=== PATIENT | female | born 1935 | race African-American/Black ===

== ENCOUNTER → 2016-09-02 | Outpatient (CLI) | payer OTHER ==
[2015-05-30 12:08] VITALS: BP 139/62
--- NOTE | 2016-09-03 09:40 | MG ---
HISTORY: SCREENING Comparison: July 27, 2013 and February 12, 2015 FINDINGS: Bilateral CC and MLO projections of the right and left breast were obtained. Scattered fibroglandul ar tissue is seen to be present without significant interval change. No suspicious architectural di stortion, mass or clustered microcalcifications can be observed to suggest malignancy. No skin thic kening or nipple retraction is appreciated. No pathological lymphadenopathy can be identified. Sergey ign-appearing calcifications are noted within the right and left breast. IMPRESSION: NO RADIOGRAPHIC EVIDENCE OF MALIGNANCY. ACR CATEGORY 2 - benign findings. FOLLOW-UP EXAM 1 YEAR. Diagnostic CAD was utilized and reviewed. * 0 (ZERO) - ASSESSMENT INCOMPLETE; ADDITIONAL IMAGING IS NEEDED. * 1/1 (ONE) - NEGATIVE. * 2/II (TWO) - BENIGN FINDINGS. * 3/III (THREE) - PROBABLY BENIGN FINDING; SHORT INTERVAL FOLLOW-UP SUGGESTED. * 4/IV (FOUR) - SUSPICIOUS ABNORMALITY; BIOPSY SHOULD BE CONSIDERED. * 5/V (FIVE) - HIGHLY SUSPICIOUS OF MALIGNANCY; BIOPSY SHOULD BE PERFORMED. A NEGATIVE X-RAY REPORT SHOULD NOT DELAY BIOPSY IF A DOMINANT OR CLINICALLY SUSPICIOUS MASS IS PRESENT; 4 TO 8 PERCENT OF CANCERS ARE NOT IDENTIFIED BY X-RAY. A NEG ATIVE REPORT MAY REINFORCE THE CLINICAL IMPRESSION. ADENOSIS AND DENSE BREASTS MAY OBSCURE AN UNDER LYING NEOPLASM. Reported By:
== END ==
LOC: RAD 09:21
PROVIDERS: ATTEND Internal Medicine
DX: Z12.31 Encounter for screening mammogram for malignant neoplasm of breast (principal)
CPT/HCPCS: 77067

== ENCOUNTER 2017-04-16 08:57 | Day surgery (SDC) | payer OTHER ==
[2017-04-16] MEDS ORDERED: D5 LR 1000 ML 1,000 ML IV ONE (09:08)
[2017-04-16] MEDS ORDERED: DIPRIVAN VIAL 20 ML ONE (10:53)
[2017-04-16 11:18] VITALS: BP 149/67
== END 2017-04-16 11:15 | disposition home or self-care (01) ==
LOC: SURG1 08:57
PROVIDERS: ATTEND Internal Medicine Gastroenterology
PROC: 0DJ08ZZ Inspection of Upper Intestinal Tract, Via Natural or Artificial Opening Endoscopic (ICD-10-PCS; principal; 2017-04-16 12:00)
PROC: 0D757ZZ Dilation of Esophagus, Via Natural or Artificial Opening (ICD-10-PCS; principal; 2017-04-16 12:00)
PROC: 0DB68ZX Excision of Stomach, Via Natural or Artificial Opening Endoscopic, Diagnostic (ICD-10-PCS; principal; 2017-04-16 12:00)
DX: R13.19 Other dysphagia (principal); R10.13 Epigastric pain; K21.9 Gastro-esophageal reflux disease without esophagitis; B37.81 Candidal esophagitis; K22.2 Esophageal obstruction; K44.9 Diaphragmatic hernia without obstruction or gangrene; K29.60 Other gastritis without bleeding
CPT/HCPCS: 99100; A4217; J3490; J7120

== ENCOUNTER → 2017-06-30 | Outpatient (CLI) | payer OTHER ==
--- NOTE | 2017-06-30 13:21 | RAD ---
Examination: Right shoulder, three views History: Pain Comparison reference July 20, 2014 Findings: No definite fracture or dislocation. Marked degenerative narrowing of acromioclavicular and glenohumeral joints with subchondral cystic degeneration in the humeral head. There is a 2 mm calcif ication adjacent to the greater tuberosity. Elevation of the humeral head is noted with narrowing of the subacromial space. 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 Narrowed subacromial spa ce may reflect associated rotator cuff disease. Small periarticular calcification is suggestive of ca lcific peritendinitis. Reported By:
--- NOTE | 2017-06-30 14:32 | RAD ---
Examination: Cervical spine, three views History: Neck pain Findings: Degenerative disc narrowing is present at C4-5 and C6-7. Malalignment is present at these l evels. No fracture or bone destruction or prevertebral soft tissue abnormality is noted. The atlantoa xial complex is intact. There is extensive vascular calcification in the left neck at the level of C4 . Impression: 1. Advanced degenerative disc disease at levels described. Associated malalignment is of degenerative origin and consistent with associated facet arthrosis. 2. 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 Evaluation with ultrasound may be helpful if stenosis is suspected. Reported By:
== END ==
LOC: RAD 11:46
PROVIDERS: ATTEND Internal Medicine
DX: M25.511 Pain in right shoulder (principal); M54.2 Cervicalgia; M50.321 Other cervical disc degeneration at C4-C5 level; M19.011 Primary osteoarthritis, right shoulder
CPT/HCPCS: 72040; 73030

== ENCOUNTER → 2017-10-15 | Outpatient (CLI) | payer OTHER ==
--- NOTE | 2017-10-16 09:23 | MG ---
HISTORY: SCREENING Comparison: February 12, 2015 and September 02, 2016 FINDINGS: Bilateral CC and MLO projections of the right and left breast were obtained. Scattered fibroglandula r tissue is seen to be present without significant interval change. No suspicious architectural dist ortion, mass or clustered microcalcifications can be observed to suggest malignancy. No skin thicken ing or nipple retraction is appreciated. No pathological lymphadenopathy can be identified. Benign- appearing calcifications are noted within the right and left breast. A left-sided cardiac pacing natalee ce is noted. IMPRESSION: NO RADIOGRAPHIC EVIDENCE OF MALIGNANCY. ACR CATEGORY 2 - benign findings. FOLLOW-UP EXAM 1 YEAR. Diagnostic CAD was utilized and reviewed. * 0 (ZERO) - ASSESSMENT INCOMPLETE; ADDITIONAL IMAGING IS NEEDED. * 1/ (ONE) - NEGATIVE. * 2/II (TWO) - BENIGN FINDINGS. * 3/III (THREE) - PROBABLY BENIGN FINDING; SHORT INTERVAL FOLLOW-UP SUGGESTED. * 4/IV (FOUR) - SUSPICIOUS ABNORMALITY; BIOPSY SHOULD BE CONSIDERED. * 5/V - HIGHLY SUSPICIOUS OF MALIGNANCY; BIOPSY SHOULD BE PERFORMED. A NEGATIVE X-RAY REPORT SHOULD NOT DELAY BIOPSY IF A [place] OR CLINICALLY SUSPICIOUS MASS IS PRESENT; 4 TO 8 PERCENT OF CANCERS ARE NOT IDENTIFIED BY X-RAY. A NEGA TIVE REPORT MAY REINFORCE THE CLINICAL IMPRESSION. ADENOSIS AND DENSE BREASTS MAY OBSCURE AN UNDERLY ING NEOPLASM. Reported By:
== END ==
LOC: RAD 09:59
PROVIDERS: ATTEND Internal Medicine
DX: Z12.31 Encounter for screening mammogram for malignant neoplasm of breast (principal)
CPT/HCPCS: 77067

== ENCOUNTER 2022-06-25 12:25 | Inpatient (IN) ==
--- NOTE | 2022-06-25 13:10 | EKG ---
Test Reason : Pre Op Blood Pressure : */* mmHG Vent. Rate : 76 BPM Atrial Rate : 76 BPM P-R Int : 216 ms QRS Dur : 150 ms QT Int : 450 ms P-R-T Axes : * -54 108 degrees QTc Int : 506 ms AV dual-paced rhythm with prolonged AV conduction Abnormal ECG No previous ECGs available Confirmed by Russ Sharma ([id number]) on 06/26/2022 8:36:43 AM Referred By: Confirmed By: Russ Sharma
[2022-06-25 13:20] LABS: BASOPHILS # (AUTO) 0.1 X10^3/uL (0.0-0.1); BASOPHILS % (AUTO) 0.6 % (0.2-1.0); EOSINOPHILS % (AUTO) 0.1 % (0.9-2.9); HEMATOCRIT 33.8 % (36.0-47.0); HEMOGLOBIN 11.2 g/dL (12.0-16.0); LYMPHOCYTES % (AUTO) 4.2 % (21.0-51.0); MEAN CORPUSCULAR HEMOGLOBIN 27.2 pg (27.0-34.0); MEAN CORPUSCULAR HGB CONC 33.2 g/dL (33.0-35.0); MEAN CORPUSCULAR VOLUME 81.9 fL (80.0-100.0); MEAN PLATELET VOLUME 8.8 fL (7.4-11.0); MONOCYTES # (AUTO) 1.9 x10^3/uL (0.3-0.8); MONOCYTES % (AUTO) 8.2 % (0.0-13.0); NEUTROPHILS # (AUTO) 19.8 x10^3/uL (2.2-4.8); NEUTROPHILS % (AUTO) 86.9 % (42.0-75.0); RED BLOOD COUNT 4.12 X10^6/uL (3.5-5.4); WHITE BLOOD COUNT 22.7 X10^3/uL (3.6-10.0)
[2022-06-25] MEDS ORDERED: ZOSYN VIAL 3.375 GRAMS 3.375 G in NS 100 ML IV 100 ML IV ONE (13:22)
--- NOTE | 2022-06-25 13:25 | ED.ABDFE ---
HPI Time Seen Time Seen by Provider: 06/25/22 13:24 PCP Primary Care Physician: jessi HPI Comment HPI Comment: A 86 y/o female presents with c/o that the knot on my belly busted this morning and it is draining. SHe has no fever, nausea or vomiting. Records show that she was here on 06/20/22 with c/o abd. pain. She had a CT Scan done then that was read as showing a sinus tract with surrounding subcutaneous edema. Complaint Chief Complaint:: pt c/o of a knot busting on her abd. pt has a spot on her belly that has discharge coming out of it. pt denies any pain at this time. Self Treatment fo Chief Complaint: brown discharge noted COVID-19 Coronavirus risk:travel/contact w/high risk person: No Has patient experienced Coronavirus symptoms: No Reviewed Nurses Notes Review: Yes Source History Provided: Patient Mode of arrival Mode of Arrival: Wheelchair Timing Onset of Chief Complaint: 06/25/22 Came on: Suddenly Duration Duration: Hours Context History of: Abdominal surgery Modifying factors Worsening Factors: Nothing Improving Factors: Nothing Associated signs and symptoms Associated Signs and Symptoms: None PMH PMH Past Medical History: Yes Past Medical History: Arthritis, Diabetes and Hypertension Past Surgical History: Yes Surgical History: Angioplasty/Stents and Other Family History History of Family Medical Conditions: No Family Medical History: denies Diabetes Mellitus, Cancer, [place], Coronary Artery Disease, Heart Failure, Sudden Cardiac or Hypertension Social History Does patient currently use any type of tobacco product: No Have you used tobacco products in the last 12 months: No Type of Tobacco Use: None Does any household member use tobacco: No Alcohol Use: None Do you use any recreational Drugs:: No Lives With: Family Lives Where: Home Travel Risk Coronavirus risk:travel/contact w/high risk person: No Has patient experienced Coronavirus symptoms: No Infectious screening In the last 2 months have you had wt loss of >10#?: NO Have you had fever, night sweats or hemotysis?: No Have you traveled outside the country in the last 6 months?: No Isolation: Standard ROS Review of Systems Constitutional: No Symptoms Reported Eyes: No Symptoms Reported ENTM: No Symptoms Reported Respiratoy: No Symptoms Reported Cardiovascular: No Symptoms Reported Gastrointestinal/Abdominal: Other (leakage frm abdomen. ) Genitourinary: No Symptoms Reported Neurological: No Symptoms Reported Musculoskeletal: No Symptoms Reported Integumentary: No Symptoms Reported Hematologic/Lymphatic: No Symptoms Reported Endocrine: No Symptoms Reported Psychiatric: No Symptoms Reported All Other Systems: Reviewed and Negative PE Vital Signs Vitals: Temperature 98 F Pulse Rate 69 Respiratory Rate 20 Blood Pressure [Right Arm] 185/80 Blood Pressure [Left Arm] 139/62 Blood Pressure 121/55 O2 Sat by Pulse Oximetry 98 General Limitations: No Limitations and Language Barrier General Appearance: Alert and In No Apparent Distress Head Head Exam: Normal Inspection, Atraumatic and Normocephalic Eyes Eye exam: Normal Appearance and EOMI ENT ENT Exam: Normal Exam, Normal Oropharynx, Normal External Ear Exam and Mucous Membranes Moist Neck Neck Exam: Normal Inspection, Full ROM and Trachea Midline Chest Chest Inspection: Normal Inspection and Symmetric Chest Wall Rise Respiratory Respiratory Exam: Normal Lung Sounds Bilat Cardiovascular Cardiovascular Exam: Regular Rate, Normal Rhythm, Normal Heart Sounds, +S1 and +S2 Abdominal Exam Abdominal Exam: Normal Inspection, Normal Bowel Sounds, Soft and Other (Leaking foul smelling bilious material from abdominal wall just above umbilicus. ) Rectal Rectal Exam: Deferred Back Back Exam: Normal Inspection and Full ROM Extremeties Extremities Exam: Normal Inspection and Full ROM External Exam: Female: Deferred Neurologic Neurological Exam: Alert and Oriented X3 Psychiatric Psychiatric Exam: Normal Affect and Normal Mood Skin Skin Exam: Dry, Intact and Normal Color COURSE Treatment Treatment: She was noted with degree of Leukocytosis. I had requested a surgical evaluation while awaiting the CT Scan report. She was given a dose of IV Zosyn ( Blood c/s obtained). Dr. Berrios recommendsadmission. I informed the pt. and her PCP (Dr. Harrison) of admission. Reevaluation 1st: Unchanged Education/Counseling Education/Counseling: Patient, Education and Counseling Educated On: Treatment, Diagnosis, Prognosis and Needs for Follow Up ROR Labs Reviewed Laboratory Results Reviewed?: Yes Result Diagrams: 06/25/22 13:06 06/25/22 13:45 Laboratory: 06/25/22 13:00 Abdomen Wound Gram Stain - Final WBC 22.7 X10^3/uL (3.6-10.0) H 06/25/22 13:06 RBC 4.12 X10^6/uL (3.5-5.4) 06/25/22 13:06 Hgb 11.2 g/dL (12.0-16.0) L 06/25/22 13:06 Hct 33.8 % (36.0-47.0) L 06/25/22 13:06 MCV 81.9 fL (80.0-100.0) 06/25/22 13:06 MCH 27.2 pg (27.0-34.0) 06/25/22 13:06 MCHC 33.2 g/dL (33.0-35.0) 06/25/22 13:06 RDW 14.0 % (11.6-16.5) 06/25/22 13:06 Plt Count 412 X10^3/uL (150.0-450.0) 06/25/22 13:06 Plt Count Comment Adequate (ADEQUATE) 06/25/22 13:06 MPV 8.8 fL (7.4-11.0) 06/25/22 13:06 Neut % (Auto) 86.9 % (42.0-75.0) H 06/25/22 13:06 Lymph % (Auto) 4.2 % (21.0-51.0) L 06/25/22 13:06 [place] % (Auto) 8.2 % (0.0-13.0) 06/25/22 13:06 Eos % (Auto) 0.1 % (0.9-2.9) L 06/25/22 13:06 Baso % (Auto) 0.6 % (0.2-1.0) 06/25/22 13:06 Neut # (Auto) 19.8 x10^3/uL (2.2-4.8) H 06/25/22 13:06 Lymph # (Auto) 1.0 X10^3/uL (1.3-2.9) L 06/25/22 13:06 [place] # (Auto) 1.9 x10^3/uL (0.3-0.8) H 06/25/22 13:06 Eos # (Auto) 0.0 x10^3/uL (0.0-0.2) 06/25/22 13:06 Baso # (Auto) 0.1 X10^3/uL (0.0-0.1) 06/25/22 13:06 Absolute Nucleated RBC 0.1 /100WBC 06/25/22 13:06 Total Counted 100 06/25/22 13:06 Neutrophils % (Manual) 85 % (39-76) H 06/25/22 13:06 Band Neutrophils % 2 % (0-10) 06/25/22 13:06 Lymphocytes % (Manual) 4 % (13-43) L 06/25/22 13:06 Monocytes % (Manual) 7 % (4-9) 06/25/22 13:06 Metamyelocytes % 2 06/25/22 13:06 Plt Morphology Comment Normal (NORMAL) 06/25/22 13:06 RBC Morphology Normal (NORMAL) 06/25/22 13:06 Sodium 135 mmol/L (136-145) L 06/25/22 13:45 Corrected Sodium 135 mmol/L (136-145) L 06/25/22 13:45 Potassium 2.8 mmol/L (3.5-5.1) L* 06/25/22 13:45 Chloride 97 mmol/L (98-107) L 06/25/22 13:45 Carbon Dioxide 25.4 mmol/L (21-32) 06/25/22 13:45 BUN 40 mg/dL (7-18) H 06/25/22 13:45 Creatinine 2.51 mg/dL (0.55-1.02) H 06/25/22 13:45 Est GFR (MDRD) Af Amer 23 (>60) L 06/25/22 13:45 Est GFR (MDRD) Non-Af 19 (>60) L 06/25/22 13:45 Glucose 120 mg/dL (65-99) H 06/25/22 13:45 Calcium 8.3 mg/dL (8.5-10.1) L 06/25/22 13:45 Corrected Calcium 9.8 mg/dL (8.5-10.1) 06/25/22 13:45 Total Bilirubin 0.30 mg/dL (0.2-1.0) 06/25/22 13:45 AST 18 Units/L (15-37) 06/25/22 13:45 ALT 10 Units/L (12-78) L 06/25/22 13:45 Alkaline Phosphatase 94 Units/L (46-116) 06/25/22 13:45 Total Protein 5.9 g/dL (6.4-8.2) L 06/25/22 13:45 Albumin 2.1 g/dL (3.4-5.0) L 06/25/22 13:45 Globulin 3.8 g/dL (2.5-4.5) 06/25/22 13:45 Albumin/Globulin Ratio 0.6 Ratio (1.1-2.1) L 06/25/22 13:45 EKG Rate: 76 [place]: Normal Rhythm: Paced Opioid Opioid Risk Tool Age ([place] box if 16-45): No History of Preadolescent Sexual Abuse: No Total: 0 Total Score Risk Category: Low Risk Copyright: [facility] predicting aberrant behaviors Discharge Plan Diagnosis Discharge Problem: [place]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, Hypokalemia, CKD (chronic kidney disease), stage IV Diabetes mellitus Qualifiers: Diabetes mellitus type: type 2 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 Diabetes mellitus complication status: with kidney complications Diabetes mellitus complication detail: with chronic kidney disease Chronic kidney disease stage: stage 4 (severe) Qualified Code(s): E11.22 - Type 2 diabetes mellitus with diabetic chronic kidney disease Discharge Plan Patient Disposition: 09 ADMITTED INPATIENT Condition: Stable Orders to Discharge Patient Discharge Orders: Transfer (Routine); Ordered 06/25/22 Ordered By: LESA SANDERS ADDITIONAL NOTES Additional Notes Additional Notes: Name: J CARLOS MARTINS PAcct#: [id number]: [id number]: [id number]: FLocation: EROrder Number(s): [id number](s):ABDOMEN/PELVIS WITH CON Ordering Physician: LESA SANDERS Primary Care: Nate Harrison Service Date: 06/25/22 Service Time: 1259 HISTORY ABDOMINAL ABCESS STUDY ABDOMEN/PELVIS WITH CON COMPARISON 06/20/2022. TECHNIQUE Multipl e axial images of the abdomen and pelvis were obtained from the lung bases to the pubic symphysis after the administration of IV contrast. Dose reduction techniques including Automated Exposure Control (AEC) and adjustment of mA and kV were utilized. FINDINGS There is dependent basilar opacity suggestive of atelectasis. There is no pleural effusion. There is a small hiatal hernia. The liver is normal. There are multiple stones in the gallbladder but no cholecystitis. The pancreas is somewhat atrophic but otherwise unremarkable. The spleen and adrenal glands are normal. Both kidneys are normal in size and enhancement. There are simple cysts in the right kidney. There is no stone or hydronephrosis on either side. The stomach is normal. There is no abnormal dilation of the small bowel loops. There is diverticulosis in the distal colon but no diverticulitis. The cecum is the segment of the colon involved with the anterior abdominal wall abscess. There appears to be adhesion of the cecum to the anterior abdominal wall and then a fistula extending from the cecum up to the subcutaneous layer. It is uncertain whether this fistula is still open or whether it is closed. There continues to be a small amount of fluid in the tract and this does extend slightly caudally approximately 1.5 cm. At its largest point the fluid collection measures roughly 0.7 x 1.0 x 2.2 cm. There is considerable induration in the surrounding subcutaneous fat. IMPRESSION 1. Adhesions of the cecum to the anterior abdominal wall with fistulous tract extending from the cecum up toward the skin surface with a small fluid tract and gas in the soft tissues. 2. It is uncertain whether there is a connection between the cecum and the fistulous tract. Electronically signed by: Raji Bess (Jun 25, 2022 14:16:22) Report Electronically signed: 06/25/22 1417 CC: Lesa Sanders
[2022-06-25] MEDS ORDERED: ZOSYN VIAL 3.375 GRAMS IV ONE (13:36)
[2022-06-25 13:54] LABS: BAND NEUTROPHILS % 2 % (0-10); METAMYELOCYTES % 2; PLATELET MORPHOLOGY COMMENT NORMAL (NORMAL)
[2022-06-25 14:05] LABS: ALBUMIN 2.1 g/dL (3.4-5.0); CALCIUM 8.3 mg/dL (8.5-10.1); CARBON DIOXIDE 25.4 mmol/L (21-32); COR CA(FOR HYPOALB) 9.8 mg/dL (8.5-10.1); CREATININE 2.51 mg/dL (0.55-1.02); TOTAL PROTEIN 5.9 g/dL (6.4-8.2)
--- NOTE | 2022-06-25 14:17 | CT ---
HISTORYABDOMINAL ABCESSSTUDYABDOMEN/PELVIS WITH [id number]/06/2023.TECHNIQUEMultipl e axial images of the abdomen and pelvis were obtained from the lung bases to the pubic symphysis after the administration of IV contrast. Dose reduction techniques including Automated Exposure Control (AEC) and adjustment of mA and kV were utilized.FINDINGSThere is dependent basilar opacity suggestive of atelectasis. There is no pleural effusion. There is a small hiatal hernia. The liver is normal. There are multiple stones in the gallbladder but no cholecystitis. The pancreas is somewhat atrophic but otherwise unremarkable. The spleen and adrenal glands are normal. Both kidneys are normal in size and enhancement. There are simple cysts in the right kidney. There is no stone or hydronephrosis on either side. The stomach is normal. There is no abnormal dilation of the small bowel loops. There is diverticulosis in the distal colon but no diverticulitis. The cecum is the segment of the colon involved with the anterior abdominal wall abscess. There appears to be adhesion of the cecum to the anterior abdominal wall and then a fistula extending from the cecum up to the subcutaneous layer. It is uncertain whether this fistula is still open or whether it is closed. There continues to be a small amount of fluid in the tract and this does extend slightly caudally approximately 1.5 cm. At its largest point the fluid collection measures roughly 0.7 x 1.0 x 2.2 cm. There is considerable induration in the surrounding subcutaneous fat.IMPRESSION1. Adhesions of the cecum to the anterior abdominal wall with fistulous tract extending from the cecum up toward the skin surface with a small fluid tract and gas in the soft tissues. 2. It is uncertain whether there is a connection between the cecum and the fistulous tract.Electronically signed by: Raji Bess (Jun 25, 2022 14:16:22)
[2022-06-25] MEDS: ZOSYN VIAL 3.375 GRAMS 3.375 G in NS 100 ML IV 100 ML IV SCH ×2 (15:31→21:08)
[2022-06-25] MEDS ORDERED: POTASSIUM CHLORIDE INJ 40 MEQ VIAL 40 MEQ in NS 1/2 500 ML IV 500 ML IV ONE (16:00)
[2022-06-25 16:20] VITALS: BMI 31.9
[2022-06-25] MEDS ORDERED: PROVENTIL NEB TX 0.083% 2.5MG/ 3ML ONE (19:59)
[2022-06-25] MEDS: LOVENOX INJ 30 MG SYR SC SCH (21:09)
[2022-06-25] MEDS: PROVENTIL NEB TX 0.083% 2.5MG/ 3ML NEB SCH (21:31)
[2022-06-26 05:29] LABS: BASOPHILS # (AUTO) 0.1 X10^3/uL (0.0-0.1); BASOPHILS % (AUTO) 0.5 % (0.2-1.0); EOSINOPHILS % (AUTO) 0.2 % (0.9-2.9); HEMATOCRIT 30.7 % (36.0-47.0); HEMOGLOBIN 10.3 g/dL (12.0-16.0); LYMPHOCYTES # (AUTO) 1.6 X10^3/uL (1.3-2.9); LYMPHOCYTES % (AUTO) 8.3 % (21.0-51.0); MEAN CORPUSCULAR HEMOGLOBIN 27.4 pg (27.0-34.0); MEAN CORPUSCULAR HGB CONC 33.7 g/dL (33.0-35.0); MEAN CORPUSCULAR VOLUME 81.4 fL (80.0-100.0); MEAN PLATELET VOLUME 9.2 fL (7.4-11.0); MONOCYTES % (AUTO) 10.3 % (0.0-13.0); NEUTROPHILS # (AUTO) 15.4 x10^3/uL (2.2-4.8); NEUTROPHILS % (AUTO) 80.7 % (42.0-75.0); RED BLOOD COUNT 3.78 X10^6/uL (3.5-5.4); RED CELL DISTRIBUTION WIDTH 13.8 % (11.6-16.5); WHITE BLOOD COUNT 19.1 X10^3/uL (3.6-10.0)
[2022-06-26 05:34] LABS: ALANINE AMINOTRANSFERASE 10 Units/L (12-78); ALBUMIN 2.2 g/dL (3.4-5.0); ALKALINE PHOSPHATASE 94 Units/L (46-116); ASPARTATE AMINO TRANSFERASE 17 Units/L (15-37); BLOOD UREA NITROGEN 36 mg/dL (7-18); CALCIUM 8.3 mg/dL (8.5-10.1); CARBON DIOXIDE 25.7 mmol/L (21-32); CHLORIDE 100 mmol/L (98-107); COR CA(FOR HYPOALB) 9.7 mg/dL (8.5-10.1); CREATININE 1.89 mg/dL (0.55-1.02); MAGNESIUM 1.9 mg/dL (2.0-2.9); SODIUM 139 mmol/L (136-145); TOTAL PROTEIN 6.2 g/dL (6.4-8.2); eGFR NON BLACK RACES 27 (>60)
[2022-06-26] MEDS: ZOSYN VIAL 3.375 GRAMS 3.375 G in NS 100 ML IV 100 ML IV SCH ×3 (05:48→21:35)
[2022-06-26] MEDS ORDERED: POTASSIUM CHLORIDE LIQ 20 MEQ UDC PO PRN (06:12)
[2022-06-26] MEDS ORDERED: KLOR-CON PO PRN (06:12)
[2022-06-26] MEDS ORDERED: K-RIDER 10 MEQ/NS 100 ML 10 MEQ/100 ML BAG IV PRN (06:12)
[2022-06-26] MEDS ORDERED: MAGNESIUM SULFATE 1 GRAM/100 mL PREMIX 1 G/100 ML BAG IV PRN (06:12)
[2022-06-26] MEDS ORDERED: POTASSIUM CHL 40 MEQ/NS 0.45% 500 ML IV PRN (06:12)
[2022-06-26] MEDS ORDERED: MICRO K EXTEN CAP 10 MEQ PO PRN (06:12)
[2022-06-26] MEDS ORDERED: POTASSIUM CHL 60 MEQ/NS 0.45% 500 ML IV PRN (06:12)
--- NOTE | 2022-06-26 08:16 | DR.PROGNOT ---
Hospital Progress Notes - Progress Note for Day of: Progress Note Date: 06/26/22 - Chief Complaint Chief Complaint: less abdominal pain . stool in costomy bag . BS is fairly controlled and Pt is afebrile . - Past Medical Family Social History Past Med/Fam/Surg Hx: No changes since H&P Allergies: Allergies tramadol Allergy (Verified 06/25/22 12:48) prochlorperazine [From Compazine] Adverse Reaction (Verified 06/20/22 17:55) - Review Of Systems ROS: No change since H&P - Vital Signs Vital Signs: Temperature 97.5 F Pulse Rate [Left Radial] 70 Pulse Rate 68 Respiratory Rate 20 Blood Pressure [Right Arm] 130/61 Blood Pressure [Left Arm] 139/62 Blood Pressure 123/74 O2 Sat by Pulse Oximetry 98 - Physical Exam Oriented: Normal Eyes: Normal Ear: Normal Nose: Normal Respiratory: Normal Cardiovascular: Normal GI:Auscultation: Normal GI: Tenderness: Other (soft abdomen with induration around umbilicus and fistula site and erythema ( confined infection )) Speech Pattern: Clear, Appropriate - Laboratory and Diagnostics Result Diagrams: 06/26/22 04:35 06/26/22 04:35 Labs: 06/25/22 13:00 Abdomen Wound Gram Stain - Final Laboratory WBC 19.1 X10^3/uL (3.6-10.0) H 06/26/22 04:35 RBC 3.78 X10^6/uL (3.5-5.4) 06/26/22 04:35 Hgb 10.3 g/dL (12.0-16.0) L 06/26/22 04:35 Hct 30.7 % (36.0-47.0) L 06/26/22 04:35 MCV 81.4 fL (80.0-100.0) 06/26/22 04:35 MCH 27.4 pg (27.0-34.0) 06/26/22 04:35 MCHC 33.7 g/dL (33.0-35.0) 06/26/22 04:35 RDW 13.8 % (11.6-16.5) 06/26/22 04:35 Plt Count 371 X10^3/uL (150.0-450.0) 06/26/22 04:35 Plt Count Comment Adequate (ADEQUATE) 06/25/22 13:06 MPV 9.2 fL (7.4-11.0) 06/26/22 04:35 Neut % (Auto) 80.7 % (42.0-75.0) H 06/26/22 04:35 Lymph % (Auto) 8.3 % (21.0-51.0) L 06/26/22 04:35 [place] % (Auto) 10.3 % (0.0-13.0) 06/26/22 04:35 Eos % (Auto) 0.2 % (0.9-2.9) L 06/26/22 04:35 Baso % (Auto) 0.5 % (0.2-1.0) 06/26/22 04:35 Neut # (Auto) 15.4 x10^3/uL (2.2-4.8) H 06/26/22 04:35 Lymph # (Auto) 1.6 X10^3/uL (1.3-2.9) 06/26/22 04:35 [place] # (Auto) 2.0 x10^3/uL (0.3-0.8) H 06/26/22 04:35 Eos # (Auto) 0.0 x10^3/uL (0.0-0.2) 06/26/22 04:35 Baso # (Auto) 0.1 X10^3/uL (0.0-0.1) 06/26/22 04:35 Absolute Nucleated RBC 0.1 /100WBC 06/26/22 04:35 Total Counted 100 06/25/22 13:06 Neutrophils % (Manual) 85 % (39-76) H 06/25/22 13:06 Band Neutrophils % 2 % (0-10) 06/25/22 13:06 Lymphocytes % (Manual) 4 % (13-43) L 06/25/22 13:06 Monocytes % (Manual) 7 % (4-9) 06/25/22 13:06 Metamyelocytes % 2 06/25/22 13:06 Plt Morphology Comment Normal (NORMAL) 06/25/22 13:06 RBC Morphology Normal (NORMAL) 06/25/22 13:06 Sodium 139 mmol/L (136-145) 06/26/22 04:35 Corrected Sodium TNP 06/26/22 04:35 Potassium 3.4 mmol/L (3.5-5.1) L 06/26/22 04:35 Chloride 100 mmol/L (98-107) 06/26/22 04:35 Carbon Dioxide 25.7 mmol/L (21-32) 06/26/22 04:35 BUN 36 mg/dL (7-18) H 06/26/22 04:35 Creatinine 1.89 mg/dL (0.55-1.02) H 06/26/22 04:35 Est GFR (MDRD) Af Amer 32 (>60) L 06/26/22 04:35 Est GFR (MDRD) Non-Af 27 (>60) L 06/26/22 04:35 Glucose 85 mg/dL (65-99) 06/26/22 04:35 POC Glucose (mg/dL) 87 mg/dL (65-99) 06/26/22 05:43 Calcium 8.3 mg/dL (8.5-10.1) L 06/26/22 04:35 Corrected Calcium 9.7 mg/dL (8.5-10.1) 06/26/22 04:35 Magnesium 1.9 mg/dL (2.0-2.9) L 06/26/22 04:35 Total Bilirubin 0.40 mg/dL (0.2-1.0) 06/26/22 04:35 AST 17 Units/L (15-37) 06/26/22 04:35 ALT 10 Units/L (12-78) L 06/26/22 04:35 Alkaline Phosphatase 94 Units/L (46-116) 06/26/22 04:35 Total Protein 6.2 g/dL (6.4-8.2) L 06/26/22 04:35 Albumin 2.2 g/dL (3.4-5.0) L 06/26/22 04:35 Globulin 4.0 g/dL (2.5-4.5) 06/26/22 04:35 Albumin/Globulin Ratio 0.6 Ratio (1.1-2.1) L 06/26/22 04:35 - Assessment and Plan 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 confined cellulitis of abdominal wall around the umbilicus . DM type 2 . NPO , INF and ABT . observe closely ,might need ileostomy . 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
[2022-06-26] MEDS: K-DUR TAB 20 MEQ PO PRN (08:34)
[2022-06-26] MEDS: PROVENTIL NEB TX 0.083% 2.5MG/ 3ML NEB SCH ×2 (09:00→21:00)
[2022-06-26] MEDS: PEPCID 20 MG VIAL 20 MG in NS 50 ML IV 50 ML IV SCH ×2 (09:30→21:25)
--- NOTE | 2022-06-26 12:13 | DR.UPDATE ---
H&P Update Prescription drug monitoring program results: PDMP reviewed and no concerns identified H&P Reviewed: Yes Any changes to H&P?: No Patient was examined?: Yes Procedures (ALL) - Central Line Placement PCM.CLCO: written consent Time out performed: Yes Patient placed pm monitor/pulse ox: Yes prep: mask, gown, gloves, other Centrial line prep: chlorhexidine scrub, sterile drapes applied Local anesthsia used: lidocane 1% Ultrasound used for placement: Yes (good US visualization.) Central line lumen ininserted: double (PICC line to right arm; catheter at 40cm at skin, boi-patch. MSBT. Arm circumference at 11.5".) Post procedure: good blood return, all ports aspirated, flushed,capped, sterile dressing applied Post procedure xray: tip oc catheter in good position, no pneumothorax seen Patient tolerated procedure: Yes Complications: none
--- NOTE | 2022-06-26 12:13 | DR.H&P ---
H&P - History & Physical for Day of: H&P Date: 06/25/22 - Chief Complaint Chief Complaint: ABDOMINAL WOUND WITH DRAINAGE - History of Present Illness History of Present Illness: IS A 86 YEAR OLD PATIENT OF OURS. SHE HAS A PMH OF HTN, DM II, HYPERLIPDEMIA, ARTHRITIS, HERNIA REPAIR X 2, ANGIOPLASTY/STENTS, APPENDECTOMY, AND TUBAL. SHE PRESENTED TO THE ER WITH COMPLAINTS OF A DRAINING WOUND AROUND THE UMBILICUS. SHE ADMITS TO HAVING PAIN AND INDURATION OF THE SKIN AROUND THE UMBILICUS FOR THE PAST FEW WEEKS. SHE IS KNOWN TO HAVE A RECURRENT UMBILICAL HERNIA, BUT REPORTS THAT THE AREA HAS BEEN MORE RED AND TENDER LATELY. SHE REPORTS THAT ACTIVE DRAINAGE FROM THE AREA STARTED A FEW HOURS PRIOR TO ARRIVAL. SHE DENIES FEVER, NAUSEA, OR VOMITING. DRAINAGE FROM WOUND IS BROWN AND APPEARS TO BE STOOL. SHE HAD AN ABDOMEN/PELVIS CT WITHOUT CONTRAST ON 06/20/22. AT THAT TIME, IT REVEALED: 1. Sinus track, with surrounding subcutaneous edema, in the central anterior abdominal wall which appears to extend from the adjacent cecum. No evidence of abscess formation or perforation.2. Colonic diverticulosis without diverticulitis.3. Tiny sliding type hiatal hernia.4. Cholelithiasis with no imaging findings of acute cholecystitis. UPON PRESENTATION TO THE ER TODAY, HER VITALS WERE: 98.0-73-20-100%-134/63. LABS WERE OBTAINED. WBC 22.7, RBC 4.12, HGB 11.2, HCT 33.8, PLT COUNT 412, SODIUM 135, POTASSIUM 2.8, CHLORIDE 97, BUN 40, CREATININE 2.51, GLUCOSE 120, CALCIUM 8.3, TOTAL BILI 0.30, AST 18, ALT 10, ALK PHOS 94, TOTAL PROTEIN 5.9, ALBUMIN 2.1. BLOOD AND ABDOMEN WOUND CULTURES WERE SET UP. AN ABDOMEN/PELVIS CT WITH CONTRAST WAS OBTAINED AND REVEALED: 1. Adhesions of the cecum to the anterior abdominal wall with fistulous tract extending from the cecum up toward the skin surface with a small fluid tract and gas in the soft ti ssues. 2. It is uncertain whether there is a connection between the cecum and the fistulous tract. 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 HE RECOMMENDED IV ANTIBIOTICS AND POSSIBLE DEBRIDEMENT OF ABDOMINAL WOUND, BUT NO OTHER SURGICAL INTERVENTION AT THE TIME. HE WILL CONTINUE TO MONITOR. PATIENT WAS ADMITTED TO THE HOSPITAL INPATIENT STATUS FOR FURTHER EVALUATION AND TREATMENT OF ENTEROCUTANEOUS FISTULA, CHRONIC KIDNEY DISEASE WITH DEHYDRATION, AND HYPOKALEMIA. WE WILL HAVE ANETHESIA INSERT A PICC LINE. WE WILL START TPN, PEPCID 20MG IV Q12H, ZOSYN 3.375G IV TID, LOVENOX 30MG SC HS, PROVENTIL NEBS BID, ZOCOR 20MG PO HS, AND THE POTASSIUM AND MAGNESIUM PROTOCOLS. SHE WILL BE NPO OTHER THAN MEDICATIONS. OTHERWISE, WE WILL FOLLOW-UP WITH AM LABS AND CONTINUE TO MONITOR. TIME SPENT ON CLINICAL ASSESSMENT, REVIWING LABS AND IMAGING, DECISION MAKING, AND DOCUMENTATION GREATER THAN 75 MINUTES. - Past Medical History Past Medical History: Arthritis, Diabetes, Dyslipidemia, Hypertension - Past Surgical History Surgical History: Angioplasty/Stents, Appendectomy, Other Additional Surgical History: Pacemaker, Hernia Repair, Tubal - Family History Family Medical History: Hypertension - Social History Does patient currently use any type of tobacco product: No Have you used tobacco products in the last 12 months: No Type of Tobacco Use: None Does any household member use tobacco: No Alcohol Use: None Drug Use: None - Medications Home Medications: tramadol Allergy (Verified 06/25/22 12:48) prochlorperazine [From Compazine] Adverse Reaction (Verified 06/20/22 17:55) CONTINUE taking the following medications acetaminophen 300 mg-codeine 60 mg tablet 1 tab PO QID 06/25/22 [History] clopidogrel 75 mg tablet 1 tab PO QDAY 06/25/22 [History] famotidine 20 mg tablet 1 tab PO BID 06/25/22 [History] lisinopril 20 mg-hydrochlorothiazide 25 mg tablet 1 tab PO QDAY 06/25/22 [History] metoprolol tartrate 100 mg tablet 1 tab PO BID 06/25/22 [History] sulfamethoxazole 800 mg-trimethoprim 160 mg tablet 1 tab PO BID 06/25/22 [History] - Review of Systems Constitutional: Weakness Eyes: No Symptoms Reported ENT: No Symptoms Reported Respiratory: No Symptoms Reported Cardiovascular: No Symptoms Reported Gastrointestinal: Abdominal Pain Genitourinary: No Symptoms Reported Musculoskeletal: No Symptoms Reported Skin: Wound (abdominal wound with drainage) Neurological: Weakness - Physical Exam Vital Signs: Temperature 97.8 F Pulse Rate [Left Radial] 77 Pulse Rate 70 Respiratory Rate 18 Blood Pressure [Right Arm] 122/58 Blood Pressure [Left Arm] 139/62 Blood Pressure 123/74 O2 Sat by Pulse Oximetry 97 Oriented: Normal Eyes: Normal Ear: Normal Nose: Normal Throat: Normal Respiratory: Clear Throughout Cardiovascular: Normal : Normal Auscultation: Bowel Sounds: Normal Palpation: Normal Tenderness: Periumbilical, Mild Skin: Tender, Wound (abdomen ) Musculoskeletal: Normal Psychiatric: Normal Mood Description: Calm Affect: Normal Speech Pattern: Clear - Assessment/Plan (1) Enterocutaneous fistula Status: Acute Plan: ADMIT, NPO, TPN, PEPCID 20MG IV Q12H, ZOSYN 3.375G IV TID, LOVENOX 30MG SC HS, OTBS ACHS, PROVENTIL NEBS BID, ZOCOR 20MG PO HS, AND THE POTASSIUM AND MAGNESIUM PROTOCOLS. 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 insulin use: without fdc use Diabetes mellitus complication status: with kidney complications Diabetes mellitus complication detail: with chronic kidney disease Chronic kidney disease stage: stage 4 (severe) Qualified Code(s): E11.22 - Type 2 diabetes mellitus with diabetic chronic kidney disease; N18.4 - Chronic kidney disease, stage 4 (severe) Status: Chronic (6) Hyperlipidemia Qualifiers: Hyperlipidemia type: mixed hyperlipidemia Qualified Code(s): E78.2 - Mixed hyperlipidemia Status: Chronic - Allergies Allergies/Adverse Reactions: Allergies Allergy/AdvReac Type Severity Reaction Status Date / Time tramadol Allergy Verified 06/25/22 12:48 prochlorperazine AdvReac Verified 06/20/22 17:55 [From Compazine]
--- NOTE | 2022-06-26 12:50 | RAD ---
HISTORYPICC LINE PLACEMENTSTUDYCHEST, 1 VIEWCOMPARISONNoneFINDINGSA right peripherally inserted central catheter is present with the tip in the expected location of the superior vena cava.The lungs are clear. No pneumothorax or significant effusion.Cardiomegaly is present.There are degenerative changes in both shoulders.Left subclavian ICD is present with leads in expected location. Median sternotomy wires are present.IMPRESSION1. Uncomplicated PICC insertionElectronically signed by: Vince Fisher (Jun 26, 2022 12:47:57)
[2022-06-26] MEDS ORDERED: FLUZONE II4 or AFLURIA II4 IM ONE (18:00)
[2022-06-26] MEDS: MORPHINE SULFATE INJ 2 MG INJ IVP PRN ×2 (18:09→21:49)
[2022-06-26] MEDS: LOVENOX INJ 30 MG SYR SC SCH (21:23)
[2022-06-26] MEDS: ZOCOR TAB 20 MG PO SCH (21:24)
[2022-06-27] MEDS: MORPHINE SULFATE INJ 2 MG INJ IVP PRN ×3 (02:46→20:40)
[2022-06-27 05:09] LABS: BASOPHILS % (AUTO) 0.2 % (0.2-1.0); EOSINOPHILS # (AUTO) 0.1 x10^3/uL (0.0-0.2); EOSINOPHILS % (AUTO) 0.6 % (0.9-2.9); HEMOGLOBIN 9.4 g/dL (12.0-16.0); LYMPHOCYTES # (AUTO) 1.6 X10^3/uL (1.3-2.9); LYMPHOCYTES % (AUTO) 14.7 % (21.0-51.0); MEAN CORPUSCULAR HEMOGLOBIN 27.5 pg (27.0-34.0); MEAN CORPUSCULAR HGB CONC 33.7 g/dL (33.0-35.0); MEAN CORPUSCULAR VOLUME 81.7 fL (80.0-100.0); MEAN PLATELET VOLUME 8.1 fL (7.4-11.0); MONOCYTES # (AUTO) 1.2 x10^3/uL (0.3-0.8); MONOCYTES % (AUTO) 11.2 % (0.0-13.0); NEUTROPHILS # (AUTO) 7.9 x10^3/uL (2.2-4.8); NEUTROPHILS % (AUTO) 73.3 % (42.0-75.0); RED BLOOD COUNT 3.42 X10^6/uL (3.5-5.4); WHITE BLOOD COUNT 10.8 X10^3/uL (3.6-10.0)
[2022-06-27 05:17] LABS: ALANINE AMINOTRANSFERASE 9 Units/L (12-78); ALKALINE PHOSPHATASE 84 Units/L (46-116); ASPARTATE AMINO TRANSFERASE 13 Units/L (15-37); BLOOD UREA NITROGEN 26 mg/dL (7-18); CALCIUM 8.4 mg/dL (8.5-10.1); CARBON DIOXIDE 27.5 mmol/L (21-32); CHLORIDE 103 mmol/L (98-107); CREATININE 1.31 mg/dL (0.55-1.02); MAGNESIUM 2.6 mg/dL (2.0-2.9); SODIUM 139 mmol/L (136-145); TOTAL PROTEIN 5.7 g/dL (6.4-8.2); eGFR NON BLACK RACES 41 (>60)
[2022-06-27] MEDS: ZOSYN VIAL 3.375 GRAMS 3.375 G in NS 100 ML IV 100 ML IV SCH ×3 (06:04→21:13)
[2022-06-27] MEDS: K-DUR TAB 20 MEQ PO PRN (06:05)
[2022-06-27] MEDS: PEPCID 20 MG VIAL 20 MG in NS 50 ML IV 50 ML IV SCH ×2 (08:11→20:33)
[2022-06-27] MEDS: PROVENTIL NEB TX 0.083% 2.5MG/ 3ML NEB SCH ×2 (09:10→21:30)
[2022-06-27] MEDS ORDERED: FORTAZ or TAZICEF VIAL INJ 1 G in NS 100 ML IV + SPIKE MINIBAG* 100 ML IV SCH (10:00)
[2022-06-27] MEDS: TORADOL 15 MG VIAL IVP SCH ×3 (10:31→22:48)
[2022-06-27] MEDS: FORTAZ or TAZICEF VIAL INJ 1 G in NS 100 ML IV 100 ML IV SCH ×2 (10:31→21:13)
--- NOTE | 2022-06-27 14:36 | RAD ---
HISTORYAbdominal painSTUDYKUBCOMPARISONCT abdomen pelvis 06/25/2022FINDINGSAbdominal gas pattern is nonspecific and nonobstructive. No abnormal masses or significant abnormal calcifications are identified. Regional skeleton is intact. Calcifications in both flanks likely represent old injection granulomas.IMPRESSIONUnremarkable KUBElectronically signed by: CARL VALENZUELA (Jun 27, 2022 14:34:49)
--- NOTE | 2022-06-27 16:01 | DR.PROGNOT ---
HOSPITAL PROGRESS NOTE Progress Note for Day of: Progress Note Date: 06/27/22 Chief Complaint Chief Complaint: stool in colostomy bag . having more abdominal pain today , crampy . no nausea , no vomiting WBS came down to normal .. BS is fairly controlled and Pt is afebrile . Past Medical Family Social History Allergies: Allergies tramadol Allergy (Verified 06/25/22 12:48) prochlorperazine [From Compazine] Adverse Reaction (Verified 06/20/22 17:55) Vital Signs Vital Signs: Temperature 98.0 F Pulse Rate [Left Radial] 72 Pulse Rate 70 Respiratory Rate 18 Blood Pressure [Right Arm] 125/60 Blood Pressure [Left Arm] 139/62 Blood Pressure 123/74 O2 Sat by Pulse Oximetry 98 Physical Exam Oriented: Normal Eyes: Normal Ear: Normal Nose: Normal Throat: Normal Respiratory: Normal Cardiovascular: Normal : Normal GI:Auscultation: Normal GI:Palpation: Normal GI: Tenderness: Periumbilical (mild distention , diffuse tenderness .. BS+) and Mild Skin: Tender and Wound (abdomen ) Musculoskeletal: Normal Psychiatric: Normal Mood Description: Calm Affect: Normal Speech Pattern: Clear and Appropriate Laboratory and Diagnostics Result Diagrams: 06/27/22 04:35 06/27/22 04:35 Labs: 06/25/22 14:18 Blood Blood Culture - Preliminary 06/25/22 14:03 Blood Blood Culture - Preliminary 06/25/22 13:00 Abdomen Wound Culture - Preliminary Escherichia Coli 06/25/22 13:00 Abdomen Wound Gram Stain - Final Laboratory WBC 10.8 X10^3/uL (3.6-10.0) H D 06/27/22 04:35 RBC 3.42 X10^6/uL (3.5-5.4) L 06/27/22 04:35 Hgb 9.4 g/dL (12.0-16.0) L 06/27/22 04:35 Hct 28.0 % (36.0-47.0) L 06/27/22 04:35 MCV 81.7 fL (80.0-100.0) 06/27/22 04:35 MCH 27.5 pg (27.0-34.0) 06/27/22 04:35 MCHC 33.7 g/dL (33.0-35.0) 06/27/22 04:35 RDW 14.0 % (11.6-16.5) 06/27/22 04:35 Plt Count 402 X10^3/uL (150.0-450.0) 06/27/22 04:35 Plt Count Comment Adequate (ADEQUATE) 06/25/22 13:06 MPV 8.1 fL (7.4-11.0) 06/27/22 04:35 Neut % (Auto) 73.3 % (42.0-75.0) 06/27/22 04:35 Lymph % (Auto) 14.7 % (21.0-51.0) L 06/27/22 04:35 [place] % (Auto) 11.2 % (0.0-13.0) 06/27/22 04:35 Eos % (Auto) 0.6 % (0.9-2.9) L 06/27/22 04:35 Baso % (Auto) 0.2 % (0.2-1.0) 06/27/22 04:35 Neut # (Auto) 7.9 x10^3/uL (2.2-4.8) H 06/27/22 04:35 Lymph # (Auto) 1.6 X10^3/uL (1.3-2.9) 06/27/22 04:35 [place] # (Auto) 1.2 x10^3/uL (0.3-0.8) H 06/27/22 04:35 Eos # (Auto) 0.1 x10^3/uL (0.0-0.2) 06/27/22 04:35 Baso # (Auto) 0.0 X10^3/uL (0.0-0.1) 06/27/22 04:35 Absolute Nucleated RBC 0.0 /100WBC 06/27/22 04:35 Total Counted 100 06/25/22 13:06 Neutrophils % (Manual) 85 % (39-76) H 06/25/22 13:06 Band Neutrophils % 2 % (0-10) 06/25/22 13:06 Lymphocytes % (Manual) 4 % (13-43) L 06/25/22 13:06 Monocytes % (Manual) 7 % (4-9) 06/25/22 13:06 Metamyelocytes % 2 06/25/22 13:06 Plt Morphology Comment Normal (NORMAL) 06/25/22 13:06 RBC Morphology Normal (NORMAL) 06/25/22 13:06 Sodium 139 mmol/L (136-145) 06/27/22 04:35 Corrected Sodium TNP 06/27/22 04:35 Potassium 3.4 mmol/L (3.5-5.1) L 06/27/22 04:35 Chloride 103 mmol/L (98-107) 06/27/22 04:35 Carbon Dioxide 27.5 mmol/L (21-32) 06/27/22 04:35 BUN 26 mg/dL (7-18) H 06/27/22 04:35 Creatinine 1.31 mg/dL (0.55-1.02) H 06/27/22 04:35 Est GFR (MDRD) Af Amer 49 (>60) L 06/27/22 04:35 Est GFR (MDRD) Non-Af 41 (>60) L 06/27/22 04:35 Glucose 110 mg/dL (65-99) H 06/27/22 04:35 POC Glucose (mg/dL) 142 mg/dL (65-99) H 06/27/22 11:33 Calcium 8.4 mg/dL (8.5-10.1) L 06/27/22 04:35 Corrected Calcium 10.0 mg/dL (8.5-10.1) 06/27/22 04:35 Magnesium 2.6 mg/dL (2.0-2.9) 06/27/22 04:35 Total Bilirubin 0.40 mg/dL (0.2-1.0) 06/27/22 04:35 AST 13 Units/L (15-37) L 06/27/22 04:35 ALT 9 Units/L (12-78) L 06/27/22 04:35 Alkaline Phosphatase 84 Units/L (46-116) 06/27/22 04:35 Total Protein 5.7 g/dL (6.4-8.2) L 06/27/22 04:35 Albumin 2.0 g/dL (3.4-5.0) L 06/27/22 04:35 Globulin 3.7 g/dL (2.5-4.5) 06/27/22 04:35 Albumin/Globulin Ratio 0.5 Ratio (1.1-2.1) L 06/27/22 04:35 Assessment and Plan 1: enterocutaneous fistula .( cecum ) 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 confined cellulitis of abdominal wall around the umbilicus . DM type 2 . NPO , INF and ABT . observe closely ,might need ileostomy . colonoscopy next week . Problem Patient Problems: Patient Problems (Updated 06/26/22 @ 12:37 by Nate Harrison) Hypertension (Chronic) I10 Hyperlipidemia (Chronic) E78.5 [place]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 (Acute) K63.2 Hypokalemia (Acute) E87.6 Diabetes mellitus (Chronic) E11.9 CKD (chronic kidney disease), stage IV (Acute) N18.4 Enterocutaneous fistula (Acute) K63.2 Chronic kidney disease (Acute) N18.9 Dehydration (Acute) E86.0
[2022-06-27] MEDS: ZOCOR TAB 20 MG PO SCH (20:33)
[2022-06-27] MEDS: LOVENOX INJ 30 MG SYR SC SCH (20:42)
[2022-06-28] MEDS: MORPHINE SULFATE INJ 2 MG INJ IVP PRN (04:44)
[2022-06-28] MEDS: FORTAZ or TAZICEF VIAL INJ 1 G in NS 100 ML IV 100 ML IV SCH ×3 (05:15→21:25)
[2022-06-28 05:52] LABS: BASOPHILS % (AUTO) 0.5 % (0.2-1.0); EOSINOPHILS # (AUTO) 0.1 x10^3/uL (0.0-0.2); HEMATOCRIT 28.5 % (36.0-47.0); HEMOGLOBIN 9.6 g/dL (12.0-16.0); LYMPHOCYTES # (AUTO) 1.6 X10^3/uL (1.3-2.9); LYMPHOCYTES % (AUTO) 18.4 % (21.0-51.0); MEAN CORPUSCULAR HEMOGLOBIN 27.7 pg (27.0-34.0); MEAN CORPUSCULAR HGB CONC 33.7 g/dL (33.0-35.0); MEAN CORPUSCULAR VOLUME 82.4 fL (80.0-100.0); MEAN PLATELET VOLUME 8.3 fL (7.4-11.0); MONOCYTES % (AUTO) 11.1 % (0.0-13.0); RED BLOOD COUNT 3.46 X10^6/uL (3.5-5.4); RED CELL DISTRIBUTION WIDTH 14.1 % (11.6-16.5); WHITE BLOOD COUNT 8.7 X10^3/uL (3.6-10.0)
[2022-06-28] MEDS: TORADOL 15 MG VIAL IVP SCH ×4 (05:59→21:25)
[2022-06-28] MEDS: ZOSYN VIAL 3.375 GRAMS 3.375 G in NS 100 ML IV 100 ML IV SCH ×3 (06:00→21:27)
[2022-06-28 06:08] LABS: ALANINE AMINOTRANSFERASE < 6 Units/L (12-78); ALBUMIN 1.9 g/dL (3.4-5.0); ALKALINE PHOSPHATASE 80 Units/L (46-116); ASPARTATE AMINO TRANSFERASE 14 Units/L (15-37); BLOOD UREA NITROGEN 18 mg/dL (7-18); CALCIUM 8.6 mg/dL (8.5-10.1); CARBON DIOXIDE 27.6 mmol/L (21-32); CHLORIDE 106 mmol/L (98-107); COR CA(FOR HYPOALB) 10.3 mg/dL (8.5-10.1); CREATININE 1.19 mg/dL (0.55-1.02); SODIUM 140 mmol/L (136-145); TOTAL PROTEIN 5.7 g/dL (6.4-8.2); eGFR NON BLACK RACES 45 (>60)
[2022-06-28] MEDS: PEPCID 20 MG VIAL 20 MG in NS 50 ML IV 50 ML IV SCH ×2 (08:48→20:42)
[2022-06-28] MEDS: PROVENTIL NEB TX 0.083% 2.5MG/ 3ML NEB SCH (09:18)
--- NOTE | 2022-06-28 10:35 | DR.PROGNOT ---
HOSPITAL PROGRESS NOTE Progress Note for Day of: Progress Note Date: 06/28/22 Chief Complaint Chief Complaint: stool in colostomy bag . less abdominal pain today . no nausea , no vomiting WBS came down to normal .. BS is fairly controlled 107 .. slight elevated Creat 1.19 Albumin 1.9 ..and Pt is afebrile . Past Medical Family Social History Allergies: Allergies tramadol Allergy (Verified 06/25/22 12:48) prochlorperazine [From Compazine] Adverse Reaction (Verified 06/20/22 17:55) Review Of Systems ROS: No change since H&P Vital Signs Vital Signs: Temperature 97.6 F Pulse Rate [Left Radial] 71 Pulse Rate 71 Respiratory Rate 18 Blood Pressure [Right Arm] 170/74 Blood Pressure [Left Arm] 139/62 Blood Pressure 123/74 O2 Sat by Pulse Oximetry 100 Physical Exam Oriented: Normal Eyes: Normal Ear: Normal Nose: Normal Throat: Normal Respiratory: Normal Cardiovascular: Normal : Normal GI:Auscultation: Normal GI:Palpation: Normal GI: Tenderness: Diffuse, Periumbilical (mild distention , diffuse tenderness .. BS+), Mild and Other (fistula is draining stool ,moderate induration around the fistula . no necrosis or significant cellulitis .. BS+) Skin: Tender and Wound (abdomen ) Musculoskeletal: Normal Psychiatric: Normal Mood Description: Calm Affect: Normal Speech Pattern: Clear and Appropriate Laboratory and Diagnostics Result Diagrams: 06/28/22 05:00 06/28/22 05:00 Labs: 06/25/22 13:00 Abdomen Wound Culture - Final Escherichia Coli Proteus Mirabilis Klebsiella Pneumoniae 06/25/22 14:18 Blood Blood Culture - Preliminary 06/25/22 14:03 Blood Blood Culture - Preliminary 06/25/22 13:00 Abdomen Wound Gram Stain - Final Laboratory WBC 8.7 X10^3/uL (3.6-10.0) 06/28/22 05:00 RBC 3.46 X10^6/uL (3.5-5.4) L 06/28/22 05:00 Hgb 9.6 g/dL (12.0-16.0) L 06/28/22 05:00 Hct 28.5 % (36.0-47.0) L 06/28/22 05:00 MCV 82.4 fL (80.0-100.0) 06/28/22 05:00 MCH 27.7 pg (27.0-34.0) 06/28/22 05:00 MCHC 33.7 g/dL (33.0-35.0) 06/28/22 05:00 RDW 14.1 % (11.6-16.5) 06/28/22 05:00 Plt Count 384 X10^3/uL (150.0-450.0) 06/28/22 05:00 Plt Count Comment Adequate (ADEQUATE) 06/25/22 13:06 MPV 8.3 fL (7.4-11.0) 06/28/22 05:00 Neut % (Auto) 69.0 % (42.0-75.0) 06/28/22 05:00 Lymph % (Auto) 18.4 % (21.0-51.0) L 06/28/22 05:00 [place] % (Auto) 11.1 % (0.0-13.0) 06/28/22 05:00 Eos % (Auto) 1.0 % (0.9-2.9) 06/28/22 05:00 Baso % (Auto) 0.5 % (0.2-1.0) 06/28/22 05:00 Neut # (Auto) 6.0 x10^3/uL (2.2-4.8) H 06/28/22 05:00 Lymph # (Auto) 1.6 X10^3/uL (1.3-2.9) 06/28/22 05:00 [place] # (Auto) 1.0 x10^3/uL (0.3-0.8) H 06/28/22 05:00 Eos # (Auto) 0.1 x10^3/uL (0.0-0.2) 06/28/22 05:00 Baso # (Auto) 0.0 X10^3/uL (0.0-0.1) 06/28/22 05:00 Absolute Nucleated RBC 0.1 /100WBC 06/28/22 05:00 Total Counted 100 06/25/22 13:06 Neutrophils % (Manual) 85 % (39-76) H 06/25/22 13:06 Band Neutrophils % 2 % (0-10) 06/25/22 13:06 Lymphocytes % (Manual) 4 % (13-43) L 06/25/22 13:06 Monocytes % (Manual) 7 % (4-9) 06/25/22 13:06 Metamyelocytes % 2 06/25/22 13:06 Plt Morphology Comment Normal (NORMAL) 06/25/22 13:06 RBC Morphology Normal (NORMAL) 06/25/22 13:06 Sodium 140 mmol/L (136-145) 06/28/22 05:00 Corrected Sodium TNP 06/28/22 05:00 Potassium 4.1 mmol/L (3.5-5.1) 06/28/22 05:00 Chloride 106 mmol/L (98-107) 06/28/22 05:00 Carbon Dioxide 27.6 mmol/L (21-32) 06/28/22 05:00 BUN 18 mg/dL (7-18) 06/28/22 05:00 Creatinine 1.19 mg/dL (0.55-1.02) H 06/28/22 05:00 Est GFR (MDRD) Af Amer 55 (>60) L 06/28/22 05:00 Est GFR (MDRD) Non-Af 45 (>60) L 06/28/22 05:00 Glucose 100 mg/dL (65-99) H 06/28/22 05:00 POC Glucose (mg/dL) 99 mg/dL (65-99) 06/28/22 05:17 Calcium 8.6 mg/dL (8.5-10.1) 06/28/22 05:00 Corrected Calcium 10.3 mg/dL (8.5-10.1) H 06/28/22 05:00 Magnesium 2.6 mg/dL (2.0-2.9) 06/27/22 04:35 Total Bilirubin 0.30 mg/dL (0.2-1.0) 06/28/22 05:00 AST 14 Units/L (15-37) L 06/28/22 05:00 ALT < 6 Units/L (12-78) L 06/28/22 05:00 Alkaline Phosphatase 80 Units/L (46-116) 06/28/22 05:00 Total Protein 5.7 g/dL (6.4-8.2) L 06/28/22 05:00 Albumin 1.9 g/dL (3.4-5.0) L 06/28/22 05:00 Globulin 3.8 g/dL (2.5-4.5) 06/28/22 05:00 Albumin/Globulin Ratio 0.5 Ratio (1.1-2.1) L 06/28/22 05:00 Assessment and Plan 1: enterocutaneous fistula .( cecum ) 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 confined cellulitis of abdominal wall around the umbilicus . DM type 2 . NPO , INF and ABT . observe closely ,might need ileostomy . colonoscopy next week . Problem Patient Problems: Patient Problems (Updated 06/26/22 @ 12:37 by Nate Harrison) Hypertension (Chronic) I10 Hyperlipidemia (Chronic) E78.5 [place]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 (Acute) K63.2 Hypokalemia (Acute) E87.6 Diabetes mellitus (Chronic) E11.9 CKD (chronic kidney disease), stage IV (Acute) N18.4 Enterocutaneous fistula (Acute) K63.2 Chronic kidney disease (Acute) N18.9 Dehydration (Acute) E86.0
[2022-06-28] MEDS: LOPRESSOR TAB 50 MG PO SCH ×2 (13:59→20:29)
[2022-06-28] MEDS: ZESTRIL TAB 10 MG PO SCH (13:59)
[2022-06-28] MEDS: ZOCOR TAB 20 MG PO SCH (20:30)
[2022-06-28] MEDS: LOVENOX INJ 30 MG SYR SC SCH (20:31)
[2022-06-28] MEDS ORDERED: NS 100 ML IV 100 ML ONE (20:57)
[2022-06-29] MEDS: TORADOL 15 MG VIAL IVP SCH ×4 (03:08→21:06)
[2022-06-29] MEDS: ZOSYN VIAL 3.375 GRAMS 3.375 G in NS 100 ML IV 100 ML IV SCH ×3 (05:34→21:05)
[2022-06-29] MEDS: FORTAZ or TAZICEF VIAL INJ 1 G in NS 100 ML IV 100 ML IV SCH ×3 (05:34→21:04)
[2022-06-29] MEDS: GOLYTELY or GAVILYTE or Equivalent PO SCH (06:09)
[2022-06-29 06:11] LABS: BASOPHILS # (AUTO) 0.1 X10^3/uL (0.0-0.1); BASOPHILS % (AUTO) 0.6 % (0.2-1.0); EOSINOPHILS # (AUTO) 0.2 x10^3/uL (0.0-0.2); HEMOGLOBIN 11.1 g/dL (12.0-16.0); LYMPHOCYTES # (AUTO) 1.6 X10^3/uL (1.3-2.9); LYMPHOCYTES % (AUTO) 18.7 % (21.0-51.0); MEAN CORPUSCULAR HEMOGLOBIN 27.2 pg (27.0-34.0); MEAN CORPUSCULAR HGB CONC 32.6 g/dL (33.0-35.0); MEAN CORPUSCULAR VOLUME 83.2 fL (80.0-100.0); MEAN PLATELET VOLUME 7.9 fL (7.4-11.0); MONOCYTES % (AUTO) 11.7 % (0.0-13.0); NEUTROPHILS # (AUTO) 5.8 x10^3/uL (2.2-4.8); RED BLOOD COUNT 4.08 X10^6/uL (3.5-5.4); RED CELL DISTRIBUTION WIDTH 14.1 % (11.6-16.5); WHITE BLOOD COUNT 8.7 X10^3/uL (3.6-10.0)
[2022-06-29 06:31] LABS: ALANINE AMINOTRANSFERASE 9 Units/L (12-78); ALKALINE PHOSPHATASE 85 Units/L (46-116); ASPARTATE AMINO TRANSFERASE 17 Units/L (15-37); BLOOD UREA NITROGEN 13 mg/dL (7-18); CALCIUM 8.6 mg/dL (8.5-10.1); CARBON DIOXIDE 27.1 mmol/L (21-32); CHLORIDE 106 mmol/L (98-107); COR CA(FOR HYPOALB) 10.2 mg/dL (8.5-10.1); CREATININE 1.11 mg/dL (0.55-1.02); SODIUM 140 mmol/L (136-145); eGFR NON BLACK RACES 49 (>60)
[2022-06-29] MEDS: LOPRESSOR TAB 50 MG PO SCH ×2 (09:07→21:04)
[2022-06-29] MEDS: PEPCID 20 MG VIAL 20 MG in NS 50 ML IV 50 ML IV SCH ×2 (09:07→20:50)
[2022-06-29] MEDS: ZESTRIL TAB 10 MG PO SCH (09:07)
[2022-06-29] MEDS: PROVENTIL NEB TX 0.083% 2.5MG/ 3ML NEB SCH ×2 (09:19→20:50)
--- NOTE | 2022-06-29 19:13 | DR.PROGNOT ---
HOSPITAL PROGRESS NOTE Chief Complaint Chief Complaint: stool in colostomy bag . less abdominal pain today . no nausea , no vomiting WBS came down to normal .. BS is fairly controlled 107 .. slight elevated Creat 1.19 Albumin 1.9 ..and Pt is afebrile . History of Present Illness History of Present Illness: only mild abdominal pain . no nausea ,no vomiting .. fistula is draining stool and having liquid stool via rectum . Past Medical Family Social History Past Med/Fam/Surg Hx: No changes since H&P Allergies: Allergies tramadol Allergy (Verified 06/25/22 12:48) prochlorperazine [From Compazine] Adverse Reaction (Verified 06/20/22 17:55) Review Of Systems ROS: No change since H&P Vital Signs Vital Signs: Temperature 98.6 F Pulse Rate [Left Radial] 70 Pulse Rate 71 Respiratory Rate 20 Blood Pressure [Right Arm] 180/75 Blood Pressure [Left Arm] 187/74 Blood Pressure 123/74 O2 Sat by Pulse Oximetry 96 Physical Exam Oriented: Normal Eyes: Normal Ear: Normal Nose: Normal Throat: Normal Respiratory: Normal Cardiovascular: Normal : Normal GI:Auscultation: Normal GI:Palpation: Normal GI: Tenderness: Diffuse, Periumbilical (mild distention , diffuse tenderness .. BS+), Mild and Other (fistula is draining stool ,moderate induration around the fistula . no necrosis or significant cellulitis .. BS+) Skin: Tender and Wound (abdomen ) Musculoskeletal: Normal Psychiatric: Normal Mood Description: Calm Affect: Normal Speech Pattern: Clear and Appropriate Laboratory and Diagnostics Result Diagrams: 06/29/22 05:30 06/29/22 05:30 Labs: 06/25/22 13:00 Abdomen Wound Culture - Final Escherichia Coli Proteus Mirabilis Klebsiella Pneumoniae 06/25/22 14:18 Blood Blood Culture - Preliminary 06/25/22 14:03 Blood Blood Culture - Preliminary 06/25/22 13:00 Abdomen Wound Gram Stain - Final Laboratory WBC 8.7 X10^3/uL (3.6-10.0) 06/29/22 05:30 RBC 4.08 X10^6/uL (3.5-5.4) 06/29/22 05:30 Hgb 11.1 g/dL (12.0-16.0) L 06/29/22 05:30 Hct 34.0 % (36.0-47.0) L 06/29/22 05:30 MCV 83.2 fL (80.0-100.0) 06/29/22 05:30 MCH 27.2 pg (27.0-34.0) 06/29/22 05:30 MCHC 32.6 g/dL (33.0-35.0) L 06/29/22 05:30 RDW 14.1 % (11.6-16.5) 06/29/22 05:30 Plt Count 388 X10^3/uL (150.0-450.0) 06/29/22 05:30 Plt Count Comment Adequate (ADEQUATE) 06/25/22 13:06 MPV 7.9 fL (7.4-11.0) 06/29/22 05:30 Neut % (Auto) 67.0 % (42.0-75.0) 06/29/22 05:30 Lymph % (Auto) 18.7 % (21.0-51.0) L 06/29/22 05:30 [place] % (Auto) 11.7 % (0.0-13.0) 06/29/22 05:30 Eos % (Auto) 2.0 % (0.9-2.9) 06/29/22 05:30 Baso % (Auto) 0.6 % (0.2-1.0) 06/29/22 05:30 Neut # (Auto) 5.8 x10^3/uL (2.2-4.8) H 06/29/22 05:30 Lymph # (Auto) 1.6 X10^3/uL (1.3-2.9) 06/29/22 05:30 [place] # (Auto) 1.0 x10^3/uL (0.3-0.8) H 06/29/22 05:30 Eos # (Auto) 0.2 x10^3/uL (0.0-0.2) 06/29/22 05:30 Baso # (Auto) 0.1 X10^3/uL (0.0-0.1) 06/29/22 05:30 Absolute Nucleated RBC 0.1 /100WBC 06/29/22 05:30 Total Counted 100 06/25/22 13:06 Neutrophils % (Manual) 85 % (39-76) H 06/25/22 13:06 Band Neutrophils % 2 % (0-10) 06/25/22 13:06 Lymphocytes % (Manual) 4 % (13-43) L 06/25/22 13:06 Monocytes % (Manual) 7 % (4-9) 06/25/22 13:06 Metamyelocytes % 2 06/25/22 13:06 Plt Morphology Comment Normal (NORMAL) 06/25/22 13:06 RBC Morphology Normal (NORMAL) 06/25/22 13:06 Sodium 140 mmol/L (136-145) 06/29/22 05:30 Corrected Sodium TNP 06/29/22 05:30 Potassium 4.6 mmol/L (3.5-5.1) 06/29/22 05:30 Chloride 106 mmol/L (98-107) 06/29/22 05:30 Carbon Dioxide 27.1 mmol/L (21-32) 06/29/22 05:30 BUN 13 mg/dL (7-18) 06/29/22 05:30 Creatinine 1.11 mg/dL (0.55-1.02) H 06/29/22 05:30 Est GFR (MDRD) Af Amer 60 (>60) 06/29/22 05:30 Est GFR (MDRD) Non-Af 49 (>60) L 06/29/22 05:30 Glucose 82 mg/dL (65-99) 06/29/22 05:30 POC Glucose (mg/dL) 75 mg/dL (65-99) 06/29/22 16:48 Calcium 8.6 mg/dL (8.5-10.1) 06/29/22 05:30 Corrected Calcium 10.2 mg/dL (8.5-10.1) H 06/29/22 05:30 Magnesium 2.6 mg/dL (2.0-2.9) 06/27/22 04:35 Total Bilirubin 0.40 mg/dL (0.2-1.0) 06/29/22 05:30 AST 17 Units/L (15-37) 06/29/22 05:30 ALT 9 Units/L (12-78) L 06/29/22 05:30 Alkaline Phosphatase 85 Units/L (46-116) 06/29/22 05:30 Total Protein 6.0 g/dL (6.4-8.2) L 06/29/22 05:30 Albumin 2.0 g/dL (3.4-5.0) L 06/29/22 05:30 Globulin 4.0 g/dL (2.5-4.5) 06/29/22 05:30 Albumin/Globulin Ratio 0.5 Ratio (1.1-2.1) L 06/29/22 05:30 Assessment and Plan 1: enterocutaneous fistula .( cecum ) 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 confined cellulitis of abdominal wall around the umbilicus . DM type 2 . NPO , INF and ABT . observe closely ,might need ileostomy . colonoscopy next week . Problem Patient Problems: Patient Problems (Updated 06/26/22 @ 12:37 by Nate Harrison) Hypertension (Chronic) I10 Hyperlipidemia (Chronic) E78.5 [place]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 (Acute) K63.2 Hypokalemia (Acute) E87.6 Diabetes mellitus (Chronic) E11.9 CKD (chronic kidney disease), stage IV (Acute) N18.4 Enterocutaneous fistula (Acute) K63.2 Chronic kidney disease (Acute) N18.9 Dehydration (Acute) E86.0 for colonoscopy in am
[2022-06-29] MEDS ORDERED: NS 250 ML IV 250 ML IV ONE (20:53)
[2022-06-29] MEDS: ZOCOR TAB 20 MG PO SCH (21:04)
[2022-06-29] MEDS: LOVENOX INJ 30 MG SYR SC SCH (21:05)
[2022-06-30] MEDS: TORADOL 15 MG VIAL IVP SCH ×4 (05:00→22:01)
[2022-06-30] MEDS: FORTAZ or TAZICEF VIAL INJ 1 G in NS 100 ML IV 100 ML IV SCH ×3 (05:00→22:34)
[2022-06-30] MEDS: ZOSYN VIAL 3.375 GRAMS 3.375 G in NS 100 ML IV 100 ML IV SCH ×3 (05:00→22:33)
[2022-06-30] MEDS: NS 250 ML IV 250 ML IV PRN (05:06)
[2022-06-30 06:30] LABS: BASOPHILS % (AUTO) 0.4 % (0.2-1.0); EOSINOPHILS # (AUTO) 0.2 x10^3/uL (0.0-0.2); EOSINOPHILS % (AUTO) 1.7 % (0.9-2.9); HEMATOCRIT 33.8 % (36.0-47.0); HEMOGLOBIN 11.1 g/dL (12.0-16.0); LYMPHOCYTES # (AUTO) 1.5 X10^3/uL (1.3-2.9); LYMPHOCYTES % (AUTO) 15.9 % (21.0-51.0); MEAN CORPUSCULAR HEMOGLOBIN 27.4 pg (27.0-34.0); MEAN CORPUSCULAR HGB CONC 32.9 g/dL (33.0-35.0); MEAN CORPUSCULAR VOLUME 83.3 fL (80.0-100.0); MEAN PLATELET VOLUME 7.5 fL (7.4-11.0); MONOCYTES # (AUTO) 1.1 x10^3/uL (0.3-0.8); MONOCYTES % (AUTO) 11.2 % (0.0-13.0); NEUTROPHILS # (AUTO) 6.8 x10^3/uL (2.2-4.8); NEUTROPHILS % (AUTO) 70.8 % (42.0-75.0); RED BLOOD COUNT 4.06 X10^6/uL (3.5-5.4); WHITE BLOOD COUNT 9.6 X10^3/uL (3.6-10.0)
[2022-06-30 06:38] LABS: ALANINE AMINOTRANSFERASE 10 Units/L (12-78); ALBUMIN 2.1 g/dL (3.4-5.0); ALKALINE PHOSPHATASE 90 Units/L (46-116); ASPARTATE AMINO TRANSFERASE 21 Units/L (15-37); BLOOD UREA NITROGEN 11 mg/dL (7-18); CALCIUM 8.9 mg/dL (8.5-10.1); CARBON DIOXIDE 25.7 mmol/L (21-32); CHLORIDE 106 mmol/L (98-107); COR CA(FOR HYPOALB) 10.4 mg/dL (8.5-10.1); CREATININE 0.94 mg/dL (0.55-1.02); SODIUM 139 mmol/L (136-145); TOTAL PROTEIN 6.2 g/dL (6.4-8.2); eGFR NON BLACK RACES 60 (>60)
[2022-06-30] MEDS: GOLYTELY or GAVILYTE or Equivalent PO SCH (07:00)
[2022-06-30] MEDS: PEPCID 20 MG VIAL 20 MG in NS 50 ML IV 50 ML IV SCH ×2 (08:15→21:50)
[2022-06-30] MEDS: ZESTRIL TAB 10 MG PO SCH (08:15)
[2022-06-30] MEDS: LOPRESSOR TAB 50 MG PO SCH ×2 (08:15→21:59)
[2022-06-30] MEDS: PROVENTIL NEB TX 0.083% 2.5MG/ 3ML NEB SCH ×2 (08:29→20:05)
[2022-06-30] MEDS ORDERED: NS 1,000 ML IV 1,000 ML ONE (10:02)
[2022-06-30] MEDS ORDERED: DIPRIVAN VIAL 20 ML ONE (10:07)
--- NOTE | 2022-06-30 10:50 | DR.OPNOTE ---
OP NOTE Pre-Op Diagnosis: enterocutaneous fistula .( cecum ) Procedure Date Date Of Procedure: 06/30/22 Procedure: limited colonoscopy to sigmoid colon . Findings: diverticulosis and divericulitis . EBL: none . Complications:: none Disposition/Condition: Pt. tolerated procedure without difficulty. on IV ABT .. full liquid diet
[2022-06-30] MEDS: MORPHINE SULFATE INJ 2 MG INJ IVP PRN (11:38)
--- NOTE | 2022-06-30 16:35 | PCM.PROG ---
Progress Note - Progress Note for Day of Date of Exam: 06/27/22 - Subjective Subjective: IS CURRENTLY INPATIENT STATUS FOR TREATMENT OF ENTEROCUTANEOUS FISTULA, ABDOMINAL WALL CELLULITIS, CHRONIC KIDNEY DISEASE WITH DEHYDRATION, AND HYPOKALEMIA. SHE IS BEING FOLLOWED BY , GENERAL SURGEON. TODAY, SHE IS ALERT AND ORIENTED, LYING IN BED ON MORNING ROUNDS. SHE C OMPLAINS OF WORSENING ABDOMINAL PAIN TODAY. SHE CONTINUES TO HAVE A MODERATE AMOUNT OF STOOL DRAINING FROM ABDOMINAL WOUND. THERE IS A COLOSTOMY BAG IN PLACE THAT IS COLLECTING THE DRAINAGE. ON EXAMINTION TODAY, HEART IS REGULAR IN RATE AND RHYTHM. BILATERAL LUNGS ARE CLEAR TO AUSCULTATION. ABDOMEN IS ROUND, SOFT, AND NOTED WITH DIFFUSE TENDERNESS. NORMAL BOWEL SOUNDS NOTED IN ALL QUADRANTS. DRAINAGE NOTED IN COLOSTOMY BAG. NO UPPER OR LOWER EXTREMITY EDEMA NOTED. HER VITALS THIS MORNING ARE: 98.9-70-18-98%-128/62. LABS WERE OBTAINED. WBC 10.8, RBC 3.42, HGB 9.4, HCT 28.0, PLT COUNT 402, SODIUM 139, POTASSIUM 3.4, CHLORIDE 103, CARBON DIOXIDE 27.5, BUN 26, CREATININE 1.31, GLUCOSE 110, CALCIUM 8.4, MAGNESIUM 2.6, AST 13, ALT 9, ALK PHOS 84, TOTAL PROTEIN 5.7, ALBUMIN 2.0. BLOOD AND WOUND CULTURES ARE PENDING. A KUB WAS OBTAINED TODAY AND REVEALED: Abdominal gas pattern is nonspecific and nonobstructive. No abnormal masses or significant abnormal calcifications are identified. Regional skeleton is intact. Calcifications in both flanks likely represent old injection granulomas. SHE IS CURRENTLY RECEIVING TPN, PEPCID 20MG IV Q12H, ZOSYN 3.375G IV TID, LOVENOX 30MG SC HS, PROVENTIL NEBS BID, ZOCOR 20MG PO HS, AND THE POTASSIUM AND MAGNESIUM PROTOCOLS. SHE WILL BE NPO OTHER THAN MEDICATIONS. TODAY, WE WILL ADD FORTAZ 1G IV Q 8H. WE WILL INCREASE THE MORPHINE TO 2-4MG IV Q4H PRN. WE WILL ALSO ADD TORADOL 15MG IV Q6H. WILL CONTINUE TO MONITOR PATIENT. HE REPORTS THAT PATIENT MAY EVENTUALLY NEED AN ILEOSTOMY, BUT PLANS TO DO A COLONOSCOPY NEXT WEEK. OTHERWISE, WE WILL FOLLOW-UP WITH AM LABS AND CONTINUE TO MONITOR. TIME SPENT ON CLINICAL ASSESSMENT, REVIEWING LABS AND IMAGING, DECISION MAKING, AND DOCUMENTATION GREATER THAN 45 MINUTES. - Past Medical Family Social History Past Med/Fam/Surg Hx: No changes since H&P Allergies: Allergies tramadol Allergy (Verified 06/25/22 12:48) prochlorperazine [From Compazine] Adverse Reaction (Verified 06/20/22 17:55) - Review of Systems ROS: No change since H&P - Vital Signs and I&O's Vital Signs: Temperature 98.4 F Pulse Rate [Left Radial] 70 Pulse Rate 78 Respiratory Rate 20 Blood Pressure [Right Arm] 140/65 Blood Pressure [Left Arm] 178/79 Blood Pressure 123/74 O2 Sat by Pulse Oximetry 100 Intake and Output: Intake & Output 06/28/22 06/29/22 06/30/22 07/01/22 11:59 11:59 11:59 11:59 Intake Total 1735 / 1735 2008 2420 / 2420 989 / 989 Output Total 200 / 200 Balance 1535 / 1535 2008 2420 / 2420 989 / 989 - Physical Exam Oriented: Normal Eyes: Normal Ear: Normal Nose: Normal Throat: Normal Respiratory: Normal Cardiovascular: Normal : Normal Auscultation: Bowel Sounds: Normal Palpation: Normal Tenderness: Diffuse, Mild, Periumbilical (mild distention , diffuse tenderness .. BS+), Other (fistula is draining stool ,moderate induration around the fistula . no necrosis or significant cellulitis .. BS+) Skin: Tender, Wound (abdomen) Musculoskeletal: Normal Psychiatric: Normal Mood Description: Calm Affect: Normal Speech Pattern: Clear, Appropriate - Laboratory and Diagnostics Result Diagrams: 06/30/22 06:11 06/30/22 11:11 Labs: 06/25/22 13:00 Abdomen Wound Culture - Final Escherichia Coli Proteus Mirabilis Klebsiella Pneumoniae 06/25/22 14:18 Blood Blood Culture - Preliminary 06/25/22 14:03 Blood Blood Culture - Preliminary 06/25/22 13:00 Abdomen Wound Gram Stain - Final Laboratory WBC 9.6 X10^3/uL (3.6-10.0) 06/30/22 06:11 RBC 4.06 X10^6/uL (3.5-5.4) 06/30/22 06:11 Hgb 11.1 g/dL (12.0-16.0) L 06/30/22 06:11 Hct 33.8 % (36.0-47.0) L 06/30/22 06:11 MCV 83.3 fL (80.0-100.0) 06/30/22 06:11 MCH 27.4 pg (27.0-34.0) 06/30/22 06:11 MCHC 32.9 g/dL (33.0-35.0) L 06/30/22 06:11 RDW 14.0 % (11.6-16.5) 06/30/22 06:11 Plt Count 441 X10^3/uL (150.0-450.0) 06/30/22 06:11 Plt Count Comment Adequate (ADEQUATE) 06/25/22 13:06 MPV 7.5 fL (7.4-11.0) 06/30/22 06:11 Neut % (Auto) 70.8 % (42.0-75.0) 06/30/22 06:11 Lymph % (Auto) 15.9 % (21.0-51.0) L 06/30/22 06:11 [place] % (Auto) 11.2 % (0.0-13.0) 06/30/22 06:11 Eos % (Auto) 1.7 % (0.9-2.9) 06/30/22 06:11 Baso % (Auto) 0.4 % (0.2-1.0) 06/30/22 06:11 Neut # (Auto) 6.8 x10^3/uL (2.2-4.8) H 06/30/22 06:11 Lymph # (Auto) 1.5 X10^3/uL (1.3-2.9) 06/30/22 06:11 [place] # (Auto) 1.1 x10^3/uL (0.3-0.8) H 06/30/22 06:11 Eos # (Auto) 0.2 x10^3/uL (0.0-0.2) 06/30/22 06:11 Baso # (Auto) 0.0 X10^3/uL (0.0-0.1) 06/30/22 06:11 Absolute Nucleated RBC 0.0 /100WBC 06/30/22 06:11 Total Counted 100 06/25/22 13:06 Neutrophils % (Manual) 85 % (39-76) H 06/25/22 13:06 Band Neutrophils % 2 % (0-10) 06/25/22 13:06 Lymphocytes % (Manual) 4 % (13-43) L 06/25/22 13:06 Monocytes % (Manual) 7 % (4-9) 06/25/22 13:06 Metamyelocytes % 2 06/25/22 13:06 Plt Morphology Comment Normal (NORMAL) 06/25/22 13:06 RBC Morphology Normal (NORMAL) 06/25/22 13:06 Sodium 139 mmol/L (136-145) 06/30/22 06:11 Corrected Sodium TNP 06/30/22 06:11 Potassium 4.4 mmol/L (3.5-5.1) 06/30/22 06:11 Chloride 106 mmol/L (98-107) 06/30/22 06:11 Carbon Dioxide 25.7 mmol/L (21-32) 06/30/22 06:11 BUN 11 mg/dL (7-18) 06/30/22 06:11 Creatinine 0.94 mg/dL (0.55-1.02) 06/30/22 06:11 Est GFR (MDRD) Af Amer > 60 (>60) 06/30/22 06:11 Est GFR (MDRD) Non-Af 60 (>60) 06/30/22 06:11 Glucose 70 mg/dL (65-99) 06/30/22 11:11 POC Glucose (mg/dL) 108 mg/dL (65-99) H 06/30/22 16:19 Calcium 8.9 mg/dL (8.5-10.1) 06/30/22 06:11 Corrected Calcium 10.4 mg/dL (8.5-10.1) H 06/30/22 06:11 Magnesium 2.6 mg/dL (2.0-2.9) 06/27/22 04:35 Total Bilirubin 0.40 mg/dL (0.2-1.0) 06/30/22 06:11 AST 21 Units/L (15-37) 06/30/22 06:11 ALT 10 Units/L (12-78) L 06/30/22 06:11 Alkaline Phosphatase 90 Units/L (46-116) 06/30/22 06:11 Total Protein 6.2 g/dL (6.4-8.2) L 06/30/22 06:11 Albumin 2.1 g/dL (3.4-5.0) L 06/30/22 06:11 Globulin 4.1 g/dL (2.5-4.5) 06/30/22 06:11 Albumin/Globulin Ratio 0.5 Ratio (1.1-2.1) L 06/30/22 06:11 - Plan (1) Enterocutaneous fistula Status: Acute Plan: NPO, TPN, PEPCID 20MG IV Q12H, ZOSYN 3.375G IV Q8H, FORTAZ 1G IV Q8H, TORADOL 15MG IV Q6H, MORPHINE 2-4MG IV Q4H PRN, LOVENOX 30MG SC HS, OTBS ACHS, PROVENTIL NEBS BID, ZOCOR 20MG PO HS, AND THE POTASSIUM AND MAGNESIUM PROTOCOLS (2) Chronic kidney disease Status: Acute Qualifiers: Chronic kidney disease stage: unspecified stage Qualified Code(s): N18.9 - Chronic kidney disease, unspecified (3) Dehydration Status: Acute (4) Hypertension Status: Chronic Qualifiers: Hypertension type: primary hypertension Qualified Code(s): I10 - Essential (primary) hypertension (5) Diabetes mellitus Status: Chronic Qualifiers: Diabetes mellitus type: type 2 Diabetes mellitus watermaster insulin use: without senior living use Diabetes mellitus complication status: with kidney complications Diabetes mellitus complication detail: with chronic kidney disease Chronic kidney disease stage: stage 4 (severe) Qualified Code(s): E11.22 - Type 2 diabetes mellitus with diabetic chronic kidney disease; N18.4 - Chronic kidney disease, stage 4 (severe) (6) Hyperlipidemia Status: Chronic Qualifiers: Hyperlipidemia type: mixed hyperlipidemia Qualified Code(s): E78.2 - Mixed hyperlipidemia
--- NOTE | 2022-06-30 17:31 | PCM.PROG ---
Progress Note - Progress Note for Day of Date of Exam: 06/30/22 - Subjective Subjective: IS CURRENTLY INPATIENT STATUS FOR TREATMENT OF ENTEROCUTANEOUS FISTULA, ABDOMINAL WALL CELLULITIS, CHRONIC KIDNEY DISEASE WITH DEHYDRATION, AND HYPOKALEMIA. SHE IS BEING FOLLOWED BY , GENERAL SURGEON. TODAY, SHE IS ALERT AND ORIENTED, LYING IN BED ON MORNING ROUNDS. SHE C OMPLAINS OF MILD ABDOMINAL PAIN TODAY. SHE CONTINUES TO HAVE STOOL DRAINING FROM FISTULA WELL THE RECTUM. THERE IS A COLOSTOMY BAG IN PLACE THAT IS COLLECTING THE DRAINAGE. ON EXAMINTION TODAY, HEART IS REGULAR IN RATE AND RHYTHM. BILATERAL LUNGS ARE CLEAR TO AUSCULTATION. ABDOMEN IS ROUND, SOFT, AND NOTED WITH DIFFUSE TENDERNESS. NORMAL BOWEL SOUNDS NOTED IN ALL QUADRANTS. DRAINAGE NOTED IN COLOSTOMY BAG. NO UPPER OR LOWER EXTREMITY EDEMA NOTED. HER VITALS THIS MORNING ARE: 98.3-76-20-99%-184/75. LABS WERE OBTAINED. WBC 9.6, RBC 4.06, HGB 11.1, HCT 33.8, PLT COUNT 441, SODIUM 139, POTASSIUM 4.4, CHLORIDE 106, BUN 11, CREATININE 0.94, GLUCOSE 77, AST 21, ALT 10, ALK PHOS 90, TOTAL PROTEIN 6.2, ALBUMIN 2.1. BLOOD AND WOUND CULTURES ARE PENDING. SHE IS CURRENTLY RECEIVING TPN, PEPCID 20MG IV Q12H, ZOSYN 3.375G IV TID, FORTAZ 1G IV Q8, TORADOL 15MG IV Q6H, MORPHINE 2-4MG IV Q4H PRN, LOVENOX 30MG SC HS, PROVENTIL NEBS BID, ZOCOR 20MG PO HS, LISINOPRIL 10MG DAILY, METOPROLOL 100MG BID, AND THE POTASSIUM AND MAGNESIUM PROTOCOLS. SHE WILL BE NPO OTHER THAN MEDICATIONS. SHE RECEIVED A BOWEL PREP LAST NIGHT. SHE IS SCHEDULED FOR A COLONOSCOPY THIS MORNING. SUGGEST THAT SHE MAY EVENTUALLY NEED AN ILEOSTOMY. OTHERWISE, WE WILL FOLLOW-UP WITH AM LABS AND CONTINUE TO MONITOR. TIME SPENT ON CLINICAL ASSESSMENT, REVIEWING LABS AND IMAGING, DECISION MAKING, AND DOCUMENTATION GREATER THAN 45 MINUTES. - Past Medical Family Social History Past Med/Fam/Surg Hx: No changes since H&P Allergies: Allergies tramadol Allergy (Verified 06/25/22 12:48) prochlorperazine [From Compazine] Adverse Reaction (Verified 06/20/22 17:55) - Review of Systems ROS: No change since H&P - Vital Signs and I&O's Vital Signs: Temperature 98.4 F Pulse Rate [Left Radial] 70 Pulse Rate 78 Respiratory Rate 20 Blood Pressure [Right Arm] 140/65 Blood Pressure [Left Arm] 178/79 Blood Pressure 123/74 O2 Sat by Pulse Oximetry 100 Intake and Output: Intake & Output 06/28/22 06/29/22 06/30/22 07/01/22 11:59 11:59 11:59 11:59 Intake Total 1735 / 1735 2008 2420 / 2420 989 / 989 Output Total 200 / 200 Balance 1535 / 1535 2008 2420 / 2420 989 / 989 - Physical Exam Oriented: Normal Eyes: Normal Ear: Normal Nose: Normal Throat: Normal Respiratory: Normal Cardiovascular: Normal : Normal Auscultation: Bowel Sounds: Normal Palpation: Normal Tenderness: Diffuse, Mild, Periumbilical (mild distention , diffuse tenderness .. BS+), Other (fistula is draining stool ,moderate induration around the fistula . no necrosis or significant cellulitis .. BS+) Skin: Tender, Wound (abdomen) Musculoskeletal: Normal Psychiatric: Normal Mood Description: Calm Affect: Normal Speech Pattern: Clear, Appropriate - Laboratory and Diagnostics Result Diagrams: 06/30/22 06:11 06/30/22 11:11 Labs: 06/25/22 13:00 Abdomen Wound Culture - Final Escherichia Coli Proteus Mirabilis Klebsiella Pneumoniae 06/25/22 14:18 Blood Blood Culture - Preliminary 06/25/22 14:03 Blood Blood Culture - Preliminary 06/25/22 13:00 Abdomen Wound Gram Stain - Final Laboratory WBC 9.6 X10^3/uL (3.6-10.0) 06/30/22 06:11 RBC 4.06 X10^6/uL (3.5-5.4) 06/30/22 06:11 Hgb 11.1 g/dL (12.0-16.0) L 06/30/22 06:11 Hct 33.8 % (36.0-47.0) L 06/30/22 06:11 MCV 83.3 fL (80.0-100.0) 06/30/22 06:11 MCH 27.4 pg (27.0-34.0) 06/30/22 06:11 MCHC 32.9 g/dL (33.0-35.0) L 06/30/22 06:11 RDW 14.0 % (11.6-16.5) 06/30/22 06:11 Plt Count 441 X10^3/uL (150.0-450.0) 06/30/22 06:11 Plt Count Comment Adequate (ADEQUATE) 06/25/22 13:06 MPV 7.5 fL (7.4-11.0) 06/30/22 06:11 Neut % (Auto) 70.8 % (42.0-75.0) 06/30/22 06:11 Lymph % (Auto) 15.9 % (21.0-51.0) L 06/30/22 06:11 [place] % (Auto) 11.2 % (0.0-13.0) 06/30/22 06:11 Eos % (Auto) 1.7 % (0.9-2.9) 06/30/22 06:11 Baso % (Auto) 0.4 % (0.2-1.0) 06/30/22 06:11 Neut # (Auto) 6.8 x10^3/uL (2.2-4.8) H 06/30/22 06:11 Lymph # (Auto) 1.5 X10^3/uL (1.3-2.9) 06/30/22 06:11 [place] # (Auto) 1.1 x10^3/uL (0.3-0.8) H 06/30/22 06:11 Eos # (Auto) 0.2 x10^3/uL (0.0-0.2) 06/30/22 06:11 Baso # (Auto) 0.0 X10^3/uL (0.0-0.1) 06/30/22 06:11 Absolute Nucleated RBC 0.0 /100WBC 06/30/22 06:11 Total Counted 100 06/25/22 13:06 Neutrophils % (Manual) 85 % (39-76) H 06/25/22 13:06 Band Neutrophils % 2 % (0-10) 06/25/22 13:06 Lymphocytes % (Manual) 4 % (13-43) L 06/25/22 13:06 Monocytes % (Manual) 7 % (4-9) 06/25/22 13:06 Metamyelocytes % 2 06/25/22 13:06 Plt Morphology Comment Normal (NORMAL) 06/25/22 13:06 RBC Morphology Normal (NORMAL) 06/25/22 13:06 Sodium 139 mmol/L (136-145) 06/30/22 06:11 Corrected Sodium TNP 06/30/22 06:11 Potassium 4.4 mmol/L (3.5-5.1) 06/30/22 06:11 Chloride 106 mmol/L (98-107) 06/30/22 06:11 Carbon Dioxide 25.7 mmol/L (21-32) 06/30/22 06:11 BUN 11 mg/dL (7-18) 06/30/22 06:11 Creatinine 0.94 mg/dL (0.55-1.02) 06/30/22 06:11 Est GFR (MDRD) Af Amer > 60 (>60) 06/30/22 06:11 Est GFR (MDRD) Non-Af 60 (>60) 06/30/22 06:11 Glucose 70 mg/dL (65-99) 06/30/22 11:11 POC Glucose (mg/dL) 108 mg/dL (65-99) H 06/30/22 16:19 Calcium 8.9 mg/dL (8.5-10.1) 06/30/22 06:11 Corrected Calcium 10.4 mg/dL (8.5-10.1) H 06/30/22 06:11 Magnesium 2.6 mg/dL (2.0-2.9) 06/27/22 04:35 Total Bilirubin 0.40 mg/dL (0.2-1.0) 06/30/22 06:11 AST 21 Units/L (15-37) 06/30/22 06:11 ALT 10 Units/L (12-78) L 06/30/22 06:11 Alkaline Phosphatase 90 Units/L (46-116) 06/30/22 06:11 Total Protein 6.2 g/dL (6.4-8.2) L 06/30/22 06:11 Albumin 2.1 g/dL (3.4-5.0) L 06/30/22 06:11 Globulin 4.1 g/dL (2.5-4.5) 06/30/22 06:11 Albumin/Globulin Ratio 0.5 Ratio (1.1-2.1) L 06/30/22 06:11 - Plan (1) Enterocutaneous fistula Status: Acute Plan: NPO, TPN, PEPCID 20MG IV Q12H, ZOSYN 3.375G IV Q8H, FORTAZ 1G IV Q8H, TORADOL 15MG IV Q6H, MORPHINE 2-4MG IV Q4H PRN, LOVENOX 30MG SC HS, OTBS ACHS, PROVENTIL NEBS BID, ZOCOR 20MG PO HS, AND THE POTASSIUM AND MAGNESIUM PROTOCOLS (2) Cellulitis of abdominal wall Status: Acute (3) Chronic kidney disease Status: Acute Qualifiers: Chronic kidney disease stage: unspecified stage Qualified Code(s): N18.9 - Chronic kidney disease, unspecified (4) Dehydration Status: Acute (5) Hypertension Status: Chronic Qualifiers: Hypertension type: primary hypertension Qualified Code(s): I10 - Essential (primary) hypertension (6) Diabetes mellitus Status: Chronic Qualifiers: Diabetes mellitus type: type 2 Diabetes mellitus roasterman insulin use: without shelter use Diabetes mellitus complication status: with kidney complications Diabetes mellitus complication detail: with chronic kidney disease Chronic kidney disease stage: stage 4 (severe) Qualified Code(s): E11.22 - Type 2 diabetes mellitus with diabetic chronic kidney disease; N18.4 - Chronic kidney disease, stage 4 (severe) (7) Hyperlipidemia Status: Chronic Qualifiers: Hyperlipidemia type: mixed hyperlipidemia Qualified Code(s): E78.2 - Mixed hyperlipidemia
[2022-06-30] MEDS: LOVENOX INJ 30 MG SYR SC SCH (21:50)
[2022-06-30] MEDS: ZOCOR TAB 20 MG PO SCH (21:59)
[2022-07-01] MEDS: TORADOL 15 MG VIAL IVP SCH ×2 (04:15→10:26)
[2022-07-01] MEDS: ZOSYN VIAL 3.375 GRAMS 3.375 G in NS 100 ML IV 100 ML IV SCH ×2 (05:20→13:21)
[2022-07-01] MEDS: FORTAZ or TAZICEF VIAL INJ 1 G in NS 100 ML IV 100 ML IV SCH ×2 (05:20→13:21)
[2022-07-01] MEDS: NS 250 ML IV 250 ML IV PRN (05:35)
[2022-07-01 05:37] LABS: BASOPHILS # (AUTO) 0.1 X10^3/uL (0.0-0.1); BASOPHILS % (AUTO) 0.5 % (0.2-1.0); EOSINOPHILS # (AUTO) 0.2 x10^3/uL (0.0-0.2); EOSINOPHILS % (AUTO) 2.2 % (0.9-2.9); HEMATOCRIT 33.7 % (36.0-47.0); HEMOGLOBIN 11.2 g/dL (12.0-16.0); LYMPHOCYTES # (AUTO) 1.8 X10^3/uL (1.3-2.9); LYMPHOCYTES % (AUTO) 17.4 % (21.0-51.0); MEAN CORPUSCULAR HEMOGLOBIN 27.3 pg (27.0-34.0); MEAN CORPUSCULAR HGB CONC 33.1 g/dL (33.0-35.0); MEAN CORPUSCULAR VOLUME 82.2 fL (80.0-100.0); MEAN PLATELET VOLUME 7.7 fL (7.4-11.0); MONOCYTES # (AUTO) 0.9 x10^3/uL (0.3-0.8); MONOCYTES % (AUTO) 9.1 % (0.0-13.0); NEUTROPHILS # (AUTO) 7.3 x10^3/uL (2.2-4.8); NEUTROPHILS % (AUTO) 70.8 % (42.0-75.0); RED BLOOD COUNT 4.09 X10^6/uL (3.5-5.4); RED CELL DISTRIBUTION WIDTH 14.1 % (11.6-16.5); WHITE BLOOD COUNT 10.4 X10^3/uL (3.6-10.0)
[2022-07-01 05:54] LABS: ALANINE AMINOTRANSFERASE 10 Units/L (12-78); ALBUMIN 2.1 g/dL (3.4-5.0); ALKALINE PHOSPHATASE 88 Units/L (46-116); ASPARTATE AMINO TRANSFERASE 20 Units/L (15-37); BLOOD UREA NITROGEN 9 mg/dL (7-18); CALCIUM 8.7 mg/dL (8.5-10.1); CARBON DIOXIDE 25.8 mmol/L (21-32); CHLORIDE 107 mmol/L (98-107); COR CA(FOR HYPOALB) 10.2 mg/dL (8.5-10.1); CREATININE 0.95 mg/dL (0.55-1.02); SODIUM 139 mmol/L (136-145); TOTAL PROTEIN 6.2 g/dL (6.4-8.2); eGFR NON BLACK RACES 59 (>60)
[2022-07-01] MEDS: PROVENTIL NEB TX 0.083% 2.5MG/ 3ML NEB SCH (08:42)
[2022-07-01] MEDS: LOPRESSOR TAB 50 MG PO SCH (08:49)
[2022-07-01] MEDS: ZESTRIL TAB 10 MG PO SCH (08:49)
[2022-07-01] MEDS: PEPCID 20 MG VIAL 20 MG in NS 50 ML IV 50 ML IV SCH (08:49)
[2022-07-01] MEDS: GOLYTELY or GAVILYTE or Equivalent PO SCH (09:30)
[2022-07-01 13:02] VITALS: BP 154/70
== END 2022-07-01 13:29 | disposition swing bed (61) | DRG 603 ==
LOC: ER 12:25 → MED/SURG 15:17
PROVIDERS: ADMIT Internal Medicine; ATTEND Internal Medicine
DX: I12.9 Hypertensive chronic kidney disease with stage 1 through stage 4 chronic kidney disease, or unspecified chronic kidney disease; B96.29 Other Escherichia coli [E. coli] as the cause of diseases classified elsewhere; E11.65 Type 2 diabetes mellitus with hyperglycemia; B96.1 Klebsiella pneumoniae [K. pneumoniae] as the cause of diseases classified elsewhere; K43.9 Ventral hernia without obstruction or gangrene; L03.311 Cellulitis of abdominal wall; K64.0 First degree hemorrhoids; N18.4 Chronic kidney disease, stage 4 (severe); K63.2 Fistula of intestine; I25.10 Atherosclerotic heart disease of native coronary artery without angina pectoris; B96.4 Proteus (mirabilis) (morganii) as the cause of diseases classified elsewhere; R10.84 Generalized abdominal pain; R26.89 Other abnormalities of gait and mobility; E87.6 Hypokalemia; K66.0 Peritoneal adhesions (postprocedural) (postinfection); E78.2 Mixed hyperlipidemia; E86.0 Dehydration; R94.31 Abnormal electrocardiogram [ECG] [EKG]; E11.22 Type 2 diabetes mellitus with diabetic chronic kidney disease

== ENCOUNTER 2022-07-01 13:30 | Inpatient (IN) ==
[2022-07-01] MEDS: FORTAZ or TAZICEF VIAL INJ 1 G in NS 100 ML IV 100 ML IV SCH ×2 (13:30→21:08)
[2022-07-01] MEDS: ZOSYN VIAL 3.375 GRAMS 3.375 G in NS 100 ML IV 100 ML IV SCH ×2 (13:30→21:08)
[2022-07-01] MEDS ORDERED: K-RIDER 10 MEQ/NS 100 ML 10 MEQ/100 ML BAG IV PRN (14:00)
[2022-07-01] MEDS ORDERED: POTASSIUM CHLORIDE LIQ 20 MEQ UDC PO PRN (14:00)
[2022-07-01] MEDS ORDERED: POTASSIUM CHL 40 MEQ/NS 0.45% 500 ML IV PRN (14:00)
[2022-07-01] MEDS ORDERED: POTASSIUM CHL 60 MEQ/NS 0.45% 500 ML IV PRN (14:00)
[2022-07-01] MEDS ORDERED: GOLYTELY or GAVILYTE or Equivalent PO SCH (14:00)
[2022-07-01] MEDS ORDERED: MICRO K EXTEN CAP 10 MEQ PO PRN (14:00)
[2022-07-01] MEDS ORDERED: KLOR-CON PO PRN (14:00)
--- NOTE | 2022-07-01 15:01 | PT/OTEVAL ---
PT/OT OBJECTIVES - HISTORY Prescription: PT Consult Diagnosis: Colonic Fistula Precautions: Fall Risk, Abominal Wound PMH: Diverticulosis, HTN, NV, DM2, HLD, Arthritis, Hernia Repair x 2, Angio/Stents, Appendectomy, Tubal Complexities/Comorbities: Complicated medical history Prior Level of Function: Independent Other: Prior to hospitalization, pt resided in single story home with ramp to enter alone. Pt reports to PT that she would use a SPC within the home as needed and always in the community. Pt was performing all mobility tasks independently and was driving short distances within the community. Pt has family locally who can stop in and assist some if needed. History of Present Illness: Pt is an 86 year old female who presented to ER on 06/25/2022 and was diagnosed with colonic fistula & hypokalema. Pt was admitted to hospital for further treatment and was stabilized medically was unable to safely discharge home due to weakness and requiring assistance with mobility tasks and on 07/01/2022 transitioned to swing bed program for rehab. - COGNITION Mental Status: Alert, Oriented, Name, Date, Place, Purpose Communication Status: Verbal Ability to Follow Directions: 3 Step Memory Loss: None Affect: Calm - PAIN Abdomen Pain Scale: Moderate (5-6) Comments: At fistula site - BED MOBILITY Rolling: Supervision - TRANSFERS Supine to Sit: Supervision Sit to Stand: Minimal Sit or Stand Pivot: Minimal Safety (requires cues for:): Hand Placement Precaution - BALANCE Dynamic Sitting: Good Standing: Poor Balance Comment: Dynamic Standing Balance: Poor+ Static Sitting: Good Standing: Fair Balance Comment: Static Standing: Fair-/Fair - NEUROMOTOR/SENSATION [place]baldo. Lower Ext Sensation: WFL Coordination: WFL Proprioception: WFL - HAND DOMINANCE Extremity Function: Hand Dominance: Right - ROM Bilateral LE ROM: WFL Muscle Tone: WFL - STRENGTH Bilateral LE Strength Number: 4 Other comment: 4-/5 - GAIT Pt. ambulates how many feet?: 60 Amount of Assistance Required: Minimal Type of Assistive Device: Rolling Walker Comments: Focus on posture, walker approximation and step length/foot clearance - OBJECTIVE MEASURES & STANDARDS Objective Measures & Standards: Elderly Mobility Scale: 03/04 - TREATMENT Date: 07/01/22 Time: 13:30 Treatment Type: Evaluation Treatment Provided: Gait, Therapeutic Activities - TOTAL TREATMENT TIME Total Time: 90 - POST ASSESSMENT Post Assessment Comment: Pt was found seated in chair in room & agreeable to participation on PT services. Granddaughter present and verified all information provided in history & PLOF. Pt required min assist to complete functional transfers with focus on proper hand placement and facilitation of COM over TAISHA. Pt performed gait tasks indoors on even surfaces with FWW with focus on maintaining close walker approximation, upright posture and increasing step length/step height. Pt able to tolerate 60ft before fatigue with CGA/min assist for balance and safety. Following seated therapeutic rest break, pt agreeable to complete standing exercises- upon reaching standing, pt had an accident and assisted to bathroom to be cleaned up. Pt required mod/max assist for bathing/hygiene tasks. Pt then reported extreme fatigue & requesting to return to bed. Pt was left seated at EOB with nurse present in room & all needs met. Pt would benefit from continued PT services to address deficits to facilitate highest level of function & safe discharge planning. - EXIT DISPOSITION Exit Position: BED Call light in reach: Yes Bed Alarm On: NO Comments: Nurse present in room. PT/OT ASSESSMENT - PT Problem List: Decreased Bed Mobility, Decreased Transfers, Decreased Gait, Decreased Balance, Decreased LE Strength - PT GOALS Short Term Goals Days: 10 Mobility: Pt will perform bed mobility tasks with mod I Transfers: Pt will perform functional transfers with supervision Gait: Pt will ambulate 150ft with FWW with supervision Balance: Pt will increase static standing balance to good Career Technical Supervisor Goals Days: 20 Transfers: Pt will perform functional transfers with mod I Gait: Pt will ambulate 300ft with SPC with mod I Balance: Pt will increase dynamic standing balance to fair+/good- ROM/Strength: Pt will increase BLE strength to 5/5 - PATIENT GOALS Patient/Family Goals: "Just do my best to get stronger and go home" Goals Discussed with Patient/Family: Yes Rehabilitation Potential: Good to meet stated goals Justification for Potential: Facilitate highest level of function & safe discharge planning Weakness and Barriers: None - PLAN Suggested Treatment Plan: Bed Mobility Training, Therapeutic Activity, Gait Training, Neuro Re-education, Therapeutic Ex with HEP, Patient Education, Family Education - FREQUENCY AND DURATION PT: 5x per week x 20 days Expected Continuation of Care at Discharge: Home Health Anticipated Equipment Needs: Shower chair
[2022-07-01] MEDS: TORADOL 15 MG VIAL IVP SCH ×2 (16:01→21:02)
[2022-07-01] MEDS: MORPHINE SULFATE INJ 2 MG INJ IVP PRN ×2 (16:02→19:43)
[2022-07-01] MEDS: LOPRESSOR TAB 50 MG PO SCH (20:50)
[2022-07-01] MEDS: ZOCOR TAB 20 MG PO SCH (20:51)
[2022-07-01] MEDS: PEPCID 20 MG VIAL 20 MG in NS 50 ML IV 50 ML IV SCH (20:53)
[2022-07-01] MEDS: PROVENTIL NEB TX 0.083% 2.5MG/ 3ML NEB SCH (21:00)
[2022-07-01] MEDS: LOVENOX INJ 30 MG SYR SC SCH (21:10)
[2022-07-01] MEDS: NS 250 ML IV 250 ML IV PRN (21:21)
[2022-07-02] MEDS: TORADOL 15 MG VIAL IVP SCH (04:05)
[2022-07-02] MEDS: ZOSYN VIAL 3.375 GRAMS 3.375 G in NS 100 ML IV 100 ML IV SCH ×3 (05:17→21:03)
[2022-07-02] MEDS: FORTAZ or TAZICEF VIAL INJ 1 G in NS 100 ML IV 100 ML IV SCH (05:17)
[2022-07-02] MEDS: MORPHINE SULFATE INJ 2 MG INJ IVP PRN ×4 (05:37→21:12)
[2022-07-02] MEDS: PROVENTIL NEB TX 0.083% 2.5MG/ 3ML NEB SCH ×2 (09:00→21:30)
[2022-07-02] MEDS: ZESTRIL TAB 10 MG PO SCH (09:47)
[2022-07-02] MEDS: LOPRESSOR TAB 50 MG PO SCH ×2 (09:47→20:20)
[2022-07-02] MEDS: PEPCID 20 MG VIAL 20 MG in NS 50 ML IV 50 ML IV SCH ×2 (09:47→20:19)
--- NOTE | 2022-07-02 12:19 | DR.UPDATE ---
H&P Update Prescription drug monitoring program results: PDMP was not reviewed H&P Reviewed: Yes Any changes to H&P?: Yes Changes noted:: WAS ADMITTED INPATIENT SWINGBED STATUS TODAY FOR TREATMENT OF COLONIC FISTULA, ABDOMINAL WALL CELLULITIS, GENERALIZED WEAKNESS. PATIENT UNDERWENT A COLONOSCOPY WHICH REVEALED SMALL HEMORRHOIDS AND DIVERTICULITIS. WAS UNABLE TO SCOPE PAST THE RECTO-SIGMOID BECAUSE THE SCOPE WOULD NOT ADVANCE DUE TO INFLAMMATION. DURING HER SWINGBED STAY, WE WILL CONTINUE WITH IV ANTIBIOTICS. HOPEFULLY, WHEN INFLAMMATION SUBSIDES, WILL RESCOPE. HE REPORTED THAT AN ILEOSTOMY WAS ALSO A POSSIBILITY. WE WILL HAVE PHYSICAL THERAPY AND OCCUPATIONAL THERAPY WORK WITH PATIENT DURING HER STAY. WE WILL CONTINUE HER CURRENT MEDICATION TREATMENT. THIS INCLUDES: PEPCID 20MG IV Q12H, ZOSYN 3.375G IV TID, MORPHINE 2-4MG IV Q4H PRN, LOVENOX 30MG SC HS, PROVENTIL NEBS BID, ZOCOR 20MG PO HS, LISINOPRIL 10MG DAILY, METOPROLOL 100MG BID, AND THE POTASSIUM AND MAGNESIUM PROTOCOLS. WE WILL ORDER A FULL LIQUID DIET. , GENERAL SURGEON, WILL CONTINUE TO MONITOR PATIENT. WE WILL MONITOR LABS AND MAKE CHANGES ACCORDINGLY. TIME SPENT ON CLINICAL ASSESSMENT, REVIWING LABS AND IMAGING, DECISION MAKING, AND DOCUMENTATION GREATER THAN 75 MINUTES. Patient was examined?: Yes
[2022-07-02 12:39] VITALS: BMI 33.7
--- NOTE | 2022-07-02 13:22 | PT/OTEVAL ---
PT/OT OBJECTIVES - HISTORY Prescription: OT consult Diagnosis: Colonic Fistula Precautions: Fall risk, abdominal wound w/ bag PMH: Arthritis,Diabetes,Dyslipidemia,HTN, Angioplasty, Pacemaker, Hernia repair, Appendectomy Complexities/Comorbities: Complicated medical history Prior Level of Function: Independent Other: Prior to hospitalization, patient lives with grand daughter in a single level home with 5 steps and ramp with handrails.Pt reported being independent with ADLs, IADLs and functional mobility using single tip cane and reported of having no falls over the past 6 months. History of Present Illness: Pt is an 86 year old female who presented to ER on 06/25/2022 and was diagnosed with colonic fistula & hypokalema. Pt was admitted to hospital for further treatment and was stabilized medically was unable to safely discharge home due to weakness and requiring assistance with mobility tasks and on 07/01/2022 transitioned to swing bed program for rehab. - COGNITION Mental Status: Alert, Oriented, Name, Date, Place, Purpose Communication Status: Verbal Ability to Follow Directions: 3 Step Affect: Calm - PAIN Abdomen Pain Scale: No Pain Comments: pt reported of having pain meds few mins before OT eval. - TRANSFERS Supine to Sit: Minimal Sit to Stand: Minimal Sit or Stand Pivot: Minimal Toileting: Moderate Safety (requires cues for:): Hand Placement Precaution - ADL'S Feeding: Independent Grooming: Independent Upper Body ADL: Setup Lower Body ADL: Moderate Toileting: Moderate Bathing: Moderate Hygeine: Setup - BALANCE Dynamic Sitting: Good Standing: Fair Static Sitting: Good Standing: Fair - NEUROMOTOR/SENSATION Osbaldo. Lower Ext Sensation: WFL Coordination: WFL Proprioception: WFL [place]do. Upper Ext Sensation: WFL Coordination: WFL Proprioception: WFL - HAND DOMINANCE Extremity Function: Hand Dominance: Right - ROM Bilateral UE ROM: WFL Muscle Tone: WFL Comment: except for LOM of B Shoulders d/t past surgery on R SH and injury on L SH - STRENGTH Bilateral UE Strength Number: 3 Bilateral LE Strength Number: 4 Other comment: 4-/5 - TREATMENT Date: 07/02/22 Time: 11:45 Treatment Type: Evaluation Treatment Provided: Therapeutic Excersises, Other - TOTAL TREATMENT TIME Total Time: 65 - POST ASSESSMENT Post Assessment Comment: Patient was educated on importance of skilled OT services to work on deficits and improve safety and independence to facilitate return to PLOF. Pt agreeable to participate with OT intervention and voiced understanding on the goals. Pt required min verbal cues for prope placement of hands and feet for safety during transitioning during functional task. - EXIT DISPOSITION Exit Position: BED Call light in reach: Yes Bed Alarm On: NO PT/OT ASSESSMENT - OT Problem List: Decreased Mobility ADL's, Decreased Dressing, Decreased Bathing, Decreased Grooming, Decreased UE Strength Other, comment: decreased functional activity tolerance - PT GOALS Short Term Goals Days: 10 Mobility: Pt will perform bed mobility tasks with mod I Transfers: Pt will perform functional transfers with supervision Gait: Pt will ambulate 150ft with FWW with supervision Balance: Pt will increase static standing balance to good Fiberglass Boat Finisher Goals Days: 20 Transfers: Pt will perform functional transfers with mod I Gait: Pt will ambulate 300ft with SPC with mod I Balance: Pt will increase dynamic standing balance to fair+/good- ROM/Strength: Pt will increase BLE strength to 5/5 - OT GOALS Fdc Goals Days: 20 Mobility for ADL's: Pt will improve toilet t/f independently with AE as needed Dressing: Pt will perform UB/LB dressing independently with AE as needed. Bathing: Pt will improve bathing skills to independent level Upper Ext. Strength/Use: Pt will increase BUE strength to 5/5 to increase ADL,t/f and mobility Other: Pt will imporve F.A.T. to G to increase efficiency with ADL Short Term Goals Days: 10 Mobility for ADL's: Pt will improve toilet t/f with setup A with AE as needed Dressing: Pt will perform UB/LB dressing w/setup A with AE as needed. Bathing: Pt will improve bathing skills to setup A Upper Ext. Strength/Use: Pt will increase BUE strength to 4/5 to increase ADL,t/f and mobility Other: Pt will imporve F.A.T. to F+ to increase efficiency with ADL - PATIENT GOALS Patient/Family Goals: return to PLOF Goals Discussed with Patient/Family: Yes Rehabilitation Potential: good for stated goals Justification for Potential: high level of PLOF, G motivation ,G family support - PLAN Suggested Treatment Plan: Therapeutic Activity, Self Care Training, Neuro Re- education, Therapeutic Ex with HEP, Family Education - FREQUENCY AND DURATION OT: 5x a week x hospital stay Expected Continuation of Care at Discharge: Determined on Progress Anticipated Equipment Needs: shower chair
[2022-07-02] MEDS: ZOCOR TAB 20 MG PO SCH (20:21)
[2022-07-02] MEDS: LOVENOX INJ 30 MG SYR SC SCH (20:39)
[2022-07-03] MEDS: ZOSYN VIAL 3.375 GRAMS 3.375 G in NS 100 ML IV 100 ML IV SCH ×3 (05:33→22:00)
[2022-07-03] MEDS: LOPRESSOR TAB 50 MG PO SCH ×2 (08:35→20:54)
[2022-07-03] MEDS: ZESTRIL TAB 10 MG PO SCH (08:35)
[2022-07-03] MEDS: PEPCID 20 MG VIAL 20 MG in NS 50 ML IV 50 ML IV SCH ×2 (08:35→20:50)
[2022-07-03] MEDS ORDERED: NS 50 ML IV 50 ML IV ONE (08:41)
[2022-07-03] MEDS: MORPHINE SULFATE INJ 2 MG INJ IVP PRN ×3 (08:47→19:42)
[2022-07-03] MEDS: PROVENTIL NEB TX 0.083% 2.5MG/ 3ML NEB SCH ×2 (08:48→21:00)
[2022-07-03] MEDS: ZOCOR TAB 20 MG PO SCH (20:53)
[2022-07-03] MEDS: LOVENOX INJ 30 MG SYR SC SCH (21:04)
[2022-07-04 05:05] LABS: BASOPHILS # (AUTO) 0.1 X10^3/uL (0.0-0.1); BASOPHILS % (AUTO) 0.8 % (0.2-1.0); EOSINOPHILS # (AUTO) 0.1 x10^3/uL (0.0-0.2); EOSINOPHILS % (AUTO) 1.9 % (0.9-2.9); HEMATOCRIT 30.4 % (36.0-47.0); HEMOGLOBIN 10.2 g/dL (12.0-16.0); LYMPHOCYTES # (AUTO) 1.9 X10^3/uL (1.3-2.9); LYMPHOCYTES % (AUTO) 24.1 % (21.0-51.0); MEAN CORPUSCULAR HEMOGLOBIN 27.7 pg (27.0-34.0); MEAN CORPUSCULAR HGB CONC 33.6 g/dL (33.0-35.0); MEAN CORPUSCULAR VOLUME 82.6 fL (80.0-100.0); MEAN PLATELET VOLUME 7.6 fL (7.4-11.0); MONOCYTES # (AUTO) 0.9 x10^3/uL (0.3-0.8); MONOCYTES % (AUTO) 11.4 % (0.0-13.0); NEUTROPHILS # (AUTO) 4.7 x10^3/uL (2.2-4.8); NEUTROPHILS % (AUTO) 61.8 % (42.0-75.0); RED BLOOD COUNT 3.68 X10^6/uL (3.5-5.4); RED CELL DISTRIBUTION WIDTH 14.5 % (11.6-16.5); WHITE BLOOD COUNT 7.7 X10^3/uL (3.6-10.0)
[2022-07-04 05:11] LABS: ALANINE AMINOTRANSFERASE 7 Units/L (12-78); ALKALINE PHOSPHATASE 76 Units/L (46-116); ASPARTATE AMINO TRANSFERASE 13 Units/L (15-37); BLOOD UREA NITROGEN 5 mg/dL (7-18); CALCIUM 8.7 mg/dL (8.5-10.1); CARBON DIOXIDE 28.6 mmol/L (21-32); CHLORIDE 106 mmol/L (98-107); COR CA(FOR HYPOALB) 10.3 mg/dL (8.5-10.1); SODIUM 140 mmol/L (136-145); TOTAL PROTEIN 5.8 g/dL (6.4-8.2); eGFR NON BLACK RACES > 60 (>60)
[2022-07-04] MEDS: ZOSYN VIAL 3.375 GRAMS 3.375 G in NS 100 ML IV 100 ML IV SCH ×3 (05:33→21:22)
[2022-07-04] MEDS: PROVENTIL NEB TX 0.083% 2.5MG/ 3ML NEB SCH ×2 (08:23→20:25)
[2022-07-04] MEDS: PEPCID 20 MG VIAL 20 MG in NS 50 ML IV 50 ML IV SCH ×2 (10:05→20:46)
[2022-07-04] MEDS: ZESTRIL TAB 10 MG PO SCH (10:05)
[2022-07-04] MEDS: LOPRESSOR TAB 50 MG PO SCH ×2 (10:07→20:52)
[2022-07-04] MEDS: PERCOCET TAB 5/325 MG PO PRN ×3 (10:46→23:01)
[2022-07-04] MEDS: LOVENOX INJ 30 MG SYR SC SCH (20:49)
[2022-07-04] MEDS: ZOCOR TAB 20 MG PO SCH (20:52)
[2022-07-05] MEDS: ZOSYN VIAL 3.375 GRAMS 3.375 G in NS 100 ML IV 100 ML IV SCH ×2 (05:21→14:33)
[2022-07-05] MEDS: PERCOCET TAB 5/325 MG PO PRN ×3 (06:02→18:03)
[2022-07-05] MEDS: MORPHINE SULFATE INJ 2 MG INJ IVP PRN ×3 (08:58→20:40)
[2022-07-05] MEDS: ZESTRIL TAB 10 MG PO SCH (08:59)
[2022-07-05] MEDS: LOPRESSOR TAB 50 MG PO SCH ×2 (08:59→20:20)
[2022-07-05] MEDS: NS 250 ML IV 250 ML IV PRN (09:01)
[2022-07-05] MEDS: PROVENTIL NEB TX 0.083% 2.5MG/ 3ML NEB SCH ×2 (09:10→20:10)
[2022-07-05] MEDS: PEPCID 20 MG VIAL 20 MG in NS 50 ML IV 50 ML IV SCH ×2 (09:11→20:19)
[2022-07-05] MEDS: ZOCOR TAB 20 MG PO SCH (20:20)
[2022-07-05] MEDS: LOVENOX INJ 30 MG SYR SC SCH (20:21)
[2022-07-06 08:02] LABS: BASOPHILS # (AUTO) 0.1 X10^3/uL (0.0-0.1); BASOPHILS % (AUTO) 1.4 % (0.2-1.0); EOSINOPHILS # (AUTO) 0.1 x10^3/uL (0.0-0.2); EOSINOPHILS % (AUTO) 1.4 % (0.9-2.9); HEMATOCRIT 29.2 % (36.0-47.0); HEMOGLOBIN 9.8 g/dL (12.0-16.0); LYMPHOCYTES # (AUTO) 1.1 X10^3/uL (1.3-2.9); LYMPHOCYTES % (AUTO) 12.6 % (21.0-51.0); MEAN CORPUSCULAR HEMOGLOBIN 27.9 pg (27.0-34.0); MEAN CORPUSCULAR HGB CONC 33.5 g/dL (33.0-35.0); MEAN CORPUSCULAR VOLUME 83.2 fL (80.0-100.0); MEAN PLATELET VOLUME 7.7 fL (7.4-11.0); MONOCYTES # (AUTO) 0.8 x10^3/uL (0.3-0.8); MONOCYTES % (AUTO) 9.3 % (0.0-13.0); NEUTROPHILS # (AUTO) 6.5 x10^3/uL (2.2-4.8); NEUTROPHILS % (AUTO) 75.3 % (42.0-75.0); RED CELL DISTRIBUTION WIDTH 14.5 % (11.6-16.5); WHITE BLOOD COUNT 8.7 X10^3/uL (3.6-10.0)
[2022-07-06 08:10] LABS: ALANINE AMINOTRANSFERASE 7 Units/L (12-78); ALBUMIN 1.9 g/dL (3.4-5.0); ALKALINE PHOSPHATASE 75 Units/L (46-116); ASPARTATE AMINO TRANSFERASE 14 Units/L (15-37); BLOOD UREA NITROGEN 5 mg/dL (7-18); CALCIUM 8.7 mg/dL (8.5-10.1); CARBON DIOXIDE 29.2 mmol/L (21-32); CHLORIDE 106 mmol/L (98-107); COR CA(FOR HYPOALB) 10.4 mg/dL (8.5-10.1); CREATININE 0.71 mg/dL (0.55-1.02); SODIUM 138 mmol/L (136-145); TOTAL PROTEIN 5.4 g/dL (6.4-8.2); eGFR NON BLACK RACES > 60 (>60)
[2022-07-06] MEDS: PROVENTIL NEB TX 0.083% 2.5MG/ 3ML NEB SCH ×2 (08:30→21:05)
[2022-07-06] MEDS: ZESTRIL TAB 10 MG PO SCH (08:44)
[2022-07-06] MEDS: LOPRESSOR TAB 50 MG PO SCH ×2 (08:44→21:12)
[2022-07-06] MEDS: PEPCID 20 MG VIAL 20 MG in NS 50 ML IV 50 ML IV SCH ×2 (08:44→21:12)
[2022-07-06] MEDS: PERCOCET TAB 5/325 MG PO PRN (08:45)
[2022-07-06] MEDS: MORPHINE SULFATE INJ 2 MG INJ IVP PRN ×3 (08:46→23:21)
[2022-07-06] MEDS: ZOCOR TAB 20 MG PO SCH (21:12)
[2022-07-06] MEDS: LOVENOX INJ 30 MG SYR SC SCH (21:13)
[2022-07-07 05:41] LABS: BASOPHILS % (AUTO) 0.7 % (0.2-1.0); EOSINOPHILS # (AUTO) 0.1 x10^3/uL (0.0-0.2); HEMOGLOBIN 9.4 g/dL (12.0-16.0); LYMPHOCYTES # (AUTO) 1.7 X10^3/uL (1.3-2.9); LYMPHOCYTES % (AUTO) 23.2 % (21.0-51.0); MEAN CORPUSCULAR HEMOGLOBIN 27.6 pg (27.0-34.0); MEAN CORPUSCULAR HGB CONC 33.5 g/dL (33.0-35.0); MEAN CORPUSCULAR VOLUME 82.3 fL (80.0-100.0); MEAN PLATELET VOLUME 7.8 fL (7.4-11.0); MONOCYTES # (AUTO) 0.9 x10^3/uL (0.3-0.8); MONOCYTES % (AUTO) 11.8 % (0.0-13.0); NEUTROPHILS # (AUTO) 4.5 x10^3/uL (2.2-4.8); NEUTROPHILS % (AUTO) 63.3 % (42.0-75.0); RED BLOOD COUNT 3.41 X10^6/uL (3.5-5.4); RED CELL DISTRIBUTION WIDTH 14.7 % (11.6-16.5); WHITE BLOOD COUNT 7.2 X10^3/uL (3.6-10.0)
[2022-07-07 05:58] LABS: ALANINE AMINOTRANSFERASE < 6 Units/L (12-78); ALBUMIN 1.9 g/dL (3.4-5.0); ALKALINE PHOSPHATASE 72 Units/L (46-116); ASPARTATE AMINO TRANSFERASE 12 Units/L (15-37); BLOOD UREA NITROGEN 4 mg/dL (7-18); CALCIUM 8.6 mg/dL (8.5-10.1); CARBON DIOXIDE 29.1 mmol/L (21-32); CHLORIDE 106 mmol/L (98-107); COR CA(FOR HYPOALB) 10.3 mg/dL (8.5-10.1); CREATININE 0.65 mg/dL (0.55-1.02); SODIUM 140 mmol/L (136-145); TOTAL PROTEIN 5.3 g/dL (6.4-8.2); eGFR NON BLACK RACES > 60 (>60)
[2022-07-07] MEDS: K-DUR TAB 20 MEQ PO PRN (06:14)
[2022-07-07] MEDS: MAGNESIUM SULFATE 1 GRAM/100 mL PREMIX 1 G/100 ML BAG IV PRN ×2 (08:54→10:57)
[2022-07-07] MEDS: PEPCID 20 MG VIAL 20 MG in NS 50 ML IV 50 ML IV SCH ×2 (08:54→20:46)
[2022-07-07] MEDS: ZESTRIL TAB 10 MG PO SCH (08:55)
[2022-07-07] MEDS: LOPRESSOR TAB 50 MG PO SCH ×2 (08:55→20:46)
[2022-07-07] MEDS: PROVENTIL NEB TX 0.083% 2.5MG/ 3ML NEB SCH ×2 (09:50→21:00)
--- NOTE | 2022-07-07 09:55 | PCM.PROG ---
Progress Note - Progress Note for Day of Date of Exam: 07/04/22 - Subjective Subjective: IS CURRENTLY INPATIENT SWINGBED STATUS FOR TREATMENT OF COLONIC FISTULA, ABDOMINAL WALL CELLULITIS, GENERALIZED WEAKNESS. PATIENT UNDERWENT A COLONOSCOPY ON 06/30/21 WHICH REVEALED SMALL HEMORRHOIDS AND DIVERTICULITIS. WAS UNABLE TO SCOPE PAST THE RECTO-SIGMOID BECAUSE TH E SCOPE WOULD NOT ADVANCE DUE TO INFLAMMATION. HOPEFULLY, WHEN INFLAMMATION SUBSIDES AND PATIENT IS STRONGER, WILL RESCOPE. TODAY, SHE IS ALERT AND ORIENTED, LYING IN BED ON MORNING ROUNDS. SHE CONTINUES TO COMPLAIN OF GENERALIZED WEAKNESS. SHE ALSO CONTINUES TO HAVE INTERMITTENT ABDOMINAL PAIN. PAIN IS DIFFUSE. COLOSTOMY BAG REMAINS IN PLACE TO COLLECT STOOL FROM FISTULA. ON EXAMINATION THIS MORNING, HEART IS REGULAR IN RATE AND RHYTHM. BILATERAL LUNGS ARE CLEAR TO AUSCULTATION. ABDOMEN IS ROUND, SOFT, AND NOTED WITH DIFFUSE TENDERNESS. NORMAL BOWEL SOUNDS NOTED IN ALL QUADRANTS. NO UPPER OR LOWER EXTREMITY EDEMA NOTED. HER VITALS THIS MORNING ARE: 97.5-70-18-99%-151/67. LABS WERE OBTAINED. WBC 7.7, RBC 3.68, HGB 10.2, HCT 30.4, PLT COUNT 304, SODIUM 140, POTASSIUM 3.9, CHLORIDE 106, CARBON DIOXIDE 28.6, BUN 5, CREATININE 0.80, GLUCOSE 85, CALCIUM 8.7, AST 13, ALT 7, ALK PHOS 76, TOTAL PROTEIN 5.8, ALBUMIN 2.0. PHYSICAL AND OCCUPATIONAL THERAPIES ARE WORKING WITH PATIENT DAILY. SHE CONTINUES TO RECEIVE: PEPCID 20MG IV Q12H, ZOSYN 3.375G IV TID, MORPHINE 2-4MG IV Q4H PRN, LOVENOX 30MG SC HS, PROVENTIL NEBS BID, ZOCOR 20MG PO HS, LISINOPRIL 10MG DAILY, METOPROLOL 100MG BID, AND THE POTASSIUM AND MAGNESIUM PROTOCOLS. WE WILL START PERCOCET 5/325MG PO Q6H PRN PAIN. , GENERAL SURGEON, WILL CONTINUE TO MONITOR PATIENT. OTHERWISE, WE WILL FOLLOW-UP WITH AM LABS AND CONTINUE TO MONITOR. TIME SPENT ON CLINICAL ASSESSMENT, REVIWING LABS AND IMAGING, DECISION MAKING, AND DOCUMENTATION GREATER THAN 45 MINUTES. - Past Medical Family Social History Past Med/Fam/Surg Hx: No changes since H&P Allergies: Allergies tramadol Allergy (Verified 06/25/22 12:48) prochlorperazine [From Compazine] Adverse Reaction (Verified 06/20/22 17:55) - Review of Systems ROS: No change since H&P - Vital Signs and I&O's Vital Signs: Temperature 97.8 F Pulse Rate [Brachial] 72 Pulse Rate 70 Respiratory Rate 18 Blood Pressure [Left Arm] 177/73 Blood Pressure [Right Arm] 154/70 O2 Sat by Pulse Oximetry 98 Intake and Output: Intake & Output 07/04/22 07/05/22 07/06/22 07/07/22 11:59 11:59 11:59 11:59 Intake Total 780 / 780 832 / 832 1696 / 1696 887 / 887 Balance 780 / 780 832 / 832 1696 / 1696 887 / 887 - Physical Exam Oriented: Normal Eyes: Normal Ear: Normal Nose: Normal Throat: Normal Respiratory: Normal Cardiovascular: Normal : Normal Auscultation: Bowel Sounds: Normal Palpation: Normal Tenderness: Diffuse, Periumbilical (Diffuse, Mild, Periumbilical (mild dist ention , diffuse tenderness .. BS+), Other (fistula is draining stool ,moderate induration around the fistula . no necrosis or significant cellulitis.), Mild Skin: Tender, Wound (ABDOMEN) Musculoskeletal: Normal Psychiatric: Normal Mood Description: Calm Affect: Normal Speech Pattern: Clear, Appropriate - Laboratory and Diagnostics Result Diagrams: 07/07/22 05:23 07/07/22 05:23 Labs: Laboratory WBC 7.2 X10^3/uL (3.6-10.0) 07/07/22 05:23 RBC 3.41 X10^6/uL (3.5-5.4) L 07/07/22 05:23 Hgb 9.4 g/dL (12.0-16.0) L 07/07/22 05:23 Hct 28.0 % (36.0-47.0) L 07/07/22 05:23 MCV 82.3 fL (80.0-100.0) 07/07/22 05:23 MCH 27.6 pg (27.0-34.0) 07/07/22 05: MCHC 33.5 g/dL (33.0-35.0) 07/07/22 05:23 RDW 14.7 % (11.6-16.5) 07/07/22 05:23 Plt Count 240 X10^3/uL (150.0-450.0) 07/07/22 05:23 MPV 7.8 fL (7.4-11.0) 07/07/22 05:23 Neut % (Auto) 63.3 % (42.0-75.0) 07/07/22 05:23 Lymph % (Auto) 23.2 % (21.0-51.0) 07/07/22 05:23 [place] % (Auto) 11.8 % (0.0-13.0) 07/07/22 05:23 Eos % (Auto) 1.0 % (0.9-2.9) 07/07/22 05:23 Baso % (Auto) 0.7 % (0.2-1.0) 07/07/22 05:23 Neut # (Auto) 4.5 x10^3/uL (2.2-4.8) 07/07/22 05:23 Lymph # (Auto) 1.7 X10^3/uL (1.3-2.9) 07/07/22 05:23 [place] # (Auto) 0.9 x10^3/uL (0.3-0.8) H 07/07/22 05:23 Eos # (Auto) 0.1 x10^3/uL (0.0-0.2) 07/07/22 05:23 Baso # (Auto) 0.0 X10^3/uL (0.0-0.1) 07/07/22 05:23 Absolute Nucleated RBC 0.0 /100WBC 07/07/22 05:23 Sodium 140 mmol/L (136-145) 07/07/22 05:23 Corrected Sodium TNP 07/07/22 05:23 Potassium 3.6 mmol/L (3.5-5.1) 07/07/22 05:23 Chloride 106 mmol/L (98-107) 07/07/22 05:23 Carbon Dioxide 29.1 mmol/L (21-32) 07/07/22 05:23 BUN 4 mg/dL (7-18) L 07/07/22 05:23 Creatinine 0.65 mg/dL (0.55-1.02) 07/07/22 05:23 Est GFR (MDRD) Af Amer > 60 (>60) 07/07/22 05:23 Est GFR (MDRD) Non-Af > 60 (>60) 07/07/22 05:23 Glucose 87 mg/dL (65-99) 07/07/22 05:23 POC Glucose (mg/dL) 79 mg/dL (65-99) 07/05/22 05:37 Calcium 8.6 mg/dL (8.5-10.1) 07/07/22 05:23 Corrected Calcium 10.3 mg/dL (8.5-10.1) H 07/07/22 05:23 Magnesium 1.7 mg/dL (2.0-2.9) L 07/07/22 05:23 Total Bilirubin 0.40 mg/dL (0.2-1.0) 07/07/22 05:23 AST 12 Units/L (15-37) L 07/07/22 05:23 ALT < 6 Units/L (12-78) L 07/07/22 05:23 Alkaline Phosphatase 72 Units/L (46-116) 07/07/22 05:23 Total Protein 5.3 g/dL (6.4-8.2) L 07/07/22 05:23 Albumin 1.9 g/dL (3.4-5.0) L 07/07/22 05:23 Globulin 3.4 g/dL (2.5-4.5) 07/07/22 05:23 Albumin/Globulin Ratio 0.6 Ratio (1.1-2.1) L 07/07/22 05:23 - Plan (1) Enterocutaneous fistula Status: Acute Plan: FULL LIQUID DIET, PT/OT, PEPCID 20MG IV Q12H, MORPHINE 2-4MG IV Q4H PRN, LOVENOX 30MG SC HS, PROVENTIL NEBS BID, ZOCOR 20MG PO HS, LISINOPRIL 10MG DAILY, METOPROLOL 100MG BID, AND THE POTASSIUM AND MAGNESIUM PROTOCOLS. WE WILL START PERCOCET 5/325MG PO Q6H PRN PAIN. , GENERAL SURGEON, WILL CONTINUE TO MONITOR PATIENT. 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
--- NOTE | 2022-07-07 15:51 | RAD ---
HISTORYINCREASED ABD PAIN. ABD WALL CELLULITIS. COLONIC FISTULASTUDYKUB x-ray one viewCOMPARISONX-ray 06/27/[address] 06/25/2022FINDINGSInjection granuloma are seen projected overlying lower abdomen and pelvis. Mild small and large bowel air is seen without bowel dilation. No constipation is seen.IMPRESSIONNonspecific mild increased small and large bowel air without dilation.Electronically signed by: Jacob Dee (Jul 07, 2022 15:50:02)
[2022-07-07] MEDS: PERCOCET TAB 5/325 MG PO PRN (20:46)
[2022-07-07] MEDS: LOVENOX INJ 30 MG SYR SC SCH (20:47)
[2022-07-07] MEDS: ZOCOR TAB 20 MG PO SCH (20:54)
[2022-07-08] MEDS: PERCOCET TAB 5/325 MG PO PRN ×3 (04:53→20:37)
[2022-07-08 06:37] LABS: BASOPHILS % (AUTO) 0.6 % (0.2-1.0); EOSINOPHILS # (AUTO) 0.1 x10^3/uL (0.0-0.2); EOSINOPHILS % (AUTO) 0.9 % (0.9-2.9); HEMATOCRIT 28.5 % (36.0-47.0); HEMOGLOBIN 9.4 g/dL (12.0-16.0); LYMPHOCYTES # (AUTO) 1.3 X10^3/uL (1.3-2.9); LYMPHOCYTES % (AUTO) 22.2 % (21.0-51.0); MEAN CORPUSCULAR HEMOGLOBIN 27.4 pg (27.0-34.0); MEAN CORPUSCULAR HGB CONC 33.1 g/dL (33.0-35.0); MEAN PLATELET VOLUME 8.6 fL (7.4-11.0); MONOCYTES # (AUTO) 0.7 x10^3/uL (0.3-0.8); MONOCYTES % (AUTO) 11.9 % (0.0-13.0); NEUTROPHILS # (AUTO) 3.9 x10^3/uL (2.2-4.8); NEUTROPHILS % (AUTO) 64.4 % (42.0-75.0); RED BLOOD COUNT 3.43 X10^6/uL (3.5-5.4); RED CELL DISTRIBUTION WIDTH 14.5 % (11.6-16.5)
[2022-07-08 06:54] LABS: ALANINE AMINOTRANSFERASE 6 Units/L (12-78); ALBUMIN 1.9 g/dL (3.4-5.0); ALKALINE PHOSPHATASE 74 Units/L (46-116); ASPARTATE AMINO TRANSFERASE 14 Units/L (15-37); BLOOD UREA NITROGEN 4 mg/dL (7-18); CARBON DIOXIDE 29.4 mmol/L (21-32); CHLORIDE 108 mmol/L (98-107); COR CA(FOR HYPOALB) 10.7 mg/dL (8.5-10.1); CREATININE 0.64 mg/dL (0.55-1.02); SODIUM 142 mmol/L (136-145); TOTAL PROTEIN 5.3 g/dL (6.4-8.2); eGFR NON BLACK RACES > 60 (>60)
--- NOTE | 2022-07-08 08:27 | DR.PROGNOT ---
HOSPITAL PROGRESS NOTE Progress Note for Day of: Progress Note Date: 07/08/22 History of Present Illness History of Present Illness: moderate abdominal pain . no nausea nor vomiting .. moderate amount of fistula drainage and having normal BM . KUB did not show bowel obstruction .. afebrile . Past Medical Family Social History Past Med/Fam/Surg Hx: No changes since H&P Allergies: Allergies tramadol Allergy (Verified 06/25/22 12:48) prochlorperazine [From Compazine] Adverse Reaction (Verified 06/20/22 17:55) Review Of Systems ROS: No change since H&P Vital Signs Vital Signs: Temperature 98.2 F Pulse Rate [Brachial] 70 Pulse Rate 74 Respiratory Rate 18 Blood Pressure [Left Arm] 127/56 Blood Pressure [Right Arm] 154/70 O2 Sat by Pulse Oximetry 99 Physical Exam Oriented: Normal Eyes: Normal Ear: Normal Nose: Normal Throat: Normal Respiratory: Normal Cardiovascular: Normal : Normal GI:Auscultation: Normal GI:Palpation: Normal GI: Tenderness: Diffuse, Periumbilical (Diffuse, Mild, Periumbilical (mild distention , diffuse tenderness .. BS+), Other (fistula is draining stool ,moderate induration around the fistula . no necrosis or significant cellulitis.) and Mild Skin: Tender and Wound (ABDOMEN) Musculoskeletal: Normal Psychiatric: Normal Mood Description: Calm Affect: Normal Speech Pattern: Clear and Appropriate Laboratory and Diagnostics Result Diagrams: 07/08/22 05:58 07/08/22 05:58 Labs: Laboratory WBC 6.0 X10^3/uL (3.6-10.0) 07/08/22 05:58 RBC 3.43 X10^6/uL (3.5-5.4) L 07/08/22 05:58 Hgb 9.4 g/dL (12.0-16.0) L 07/08/22 05:58 Hct 28.5 % (36.0-47.0) L 07/08/22 05:58 MCV 83.0 fL (80.0-100.0) 07/08/22 05:58 MCH 27.4 pg (27.0-34.0) 07/08/22 05:58 MCHC 33.1 g/dL (33.0-35.0) 07/08/22 05:58 RDW 14.5 % (11.6-16.5) 07/08/22 05:58 Plt Count 238 X10^3/uL (150.0-450.0) 07/08/22 05:58 MPV 8.6 fL (7.4-11.0) 07/08/22 05:58 Neut % (Auto) 64.4 % (42.0-75.0) 07/08/22 05:58 Lymph % (Auto) 22.2 % (21.0-51.0) 07/08/22 05:58 [place] % (Auto) 11.9 % (0.0-13.0) 07/08/22 05:58 Eos % (Auto) 0.9 % (0.9-2.9) 07/08/22 05:58 Baso % (Auto) 0.6 % (0.2-1.0) 07/08/22 05:58 Neut # (Auto) 3.9 x10^3/uL (2.2-4.8) 07/08/22 05:58 Lymph # (Auto) 1.3 X10^3/uL (1.3-2.9) 07/08/22 05:58 [place] # (Auto) 0.7 x10^3/uL (0.3-0.8) 07/08/22 05:58 Eos # (Auto) 0.1 x10^3/uL (0.0-0.2) 07/08/22 05:58 Baso # (Auto) 0.0 X10^3/uL (0.0-0.1) 07/08/22 05:58 Absolute Nucleated RBC 0.0 /100WBC 07/08/22 05:58 Sodium 142 mmol/L (136-145) 07/08/22 05:58 Corrected Sodium TNP 07/08/22 05:58 Potassium 3.7 mmol/L (3.5-5.1) 07/08/22 05:58 Chloride 108 mmol/L (98-107) H 07/08/22 05:58 Carbon Dioxide 29.4 mmol/L (21-32) 07/08/22 05:58 BUN 4 mg/dL (7-18) L 07/08/22 05:58 Creatinine 0.64 mg/dL (0.55-1.02) 07/08/22 05:58 Est GFR (MDRD) Af Amer > 60 (>60) 07/08/22 05:58 Est GFR (MDRD) Non-Af > 60 (>60) 07/08/22 05:58 Glucose 80 mg/dL (65-99) 07/08/22 05:58 POC Glucose (mg/dL) 79 mg/dL (65-99) 07/05/22 05:37 Calcium 9.0 mg/dL (8.5-10.1) 07/08/22 05:58 Corrected Calcium 10.7 mg/dL (8.5-10.1) H 07/08/22 05:58 Magnesium 2.0 mg/dL (2.0-2.9) 07/08/22 05:58 Total Bilirubin 0.50 mg/dL (0.2-1.0) 07/08/22 05:58 AST 14 Units/L (15-37) L 07/08/22 05:58 ALT 6 Units/L (12-78) L 07/08/22 05:58 Alkaline Phosphatase 74 Units/L (46-116) 07/08/22 05:58 Total Protein 5.3 g/dL (6.4-8.2) L 07/08/22 05:58 Albumin 1.9 g/dL (3.4-5.0) L 07/08/22 05:58 Globulin 3.4 g/dL (2.5-4.5) 07/08/22 05:58 Albumin/Globulin Ratio 0.6 Ratio (1.1-2.1) L 07/08/22 05:58 Assessment and Plan 1: enterocutaneous fistula .( cecum ) . incisional hernia . diverticulitis . on IV Antibiotics . will need ileostomy next week . Problem Patient Problems: Patient Problems (Updated 07/07/22 @ 09:55 by Nate Harrison) Hypertension (Chronic) I10 Hyperlipidemia (Chronic) E78.5 Hypokalemia (Acute) E87.6 Diabetes mellitus (Chronic) E11.9 Enterocutaneous fistula (Acute) K63.2 Chronic kidney disease (Acute) N18.9
[2022-07-08] MEDS: LOPRESSOR TAB 50 MG PO SCH ×2 (08:47→20:36)
[2022-07-08] MEDS: ZESTRIL TAB 10 MG PO SCH (08:47)
[2022-07-08] MEDS: PEPCID 20 MG VIAL 20 MG in NS 50 ML IV 50 ML IV SCH ×2 (08:48→20:36)
[2022-07-08] MEDS: K-DUR TAB 20 MEQ PO PRN (08:48)
[2022-07-08] MEDS: PROVENTIL NEB TX 0.083% 2.5MG/ 3ML NEB SCH ×2 (09:01→20:25)
[2022-07-08] MEDS ORDERED: BUTT CREAM (COMPOUND) TOP PRN (11:23)
[2022-07-08] MEDS: LOVENOX INJ 30 MG SYR SC SCH (20:36)
[2022-07-08] MEDS: ZOCOR TAB 20 MG PO SCH (20:36)
[2022-07-09 06:39] LABS: BASOPHILS % (AUTO) 0.8 % (0.2-1.0); EOSINOPHILS % (AUTO) 0.8 % (0.9-2.9); HEMATOCRIT 28.1 % (36.0-47.0); HEMOGLOBIN 9.3 g/dL (12.0-16.0); LYMPHOCYTES # (AUTO) 1.6 X10^3/uL (1.3-2.9); LYMPHOCYTES % (AUTO) 24.5 % (21.0-51.0); MEAN CORPUSCULAR HEMOGLOBIN 27.7 pg (27.0-34.0); MEAN CORPUSCULAR HGB CONC 33.2 g/dL (33.0-35.0); MEAN CORPUSCULAR VOLUME 83.5 fL (80.0-100.0); MEAN PLATELET VOLUME 8.6 fL (7.4-11.0); MONOCYTES # (AUTO) 0.7 x10^3/uL (0.3-0.8); MONOCYTES % (AUTO) 11.4 % (0.0-13.0); NEUTROPHILS % (AUTO) 62.5 % (42.0-75.0); RED BLOOD COUNT 3.36 X10^6/uL (3.5-5.4); WHITE BLOOD COUNT 6.4 X10^3/uL (3.6-10.0)
[2022-07-09 06:59] LABS: ALANINE AMINOTRANSFERASE 6 Units/L (12-78); ALKALINE PHOSPHATASE 72 Units/L (46-116); ASPARTATE AMINO TRANSFERASE 12 Units/L (15-37); BLOOD UREA NITROGEN 5 mg/dL (7-18); CALCIUM 8.7 mg/dL (8.5-10.1); CARBON DIOXIDE 29.9 mmol/L (21-32); CHLORIDE 107 mmol/L (98-107); COR CA(FOR HYPOALB) 10.3 mg/dL (8.5-10.1); CREATININE 0.63 mg/dL (0.55-1.02); SODIUM 141 mmol/L (136-145); TOTAL PROTEIN 5.4 g/dL (6.4-8.2); eGFR NON BLACK RACES > 60 (>60)
[2022-07-09] MEDS: PROVENTIL NEB TX 0.083% 2.5MG/ 3ML NEB SCH ×2 (08:15→21:43)
[2022-07-09] MEDS: PEPCID 20 MG VIAL 20 MG in NS 50 ML IV 50 ML IV SCH ×2 (09:53→20:40)
[2022-07-09] MEDS: LOPRESSOR TAB 50 MG PO SCH ×2 (09:53→20:41)
[2022-07-09] MEDS: ZESTRIL TAB 10 MG PO SCH (09:53)
[2022-07-09] MEDS: PERCOCET TAB 5/325 MG PO PRN (12:00)
[2022-07-09] MEDS: LOVENOX INJ 30 MG SYR SC SCH (20:41)
[2022-07-09] MEDS: ZOCOR TAB 20 MG PO SCH (20:41)
[2022-07-10 05:19] LABS: BASOPHILS # (AUTO) 0.1 X10^3/uL (0.0-0.1); BASOPHILS % (AUTO) 1.1 % (0.2-1.0); EOSINOPHILS % (AUTO) 0.7 % (0.9-2.9); HEMATOCRIT 27.8 % (36.0-47.0); HEMOGLOBIN 9.2 g/dL (12.0-16.0); LYMPHOCYTES # (AUTO) 1.5 X10^3/uL (1.3-2.9); LYMPHOCYTES % (AUTO) 24.3 % (21.0-51.0); MEAN CORPUSCULAR HEMOGLOBIN 27.6 pg (27.0-34.0); MEAN CORPUSCULAR HGB CONC 33.2 g/dL (33.0-35.0); MEAN CORPUSCULAR VOLUME 83.2 fL (80.0-100.0); MONOCYTES # (AUTO) 0.7 x10^3/uL (0.3-0.8); MONOCYTES % (AUTO) 11.6 % (0.0-13.0); NEUTROPHILS # (AUTO) 3.9 x10^3/uL (2.2-4.8); NEUTROPHILS % (AUTO) 62.3 % (42.0-75.0); RED BLOOD COUNT 3.34 X10^6/uL (3.5-5.4); WHITE BLOOD COUNT 6.3 X10^3/uL (3.6-10.0)
[2022-07-10 05:30] LABS: ALANINE AMINOTRANSFERASE < 6 Units/L (12-78); ALKALINE PHOSPHATASE 70 Units/L (46-116); ASPARTATE AMINO TRANSFERASE 10 Units/L (15-37); BLOOD UREA NITROGEN 4 mg/dL (7-18); CALCIUM 8.7 mg/dL (8.5-10.1); CARBON DIOXIDE 29.3 mmol/L (21-32); CHLORIDE 107 mmol/L (98-107); COR CA(FOR HYPOALB) 10.3 mg/dL (8.5-10.1); CREATININE 0.67 mg/dL (0.55-1.02); SODIUM 141 mmol/L (136-145); TOTAL PROTEIN 5.3 g/dL (6.4-8.2); eGFR NON BLACK RACES > 60 (>60)
[2022-07-10] MEDS: PEPCID 20 MG VIAL 20 MG in NS 50 ML IV 50 ML IV SCH ×2 (08:27→21:44)
[2022-07-10] MEDS: LOPRESSOR TAB 50 MG PO SCH ×2 (08:28→21:45)
[2022-07-10] MEDS: ZESTRIL TAB 10 MG PO SCH (08:28)
[2022-07-10] MEDS: NS 250 ML IV 250 ML IV PRN (08:29)
[2022-07-10] MEDS: PROVENTIL NEB TX 0.083% 2.5MG/ 3ML NEB SCH ×2 (09:00→21:25)
[2022-07-10] MEDS: PERCOCET TAB 5/325 MG PO PRN ×2 (11:49→18:46)
--- NOTE | 2022-07-10 14:34 | DR.PROGNOT ---
HOSPITAL PROGRESS NOTE Progress Note for Day of: Progress Note Date: 07/10/22 History of Present Illness History of Present Illness: moderate abdominal pain . no nausea nor vomiting .. moderate amount of fistula drainage and having normal BM . WBC normal .. KUB did not show bowel obstruction .. afebrile . Past Medical Family Social History Past Med/Fam/Surg Hx: No changes since H&P Allergies: Allergies tramadol Allergy (Verified 06/25/22 12:48) prochlorperazine [From Compazine] Adverse Reaction (Verified 06/20/22 17:55) Review Of Systems ROS: No change since H&P Vital Signs Vital Signs: Temperature 98.3 F Pulse Rate [Brachial] 68 Pulse Rate 72 Respiratory Rate 20 Blood Pressure [Left Arm] 179/77 Blood Pressure [Right Arm] 169/74 O2 Sat by Pulse Oximetry 97 Physical Exam Oriented: Normal Eyes: Normal Ear: Normal Nose: Normal Throat: Normal Respiratory: Normal Cardiovascular: Normal : Normal GI:Auscultation: Normal GI:Palpation: Normal GI: Tenderness: Diffuse, Periumbilical (Diffuse, Mild, Periumbilical (mild distention , diffuse tenderness .. BS+), Other (fistula is draining stool ,mod erate induration around the fistula . no necrosis or significant cellulitis.) and Mild Skin: Tender and Wound (ABDOMEN) Musculoskeletal: Normal Psychiatric: Normal Mood Description: Calm Affect: Normal Speech Pattern: Clear and Appropriate Laboratory and Diagnostics Result Diagrams: 07/10/22 04:50 07/10/22 04:50 Labs: Laboratory WBC 6.3 X10^3/uL (3.6-10.0) 07/10/22 04:50 RBC 3.34 X10^6/uL (3.5-5.4) L 07/10/22 04:50 Hgb 9.2 g/dL (12.0-16.0) L 07/10/22 04:50 Hct 27.8 % (36.0-47.0) L 07/10/22 04:50 MCV 83.2 fL (80.0-100.0) 07/10/22 04:50 MCH 27.6 pg (27.0-34.0) 07/10/22 04:50 MCHC 33.2 g/dL (33.0-35.0) 07/10/22 04:50 RDW 15.0 % (11.6-16.5) 07/10/22 04:50 Plt Count 188 X10^3/uL (150.0-450.0) 07/10/22 04:50 MPV 9.0 fL (7.4-11.0) 07/10/22 04:50 Neut % (Auto) 62.3 % (42.0-75.0) 07/10/22 04:50 Lymph % (Auto) 24.3 % (21.0-51.0) 07/10/22 04:50 [place] % (Auto) 11.6 % (0.0-13.0) 07/10/22 04:50 Eos % (Auto) 0.7 % (0.9-2.9) L 07/10/22 04:50 Baso % (Auto) 1.1 % (0.2-1.0) H 07/10/22 04:50 Neut # (Auto) 3.9 x10^3/uL (2.2-4.8) 07/10/22 04:50 Lymph # (Auto) 1.5 X10^3/uL (1.3-2.9) 07/10/22 04:50 [place] # (Auto) 0.7 x10^3/uL (0.3-0.8) 07/10/22 04:50 Eos # (Auto) 0.0 x10^3/uL (0.0-0.2) 07/10/22 04:50 Baso # (Auto) 0.1 X10^3/uL (0.0-0.1) 07/10/22 04:50 Absolute Nucleated RBC 0.0 /100WBC 07/10/22 04:50 Sodium 141 mmol/L (136-145) 07/10/22 04:50 Corrected Sodium TNP 07/10/22 04:50 Potassium 3.6 mmol/L (3.5-5.1) 07/10/22 04:50 Chloride 107 mmol/L (98-107) 07/10/22 04:50 Carbon Dioxide 29.3 mmol/L (21-32) 07/10/22 04:50 BUN 4 mg/dL (7-18) L 07/10/22 04:50 Creatinine 0.67 mg/dL (0.55-1.02) 07/10/22 04:50 Est GFR (MDRD) Af Amer > 60 (>60) 07/10/22 04:50 Est GFR (MDRD) Non-Af > 60 (>60) 07/10/22 04:50 Glucose 81 mg/dL (65-99) 07/10/22 04:50 POC Glucose (mg/dL) 79 mg/dL (65-99) 07/05/22 05:37 Calcium 8.7 mg/dL (8.5-10.1) 07/10/22 04:50 Corrected Calcium 10.3 mg/dL (8.5-10.1) H 07/10/22 04:50 Magnesium 2.0 mg/dL (2.0-2.9) 07/08/22 05:58 Total Bilirubin 0.60 mg/dL (0.2-1.0) 07/10/22 04:50 AST 10 Units/L (15-37) L 07/10/22 04:50 ALT < 6 Units/L (12-78) L 07/10/22 04:50 Alkaline Phosphatase 70 Units/L (46-116) 07/10/22 04:50 Total Protein 5.3 g/dL (6.4-8.2) L 07/10/22 04:50 Albumin 2.0 g/dL (3.4-5.0) L 07/10/22 04:50 Globulin 3.3 g/dL (2.5-4.5) 07/10/22 04:50 Albumin/Globulin Ratio 0.6 Ratio (1.1-2.1) L 07/10/22 04:50 Assessment and Plan 1: enterocutaneous fistula .( cecum ) . incisional hernia . diverticulitis . on IV Antibiotics . will need ileostomy next week . Problem Patient Problems: Patient Problems (Updated 07/07/22 @ 09:55 by Nate Harrison) Hypertension (Chronic) I10 Hyperlipidemia (Chronic) E78.5 Hypokalemia (Acute) E87.6 Diabetes mellitus (Chronic) E11.9 Enterocutaneous fistula (Acute) K63.2 Chronic kidney disease (Acute) N18.9
[2022-07-10] MEDS: LOVENOX INJ 30 MG SYR SC SCH (21:44)
[2022-07-10] MEDS: K-DUR TAB 20 MEQ PO PRN (21:45)
[2022-07-10] MEDS: ZOCOR TAB 20 MG PO SCH (21:45)
[2022-07-11] MEDS: PROVENTIL NEB TX 0.083% 2.5MG/ 3ML NEB SCH ×2 (09:00→21:00)
[2022-07-11] MEDS: LOPRESSOR TAB 50 MG PO SCH ×2 (09:29→20:36)
[2022-07-11] MEDS: ZESTRIL TAB 10 MG PO SCH (09:29)
[2022-07-11] MEDS: PEPCID 20 MG VIAL 20 MG in NS 50 ML IV 50 ML IV SCH ×2 (09:30→20:35)
[2022-07-11] MEDS: PERCOCET TAB 5/325 MG PO PRN ×2 (09:48→20:37)
--- NOTE | 2022-07-11 12:31 | PCM.PROG ---
Progress Note - Progress Note for Day of Date of Exam: 07/10/22 - Subjective Subjective: IS CURRENTLY INPATIENT SWINGBED STATUS FOR TREATMENT OF COLONIC FISTULA, ABDOMINAL WALL CELLULITIS, GENERALIZED WEAKNESS. PATIENT UNDERWENT A COLONOSCOPY ON 06/30/21 WHICH REVEALED SMALL HEMORRHOIDS AND DIVERTICULITIS. WAS UNABLE TO SCOPE PAST THE RECTO-SIGMOID BECAUSE TH E SCOPE WOULD NOT ADVANCE DUE TO INFLAMMATION. HOPEFULLY, WHEN INFLAMMATION SUBSIDES AND PATIENT IS STRONGER, WILL RESCOPE. TODAY, SHE IS ALERT AND ORIENTED, LYING IN BED ON MORNING ROUNDS. SHE CONTINUES TO COMPLAIN OF GENERALIZED WEAKNESS. SHE ALSO CONTINUES TO HAVE INTERMITTENT ABDOMINAL PAIN. PAIN IS DIFFUSE. COLOSTOMY BAG REMAINS IN PLACE TO COLLECT STOOL FROM FISTULA. THERE IS MODERATE DRAINAGE FROM FISTULA. NO NECROSIS OR SIGNIFICANT CELLULITIS AROUND THE SITE IS NOTED. ON EXAMINATION THIS MORNING, HEART IS REGULAR IN RATE AND RHYTHM. BILATERAL LUNGS ARE CLEAR TO AUSCULTATION. ABDOMEN IS ROUND, SOFT, AND NOTED WITH DIFFUSE TENDERNESS. NORMAL BOWEL SOUNDS NOTED IN ALL QUADRANTS. NO UPPER OR LOWER EXTREMITY EDEMA NOTED. HER VITALS THIS MORNING ARE: 98.3-68-18-99%-169/74. LABS WERE OBTAINED. WBC 6.3, RBC 3.34, HGB 9.2, HCT 27.8, PLT COUNT 188, SODIUM 141, POTASSIUM 3.6, CHLORIDE 107, CARBON DIOXIDE 29.3, BUN 4, CREATININE 0.67, GLUCOSE 81, CALCIUM 8.7, TOTAL BILI 0.60, AST 10, ALT <6, ALK PHOS 70, TOTAL PROTEIN 5.3, ALBUMIN 2.0. PHYSICAL AND OCCUPATIONAL THERAPIES ARE WORKING WITH PATIENT DAILY. SHE CONTINUES TO RECEIVE: PEPCID 20MG IV Q12H, ZOSYN 3.375G IV TID, MORPHINE 2-4MG IV Q4H PRN, LOVENOX 30MG SC HS, PROVENTIL NEBS BID, ZOCOR 20MG PO HS, LISINOPRIL 10MG DAILY, METOPROLOL 100MG BID, AND THE POTASSIUM AND MAGNESIUM PROTOCOLS. WE WILL START PERCOCET 5/325MG PO Q6H PRN PAIN. 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 WE ARE IN AGREEMENT WITH PLANS. OTHERWISE, WE WILL FOLLOW- UP WITH AM LABS AND CONTINUE TO MONITOR. TIME SPENT ON CLINICAL ASSESSMENT, REVIWING LABS AND IMAGING, DECISION MAKING, AND DOCUMENTATION GREATER THAN 45 MINUTES. - Past Medical Family Social History Past Med/Fam/Surg Hx: No changes since H&P Allergies: Allergies tramadol Allergy (Verified 06/25/22 12:48) prochlorperazine [From Compazine] Adverse Reaction (Verified 06/20/22 17:55) - Review of Systems ROS: No change since H&P - Vital Signs and I&O's Vital Signs: Temperature 98.8 F Pulse Rate [Brachial] 70 Pulse Rate 70 Respiratory Rate 18 Blood Pressure [Left Arm] 147/66 Blood Pressure [Right Arm] 169/74 O2 Sat by Pulse Oximetry 100 Intake and Output: Intake & Output 07/09/22 07/10/22 07/11/22 07/12/22 11:59 11:59 11:59 11:59 Intake Total 900 / 900 931 / 931 1952 Output Total 100 / 100 Balance 900 / 900 931 / 931 1852 / 1852 - Physical Exam Oriented: Normal Eyes: Normal Ear: Normal Nose: Normal Throat: Normal Respiratory: Normal Cardiovascular: Normal : Normal Auscultation: Bowel Sounds: Normal Tenderness: Diffuse, Mild, Periumbilical (Diffuse, Mild, Periumbilical (mild distention , diffuse tenderness .. BS+), Other (fistula is draining stool ,moderate induration around the fistula . no necrosis or significant cellul itis.) Skin: Tender, Wound (ABDOMEN) Musculoskeletal: Normal Psychiatric: Normal Mood Description: Calm Affect: Normal Speech Pattern: Clear, Appropriate - Laboratory and Diagnostics Result Diagrams: 07/10/22 04:50 07/10/22 18:45 Labs: Laboratory WBC 6.3 X10^3/uL (3.6-10.0) 07/10/22 04:50 RBC 3.34 X10^6/uL (3.5-5.4) L 07/10/22 04:50 Hgb 9.2 g/dL (12.0-16.0) L 07/10/22 04:50 Hct 27.8 % (36.0-47.0) L 07/10/22 04:50 MCV 83.2 fL (80.0-100.0) 07/10/22 04:50 MCH 27.6 pg (27.0-34.0) 07/10/22 04:50 MCHC 33.2 g/dL (33.0-35.0) 07/10/22 04:50 RDW 15.0 % (11.6-16.5) 07/10/22 04:50 Plt Count 188 X10^3/uL (150.0-450.0) 07/10/22 04:50 MPV 9.0 fL (7.4-11.0) 07/10/22 04:50 Neut % (Auto) 62.3 % (42.0-75.0) 07/10/22 04:50 Lymph % (Auto) 24.3 % (21.0-51.0) 07/10/22 04:50 [place] % (Auto) 11.6 % (0.0-13.0) 07/10/22 04:50 Eos % (Auto) 0.7 % (0.9-2.9) L 07/10/22 04:50 Baso % (Auto) 1.1 % (0.2-1.0) H 07/10/22 04:50 Neut # (Auto) 3.9 x10^3/uL (2.2-4.8) 07/10/22 04:50 Lymph # (Auto) 1.5 X10^3/uL (1.3-2.9) 07/10/22 04:50 [place] # (Auto) 0.7 x10^3/uL (0.3-0.8) 07/10/22 04:50 Eos # (Auto) 0.0 x10^3/uL (0.0-0.2) 07/10/22 04:50 Baso # (Auto) 0.1 X10^3/uL (0.0-0.1) 07/10/22 04:50 Absolute Nucleated RBC 0.0 /100WBC 07/10/22 04:50 Sodium 141 mmol/L (136-145) 07/10/22 04:50 Corrected Sodium TNP 07/10/22 04:50 Potassium 3.7 mmol/L (3.5-5.1) 07/10/22 18:45 Chloride 107 mmol/L (98-107) 07/10/22 04:50 Carbon Dioxide 29.3 mmol/L (21-32) 07/10/22 04:50 BUN 4 mg/dL (7-18) L 07/10/22 04:50 Creatinine 0.67 mg/dL (0.55-1.02) 07/10/22 04:50 Est GFR (MDRD) Af Amer > 60 (>60) 07/10/22 04:50 Est GFR (MDRD) Non-Af > 60 (>60) 07/10/22 04:50 Glucose 81 mg/dL (65-99) 07/10/22 04:50 POC Glucose (mg/dL) 79 mg/dL (65-99) 07/05/22 05:37 Calcium 8.7 mg/dL (8.5-10.1) 07/10/22 04:50 Corrected Calcium 10.3 mg/dL (8.5-10.1) H 07/10/22 04:50 Magnesium 2.0 mg/dL (2.0-2.9) 07/08/22 05:58 Total Bilirubin 0.60 mg/dL (0.2-1.0) 07/10/22 04:50 AST 10 Units/L (15-37) L 07/10/22 04:50 ALT < 6 Units/L (12-78) L 07/10/22 04:50 Alkaline Phosphatase 70 Units/L (46-116) 07/10/22 04:50 Total Protein 5.3 g/dL (6.4-8.2) L 07/10/22 04:50 Albumin 2.0 g/dL (3.4-5.0) L 07/10/22 04:50 Globulin 3.3 g/dL (2.5-4.5) 07/10/22 04:50 Albumin/Globulin Ratio 0.6 Ratio (1.1-2.1) L 07/10/22 04:50 - Plan (1) Enterocutaneous fistula Status: Acute Plan: FULL LIQUID DIET, PT/OT, PEPCID 20MG IV Q12H, MORPHINE 2-4MG IV Q4H PRN, LOVENOX 30MG SC HS, PROVENTIL NEBS BID, ZOCOR 20MG PO HS, LISINOPRIL 10MG DAILY, METOPROLOL 100MG BID, AND THE POTASSIUM AND MAGNESIUM PROTOCOLS. WE WILL START PERCOCET 5/325MG PO Q6H PRN PAIN. , GENERAL SURGEON, WILL CONTINUE TO MONITOR PATIENT. (2) Chronic kidney disease Status: Acute Qualifiers: Chronic kidney disease stage: unspecified stage (3) Hypokalemia Status: Acute (4) Hypertension Status: Chronic Qualifiers: Hypertension type: primary hypertension (5) Hyperlipidemia Status: Chronic Qualifiers: Hyperlipidemia type: mixed hyperlipidemia (6) Diabetes mellitus Status: Chronic Qualifiers: Diabetes mellitus type: type 2 Diabetes mellitus ferry terminal agent insulin use: without ferry terminal agent use Diabetes mellitus complication status: without complication Qualified Code(s): E11.9 - Type 2 diabetes mellitus without complications
[2022-07-11] MEDS: ZOCOR TAB 20 MG PO SCH (20:36)
[2022-07-11] MEDS: LOVENOX INJ 30 MG SYR SC SCH (20:37)
[2022-07-12] MEDS: LOPRESSOR TAB 50 MG PO SCH ×2 (08:47→20:56)
[2022-07-12] MEDS: ZESTRIL TAB 10 MG PO SCH (08:48)
[2022-07-12] MEDS: PEPCID 20 MG VIAL 20 MG in NS 50 ML IV 50 ML IV SCH ×2 (08:49→20:56)
[2022-07-12] MEDS: PROVENTIL NEB TX 0.083% 2.5MG/ 3ML NEB SCH ×2 (09:14→21:05)
[2022-07-12] MEDS: PERCOCET TAB 5/325 MG PO PRN ×2 (12:21→20:54)
[2022-07-12] MEDS: K-DUR TAB 20 MEQ PO PRN (20:53)
[2022-07-12] MEDS: ZOCOR TAB 20 MG PO SCH (20:54)
[2022-07-12] MEDS: LOVENOX INJ 30 MG SYR SC SCH (20:56)
[2022-07-13] MEDS: PERCOCET TAB 5/325 MG PO PRN ×2 (05:48→19:25)
[2022-07-13 06:32] LABS: ALANINE AMINOTRANSFERASE 6 Units/L (12-78); ALBUMIN 2.3 g/dL (3.4-5.0); ALKALINE PHOSPHATASE 78 Units/L (46-116); ASPARTATE AMINO TRANSFERASE 14 Units/L (15-37); BASOPHILS # (AUTO) 0.1 X10^3/uL (0.0-0.1); BASOPHILS % (AUTO) 1.5 % (0.2-1.0); BLOOD UREA NITROGEN 6 mg/dL (7-18); CALCIUM 8.9 mg/dL (8.5-10.1); CARBON DIOXIDE 29.9 mmol/L (21-32); CHLORIDE 105 mmol/L (98-107); COR CA(FOR HYPOALB) 10.3 mg/dL (8.5-10.1); EOSINOPHILS # (AUTO) 0.1 x10^3/uL (0.0-0.2); EOSINOPHILS % (AUTO) 1.2 % (0.9-2.9); HEMATOCRIT 32.5 % (36.0-47.0); HEMOGLOBIN 10.5 g/dL (12.0-16.0); LYMPHOCYTES # (AUTO) 1.6 X10^3/uL (1.3-2.9); MEAN CORPUSCULAR HEMOGLOBIN 27.4 pg (27.0-34.0); MEAN CORPUSCULAR HGB CONC 32.2 g/dL (33.0-35.0); MEAN CORPUSCULAR VOLUME 84.9 fL (80.0-100.0); MEAN PLATELET VOLUME 9.2 fL (7.4-11.0); MONOCYTES # (AUTO) 0.5 x10^3/uL (0.3-0.8); MONOCYTES % (AUTO) 10.8 % (0.0-13.0); NEUTROPHILS # (AUTO) 2.8 x10^3/uL (2.2-4.8); NEUTROPHILS % (AUTO) 55.5 % (42.0-75.0); RED BLOOD COUNT 3.82 X10^6/uL (3.5-5.4); RED CELL DISTRIBUTION WIDTH 15.9 % (11.6-16.5); SODIUM 142 mmol/L (136-145); WHITE BLOOD COUNT 5.1 X10^3/uL (3.6-10.0); eGFR NON BLACK RACES > 60 (>60)
[2022-07-13] MEDS: LOPRESSOR TAB 50 MG PO SCH ×2 (08:11→20:45)
[2022-07-13] MEDS: PEPCID 20 MG VIAL 20 MG in NS 50 ML IV 50 ML IV SCH ×2 (08:11→20:46)
[2022-07-13] MEDS: ZESTRIL TAB 10 MG PO SCH (08:11)
[2022-07-13] MEDS: PROVENTIL NEB TX 0.083% 2.5MG/ 3ML NEB SCH ×2 (08:28→20:15)
[2022-07-13] MEDS: ZOCOR TAB 20 MG PO SCH (20:45)
[2022-07-13] MEDS: LOVENOX INJ 30 MG SYR SC SCH (20:46)
[2022-07-14] MEDS: MORPHINE SULFATE INJ 2 MG INJ IVP PRN (05:13)
[2022-07-14 08:19] VITALS: BP 170/72
--- NOTE | 2022-07-14 09:06 | EKG ---
Test Reason : PRE OP Blood Pressure : */* mmHG Vent. Rate : 70 BPM Atrial Rate : 70 BPM P-R Int : 214 ms QRS Dur : 144 ms QT Int : 450 ms P-R-T Axes : * -56 136 degrees QTc Int : 486 ms AV dual-paced rhythm with prolonged AV conduction Abnormal ECG When compared with ECG of 25-JUN-2022 13:09, Vent. rate has decreased BY 6 BPM Confirmed by Russ Sharma ([id number]) on 07/16/2022 10:57:25 AM Referred By: Confirmed By: Russ Sharma
[2022-07-14] MEDS ORDERED: PROVENTIL NEB TX 0.083% 2.5MG/ 3ML NEB ONE (09:11)
== END 2022-07-14 06:59 | disposition critical access hospital (66) | DRG 603 ==
LOC: MED/SURG 13:38
PROVIDERS: ADMIT Internal Medicine; ATTEND Internal Medicine

== ENCOUNTER 2022-07-14 07:00 | Inpatient (IN) ==
[2022-07-14] MEDS ORDERED: POLYMYXIN B SULFATE ONE (09:32)
[2022-07-14] MEDS ORDERED: POTASSIUM CHL 60 MEQ/NS 0.45% 500 ML IV PRN (09:43)
[2022-07-14] MEDS ORDERED: MICRO K EXTEN CAP 10 MEQ PO PRN (09:43)
[2022-07-14] MEDS ORDERED: KLOR-CON PO PRN (09:44)
[2022-07-14] MEDS ORDERED: POTASSIUM CHLORIDE LIQ 20 MEQ UDC PO PRN (09:45)
[2022-07-14] MEDS ORDERED: POTASSIUM CHL 40 MEQ/NS 0.45% 500 ML IV PRN (09:45)
[2022-07-14] MEDS ORDERED: MORPHINE SULFATE INJ 2 MG INJ IVP PRN (09:46)
[2022-07-14] MEDS ORDERED: BUTT CREAM (COMPOUND) TOP PRN (09:46)
[2022-07-14] MEDS ORDERED: KETAMINE 50 MG/5 ML-NACL SYRNG ONE (10:25)
[2022-07-14] MEDS ORDERED: FENTANYL VIAL INJ 100 mcg ONE (10:25)
[2022-07-14] MEDS ORDERED: VERSED ONE (10:25)
[2022-07-14] MEDS ORDERED: NS 100 ML IV 100 ML ONE (10:27)
[2022-07-14] MEDS ORDERED: ANCEF VIAL 1 GRAM ONE (10:27)
[2022-07-14] MEDS ORDERED: NS 1,000 ML IV 1,000 ML ONE (10:27)
[2022-07-14] MEDS ORDERED: ZEMURON 100 MG VIAL ONE (10:50)
[2022-07-14] MEDS ORDERED: AMIDATE INJ 40 MG VIAL ONE (10:50)
[2022-07-14] MEDS ORDERED: BRIDION ONE (10:50)
[2022-07-14] MEDS ORDERED: PRECEDEX INJ VIAL IVP ONE (10:50)
[2022-07-14] MEDS ORDERED: ZOFRAN INJ 4 MG VIAL ONE (10:50)
[2022-07-14] MEDS ORDERED: ROBINUL ONE (10:50)
[2022-07-14] MEDS ORDERED: PEPCID 20 MG VIAL ONE (10:50)
[2022-07-14] MEDS ORDERED: XYLOCAINE 2 % (PLAIN) ONE (10:50)
[2022-07-14] MEDS ORDERED: EPHEDRINE SULFATE INJ ONE (10:59)
[2022-07-14] MEDS ORDERED: BETADINE SOLN ONE (11:08)
[2022-07-14] MEDS ORDERED: ULTANE GAS IN ONE (11:08)
[2022-07-14] MEDS ORDERED: LEVAQUIN PREMIX IV 500 MG 500 MG/100 ML BAG IV ONE (11:29)
[2022-07-14] MEDS ORDERED: NORMODYNE INJ 20 MG VIAL ONE (11:54)
[2022-07-14] MEDS: DILAUDID INJ IVP PRN ×4 (13:40→14:23)
[2022-07-14] MEDS ORDERED: DILAUDID INJ ONE (13:48)
[2022-07-14] MEDS ORDERED: REGLAN INJ 10 MG VIAL IVP PRN (13:58)
[2022-07-14] MEDS ORDERED: ZOFRAN INJ 4 MG VIAL IVP PRN (13:58)
[2022-07-14] MEDS ORDERED: BARHEMSYS INJ IVP PRN (13:58)
[2022-07-14] MEDS ORDERED: BENADRYL INJ 50 MG VIAL IVP PRN (13:58)
[2022-07-14] MEDS: ZESTRIL TAB 10 MG PO SCH ×2 (15:15→18:18)
[2022-07-14] MEDS: LOPRESSOR TAB 50 MG PO SCH ×2 (15:15→20:14)
[2022-07-14] MEDS: ZOSYN VIAL 3.375 GRAMS 3.375 G in NS 100 ML IV 100 ML IV SCH ×2 (15:19→21:03)
[2022-07-14] MEDS: D5 1/2 NS 1,000 ML 1,000 ML IV SCH ×2 (15:19→23:33)
[2022-07-14] MEDS: MORPHINE SULFATE INJ 2 MG INJ IVP PRN (17:41)
[2022-07-14] MEDS: PEPCID 20 MG VIAL 20 MG in NS 50 ML IV 50 ML IV SCH (20:12)
[2022-07-14] MEDS: ZOCOR TAB 20 MG PO SCH (20:14)
[2022-07-14] MEDS: PERCOCET TAB 5/325 MG PO PRN (20:14)
[2022-07-14] MEDS: PROVENTIL NEB TX 0.083% 2.5MG/ 3ML NEB SCH (21:10)
[2022-07-15] MEDS: MORPHINE SULFATE INJ 2 MG INJ IVP PRN ×3 (02:05→21:26)
[2022-07-15 05:28] LABS: BASOPHILS % (AUTO) 0.3 % (0.2-1.0); EOSINOPHILS % (AUTO) 0.2 % (0.9-2.9); HEMATOCRIT 31.5 % (36.0-47.0); HEMOGLOBIN 10.4 g/dL (12.0-16.0); LYMPHOCYTES # (AUTO) 0.6 X10^3/uL (1.3-2.9); LYMPHOCYTES % (AUTO) 7.1 % (21.0-51.0); MEAN CORPUSCULAR HEMOGLOBIN 27.9 pg (27.0-34.0); MEAN CORPUSCULAR VOLUME 84.6 fL (80.0-100.0); MEAN PLATELET VOLUME 8.5 fL (7.4-11.0); MONOCYTES % (AUTO) 10.8 % (0.0-13.0); NEUTROPHILS # (AUTO) 7.3 x10^3/uL (2.2-4.8); NEUTROPHILS % (AUTO) 81.6 % (42.0-75.0); RED BLOOD COUNT 3.72 X10^6/uL (3.5-5.4); RED CELL DISTRIBUTION WIDTH 16.6 % (11.6-16.5)
[2022-07-15] MEDS: ZOSYN VIAL 3.375 GRAMS 3.375 G in NS 100 ML IV 100 ML IV SCH ×3 (05:33→21:25)
[2022-07-15 05:42] LABS: CALCIUM 8.2 mg/dL (8.5-10.1); CARBON DIOXIDE 29.8 mmol/L (21-32); COR CA(FOR HYPOALB) 9.8 mg/dL (8.5-10.1); CREATININE 1.13 mg/dL (0.55-1.02); TOTAL PROTEIN 5.5 g/dL (6.4-8.2)
[2022-07-15 05:43] LABS: WHITE BLOOD COUNT 9.5 X10^3/uL (3.6-10.0)
[2022-07-15 05:44] LABS: PLATELET MORPHOLOGY COMMENT NORMAL (NORMAL)
--- NOTE | 2022-07-15 08:14 | RAD ---
HISTORYPOST OP SURGERY-COLONIC FISTULA, ABDOMINAL WALL CELLULITISSTUDYSingle-view [id number]/[id number] trachea is midline. The cardiac silhouette is enlarged with a tortuous thoracic aorta . A pacing device overlying the left hemithorax is observed. Blunting of the left costophrenic angle is noted for which underlying effusion would be suspected. Compressive atelectasis of the left base is observed. A right-sided PICC line is stable in position. The bony thorax is unremarkable.IMPRESSIONBlunting of left costophrenic angle for which underlying effusion suspected. Subsegmental atelectasis left base is noted to be present as well. Stable right-sided PICC line.Electronically signed by: KELBY SESAY (Jul 15, 2022 08:12:59)
--- NOTE | 2022-07-15 08:15 | DR.PROGNOT ---
HOSPITAL PROGRESS NOTE Progress Note for Day of: Progress Note Date: 07/15/22 History of Present Illness History of Present Illness: post op laparotomy , lysis of adhesions , small bowel loop colostomy . c/o incisional pain . only mild drainage from the fistula site . Past Medical Family Social History Allergies: Allergies prochlorperazine [From Compazine] Allergy (Unknown, Verified 07/11/22 19:19) Reason: Drug allergy tramadol Allergy (Verified 07/11/22 19:19) Vital Signs Vital Signs: Temperature 98.2 F Pulse Rate 69 Respiratory Rate 21 Blood Pressure [Left Arm] 170/72 Blood Pressure 176/72 O2 Sat by Pulse Oximetry 100 Physical Exam GI:Palpation: Other (soft abdomen with diffuse tenderness .. hypoactive BS ) Mood Description: Calm Speech Pattern: Clear and Appropriate Laboratory and Diagnostics Result Diagrams: 07/15/22 05:08 07/15/22 05:08 Labs: Laboratory WBC 9.5 X10^3/uL (3.6-10.0) 07/15/22 05:08 RBC 3.72 X10^6/uL (3.5-5.4) 07/15/22 05:08 Hgb 10.4 g/dL (12.0-16.0) L 07/15/22 05:08 Hct 31.5 % (36.0-47.0) L 07/15/22 05:08 MCV 84.6 fL (80.0-100.0) 07/15/22 05:08 MCH 27.9 pg (27.0-34.0) 07/15/22 05:08 MCHC 33.0 g/dL (33.0-35.0) 07/15/22 05:08 RDW 16.6 % (11.6-16.5) H 07/15/22 05:08 Plt Count 187 X10^3/uL (150.0-450.0) 07/15/22 05:08 Plt Count Comment Adequate (ADEQUATE) 07/15/22 05:08 MPV 8.5 fL (7.4-11.0) 07/15/22 05:08 Neut % (Auto) 81.6 % (42.0-75.0) H 07/15/22 05:08 Lymph % (Auto) 7.1 % (21.0-51.0) L 07/15/22 05:08 [place] % (Auto) 10.8 % (0.0-13.0) 07/15/22 05:08 Eos % (Auto) 0.2 % (0.9-2.9) L 07/15/22 05:08 Baso % (Auto) 0.3 % (0.2-1.0) 07/15/22 05:08 Neut # (Auto) 7.3 x10^3/uL (2.2-4.8) H 07/15/22 05:08 Lymph # (Auto) 0.6 X10^3/uL (1.3-2.9) L 07/15/22 05:08 [place] # (Auto) 1.0 x10^3/uL (0.3-0.8) H 07/15/22 05:08 Eos # (Auto) 0.0 x10^3/uL (0.0-0.2) 07/15/22 05:08 Baso # (Auto) 0.0 X10^3/uL (0.0-0.1) 07/15/22 05:08 Absolute Nucleated RBC 0.0 /100WBC 07/15/22 05:08 Plt Morphology Comment Normal (NORMAL) 07/15/22 05:08 RBC Morphology Normal (NORMAL) 07/15/22 05:08 Sodium 138 mmol/L (136-145) 07/15/22 05:08 Corrected Sodium 140 mmol/L (136-145) 07/15/22 05:08 Potassium 3.9 mmol/L (3.5-5.1) 07/15/22 05:08 Chloride 104 mmol/L (98-107) 07/15/22 05:08 Carbon Dioxide 29.8 mmol/L (21-32) 07/15/22 05:08 BUN 8 mg/dL (7-18) 07/15/22 05:08 Creatinine 1.13 mg/dL (0.55-1.02) H 07/15/22 05:08 Est GFR (MDRD) Af Amer 58 (>60) L 07/15/22 05:08 Est GFR (MDRD) Non-Af 48 (>60) L 07/15/22 05:08 Glucose 169 mg/dL (65-99) H 07/15/22 05:08 POC Glucose (mg/dL) 93 mg/dL (65-99) 07/14/22 11:52 Calcium 8.2 mg/dL (8.5-10.1) L 07/15/22 05:08 Corrected Calcium 9.8 mg/dL (8.5-10.1) 07/15/22 05:08 Total Bilirubin 1.00 mg/dL (0.2-1.0) 07/15/22 05:08 AST 16 Units/L (15-37) 07/15/22 05:08 ALT 7 Units/L (12-78) L 07/15/22 05:08 Alkaline Phosphatase 68 Units/L (46-116) 07/15/22 05:08 Total Protein 5.5 g/dL (6.4-8.2) L 07/15/22 05:08 Albumin 2.0 g/dL (3.4-5.0) L 07/15/22 05:08 Globulin 3.5 g/dL (2.5-4.5) 07/15/22 05:08 Albumin/Globulin Ratio 0.6 Ratio (1.1-2.1) L 07/15/22 05:08 Assessment and Plan 1: enterocutaneous fistula , s/p surgery . abdominal adhesions . obesity , on clear liquid , OOB , DVT prophylaxis . ,ABT
[2022-07-15] MEDS: ZESTRIL TAB 10 MG PO SCH (08:55)
[2022-07-15] MEDS: LOPRESSOR TAB 50 MG PO SCH ×2 (08:55→21:25)
[2022-07-15] MEDS: PEPCID 20 MG VIAL 20 MG in NS 50 ML IV 50 ML IV SCH ×2 (08:55→21:25)
[2022-07-15] MEDS: LOVENOX INJ 40 MG SYR SC SCH (08:56)
[2022-07-15] MEDS: PERCOCET TAB 5/325 MG PO PRN ×2 (08:58→14:09)
[2022-07-15] MEDS: PROTONIX INJ 40 MG VIAL IVP SCH (09:02)
[2022-07-15] MEDS: PROVENTIL NEB TX 0.083% 2.5MG/ 3ML NEB SCH ×2 (09:15→20:15)
[2022-07-15 13:10] VITALS: BMI 34.0
[2022-07-15] MEDS: D5 1/2 NS 1,000 ML 1,000 ML IV SCH ×3 (14:12→22:58)
[2022-07-15] MEDS: ZOCOR TAB 20 MG PO SCH (21:25)
[2022-07-16] MEDS: D5 1/2 NS 1,000 ML 1,000 ML IV SCH ×6 (04:24→22:50)
[2022-07-16] MEDS: ZOSYN VIAL 3.375 GRAMS 3.375 G in NS 100 ML IV 100 ML IV SCH ×3 (05:07→21:31)
[2022-07-16] MEDS: ZOFRAN INJ 4 MG VIAL IVP PRN (05:07)
[2022-07-16 07:11] LABS: ALANINE AMINOTRANSFERASE < 6 Units/L (12-78); ALBUMIN 1.7 g/dL (3.4-5.0); ALKALINE PHOSPHATASE 68 Units/L (46-116); ASPARTATE AMINO TRANSFERASE 16 Units/L (15-37); BLOOD UREA NITROGEN 8 mg/dL (7-18); CALCIUM 7.9 mg/dL (8.5-10.1); CARBON DIOXIDE 26.5 mmol/L (21-32); CHLORIDE 103 mmol/L (98-107); COR CA(FOR HYPOALB) 9.7 mg/dL (8.5-10.1); COR NA(FOR HYPERGLY) 139 mmol/L (136-145); CREATININE 0.89 mg/dL (0.55-1.02); SODIUM 138 mmol/L (136-145); TOTAL PROTEIN 5.1 g/dL (6.4-8.2); eGFR NON BLACK RACES > 60 (>60)
[2022-07-16] MEDS: PROVENTIL NEB TX 0.083% 2.5MG/ 3ML NEB SCH ×2 (08:25→20:29)
[2022-07-16] MEDS: LOVENOX INJ 40 MG SYR SC SCH (09:00)
[2022-07-16] MEDS: PROTONIX INJ 40 MG VIAL IVP SCH (09:10)
[2022-07-16] MEDS: PEPCID 20 MG VIAL 20 MG in NS 50 ML IV 50 ML IV SCH ×2 (09:10→20:54)
[2022-07-16] MEDS: LOPRESSOR TAB 50 MG PO SCH ×2 (09:13→20:58)
[2022-07-16] MEDS: ZESTRIL TAB 10 MG PO SCH (09:13)
[2022-07-16] MEDS: PERCOCET TAB 5/325 MG PO PRN ×2 (09:13→23:11)
[2022-07-16 09:33] LABS: BASOPHILS % (AUTO) 0.4 % (0.2-1.0); EOSINOPHILS # (AUTO) 0.1 x10^3/uL (0.0-0.2); EOSINOPHILS % (AUTO) 1.3 % (0.9-2.9); HEMATOCRIT 30.7 % (36.0-47.0); HEMOGLOBIN 9.9 g/dL (12.0-16.0); LYMPHOCYTES # (AUTO) 0.7 X10^3/uL (1.3-2.9); LYMPHOCYTES % (AUTO) 7.5 % (21.0-51.0); MEAN CORPUSCULAR HEMOGLOBIN 27.6 pg (27.0-34.0); MEAN CORPUSCULAR HGB CONC 32.3 g/dL (33.0-35.0); MEAN CORPUSCULAR VOLUME 85.3 fL (80.0-100.0); MEAN PLATELET VOLUME 8.5 fL (7.4-11.0); MONOCYTES # (AUTO) 1.4 x10^3/uL (0.3-0.8); MONOCYTES % (AUTO) 14.7 % (0.0-13.0); NEUTROPHILS # (AUTO) 7.3 x10^3/uL (2.2-4.8); NEUTROPHILS % (AUTO) 76.1 % (42.0-75.0); RED CELL DISTRIBUTION WIDTH 16.9 % (11.6-16.5); WHITE BLOOD COUNT 9.6 X10^3/uL (3.6-10.0)
--- NOTE | 2022-07-16 09:53 | DR.PROGNOT ---
HOSPITAL PROGRESS NOTE Progress Note for Day of: Progress Note Date: 07/16/22 History of Present Illness History of Present Illness: c/o nausea .. less incisional pain . ileostomy is not functioning yet Past Medical Family Social History Allergies: Allergies prochlorperazine [From Compazine] Allergy (Unknown, Verified 07/11/22 19:19) Reason: Drug allergy tramadol Allergy (Verified 07/11/22 19:19) Vital Signs Vital Signs: Temperature 98.1 F Pulse Rate 69 Respiratory Rate 20 Blood Pressure [Left Arm] 170/72 Blood Pressure 169/73 O2 Sat by Pulse Oximetry 100 Physical Exam Oriented: Normal Respiratory: Normal GI:Palpation: Other (soft abdomen with mild diffuse tenderness ,BS+ but hypoact melita ) Mood Description: Calm Speech Pattern: Clear and Appropriate Laboratory and Diagnostics Result Diagrams: 07/16/22 06:51 07/16/22 06:05 Labs: Laboratory WBC 9.6 X10^3/uL (3.6-10.0) 07/16/22 06:51 RBC 3.60 X10^6/uL (3.5-5.4) 07/16/22 06:51 Hgb 9.9 g/dL (12.0-16.0) L 07/16/22 06:51 Hct 30.7 % (36.0-47.0) L 07/16/22 06:51 MCV 85.3 fL (80.0-100.0) 07/16/22 06:51 MCH 27.6 pg (27.0-34.0) 07/16/22 06:51 MCHC 32.3 g/dL (33.0-35.0) L 07/16/22 06:51 RDW 16.9 % (11.6-16.5) H 07/16/22 06:51 Plt Count 157 X10^3/uL (150.0-450.0) 07/16/22 06:51 Plt Count Comment Adequate (ADEQUATE) 07/15/22 05:08 MPV 8.5 fL (7.4-11.0) 07/16/22 06:51 Neut % (Auto) 76.1 % (42.0-75.0) H 07/16/22 06:51 Lymph % (Auto) 7.5 % (21.0-51.0) L 07/16/22 06:51 [place] % (Auto) 14.7 % (0.0-13.0) H 07/16/22 06:51 Eos % (Auto) 1.3 % (0.9-2.9) 07/16/22 06:51 Baso % (Auto) 0.4 % (0.2-1.0) 07/16/22 06:51 Neut # (Auto) 7.3 x10^3/uL (2.2-4.8) H 07/16/22 06:51 Lymph # (Auto) 0.7 X10^3/uL (1.3-2.9) L 07/16/22 06:51 [place] # (Auto) 1.4 x10^3/uL (0.3-0.8) H 07/16/22 06:51 Eos # (Auto) 0.1 x10^3/uL (0.0-0.2) 07/16/22 06:51 Baso # (Auto) 0.0 X10^3/uL (0.0-0.1) 07/16/22 06:51 Absolute Nucleated RBC 0.0 /100WBC 07/16/22 06:51 Plt Morphology Comment Normal (NORMAL) 07/15/22 05:08 RBC Morphology Normal (NORMAL) 07/15/22 05:08 Sodium 138 mmol/L (136-145) 07/16/22 06:05 Corrected Sodium 139 mmol/L (136-145) 07/16/22 06:05 Potassium 3.6 mmol/L (3.5-5.1) 07/16/22 06:05 Potassium Cancelled 07/16/22 06:05 Chloride 103 mmol/L (98-107) 07/16/22 06:05 Carbon Dioxide 26.5 mmol/L (21-32) 07/16/22 06:05 BUN 8 mg/dL (7-18) 07/16/22 06:05 Creatinine 0.89 mg/dL (0.55-1.02) 07/16/22 06:05 Est GFR (MDRD) Af Amer > 60 (>60) 07/16/22 06:05 Est GFR (MDRD) Non-Af > 60 (>60) 07/16/22 06:05 Glucose 138 mg/dL (65-99) H 07/16/22 06:05 Glucose Cancelled 07/16/22 06:05 POC Glucose (mg/dL) 125 mg/dL (65-99) H 07/16/22 05:45 Calcium 7.9 mg/dL (8.5-10.1) L 07/16/22 06:05 Corrected Calcium 9.7 mg/dL (8.5-10.1) 07/16/22 06:05 Magnesium 1.3 mg/dL (2.0-2.9) L 07/16/22 06:05 Total Bilirubin 1.10 mg/dL (0.2-1.0) H 07/16/22 06:05 AST 16 Units/L (15-37) 07/16/22 06:05 ALT < 6 Units/L (12-78) L 07/16/22 06:05 Alkaline Phosphatase 68 Units/L (46-116) 07/16/22 06:05 Total Protein 5.1 g/dL (6.4-8.2) L 07/16/22 06:05 Albumin 1.7 g/dL (3.4-5.0) L 07/16/22 06:05 Globulin 3.4 g/dL (2.5-4.5) 07/16/22 06:05 Albumin/Globulin Ratio 0.5 Ratio (1.1-2.1) L 07/16/22 06:05 Assessment and Plan 1: enterocutaneous fistula , s/p surgery . abdominal adhesions . obesity , on clear liquid , OOB , DVT prophylaxis . ,ABT
[2022-07-16] MEDS: MAGNESIUM SULFATE 1 GRAM/100 mL PREMIX 1 G/100 ML BAG IV PRN ×3 (11:00→13:51)
--- NOTE | 2022-07-16 11:46 | DR.UPDATE ---
H&P Update Prescription drug monitoring program results: PDMP reviewed and no concerns identified H&P Reviewed: Yes Any changes to H&P?: Yes Changes noted:: WAS ADMITTED TO [facility] STATUS ON 07/01/22 FOR ANTIBIOTIC THERAPY, WOUND CARE, AND PHYSICAL THERAPY. SHE WAS DISCHARGED FROM [facility] STATUS AND READMITTED INPATIENT STATUS ON 07/14/22. 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 TOOK PATIENT TO THE OR THIS MORNING. 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 SHE WAS STARTED ON D5 NORMAL SALINE AT 125 ML/HR, ZOSYN 3.375G IV TID, PEPCID 20MG IV Q12H, PROTONIX 40MG IV DAILY, ALBUTEROL NEBS BID, MORPHINE SULFATE 2MG IV Q4H PRN, THE POTASSIUM AND MAGNESIUM PROTOCOLS, ZESTRIL 10MG DAILY, LOPRESSOR 100MG BID, PERCOCET 5/325MG PO Q6H PRN, AND ZOCOR 20MG PO HS. PHYSICAL THERAPY WILL WORK WITH PATIENT DAILY. WOUND CARE ORDERS WILL BE GIVEN PER . OTHERWISE, WE WILL FOLLOW-UP WITH AM LABS AND CONTINUE TO MONITOR. TIME SPENT ON CLINICAL ASSESSMENT, REVIWING LABS AND IMAGING, DECISION MAKING, AND DOCUMENTATION GREATER THAN 45 MINUTES. Patient was examined?: Yes
[2022-07-16] MEDS: MORPHINE SULFATE INJ 2 MG INJ IVP PRN (13:00)
--- NOTE | 2022-07-16 14:18 | RAD ---
HISTORYPOST OP SAFIA-COLONIC FISTULA, ABDOMINAL WALL CELLULITISSTUDYCHEST, 1 [id number]/2023FINDINGSStable cardiomegaly and right-sided PICC. Stable mediastinal operative changes. Improved aeration in the left base. No sizable pleural effusion, focal consolidation, or visible pneumothorax. No acute osseous finding.IMPRESSIONImproving left base opacity.Electronically signed by: Alek Theodore (Jul 16, 2022 14:18:11)
[2022-07-16] MEDS: K-DUR TAB 20 MEQ PO PRN (18:00)
[2022-07-16] MEDS: ZOCOR TAB 20 MG PO SCH (20:59)
[2022-07-17] MEDS: MORPHINE SULFATE INJ 2 MG INJ IVP PRN (02:08)
[2022-07-17] MEDS: D5 1/2 NS 1,000 ML 1,000 ML IV SCH ×4 (03:47→15:42)
[2022-07-17] MEDS ORDERED: NS 100 ML IV 100 ML ONE (05:01)
[2022-07-17 05:12] LABS: BASOPHILS % (AUTO) 0.3 % (0.2-1.0); EOSINOPHILS # (AUTO) 0.3 x10^3/uL (0.0-0.2); EOSINOPHILS % (AUTO) 2.8 % (0.9-2.9); HEMATOCRIT 30.1 % (36.0-47.0); LYMPHOCYTES # (AUTO) 0.7 X10^3/uL (1.3-2.9); LYMPHOCYTES % (AUTO) 7.8 % (21.0-51.0); MEAN CORPUSCULAR HEMOGLOBIN 28.1 pg (27.0-34.0); MEAN CORPUSCULAR HGB CONC 33.3 g/dL (33.0-35.0); MEAN CORPUSCULAR VOLUME 84.2 fL (80.0-100.0); MEAN PLATELET VOLUME 9.6 fL (7.4-11.0); MONOCYTES # (AUTO) 1.2 x10^3/uL (0.3-0.8); MONOCYTES % (AUTO) 13.8 % (0.0-13.0); NEUTROPHILS # (AUTO) 6.8 x10^3/uL (2.2-4.8); NEUTROPHILS % (AUTO) 75.3 % (42.0-75.0); RED BLOOD COUNT 3.58 X10^6/uL (3.5-5.4); RED CELL DISTRIBUTION WIDTH 16.6 % (11.6-16.5)
[2022-07-17] MEDS: ZOSYN VIAL 3.375 GRAMS 3.375 G in NS 100 ML IV 100 ML IV SCH ×3 (05:21→21:14)
[2022-07-17 05:30] LABS: ALANINE AMINOTRANSFERASE < 6 Units/L (12-78); ALBUMIN 1.7 g/dL (3.4-5.0); ALKALINE PHOSPHATASE 76 Units/L (46-116); ASPARTATE AMINO TRANSFERASE 13 Units/L (15-37); BLOOD UREA NITROGEN 9 mg/dL (7-18); CALCIUM 8.3 mg/dL (8.5-10.1); CARBON DIOXIDE 26.7 mmol/L (21-32); CHLORIDE 101 mmol/L (98-107); COR CA(FOR HYPOALB) 10.1 mg/dL (8.5-10.1); COR NA(FOR HYPERGLY) 135 mmol/L (136-145); CREATININE 0.75 mg/dL (0.55-1.02); MAGNESIUM 2.1 mg/dL (2.0-2.9); SODIUM 135 mmol/L (136-145); TOTAL PROTEIN 5.3 g/dL (6.4-8.2); eGFR NON BLACK RACES > 60 (>60)
--- NOTE | 2022-07-17 08:04 | RAD ---
HISTORYPOST OP SURG-COLONIC FISTULA, ABDOMINAL WALL CELLULITISSTUDYCHEST, 1 [id number]/2023.TECHNIQUEPA or AP view of the chestFINDINGSLeft chest wall pacemaker with leads in stable position. Stable cardiomegaly. Status post median sternotomy. Left costophrenic sulcus not imaged. Mild left base opacity appears similar to prior. No discernible pleural effusion or pneumothoraxIMPRESSIONLeft costophrenic sulcus not image. Similar appearance to recent prior with mild left base opacity.Electronically signed by: Gregg Moura (Jul 17, 2022 08:02:51)
[2022-07-17] MEDS: PROTONIX INJ 40 MG VIAL IVP SCH (08:47)
[2022-07-17] MEDS: LOPRESSOR TAB 50 MG PO SCH ×2 (08:47→20:22)
[2022-07-17] MEDS: K-DUR TAB 20 MEQ PO PRN (08:47)
[2022-07-17] MEDS: LOVENOX INJ 40 MG SYR SC SCH (08:47)
[2022-07-17] MEDS: ZESTRIL TAB 10 MG PO SCH (08:48)
[2022-07-17] MEDS: PEPCID 20 MG VIAL 20 MG in NS 50 ML IV 50 ML IV SCH ×2 (08:48→20:24)
[2022-07-17] MEDS: PROVENTIL NEB TX 0.083% 2.5MG/ 3ML NEB SCH ×2 (09:06→20:20)
--- NOTE | 2022-07-17 12:13 | PCM.PROG ---
Progress Note - Progress Note for Day of Date of Exam: 07/15/22 - Subjective Subjective: IS CURRENTLY INPATIENT STATUS. SHE IS DAY 1 STATUS POST LAPAROTOMY, LYSIS OF ADHESIONS, AND SMALL BOWEL LOOP COLOSTOMY. 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 TODAY, SHE IS ALERT AND ORIENTED, LYING IN BED ON MORNING ROUNDS. SHE COMPLAINS OF MILD ABDOMINAL PAIN AND NAUSEA THIS MORNING. THERE IS A COLOSTOMY BAG IN PLACE. ON EXAMINTION TODAY, HEART IS REGULAR IN RATE AND RHYTHM. BILATERAL LUNGS ARE CLEAR TO AUSCULTATION. ABDOMEN IS ROUND, SOFT, AND NOTED WITH DIFFUSE TENDERNESS. HYPOACTIVE BOWEL SOUNDS NOTED IN ALL QUADRANTS. NO UPPER OR LOWER EXTREMITY EDEMA NOTED. HER VITALS THIS MORNING ARE: 98.3-76-20-99%-184/75. LABS WERE OBTAINED. WBC 9.5, RBC 3.72, HGB 10.4, HCT 31.5, SODIUM 138, POTASSIUM 3.9, BUN 8, CREATININE 1.13, GLUCOSE 169, CALCIUM 8.2, AST 16, ALT 7, ALK PHOS 68, TOTAL PROTEIN 5.5, ALBUMIN 2.0. SHE IS CURRENTLY RECEIVING D5 NORMAL SALINE AT 125 ML/HR, ZOSYN 3.375G IV TID, PEPCID 20MG IV Q12H, PROTONIX 40MG IV DAILY, ALBUTEROL NEBS BID, MORPHINE SULFATE 2MG IV Q4H PRN, THE POTASSIUM AND MAGNESIUM PROTOCOLS, ZESTRIL 10MG DAILY, LOPRESSOR 100MG BID, PERCOCET 5/325MG PO Q6H PRN, AND ZOCOR 20MG PO HS. SHE IS RECEIVING A CLEAR LIQUID DIET. PHYSICAL AND OCCUPATIONAL THERAPIES WILL WORK WITH PATIENT. WILL CONTINUE TO FOLLOW. OTHERWISE, WE WILL FOLLOW-UP WITH AM LABS AND CONTINUE TO MONITOR. TIME SPENT ON CLINICAL ASSESSMENT, REVIEWING LABS AND IMAGING, DECISION MAKING, AND DOCUMENTATION GREATER THAN 45 MINUTES. - Past Medical Family Social History Past Med/Fam/Surg Hx: No changes since H&P Allergies: Allergies prochlorperazine [From Compazine] Allergy (Unknown, Verified 07/11/22 19:19) Reason: Drug allergy tramadol Allergy (Verified 07/11/22 19:19) - Review of Systems ROS: No change since H&P - Vital Signs and I&O's Vital Signs: Temperature 99.2 F Pulse Rate 69 Respiratory Rate 44 Blood Pressure [Left Arm] 170/72 Blood Pressure 190/78 O2 Sat by Pulse Oximetry 100 Intake and Output: Intake & Output 07/15/22 07/16/22 07/17/22 07/18/22 11:59 11:59 11:59 11:59 Intake Total 1791 / 1791 3368 / 3368 3447 / 3447 Output Total 350 / 350 915 / 915 500 / 500 Balance 1441 / 1441 2453 / 2453 2947 / 2947 - Physical Exam Oriented: Normal Eyes: Normal Ear: Normal Nose: Normal Throat: Normal Respiratory: Normal Cardiovascular: Normal : Normal Auscultation: Bowel Sounds: Decreased Tenderness: Diffuse (soft abdomen with mild diffuse tenderness ,BS+ but hypoactive ), Mild Skin: Normal Musculoskeletal: Normal Psychiatric: Other Mood Description: Calm Speech Pattern: Clear, Appropriate - Laboratory and Diagnostics Result Diagrams: 07/17/22 04:15 07/17/22 04:15 Labs: Laboratory WBC 9.0 X10^3/uL (3.6-10.0) 07/17/22 04:15 RBC 3.58 X10^6/uL (3.5-5.4) 07/17/22 04:15 Hgb 10.0 g/dL (12.0-16.0) L 07/17/22 04:15 Hct 30.1 % (36.0-47.0) L 07/17/22 04:15 MCV 84.2 fL (80.0-100.0) 07/17/22 04:15 MCH 28.1 pg (27.0-34.0) 07/17/22 04:15 MCHC 33.3 g/dL (33.0-35.0) 07/17/22 04:15 RDW 16.6 % (11.6-16.5) H 07/17/22 04:15 Plt Count 215 X10^3/uL (150.0-450.0) 07/17/22 04:15 Plt Count Comment Adequate (ADEQUATE) 07/15/22 05:08 MPV 9.6 fL (7.4-11.0) 07/17/22 04:15 Neut % (Auto) 75.3 % (42.0-75.0) H 07/17/22 04:15 Lymph % (Auto) 7.8 % (21.0-51.0) L 07/17/22 04:15 [place] % (Auto) 13.8 % (0.0-13.0) H 07/17/22 04:15 Eos % (Auto) 2.8 % (0.9-2.9) 07/17/22 04:15 Baso % (Auto) 0.3 % (0.2-1.0) 07/17/22 04:15 Neut # (Auto) 6.8 x10^3/uL (2.2-4.8) H 07/17/22 04:15 Lymph # (Auto) 0.7 X10^3/uL (1.3-2.9) L 07/17/22 04:15 [place] # (Auto) 1.2 x10^3/uL (0.3-0.8) H 07/17/22 04:15 Eos # (Auto) 0.3 x10^3/uL (0.0-0.2) H 07/17/22 04:15 Baso # (Auto) 0.0 X10^3/uL (0.0-0.1) 07/17/22 04:15 Absolute Nucleated RBC 0.0 /100WBC 07/17/22 04:15 Plt Morphology Comment Normal (NORMAL) 07/15/22 05:08 RBC Morphology Normal (NORMAL) 07/15/22 05:08 Sodium 135 mmol/L (136-145) L 07/17/22 04:15 Corrected Sodium 135 mmol/L (136-145) L 07/17/22 04:15 Potassium 3.5 mmol/L (3.5-5.1) 07/17/22 04:15 Chloride 101 mmol/L (98-107) 07/17/22 04:15 Carbon Dioxide 26.7 mmol/L (21-32) 07/17/22 04:15 BUN 9 mg/dL (7-18) 07/17/22 04:15 Creatinine 0.75 mg/dL (0.55-1.02) 07/17/22 04:15 Est GFR (MDRD) Af Amer > 60 (>60) 07/17/22 04:15 Est GFR (MDRD) Non-Af > 60 (>60) 07/17/22 04:15 Glucose 115 mg/dL (65-99) H 07/17/22 04:15 POC Glucose (mg/dL) 125 mg/dL (65-99) H 07/16/22 05:45 Calcium 8.3 mg/dL (8.5-10.1) L 07/17/22 04:15 Corrected Calcium 10.1 mg/dL (8.5-10.1) 07/17/22 04:15 Magnesium 2.1 mg/dL (2.0-2.9) 07/17/22 04:15 Total Bilirubin 0.90 mg/dL (0.2-1.0) 07/17/22 04:15 AST 13 Units/L (15-37) L 07/17/22 04:15 ALT < 6 Units/L (12-78) L 07/17/22 04:15 Alkaline Phosphatase 76 Units/L (46-116) 07/17/22 04:15 Total Protein 5.3 g/dL (6.4-8.2) L 07/17/22 04:15 Albumin 1.7 g/dL (3.4-5.0) L 07/17/22 04:15 Globulin 3.6 g/dL (2.5-4.5) 07/17/22 04:15 Albumin/Globulin Ratio 0.5 Ratio (1.1-2.1) L 07/17/22 04:15 - Plan (1) Enterocutaneous fistula Status: Acute Plan: D5 NORMAL SALINE AT 125 ML/HR, ZOSYN 3.375G IV TID, PEPCID 20MG IV Q12H, PROTONIX 40MG IV DAILY, ALBUTEROL NEBS BID, MORPHINE SULFATE 2MG IV Q4H PRN, THE POTASSIUM AND MAGNESIUM PROTOCOLS, ZESTRIL 10MG DAILY, LOPRESSOR 100MG BID, PERCOCET 5/325MG PO Q6H PRN, AND ZOCOR 20MG PO HS. (2) Abdominal adhesions Status: Acute (3) Status post colostomy Status: Acute (4) DJD (degenerative joint disease), lumbar Status: Chronic Qualifiers: Spinal osteoarthritis complication: unspecified spinal osteoarthritis Qualified Code(s): M47.816 - Spondylosis without myelopathy or radiculopathy, lumbar region (5) Hypertension Status: Chronic Qualifiers: Hypertension type: primary hypertension (6) Hyperlipidemia Status: Chronic Qualifiers: Hyperlipidemia type: mixed hyperlipidemia (7) Diabetes mellitus Status: Chronic Qualifiers: Diabetes mellitus type: type 2 Diabetes mellitus buttermaker helper insulin use: with buttermaker helper use Diabetes mellitus complication status: with hyperglycemia Qualified Code(s): E11.65 - Type 2 diabetes mellitus with hyperglycemia; Z79.4 - manager intermediate (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
--- NOTE | 2022-07-17 12:22 | PCM.PROG ---
Progress Note - Progress Note for Day of Date of Exam: 07/16/22 - Subjective Subjective: IS CURRENTLY INPATIENT STATUS. SHE IS DAY 2 STATUS POST LAPAROTOMY, LYSIS OF ADHESIONS, AND SMALL BOWEL LOOP COLOSTOMY. 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 TODAY, SHE IS ALERT AND ORIENTED, LYING IN BED ON MORNING ROUNDS. SHE CONTINUES TO COMPLAIN OF MILD ABDOMINAL PAIN AND INTERMITTENT NAUSEA THIS MORNING. SHE ALSO REPORTS SHORTNESS OF BREATH AT TIMES. THERE IS A COLOSTOMY BAG IN PLACE. ON EXAMINTION TODAY, HEART IS REGULAR IN RATE AND RHYTHM. BILATERAL LUNGS ARE CLEAR TO AUSCULTATION. ABDOMEN IS ROUND, SOFT, AND NOTED WITH DIFFUSE TENDERNESS. HYPOACTIVE BOWEL SOUNDS NOTED IN ALL QUADRANTS. NO UPPER OR LOWER EXTREMITY EDEMA NOTED. HER VITALS THIS MORNING ARE: 98.4-69-26-100%-185/78. LABS WERE OBTAINED. WBC 9.6, RBC 3.60, HGB 9.9, HCT 30.7, PLT COUNT 157, SODIUM 138, POTASSIUM 3.6, CHLORIDE 103, BUN 8, CREATININE 0.89, GLUCOSE 138, CALCIUM 7.9, MAGNESIUM 1.3, TOTAL BILI 1.10, AST 16, ALT <6, ALK PHOS 68, TOTAL PROTEIN 5.1, ABLUMIN 1.7. A CHEST XRAY WAS OBTAINED AND REVEALED: Stable cardiomegaly and right-sided PICC. Stable mediastinal operative changes. Improved aeration in the left base. No sizable pleural effusion, focal consolidation, or visible pneumothorax. No acute osseous finding. SHE IS CURRENTLY RECEIVING D5 NORMAL SALINE AT 125 ML/HR, ZOSYN 3.375G IV TID, PEPCID 20MG IV Q12H, PROTONIX 40MG IV DAILY, ALBUTEROL NEBS BID, MORPHINE SULFATE 2MG IV Q4H PRN, THE POTASSIUM AND MAGNESIUM PROTOCOLS, ZESTRIL 10MG DAILY, LOPRESSOR 100MG BID, PERCOCET 5/325MG PO Q6H PRN, AND ZOCOR 20MG PO HS. SHE IS ON A CLEAR LIQUID DIET. PHYSICAL AND OCCUPATIONAL THERAPIES WILL CONTINUE TO WORK WITH PATIENT TODAY. WILL CONTINUE TO FOLLOW. OTHERWISE, WE WILL FOLLOW-UP WITH AM LABS AND CONTINUE TO MONITOR. TIME SPENT ON CLINICAL ASSESSMENT, REVIEWING LABS AND IMAGING, DECISION MAKING, AND DOCUMENTATION GREATER THAN 45 MINUTES. - Past Medical Family Social History Past Med/Fam/Surg Hx: No changes since H&P Allergies: Allergies prochlorperazine [From Compazine] Allergy (Unknown, Verified 07/11/22 19:19) Reason: Drug allergy tramadol Allergy (Verified 07/11/22 19:19) - Review of Systems ROS: No change since H&P - Vital Signs and I&O's Vital Signs: Temperature 99.2 F Pulse Rate 69 Respiratory Rate 44 Blood Pressure [Left Arm] 170/72 Blood Pressure 190/78 O2 Sat by Pulse Oximetry 100 Intake and Output: Intake & Output 07/15/22 07/16/22 07/17/22 07/18/22 11:59 11:59 11:59 11:59 Intake Total 1791 / 1791 3368 / 3368 3447 / 3447 Output Total 350 / 350 915 / 915 500 / 500 Balance 1441 / 1441 2453 / 2453 2947 / 2947 - Physical Exam Oriented: Normal Eyes: Normal Ear: Normal Nose: Normal Throat: Normal Respiratory: Diminished Cardiovascular: Normal : Normal Auscultation: Bowel Sounds: Decreased Palpation: Normal Tenderness: Diffuse (soft abdomen with mild diffuse tenderness ,BS+ but hypoactive ), Mild Skin: Normal Musculoskeletal: Normal Psychiatric: Other Mood Description: Calm Speech Pattern: Clear, Appropriate - Laboratory and Diagnostics Result Diagrams: 07/17/22 04:15 07/17/22 04:15 Labs: Laboratory WBC 9.0 X10^3/uL (3.6-10.0) 07/17/22 04:15 RBC 3.58 X10^6/uL (3.5-5.4) 07/17/22 04:15 Hgb 10.0 g/dL (12.0-16.0) L 07/17/22 04:15 Hct 30.1 % (36.0-47.0) L 07/17/22 04:15 MCV 84.2 fL (80.0-100.0) 07/17/22 04:15 MCH 28.1 pg (27.0-34.0) 07/17/22 04:15 MCHC 33.3 g/dL (33.0-35.0) 07/17/22 04:15 RDW 16.6 % (11.6-16.5) H 07/17/22 04:15 Plt Count 215 X10^3/uL (150.0-450.0) 07/17/22 04:15 Plt Count Comment Adequate (ADEQUATE) 07/15/22 05:08 MPV 9.6 fL (7.4-11.0) 07/17/22 04:15 Neut % (Auto) 75.3 % (42.0-75.0) H 07/17/22 04:15 Lymph % (Auto) 7.8 % (21.0-51.0) L 07/17/22 04:15 [place] % (Auto) 13.8 % (0.0-13.0) H 07/17/22 04:15 Eos % (Auto) 2.8 % (0.9-2.9) 07/17/22 04:15 Baso % (Auto) 0.3 % (0.2-1.0) 07/17/22 04:15 Neut # (Auto) 6.8 x10^3/uL (2.2-4.8) H 07/17/22 04:15 Lymph # (Auto) 0.7 X10^3/uL (1.3-2.9) L 07/17/22 04:15 [place] # (Auto) 1.2 x10^3/uL (0.3-0.8) H 07/17/22 04:15 Eos # (Auto) 0.3 x10^3/uL (0.0-0.2) H 07/17/22 04:15 Baso # (Auto) 0.0 X10^3/uL (0.0-0.1) 07/17/22 04:15 Absolute Nucleated RBC 0.0 /100WBC 07/17/22 04:15 Plt Morphology Comment Normal (NORMAL) 07/15/22 05:08 RBC Morphology Normal (NORMAL) 07/15/22 05:08 Sodium 135 mmol/L (136-145) L 07/17/22 04:15 Corrected Sodium 135 mmol/L (136-145) L 07/17/22 04:15 Potassium 3.5 mmol/L (3.5-5.1) 07/17/22 04:15 Chloride 101 mmol/L (98-107) 07/17/22 04:15 Carbon Dioxide 26.7 mmol/L (21-32) 07/17/22 04:15 BUN 9 mg/dL (7-18) 07/17/22 04:15 Creatinine 0.75 mg/dL (0.55-1.02) 07/17/22 04:15 Est GFR (MDRD) Af Amer > 60 (>60) 07/17/22 04:15 Est GFR (MDRD) Non-Af > 60 (>60) 07/17/22 04:15 Glucose 115 mg/dL (65-99) H 07/17/22 04:15 POC Glucose (mg/dL) 125 mg/dL (65-99) H 07/16/22 05:45 Calcium 8.3 mg/dL (8.5-10.1) L 07/17/22 04:15 Corrected Calcium 10.1 mg/dL (8.5-10.1) 07/17/22 04:15 Magnesium 2.1 mg/dL (2.0-2.9) 07/17/22 04:15 Total Bilirubin 0.90 mg/dL (0.2-1.0) 07/17/22 04:15 AST 13 Units/L (15-37) L 07/17/22 04:15 ALT < 6 Units/L (12-78) L 07/17/22 04:15 Alkaline Phosphatase 76 Units/L (46-116) 07/17/22 04:15 Total Protein 5.3 g/dL (6.4-8.2) L 07/17/22 04:15 Albumin 1.7 g/dL (3.4-5.0) L 07/17/22 04:15 Globulin 3.6 g/dL (2.5-4.5) 07/17/22 04:15 Albumin/Globulin Ratio 0.5 Ratio (1.1-2.1) L 07/17/22 04:15 - Plan (1) Enterocutaneous fistula Status: Acute Plan: D5 NORMAL SALINE AT 125 ML/HR, ZOSYN 3.375G IV TID, PEPCID 20MG IV Q12H, PROTONIX 40MG IV DAILY, ALBUTEROL NEBS BID, MORPHINE SULFATE 2MG IV Q4H PRN, THE POTASSIUM AND MAGNESIUM PROTOCOLS, ZESTRIL 10MG DAILY, LOPRESSOR 100MG BID, PERCOCET 5/325MG PO Q6H PRN, AND ZOCOR 20MG PO HS. (2) Abdominal adhesions Status: Acute (3) Status post colostomy Status: Acute (4) DJD (degenerative joint disease), lumbar Status: Chronic Qualifiers: Spinal osteoarthritis complication: unspecified spinal osteoarthritis Qualified Code(s): M47.816 - Spondylosis without myelopathy or radiculopathy, lumbar region (5) Hypertension Status: Chronic Qualifiers: Hypertension type: primary hypertension (6) Hyperlipidemia Status: Chronic Qualifiers: Hyperlipidemia type: mixed hyperlipidemia (7) Diabetes mellitus Status: Chronic Qualifiers: Diabetes mellitus type: type 2 Diabetes mellitus stewardess supervisor insulin use: with stewardess supervisor use Diabetes mellitus complication status: with hyperglycemia Qualified Code(s): E11.65 - Type 2 diabetes mellitus with hyperglycemia; Z79.4 - FDC (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
--- NOTE | 2022-07-17 14:29 | DR.PROGNOT ---
HOSPITAL PROGRESS NOTE Progress Note for Day of: Progress Note Date: 07/17/22 Chief Complaint Chief Complaint: mild nausea . no vomiting .. abdominal pain is less . minimal draiage from fistula site mild drainage in colostomy bag ,, History of Present Illness History of Present Illness: c/o nausea .. less incisional pain . ileostomy is not functioning yet Past Medical Family Social History Past Med/Fam/Surg Hx: No changes since H&P Allergies: Allergies prochlorperazine [From Compazine] Allergy (Unknown, Verified 07/11/22 19:19) Reason: Drug allergy tramadol Allergy (Verified 07/11/22 19:19) Review Of Systems ROS: No change since H&P Vital Signs Vital Signs: Temperature 98.9 F Pulse Rate 69 Respiratory Rate 23 Blood Pressure [Left Arm] 170/72 Blood Pressure 169/77 O2 Sat by Pulse Oximetry 100 Physical Exam Oriented: Normal Eyes: Normal Ear: Normal Nose: Normal Throat: Normal Respiratory: Diminished Cardiovascular: Normal : Normal GI:Auscultation: Decreased GI:Palpation: Normal GI: Tenderness: Diffuse (soft abdomen with mild diffuse tenderness ,BS+ but hypoactive ) and Mild Skin: Normal Musculoskeletal: Normal Psychiatric: Other Mood Description: Calm Speech Pattern: Clear and Appropriate Laboratory and Diagnostics Result Diagrams: 07/17/22 04:15 07/17/22 04:15 Labs: Laboratory WBC 9.0 X10^3/uL (3.6-10.0) 07/17/22 04:15 RBC 3.58 X10^6/uL (3.5-5.4) 07/17/22 04:15 Hgb 10.0 g/dL (12.0-16.0) L 07/17/22 04:15 Hct 30.1 % (36.0-47.0) L 07/17/22 04:15 MCV 84.2 fL (80.0-100.0) 07/17/22 04:15 MCH 28.1 pg (27.0-34.0) 07/17/22 04:15 MCHC 33.3 g/dL (33.0-35.0) 07/17/22 04:15 RDW 16.6 % (11.6-16.5) H 07/17/22 04:15 Plt Count 215 X10^3/uL (150.0-450.0) 07/17/22 04:15 Plt Count Comment Adequate (ADEQUATE) 07/15/22 05:08 MPV 9.6 fL (7.4-11.0) 07/17/22 04:15 Neut % (Auto) 75.3 % (42.0-75.0) H 07/17/22 04:15 Lymph % (Auto) 7.8 % (21.0-51.0) L 07/17/22 04:15 [place] % (Auto) 13.8 % (0.0-13.0) H 07/17/22 04:15 Eos % (Auto) 2.8 % (0.9-2.9) 07/17/22 04:15 Baso % (Auto) 0.3 % (0.2-1.0) 07/17/22 04:15 Neut # (Auto) 6.8 x10^3/uL (2.2-4.8) H 07/17/22 04:15 Lymph # (Auto) 0.7 X10^3/uL (1.3-2.9) L 07/17/22 04:15 [place] # (Auto) 1.2 x10^3/uL (0.3-0.8) H 07/17/22 04:15 Eos # (Auto) 0.3 x10^3/uL (0.0-0.2) H 07/17/22 04:15 Baso # (Auto) 0.0 X10^3/uL (0.0-0.1) 07/17/22 04:15 Absolute Nucleated RBC 0.0 /100WBC 07/17/22 04:15 Plt Morphology Comment Normal (NORMAL) 07/15/22 05:08 RBC Morphology Normal (NORMAL) 07/15/22 05:08 Sodium 135 mmol/L (136-145) L 07/17/22 04:15 Corrected Sodium 135 mmol/L (136-145) L 07/17/22 04:15 Potassium 3.5 mmol/L (3.5-5.1) 07/17/22 04:15 Chloride 101 mmol/L (98-107) 07/17/22 04:15 Carbon Dioxide 26.7 mmol/L (21-32) 07/17/22 04:15 BUN 9 mg/dL (7-18) 07/17/22 04:15 Creatinine 0.75 mg/dL (0.55-1.02) 07/17/22 04:15 Est GFR (MDRD) Af Amer > 60 (>60) 07/17/22 04:15 Est GFR (MDRD) Non-Af > 60 (>60) 07/17/22 04:15 Glucose 115 mg/dL (65-99) H 07/17/22 04:15 POC Glucose (mg/dL) 125 mg/dL (65-99) H 07/16/22 05:45 Calcium 8.3 mg/dL (8.5-10.1) L 07/17/22 04:15 Corrected Calcium 10.1 mg/dL (8.5-10.1) 07/17/22 04:15 Magnesium 2.1 mg/dL (2.0-2.9) 07/17/22 04:15 Total Bilirubin 0.90 mg/dL (0.2-1.0) 07/17/22 04:15 AST 13 Units/L (15-37) L 07/17/22 04:15 ALT < 6 Units/L (12-78) L 07/17/22 04:15 Alkaline Phosphatase 76 Units/L (46-116) 07/17/22 04:15 Total Protein 5.3 g/dL (6.4-8.2) L 07/17/22 04:15 Albumin 1.7 g/dL (3.4-5.0) L 07/17/22 04:15 Globulin 3.6 g/dL (2.5-4.5) 07/17/22 04:15 Albumin/Globulin Ratio 0.5 Ratio (1.1-2.1) L 07/17/22 04:15 Assessment and Plan 1: enterocutaneous fistula , s/p surgery . abdominal adhesions . obesity , on soft diet as tolerated , OOB , DVT prophylaxis . ,ABT Problem Patient Problems: Patient Problems (Updated 07/17/22 @ 12:14 by Nate Harrison) DJD (degenerative joint disease), lumbar (Chronic) M47.816 Hypertension (Chronic) I10 Hyperlipidemia (Chronic) E78.5 Diabetes mellitus (Chronic) E11.9 Enterocutaneous fistula (Acute) K63.2 Abdominal adhesions (Acute) K66.0 Status post colostomy (Acute) Z93.3
[2022-07-17 16:07] LABS: BILIRUBIN,URINE NEGATIVE (NEGATIVE); BLOOD/HEMOGLOBIN,URINE 4+ (NEGATIVE); GLUCOSE, URINE NEGATIVE (NEGATIVE); KETONES,URINE NEGATIVE (NEGATIVE); LEUKOCYTE ESTERASE ,URINE 2+ (NEGATIVE); NITRITES,URINE NEGATIVE (NEGATIVE); PROTEIN,URINE 3+ (NEGATIVE); UROBILINOGEN,URINE NORMAL (NORMAL)
[2022-07-17 16:08] LABS: APPEARANCE,URINE HAZY (CLEAR); COLOR,URINE YELLOW (YELLOW)
[2022-07-17 16:25] LABS: BACTERIA,URINE TRACE /HPF (NEGATIVE); RBC,URINE 20-30 /HPF (0-3); SQUAMOUS EPITHELIAL CELL,UR RARE /HPF (NEGATIVE); URIC ACID CRYSTALS,URINE FEW /HPF (NEGATIVE)
[2022-07-17 16:26] LABS: GRANULAR CASTS,URINE RARE /LPF (NEGATIVE); HYALINE CASTS, URINE FEW /LPF (NEGATIVE); YEAST,URINE NUMEROUS /HPF (NEGATIVE)
[2022-07-17] MEDS ORDERED: RESTORIL CAP 15 MG PO PRN (18:22)
[2022-07-17] MEDS ORDERED: VISTARIL PO PRN (18:23)
[2022-07-17] MEDS: ZOCOR TAB 20 MG PO SCH (20:22)
[2022-07-17] MEDS: PERCOCET TAB 5/325 MG PO PRN (21:49)
[2022-07-18] MEDS: D5 1/2 NS 1,000 ML 1,000 ML IV SCH ×6 (03:54→23:59)
[2022-07-18] MEDS: ZOFRAN INJ 4 MG VIAL IVP PRN (04:00)
[2022-07-18 05:37] LABS: BASOPHILS % (AUTO) 0.4 % (0.2-1.0); EOSINOPHILS # (AUTO) 0.4 x10^3/uL (0.0-0.2); EOSINOPHILS % (AUTO) 4.7 % (0.9-2.9); HEMATOCRIT 28.6 % (36.0-47.0); HEMOGLOBIN 9.5 g/dL (12.0-16.0); LYMPHOCYTES # (AUTO) 1.1 X10^3/uL (1.3-2.9); LYMPHOCYTES % (AUTO) 12.9 % (21.0-51.0); MEAN CORPUSCULAR HEMOGLOBIN 27.7 pg (27.0-34.0); MEAN CORPUSCULAR HGB CONC 33.3 g/dL (33.0-35.0); MEAN CORPUSCULAR VOLUME 83.3 fL (80.0-100.0); MEAN PLATELET VOLUME 8.7 fL (7.4-11.0); MONOCYTES # (AUTO) 1.4 x10^3/uL (0.3-0.8); MONOCYTES % (AUTO) 16.1 % (0.0-13.0); NEUTROPHILS # (AUTO) 5.6 x10^3/uL (2.2-4.8); NEUTROPHILS % (AUTO) 65.9 % (42.0-75.0); RED BLOOD COUNT 3.44 X10^6/uL (3.5-5.4); RED CELL DISTRIBUTION WIDTH 16.1 % (11.6-16.5); WHITE BLOOD COUNT 8.5 X10^3/uL (3.6-10.0)
[2022-07-18] MEDS: ZOSYN VIAL 3.375 GRAMS 3.375 G in NS 100 ML IV 100 ML IV SCH ×3 (05:45→21:26)
[2022-07-18 05:55] LABS: ALANINE AMINOTRANSFERASE 6 Units/L (12-78); ALBUMIN 1.6 g/dL (3.4-5.0); ALKALINE PHOSPHATASE 72 Units/L (46-116); ASPARTATE AMINO TRANSFERASE 12 Units/L (15-37); BLOOD UREA NITROGEN 9 mg/dL (7-18); CALCIUM 8.1 mg/dL (8.5-10.1); CARBON DIOXIDE 26.5 mmol/L (21-32); CHLORIDE 101 mmol/L (98-107); CREATININE 0.64 mg/dL (0.55-1.02); SODIUM 133 mmol/L (136-145); TOTAL PROTEIN 5.1 g/dL (6.4-8.2); eGFR NON BLACK RACES > 60 (>60)
[2022-07-18] MEDS: MORPHINE SULFATE INJ 2 MG INJ IVP PRN (06:21)
--- NOTE | 2022-07-18 07:46 | DR.PROGNOT ---
HOSPITAL PROGRESS NOTE Progress Note for Day of: Progress Note Date: 07/18/22 Chief Complaint Chief Complaint: was vomiting last night less abdominal pain . minimal drainage from fistula site ileostomy is functioning now . Past Medical Family Social History Past Med/Fam/Surg Hx: No changes since H&P Allergies: Allergies prochlorperazine [From Compazine] Allergy (Unknown, Verified 07/11/22 19:19) Reason: Drug allergy tramadol Allergy (Verified 07/11/22 19:19) Review Of Systems ROS: No change since H&P Vital Signs Vital Signs: Temperature 98.7 F Pulse Rate 69 Respiratory Rate 21 Blood Pressure [Left Arm] 170/72 Blood Pressure 148/63 O2 Sat by Pulse Oximetry 99 Physical Exam Oriented: Normal Eyes: Normal Ear: Normal Nose: Normal Throat: Normal Respiratory: Diminished Cardiovascular: Normal : Normal GI:Auscultation: Decreased GI:Palpation: Normal GI: Tenderness: Diffuse (soft abdomen with mild diffuse tenderness ,BS+ but hypoactive ) and Mild Skin: Normal Musculoskeletal: Normal Psychiatric: Other Mood Description: Calm Speech Pattern: Clear and Appropriate Laboratory and Diagnostics Result Diagrams: 07/18/22 05:16 07/18/22 05:16 Labs: Laboratory WBC 8.5 X10^3/uL (3.6-10.0) 07/18/22 05:16 RBC 3.44 X10^6/uL (3.5-5.4) L 07/18/22 05:16 Hgb 9.5 g/dL (12.0-16.0) L 07/18/22 05:16 Hct 28.6 % (36.0-47.0) L 07/18/22 05:16 MCV 83.3 fL (80.0-100.0) 07/18/22 05:16 MCH 27.7 pg (27.0-34.0) 07/18/22 05:16 MCHC 33.3 g/dL (33.0-35.0) 07/18/22 05:16 RDW 16.1 % (11.6-16.5) 07/18/22 05:16 Plt Count 247 X10^3/uL (150.0-450.0) 07/18/22 05:16 Plt Count Comment Adequate (ADEQUATE) 07/15/22 05:08 MPV 8.7 fL (7.4-11.0) 07/18/22 05:16 Neut % (Auto) 65.9 % (42.0-75.0) 07/18/22 05:16 Lymph % (Auto) 12.9 % (21.0-51.0) L 07/18/22 05:16 [place] % (Auto) 16.1 % (0.0-13.0) H 07/18/22 05:16 Eos % (Auto) 4.7 % (0.9-2.9) H 07/18/22 05:16 Baso % (Auto) 0.4 % (0.2-1.0) 07/18/22 05:16 Neut # (Auto) 5.6 x10^3/uL (2.2-4.8) H 07/18/22 05:16 Lymph # (Auto) 1.1 X10^3/uL (1.3-2.9) L 07/18/22 05:16 [place] # (Auto) 1.4 x10^3/uL (0.3-0.8) H 07/18/22 05:16 Eos # (Auto) 0.4 x10^3/uL (0.0-0.2) H 07/18/22 05:16 Baso # (Auto) 0.0 X10^3/uL (0.0-0.1) 07/18/22 05:16 Absolute Nucleated RBC 0.0 /100WBC 07/18/22 05:16 Plt Morphology Comment Normal (NORMAL) 07/15/22 05:08 RBC Morphology Normal (NORMAL) 07/15/22 05:08 Sodium 133 mmol/L (136-145) L 07/18/22 05:16 Corrected Sodium TNP 07/18/22 05:16 Potassium 3.7 mmol/L (3.5-5.1) 07/18/22 05:16 Chloride 101 mmol/L (98-107) 07/18/22 05:16 Carbon Dioxide 26.5 mmol/L (21-32) 07/18/22 05:16 BUN 9 mg/dL (7-18) 07/18/22 05:16 Creatinine 0.64 mg/dL (0.55-1.02) 07/18/22 05:16 Est GFR (MDRD) Af Amer > 60 (>60) 07/18/22 05:16 Est GFR (MDRD) Non-Af > 60 (>60) 07/18/22 05:16 Glucose 102 mg/dL (65-99) H 07/18/22 05:16 POC Glucose (mg/dL) 125 mg/dL (65-99) H 07/16/22 05:45 Calcium 8.1 mg/dL (8.5-10.1) L 07/18/22 05:16 Corrected Calcium 10.0 mg/dL (8.5-10.1) 07/18/22 05:16 Magnesium 2.1 mg/dL (2.0-2.9) 07/17/22 04:15 Total Bilirubin 0.90 mg/dL (0.2-1.0) 07/18/22 05:16 AST 12 Units/L (15-37) L 07/18/22 05:16 ALT 6 Units/L (12-78) L 07/18/22 05:16 Alkaline Phosphatase 72 Units/L (46-116) 07/18/22 05:16 Total Protein 5.1 g/dL (6.4-8.2) L 07/18/22 05:16 Albumin 1.6 g/dL (3.4-5.0) L 07/18/22 05:16 Globulin 3.5 g/dL (2.5-4.5) 07/18/22 05:16 Albumin/Globulin Ratio 0.5 Ratio (1.1-2.1) L 07/18/22 05:16 Specimen Type Random urine 07/17/22 15:25 Urine Color Yellow (YELLOW) 07/17/22 15:25 Urine Appearance Hazy (CLEAR) 07/17/22 15:25 Urine pH 6.0 (5.0 - 8.0) 07/17/22 15:25 Ur Specific [facility] 1.025 (1.000-1.030) 07/17/22 15:25 Urine Protein 3+ (NEGATIVE) 07/17/22 15:25 Urine Glucose (UA) Negative (NEGATIVE) 07/17/22 15:25 Urine Ketones Negative (NEGATIVE) 07/17/22 15:25 Urine Blood 4+ (NEGATIVE) 07/17/22 15:25 Urine Nitrite Negative (NEGATIVE) 07/17/22 15:25 Urine Bilirubin Negative (NEGATIVE) 07/17/22 15:25 Urine Urobilinogen Normal (NORMAL) 07/17/22 15:25 Ur Leukocyte Esterase 2+ (NEGATIVE) 07/17/22 15:25 Urine RBC 20-30 /HPF (0-3) A 07/17/22 15:25 Urine WBC 10-20 /HPF (0-5) A 07/17/22 15:25 Ur Squamous Epith Cells Rare /HPF (NEGATIVE) 07/17/22 15:25 Uric Acid Crystals Few /HPF (NEGATIVE) 07/17/22 15:25 Urine Bacteria Trace /HPF (NEGATIVE) 07/17/22 15:25 Hyaline Casts Few /LPF (NEGATIVE) 07/17/22 15:25 Granular Casts Rare /LPF (NEGATIVE) 07/17/22 15:25 Urine Yeast Numerous /HPF (NEGATIVE) 07/17/22 15:25 Ur Culture Indicated? No/not indicated 07/17/22 15:25 Assessment and Plan 1: enterocutaneous fistula , s/p surgery . abdominal adhesions . obesity , on soft diet as tolerated , OOB , DVT prophylaxis . ,ABT could be transferred to swing bed if tolerating diet Problem Patient Problems: Patient Problems (Updated 07/17/22 @ 12:14 by Nate Harrison) DJD (degenerative joint disease), lumbar (Chronic) M47.816 Hypertension (Chronic) I10 Hyperlipidemia (Chronic) E78.5 Diabetes mellitus (Chronic) E11.9 Enterocutaneous fistula (Acute) K63.2 Abdominal adhesions (Acute) K66.0 Status post colostomy (Acute) Z93.3
[2022-07-18] MEDS: PROVENTIL NEB TX 0.083% 2.5MG/ 3ML NEB SCH ×2 (09:04→20:05)
[2022-07-18] MEDS: PEPCID 20 MG VIAL 20 MG in NS 50 ML IV 50 ML IV SCH ×2 (09:28→20:47)
[2022-07-18] MEDS: LOVENOX INJ 40 MG SYR SC SCH (09:29)
[2022-07-18] MEDS: ZESTRIL TAB 10 MG PO SCH (09:29)
[2022-07-18] MEDS: LOPRESSOR TAB 50 MG PO SCH ×2 (09:30→20:46)
[2022-07-18] MEDS: K-DUR TAB 20 MEQ PO PRN (09:30)
[2022-07-18] MEDS: PROTONIX INJ 40 MG VIAL IVP SCH (09:31)
--- NOTE | 2022-07-18 11:40 | RAD ---
Colonic fistula post ileostomyCOMPARISONJanuary 2021FINDINGSHeart size is prominent, partially visualized. Gas and stool are seen in the colon with few dilated loops of mid abdominal bowel and distended stomach. Calcific densities project over the abdomen, possibly subcutaneous.IMPRESSIONDevelopment of small bowel dilatation which was not present on the prior. This is concerning for developing obstruction. Surgical evaluation recommended. CT can be performed and/or small-bowel follow-through as neededElectronically signed by: DAMARIS ROCA (Jul 18, 2022 11:39:30)
--- NOTE | 2022-07-18 11:44 | RAD ---
Chest AP portableIndication: Postop surgery. Colonic fistula. Abdominal wall cellulitisCOMPARISONRadiograph from the previous dayFINDINGSThere is cardiomegaly with sternotomy change and pacemaker leads. Monitor leads obscure detail. There is no pneumothorax.IMPRESSIONCardiomegaly without new convincing acute abnormality, within limits of technique. Left lower lung infiltrate not entirely excluded. Follow-up to resolution.Electronically signed by: DAMARIS ROCA (Jul 18, 2022 11:42:55)
--- NOTE | 2022-07-18 13:22 | PCM.PROG ---
Progress Note - Progress Note for Day of Date of Exam: 07/17/22 - Subjective Subjective: IS CURRENTLY INPATIENT STATUS. SHE IS DAY 3 STATUS POST LAPAROTOMY, LYSIS OF ADHESIONS, AND SMALL BOWEL LOOP COLOSTOMY. 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 TODAY, SHE IS ALERT AND ORIENTED, LYING IN BED ON MORNING ROUNDS. SHE CONTINUES TO COMPLAIN OF MILD ABDOMINAL PAIN AND INTERMITTENT NAUSEA. SHE ALSO REPORTS SHORTNESS OF BREATH AT TIMES. THERE IS A COLOSTOMY BAG IN PLACE. ON EXAMINTION TODAY, HEART IS REGULAR IN RATE AND RHYTHM. BILATERAL LUNGS ARE CLEAR TO AUSCULTATION. ABDOMEN IS ROUND, SOFT, AND NOTED WITH DIFFUSE TENDERNESS. HYPOACTIVE BOWEL SOUNDS NOTED IN ALL QUADRANTS. NO UPPER OR LOWER EXTREMITY EDEMA NOTED. HER VITALS THIS MORNING ARE: 99.2-70-44-100%-190/78. LABS WERE OBTAINED. WBC 9.0, RBC 3.58, HGB 10.0, HCT 30.1, PLT COUNT 215, SODIUM 135, POTASSIUM 3.5, CHLORIDE 101, BUN 9, CREATININE 0.75, GLUCOSE 115, CALCIUM 8.3, MAGNESIUM 2.1, AST 13, ALT <6, ALK PHOS 76, TOTAL PROTEIN 5.3, ALBUMIN 1.7. A CHEST XRAY WAS OBTAINED AND REVEALED: Left costophrenic sulcus not image. Similar appearance to recent prior with mild left base opacity. SHE IS CURRENTLY RECEIVING D5 NORMAL SALINE AT 125 ML/HR, ZOSYN 3.375G IV TID, PEPCID 20MG IV Q12H, PROTONIX 40MG IV DAILY, ALBUTEROL NEBS BID, MORPHINE SULFATE 2MG IV Q4H PRN, THE POTASSIUM AND MAGNESIUM PROTOCOLS, ZESTRIL 10MG DAILY, LOPRESSOR 100MG BID, PERCOCET 5/325MG PO Q6H PRN, AND ZOCOR 20MG PO HS. SHE IS ON A CLEAR LIQUID DIET. PHYSICAL AND OCCUPATIONAL THERAPIES WILL CONTINUE TO WORK WITH PATIENT TODAY. WILL CONTINUE TO FOLLOW. OTHERWISE, WE WILL FOLLOW-UP WITH AM LABS AND CONTINUE TO MONITOR. TIME SPENT ON CLINICAL ASSESSMENT, REVIEWING LABS AND IMAGING, DECISION MAKING, AND DOCUMENTATION GREATER THAN 45 MINUTES. - Past Medical Family Social History Past Med/Fam/Surg Hx: No changes since H&P Allergies: Allergies prochlorperazine [From Compazine] Allergy (Unknown, Verified 07/11/22 19:19) Reason: Drug allergy tramadol Allergy (Verified 07/11/22 19:19) - Review of Systems ROS: No change since H&P - Vital Signs and I&O's Vital Signs: Temperature 98.7 F Pulse Rate 69 Respiratory Rate 20 Blood Pressure [Left Arm] 170/72 Blood Pressure 148/63 O2 Sat by Pulse Oximetry 100 Intake and Output: Intake & Output 07/16/22 07/17/22 07/18/22 07/19/22 11:59 11:59 11:59 11:59 Intake Total 3368 / 3368 3447 / 3447 2395 / 2395 Output Total 915 / 915 500 / 500 Balance 2453 / 2453 2947 / 2947 2395 / 2395 - Physical Exam Oriented: Normal Eyes: Normal Ear: Normal Nose: Normal Throat: Normal Respiratory: Diminished Cardiovascular: Normal : Normal Auscultation: Bowel Sounds: Decreased Palpation: Normal Tenderness: Diffuse (soft abdomen with mild diffuse tenderness ,BS+ but hypoac tive), Mild Skin: Normal Musculoskeletal: Normal Psychiatric: Other Mood Description: Calm Speech Pattern: Clear, Appropriate - Laboratory and Diagnostics Result Diagrams: 07/18/22 05:16 07/18/22 05:16 Labs: 07/17/22 15:25 Urine,Clean Catch Urine Culture - Preliminary Laboratory WBC 8.5 X10^3/uL (3.6-10.0) 07/18/22 05:16 RBC 3.44 X10^6/uL (3.5-5.4) L 07/18/22 05:16 Hgb 9.5 g/dL (12.0-16.0) L 07/18/22 05:16 Hct 28.6 % (36.0-47.0) L 07/18/22 05:16 MCV 83.3 fL (80.0-100.0) 07/18/22 05:16 MCH 27.7 pg (27.0-34.0) 07/18/22 05:16 MCHC 33.3 g/dL (33.0-35.0) 07/18/22 05:16 RDW 16.1 % (11.6-16.5) 07/18/22 05:16 Plt Count 247 X10^3/uL (150.0-450.0) 07/18/22 05:16 Plt Count Comment Adequate (ADEQUATE) 07/15/22 05:08 MPV 8.7 fL (7.4-11.0) 07/18/22 05:16 Neut % (Auto) 65.9 % (42.0-75.0) 07/18/22 05:16 Lymph % (Auto) 12.9 % (21.0-51.0) L 07/18/22 05:16 [place] % (Auto) 16.1 % (0.0-13.0) H 07/18/22 05:16 Eos % (Auto) 4.7 % (0.9-2.9) H 07/18/22 05:16 Baso % (Auto) 0.4 % (0.2-1.0) 07/18/22 05:16 Neut # (Auto) 5.6 x10^3/uL (2.2-4.8) H 07/18/22 05:16 Lymph # (Auto) 1.1 X10^3/uL (1.3-2.9) L 07/18/22 05:16 [place] # (Auto) 1.4 x10^3/uL (0.3-0.8) H 07/18/22 05:16 Eos # (Auto) 0.4 x10^3/uL (0.0-0.2) H 07/18/22 05:16 Baso # (Auto) 0.0 X10^3/uL (0.0-0.1) 07/18/22 05:16 Absolute Nucleated RBC 0.0 /100WBC 07/18/22 05:16 Plt Morphology Comment Normal (NORMAL) 07/15/22 05:08 RBC Morphology Normal (NORMAL) 07/15/22 05:08 Sodium 133 mmol/L (136-145) L 07/18/22 05:16 Corrected Sodium TNP 07/18/22 05:16 Potassium 3.7 mmol/L (3.5-5.1) 07/18/22 05:16 Chloride 101 mmol/L (98-107) 07/18/22 05:16 Carbon Dioxide 26.5 mmol/L (21-32) 07/18/22 05:16 BUN 9 mg/dL (7-18) 07/18/22 05:16 Creatinine 0.64 mg/dL (0.55-1.02) 07/18/22 05:16 Est GFR (MDRD) Af Amer > 60 (>60) 07/18/22 05:16 Est GFR (MDRD) Non-Af > 60 (>60) 07/18/22 05:16 Glucose 102 mg/dL (65-99) H 07/18/22 05:16 POC Glucose (mg/dL) 125 mg/dL (65-99) H 07/16/22 05:45 Calcium 8.1 mg/dL (8.5-10.1) L 07/18/22 05:16 Corrected Calcium 10.0 mg/dL (8.5-10.1) 07/18/22 05:16 Magnesium 2.1 mg/dL (2.0-2.9) 07/17/22 04:15 Total Bilirubin 0.90 mg/dL (0.2-1.0) 07/18/22 05:16 AST 12 Units/L (15-37) L 07/18/22 05:16 ALT 6 Units/L (12-78) L 07/18/22 05:16 Alkaline Phosphatase 72 Units/L (46-116) 07/18/22 05:16 Total Protein 5.1 g/dL (6.4-8.2) L 07/18/22 05:16 Albumin 1.6 g/dL (3.4-5.0) L 07/18/22 05:16 Globulin 3.5 g/dL (2.5-4.5) 07/18/22 05:16 Albumin/Globulin Ratio 0.5 Ratio (1.1-2.1) L 07/18/22 05:16 Specimen Type Random urine 07/17/22 15:25 Urine Color Yellow (YELLOW) 07/17/22 15:25 Urine Appearance Hazy (CLEAR) 07/17/22 15:25 Urine pH 6.0 (5.0 - 8.0) 07/17/22 15:25 Ur Specific [place] 1.025 (1.000-1.030) 07/17/22 15:25 Urine Protein 3+ (NEGATIVE) 07/17/22 15:25 Urine Glucose (UA) Negative (NEGATIVE) 07/17/22 15:25 Urine Ketones Negative (NEGATIVE) 07/17/22 15:25 Urine Blood 4+ (NEGATIVE) 07/17/22 15:25 Urine Nitrite Negative (NEGATIVE) 07/17/22 15:25 Urine Bilirubin Negative (NEGATIVE) 07/17/22 15:25 Urine Urobilinogen Normal (NORMAL) 07/17/22 15:25 Ur Leukocyte Esterase 2+ (NEGATIVE) 07/17/22 15:25 Urine RBC 20-30 /HPF (0-3) A 07/17/22 15:25 Urine WBC 10-20 /HPF (0-5) A 07/17/22 15:25 Ur Squamous Epith Cells Rare /HPF (NEGATIVE) 07/17/22 15:25 Uric Acid Crystals Few /HPF (NEGATIVE) 07/17/22 15:25 Urine Bacteria Trace /HPF (NEGATIVE) 07/17/22 15:25 Hyaline Casts Few /LPF (NEGATIVE) 07/17/22 15:25 Granular Casts Rare /LPF (NEGATIVE) 07/17/22 15:25 Urine Yeast Numerous /HPF (NEGATIVE) 07/17/22 15:25 Ur Culture Indicated? No/not indicated 07/17/22 15:25 - Plan (1) Enterocutaneous fistula Status: Acute Plan: D5 NORMAL SALINE AT 125 ML/HR, ZOSYN 3.375G IV TID, PEPCID 20MG IV Q12H, PROTONIX 40MG IV DAILY, ALBUTEROL NEBS BID, MORPHINE SULFATE 2MG IV Q4H PRN, THE POTASSIUM AND MAGNESIUM PROTOCOLS, ZESTRIL 10MG DAILY, LOPRESSOR 100MG BID, PERCOCET 5/325MG PO Q6H PRN, AND ZOCOR 20MG PO HS. (2) Abdominal adhesions Status: Acute (3) Status post colostomy Status: Acute (4) DJD (degenerative joint disease), lumbar Status: Chronic Qualifiers: Spinal osteoarthritis complication: unspecified spinal osteoarthritis Qualified Code(s): M47.816 - Spondylosis without myelopathy or radiculopathy, lumbar region (5) Hypertension Status: Chronic Qualifiers: Hypertension type: primary hypertension (6) Hyperlipidemia Status: Chronic Qualifiers: Hyperlipidemia type: mixed hyperlipidemia (7) Diabetes mellitus Status: Chronic Qualifiers: Diabetes mellitus type: type 2 Diabetes mellitus mcc insulin use: with mcc use Diabetes mellitus complication status: with hyperglycemia Qualified Code(s): E11.65 - Type 2 diabetes mellitus with hyperglycemia; 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
[2022-07-18] MEDS: ZOCOR TAB 20 MG PO SCH (20:46)
--- NOTE | 2022-07-19 02:28 | RAD ---
PROCEDURE: Abdomen X-ray 1 View .HISTORY: NG TUBE PLACEMENT .TECHNIQUE: AP supine abdomen view .COMPARISON: 08/07/2022.TECHNICAL QUALITY: Satisfactory .FINDINGS:NG tube tip projected over the junction of the body and antrum of the stomach.No dilated bowel loops upper abdomen.IMPRESSION:Good NG-tube placement.Electronically signed by: Faizan Hill (Jul 19, 2022 02:27:18)
[2022-07-19 05:18] LABS: BASOPHILS % (AUTO) 0.6 % (0.2-1.0); EOSINOPHILS # (AUTO) 0.4 x10^3/uL (0.0-0.2); EOSINOPHILS % (AUTO) 4.2 % (0.9-2.9); HEMATOCRIT 29.4 % (36.0-47.0); HEMOGLOBIN 9.8 g/dL (12.0-16.0); LYMPHOCYTES # (AUTO) 1.3 X10^3/uL (1.3-2.9); LYMPHOCYTES % (AUTO) 15.4 % (21.0-51.0); MEAN CORPUSCULAR HEMOGLOBIN 27.9 pg (27.0-34.0); MEAN CORPUSCULAR HGB CONC 33.4 g/dL (33.0-35.0); MEAN CORPUSCULAR VOLUME 83.6 fL (80.0-100.0); MEAN PLATELET VOLUME 9.1 fL (7.4-11.0); MONOCYTES # (AUTO) 1.5 x10^3/uL (0.3-0.8); MONOCYTES % (AUTO) 17.9 % (0.0-13.0); NEUTROPHILS # (AUTO) 5.2 x10^3/uL (2.2-4.8); NEUTROPHILS % (AUTO) 61.9 % (42.0-75.0); RED BLOOD COUNT 3.52 X10^6/uL (3.5-5.4); RED CELL DISTRIBUTION WIDTH 16.6 % (11.6-16.5); WHITE BLOOD COUNT 8.4 X10^3/uL (3.6-10.0)
[2022-07-19] MEDS: ZOSYN VIAL 3.375 GRAMS 3.375 G in NS 100 ML IV 100 ML IV SCH ×3 (05:18→21:44)
[2022-07-19 05:35] LABS: ALANINE AMINOTRANSFERASE < 6 Units/L (12-78); ALBUMIN 1.6 g/dL (3.4-5.0); ALKALINE PHOSPHATASE 69 Units/L (46-116); ASPARTATE AMINO TRANSFERASE 14 Units/L (15-37); BLOOD UREA NITROGEN 8 mg/dL (7-18); CALCIUM 8.3 mg/dL (8.5-10.1); CARBON DIOXIDE 23.4 mmol/L (21-32); CHLORIDE 101 mmol/L (98-107); COR CA(FOR HYPOALB) 10.2 mg/dL (8.5-10.1); CREATININE 0.66 mg/dL (0.55-1.02); SODIUM 134 mmol/L (136-145); TOTAL PROTEIN 5.2 g/dL (6.4-8.2); eGFR NON BLACK RACES > 60 (>60)
--- NOTE | 2022-07-19 08:42 | RAD ---
HISTORYPostop surgerySTUDYAP chestCOMPARISONFebruary 2022FINDINGSCardiomegaly with pacemaker and sternal wires. No definite pulmonary consolidation, edema or large pleural effusion.IMPRESSIONNo acute findings. There is no evidence for pneumonia, pneumothorax or localized atelectasis.Electronically signed by: GANGA BRAVO (Jul 19, 2022 08:41:23)
[2022-07-19] MEDS: PEPCID 20 MG VIAL 20 MG in NS 50 ML IV 50 ML IV SCH ×2 (08:55→20:39)
[2022-07-19] MEDS: LOVENOX INJ 40 MG SYR SC SCH (08:55)
[2022-07-19] MEDS: D5 1/2 NS 1,000 ML 1,000 ML IV SCH ×4 (08:55→23:15)
[2022-07-19] MEDS: PROTONIX INJ 40 MG VIAL IVP SCH (08:56)
[2022-07-19] MEDS: K-DUR TAB 20 MEQ PO PRN (08:56)
[2022-07-19] MEDS: ZESTRIL TAB 10 MG PO SCH (08:56)
[2022-07-19] MEDS: LOPRESSOR TAB 50 MG PO SCH ×2 (08:56→20:38)
[2022-07-19] MEDS: MORPHINE SULFATE INJ 2 MG INJ IVP PRN ×2 (08:57→20:41)
[2022-07-19] MEDS: PROVENTIL NEB TX 0.083% 2.5MG/ 3ML NEB SCH ×2 (09:02→20:15)
[2022-07-19] MEDS: DIFLUCAN 200 MG IV PREMIX* 200 MG/100 ML BAG IV SCH (11:02)
--- NOTE | 2022-07-19 12:32 | DR.PROGNOT ---
HOSPITAL PROGRESS NOTE Progress Note for Day of: Progress Note Date: 07/19/22 Chief Complaint Chief Complaint: was vomiting last night . had to put NGT . less abdominal pain . ileostomy is functioning well now . moderate drainage in fistula site . Past Medical Family Social History Past Med/Fam/Surg Hx: No changes since H&P Allergies: Allergies prochlorperazine [From Compazine] Allergy (Unknown, Verified 07/11/22 19:19) Reason: Drug allergy tramadol Allergy (Verified 07/11/22 19:19) Review Of Systems ROS: No change since H&P Vital Signs Vital Signs: Temperature 98.4 F Pulse Rate 69 Respiratory Rate 18 Blood Pressure [Left Arm] 170/72 Blood Pressure 171/74 O2 Sat by Pulse Oximetry 95 Physical Exam Oriented: Normal Eyes: Normal Ear: Normal Nose: Normal Throat: Normal Respiratory: Diminished Cardiovascular: Normal : Normal GI:Auscultation: Decreased GI:Palpation: Normal GI: Tenderness: Epigastric (soft abdomen . only mild tenderness , BS+, no infection .. see above .) and Mild Skin: Normal Musculoskeletal: Normal Psychiatric: Other Mood Description: Calm Speech Pattern: Clear and Appropriate Laboratory and Diagnostics Result Diagrams: 07/19/22 04:35 07/19/22 04:35 Labs: 07/17/22 15:25 Urine,Clean Catch Urine Culture - Preliminary Laboratory WBC 8.4 X10^3/uL (3.6-10.0) 07/19/22 04:35 RBC 3.52 X10^6/uL (3.5-5.4) 07/19/22 04:35 Hgb 9.8 g/dL (12.0-16.0) L 07/19/22 04:35 Hct 29.4 % (36.0-47.0) L 07/19/22 04:35 MCV 83.6 fL (80.0-100.0) 07/19/22 04:35 MCH 27.9 pg (27.0-34.0) 07/19/22 04:35 MCHC 33.4 g/dL (33.0-35.0) 07/19/22 04:35 RDW 16.6 % (11.6-16.5) H 07/19/22 04:35 Plt Count 258 X10^3/uL (150.0-450.0) 07/19/22 04:35 Plt Count Comment Adequate (ADEQUATE) 07/15/22 05:08 MPV 9.1 fL (7.4-11.0) 07/19/22 04:35 Neut % (Auto) 61.9 % (42.0-75.0) 07/19/22 04:35 Lymph % (Auto) 15.4 % (21.0-51.0) L 07/19/22 04:35 [place] % (Auto) 17.9 % (0.0-13.0) H 07/19/22 04:35 Eos % (Auto) 4.2 % (0.9-2.9) H 07/19/22 04:35 Baso % (Auto) 0.6 % (0.2-1.0) 07/19/22 04:35 Neut # (Auto) 5.2 x10^3/uL (2.2-4.8) H 07/19/22 04:35 Lymph # (Auto) 1.3 X10^3/uL (1.3-2.9) 07/19/22 04:35 [place] # (Auto) 1.5 x10^3/uL (0.3-0.8) H 07/19/22 04:35 Eos # (Auto) 0.4 x10^3/uL (0.0-0.2) H 07/19/22 04:35 Baso # (Auto) 0.0 X10^3/uL (0.0-0.1) 07/19/22 04:35 Absolute Nucleated RBC 0.0 /100WBC 07/19/22 04:35 Plt Morphology Comment Normal (NORMAL) 07/15/22 05:08 RBC Morphology Normal (NORMAL) 07/15/22 05:08 Sodium 134 mmol/L (136-145) L 07/19/22 04:35 Corrected Sodium TNP 07/19/22 04:35 Potassium 3.6 mmol/L (3.5-5.1) 07/19/22 04:35 Chloride 101 mmol/L (98-107) 07/19/22 04:35 Carbon Dioxide 23.4 mmol/L (21-32) 07/19/22 04:35 BUN 8 mg/dL (7-18) 07/19/22 04:35 Creatinine 0.66 mg/dL (0.55-1.02) 07/19/22 04:35 Est GFR (MDRD) Af Amer > 60 (>60) 07/19/22 04:35 Est GFR (MDRD) Non-Af > 60 (>60) 07/19/22 04:35 Glucose 91 mg/dL (65-99) 07/19/22 04:35 POC Glucose (mg/dL) 125 mg/dL (65-99) H 07/16/22 05:45 Calcium 8.3 mg/dL (8.5-10.1) L 07/19/22 04:35 Corrected Calcium 10.2 mg/dL (8.5-10.1) H 07/19/22 04:35 Magnesium 2.1 mg/dL (2.0-2.9) 07/17/22 04:15 Total Bilirubin 0.80 mg/dL (0.2-1.0) 07/19/22 04:35 AST 14 Units/L (15-37) L 07/19/22 04:35 ALT < 6 Units/L (12-78) L 07/19/22 04:35 Alkaline Phosphatase 69 Units/L (46-116) 07/19/22 04:35 Total Protein 5.2 g/dL (6.4-8.2) L 07/19/22 04:35 Albumin 1.6 g/dL (3.4-5.0) L 07/19/22 04:35 Globulin 3.6 g/dL (2.5-4.5) 07/19/22 04:35 Albumin/Globulin Ratio 0.4 Ratio (1.1-2.1) L 07/19/22 04:35 Specimen Type Random urine 07/17/22 15:25 Urine Color Yellow (YELLOW) 07/17/22 15:25 Urine Appearance Hazy (CLEAR) 07/17/22 15:25 Urine pH 6.0 (5.0 - 8.0) 07/17/22 15:25 Ur Specific [place] 1.025 (1.000-1.030) 07/17/22 15:25 Urine Protein 3+ (NEGATIVE) 07/17/22 15:25 Urine Glucose (UA) Negative (NEGATIVE) 07/17/22 15:25 Urine Ketones Negative (NEGATIVE) 07/17/22 15:25 Urine Blood 4+ (NEGATIVE) 07/17/22 15:25 Urine Nitrite Negative (NEGATIVE) 07/17/22 15:25 Urine Bilirubin Negative (NEGATIVE) 07/17/22 15:25 Urine Urobilinogen Normal (NORMAL) 07/17/22 15:25 Ur Leukocyte Esterase 2+ (NEGATIVE) 07/17/22 15:25 Urine RBC 20-30 /HPF (0-3) A 07/17/22 15:25 Urine WBC 10-20 /HPF (0-5) A 07/17/22 15:25 Ur Squamous Epith Cells Rare /HPF (NEGATIVE) 07/17/22 15:25 Uric Acid Crystals Few /HPF (NEGATIVE) 07/17/22 15:25 Urine Bacteria Trace /HPF (NEGATIVE) 07/17/22 15:25 Hyaline Casts Few /LPF (NEGATIVE) 07/17/22 15:25 Granular Casts Rare /LPF (NEGATIVE) 07/17/22 15:25 Urine Yeast Numerous /HPF (NEGATIVE) 07/17/22 15:25 Ur Culture Indicated? No/not indicated 07/17/22 15:25 Assessment and Plan 1: enterocutaneous fistula , s/p surgery . abdominal adhesions . obesity , on soft diet as tolerated , OOB , DVT prophylaxis . ,ABT to D/C NGT and start on liquid diet as tolerated Problem Patient Problems: Patient Problems (Updated 07/17/22 @ 12:14 by Nate Harrison) DJD (degenerative joint disease), lumbar (Chronic) M47.816 Hypertension (Chronic) I10 Hyperlipidemia (Chronic) E78.5 Diabetes mellitus (Chronic) E11.9 Enterocutaneous fistula (Acute) K63.2 Abdominal adhesions (Acute) K66.0 Status post colostomy (Acute) Z93.3
[2022-07-19] MEDS: PERCOCET TAB 5/325 MG PO PRN (17:00)
[2022-07-19] MEDS: ZOCOR TAB 20 MG PO SCH (20:39)
[2022-07-20 05:08] LABS: BASOPHILS % (AUTO) 0.3 % (0.2-1.0); EOSINOPHILS # (AUTO) 0.4 x10^3/uL (0.0-0.2); EOSINOPHILS % (AUTO) 5.5 % (0.9-2.9); HEMATOCRIT 28.8 % (36.0-47.0); HEMOGLOBIN 9.6 g/dL (12.0-16.0); LYMPHOCYTES # (AUTO) 1.3 X10^3/uL (1.3-2.9); LYMPHOCYTES % (AUTO) 17.2 % (21.0-51.0); MEAN CORPUSCULAR HEMOGLOBIN 27.9 pg (27.0-34.0); MEAN CORPUSCULAR HGB CONC 33.5 g/dL (33.0-35.0); MEAN CORPUSCULAR VOLUME 83.2 fL (80.0-100.0); MEAN PLATELET VOLUME 8.6 fL (7.4-11.0); MONOCYTES # (AUTO) 1.2 x10^3/uL (0.3-0.8); MONOCYTES % (AUTO) 16.2 % (0.0-13.0); NEUTROPHILS # (AUTO) 4.7 x10^3/uL (2.2-4.8); NEUTROPHILS % (AUTO) 60.8 % (42.0-75.0); RED BLOOD COUNT 3.46 X10^6/uL (3.5-5.4); RED CELL DISTRIBUTION WIDTH 16.5 % (11.6-16.5); WHITE BLOOD COUNT 7.7 X10^3/uL (3.6-10.0)
[2022-07-20] MEDS: ZOSYN VIAL 3.375 GRAMS 3.375 G in NS 100 ML IV 100 ML IV SCH ×3 (05:12→21:16)
[2022-07-20 05:20] LABS: ALANINE AMINOTRANSFERASE < 6 Units/L (12-78); ALBUMIN 1.5 g/dL (3.4-5.0); ALKALINE PHOSPHATASE 65 Units/L (46-116); ASPARTATE AMINO TRANSFERASE 13 Units/L (15-37); BLOOD UREA NITROGEN 6 mg/dL (7-18); CALCIUM 8.1 mg/dL (8.5-10.1); CHLORIDE 102 mmol/L (98-107); COR CA(FOR HYPOALB) 10.1 mg/dL (8.5-10.1); CREATININE 0.65 mg/dL (0.55-1.02); SODIUM 134 mmol/L (136-145); TOTAL PROTEIN 5.1 g/dL (6.4-8.2); eGFR NON BLACK RACES > 60 (>60)
[2022-07-20] MEDS: D5 1/2 NS 1,000 ML 1,000 ML IV SCH ×3 (06:24→23:11)
--- NOTE | 2022-07-20 07:14 | RAD ---
HISTORYColonic fistulaSTUDYKUBCOMPARISONFebruary 2022FINDINGSThere is moderate gaseous dilatation of the stomach. In addition, selective small-bowel dilation is noted with normal amount of colon gas. There is no evidence for extra intestinal air collection, mass or ascites.IMPRESSIONPersistent selective small-bowel dilatation consistent with ileus or partial SBO. Described gastric dilatation may reflect aerophagia or gastric atony.Electronically signed by: GANGA BRAVO (Jul 20, 2022 07:13:02)
[2022-07-20] MEDS: PROVENTIL NEB TX 0.083% 2.5MG/ 3ML NEB SCH ×2 (08:30→21:15)
[2022-07-20] MEDS: LOVENOX INJ 40 MG SYR SC SCH (08:47)
[2022-07-20] MEDS: ZESTRIL TAB 10 MG PO SCH (08:48)
[2022-07-20] MEDS: LOPRESSOR TAB 50 MG PO SCH ×2 (08:48→20:20)
[2022-07-20] MEDS: DIFLUCAN 200 MG IV PREMIX* 200 MG/100 ML BAG IV SCH (08:48)
[2022-07-20] MEDS: PROTONIX INJ 40 MG VIAL IVP SCH (08:48)
[2022-07-20] MEDS: PEPCID 20 MG VIAL 20 MG in NS 50 ML IV 50 ML IV SCH ×2 (10:20→20:21)
[2022-07-20] MEDS: PERCOCET TAB 5/325 MG PO PRN (13:27)
[2022-07-20] MEDS: ZOFRAN INJ 4 MG VIAL IVP PRN ×2 (13:38→20:21)
[2022-07-20] MEDS: MAGNESIUM SULFATE 1 GRAM/100 mL PREMIX 1 G/100 ML BAG IV PRN ×2 (15:18→16:16)
[2022-07-20] MEDS: K-DUR TAB 20 MEQ PO PRN (20:20)
[2022-07-20] MEDS: ZOCOR TAB 20 MG PO SCH (20:20)
[2022-07-20] MEDS: MORPHINE SULFATE INJ 2 MG INJ IVP PRN (20:22)
[2022-07-21] MEDS: ZOSYN VIAL 3.375 GRAMS 3.375 G in NS 100 ML IV 100 ML IV SCH ×3 (05:14→21:01)
[2022-07-21 06:22] LABS: BASOPHILS % (AUTO) 0.6 % (0.2-1.0); EOSINOPHILS # (AUTO) 0.4 x10^3/uL (0.0-0.2); EOSINOPHILS % (AUTO) 4.5 % (0.9-2.9); HEMATOCRIT 28.6 % (36.0-47.0); HEMOGLOBIN 9.6 g/dL (12.0-16.0); LYMPHOCYTES # (AUTO) 1.3 X10^3/uL (1.3-2.9); LYMPHOCYTES % (AUTO) 16.4 % (21.0-51.0); MEAN CORPUSCULAR HEMOGLOBIN 27.8 pg (27.0-34.0); MEAN CORPUSCULAR HGB CONC 33.5 g/dL (33.0-35.0); MEAN CORPUSCULAR VOLUME 83.1 fL (80.0-100.0); MEAN PLATELET VOLUME 7.9 fL (7.4-11.0); MONOCYTES # (AUTO) 1.1 x10^3/uL (0.3-0.8); NEUTROPHILS # (AUTO) 5.1 x10^3/uL (2.2-4.8); NEUTROPHILS % (AUTO) 64.5 % (42.0-75.0); RED BLOOD COUNT 3.44 X10^6/uL (3.5-5.4); RED CELL DISTRIBUTION WIDTH 16.6 % (11.6-16.5); WHITE BLOOD COUNT 7.9 X10^3/uL (3.6-10.0)
[2022-07-21 06:39] LABS: ALANINE AMINOTRANSFERASE 8 Units/L (12-78); ALBUMIN 1.6 g/dL (3.4-5.0); ALKALINE PHOSPHATASE 68 Units/L (46-116); ASPARTATE AMINO TRANSFERASE 14 Units/L (15-37); BLOOD UREA NITROGEN 6 mg/dL (7-18); CALCIUM 8.1 mg/dL (8.5-10.1); CARBON DIOXIDE 25.7 mmol/L (21-32); CHLORIDE 101 mmol/L (98-107); CREATININE 0.65 mg/dL (0.55-1.02); MAGNESIUM 1.9 mg/dL (2.0-2.9); SODIUM 134 mmol/L (136-145); TOTAL PROTEIN 5.2 g/dL (6.4-8.2); eGFR NON BLACK RACES > 60 (>60)
--- NOTE | 2022-07-21 08:23 | DR.PROGNOT ---
HOSPITAL PROGRESS NOTE Progress Note for Day of: Progress Note Date: 07/21/22 Chief Complaint Chief Complaint: less abdominal pain .. mild nausea .. vomited small amount earlier . ileostomy is functioning well now . moderate drainage in fistula site . normal CBC , VUN and Creat. History of Present Illness History of Present Illness: no changes Past Medical Family Social History Past Med/Fam/Surg Hx: No changes since H&P Allergies: Allergies prochlorperazine [From Compazine] Allergy (Unknown, Verified 07/11/22 19:19) Reason: Drug allergy tramadol Allergy (Verified 07/11/22 19:19) Review Of Systems ROS: No change since H&P Vital Signs Vital Signs: Temperature 98.5 F Pulse Rate 78 Respiratory Rate 30 Blood Pressure [Left Arm] 170/72 Blood Pressure 168/74 O2 Sat by Pulse Oximetry 100 Physical Exam Oriented: Normal Eyes: Normal Ear: Normal Nose: Normal Throat: Normal Respiratory: Diminished Cardiovascular: Normal : Normal GI:Auscultation: Decreased GI:Palpation: Normal GI: Tenderness: Epigastric (soft abdomen . only mild tenderness , BS+, no infection .. see above .) and Mild Skin: Normal Musculoskeletal: Normal Psychiatric: Other Mood Description: Calm Speech Pattern: Clear and Appropriate Laboratory and Diagnostics Result Diagrams: 07/21/22 06:08 07/21/22 06:08 Labs: 07/17/22 15:25 Urine,Clean Catch Urine Culture - Preliminary Laboratory WBC 7.9 X10^3/uL (3.6-10.0) 07/21/22 06:08 RBC 3.44 X10^6/uL (3.5-5.4) L 07/21/22 06:08 Hgb 9.6 g/dL (12.0-16.0) L 07/21/22 06:08 Hct 28.6 % (36.0-47.0) L 07/21/22 06:08 MCV 83.1 fL (80.0-100.0) 07/21/22 06:08 MCH 27.8 pg (27.0-34.0) 07/21/22 06:08 MCHC 33.5 g/dL (33.0-35.0) 07/21/22 06:08 RDW 16.6 % (11.6-16.5) H 07/21/22 06:08 Plt Count 305 X10^3/uL (150.0-450.0) 07/21/22 06:08 Plt Count Comment Adequate (ADEQUATE) 07/15/22 05:08 MPV 7.9 fL (7.4-11.0) 07/21/22 06:08 Neut % (Auto) 64.5 % (42.0-75.0) 07/21/22 06:08 Lymph % (Auto) 16.4 % (21.0-51.0) L 07/21/22 06:08 [place] % (Auto) 14.0 % (0.0-13.0) H 07/21/22 06:08 Eos % (Auto) 4.5 % (0.9-2.9) H 07/21/22 06:08 Baso % (Auto) 0.6 % (0.2-1.0) 07/21/22 06:08 Neut # (Auto) 5.1 x10^3/uL (2.2-4.8) H 07/21/22 06:08 Lymph # (Auto) 1.3 X10^3/uL (1.3-2.9) 07/21/22 06:08 [place] # (Auto) 1.1 x10^3/uL (0.3-0.8) H 07/21/22 06:08 Eos # (Auto) 0.4 x10^3/uL (0.0-0.2) H 07/21/22 06:08 Baso # (Auto) 0.0 X10^3/uL (0.0-0.1) 07/21/22 06:08 Absolute Nucleated RBC 0.0 /100WBC 07/21/22 06:08 Plt Morphology Comment Normal (NORMAL) 07/15/22 05:08 RBC Morphology Normal (NORMAL) 07/15/22 05:08 Sodium 134 mmol/L (136-145) L 07/21/22 06:08 Corrected Sodium TNP 07/21/22 06:08 Potassium 3.5 mmol/L (3.5-5.1) 07/21/22 06:08 Chloride 101 mmol/L (98-107) 07/21/22 06:08 Carbon Dioxide 25.7 mmol/L (21-32) 07/21/22 06:08 BUN 6 mg/dL (7-18) L 07/21/22 06:08 Creatinine 0.65 mg/dL (0.55-1.02) 07/21/22 06:08 Est GFR (MDRD) Af Amer > 60 (>60) 07/21/22 06:08 Est GFR (MDRD) Non-Af > 60 (>60) 07/21/22 06:08 Glucose 110 mg/dL (65-99) H 07/21/22 06:08 POC Glucose (mg/dL) 125 mg/dL (65-99) H 07/16/22 05:45 Calcium 8.1 mg/dL (8.5-10.1) L 07/21/22 06:08 Corrected Calcium 10.0 mg/dL (8.5-10.1) 07/21/22 06:08 Magnesium 1.9 mg/dL (2.0-2.9) L 07/21/22 06:08 Total Bilirubin 0.50 mg/dL (0.2-1.0) 07/21/22 06:08 AST 14 Units/L (15-37) L 07/21/22 06:08 ALT 8 Units/L (12-78) L 07/21/22 06:08 Alkaline Phosphatase 68 Units/L (46-116) 07/21/22 06:08 Total Protein 5.2 g/dL (6.4-8.2) L 07/21/22 06:08 Albumin 1.6 g/dL (3.4-5.0) L 07/21/22 06:08 Globulin 3.6 g/dL (2.5-4.5) 07/21/22 06:08 Albumin/Globulin Ratio 0.4 Ratio (1.1-2.1) L 07/21/22 06:08 Specimen Type Random urine 07/17/22 15:25 Urine Color Yellow (YELLOW) 07/17/22 15:25 Urine Appearance Hazy (CLEAR) 07/17/22 15:25 Urine pH 6.0 (5.0 - 8.0) 07/17/22 15:25 Ur Specific [place] 1.025 (1.000-1.030) 07/17/22 15:25 Urine Protein 3+ (NEGATIVE) 07/17/22 15:25 Urine Glucose (UA) Negative (NEGATIVE) 07/17/22 15:25 Urine Ketones Negative (NEGATIVE) 07/17/22 15:25 Urine Blood 4+ (NEGATIVE) 07/17/22 15:25 Urine Nitrite Negative (NEGATIVE) 07/17/22 15:25 Urine Bilirubin Negative (NEGATIVE) 07/17/22 15:25 Urine Urobilinogen Normal (NORMAL) 07/17/22 15:25 Ur Leukocyte Esterase 2+ (NEGATIVE) 07/17/22 15:25 Urine RBC 20-30 /HPF (0-3) A 07/17/22 15:25 Urine WBC 10-20 /HPF (0-5) A 07/17/22 15:25 Ur Squamous Epith Cells Rare /HPF (NEGATIVE) 07/17/22 15:25 Uric Acid Crystals Few /HPF (NEGATIVE) 07/17/22 15:25 Urine Bacteria Trace /HPF (NEGATIVE) 07/17/22 15:25 Hyaline Casts Few /LPF (NEGATIVE) 07/17/22 15:25 Granular Casts Rare /LPF (NEGATIVE) 07/17/22 15:25 Urine Yeast Numerous /HPF (NEGATIVE) 07/17/22 15:25 Ur Culture Indicated? No/not indicated 07/17/22 15:25 Assessment and Plan 1: enterocutaneous fistula , s/p diverting ileostomy abdominal adhesions . obesity , on soft diet as tolerated , OOB , DVT prophylaxis . ,ABT to advance diet as tolerated . Problem Patient Problems: Patient Problems (Updated 07/17/22 @ 12:14 by Nate Harrison) DJD (degenerative joint disease), lumbar (Chronic) M47.816 Hypertension (Chronic) I10 Hyperlipidemia (Chronic) E78.5 Diabetes mellitus (Chronic) E11.9 Enterocutaneous fistula (Acute) K63.2 Abdominal adhesions (Acute) K66.0 Status post colostomy (Acute) Z93.3
[2022-07-21] MEDS: PROTONIX INJ 40 MG VIAL IVP SCH (08:28)
[2022-07-21] MEDS: DIFLUCAN 200 MG IV PREMIX* 200 MG/100 ML BAG IV SCH (08:28)
[2022-07-21] MEDS: PEPCID 20 MG VIAL 20 MG in NS 50 ML IV 50 ML IV SCH ×2 (08:28→20:36)
[2022-07-21] MEDS: ZESTRIL TAB 10 MG PO SCH (08:29)
[2022-07-21] MEDS: LOVENOX INJ 40 MG SYR SC SCH (08:29)
[2022-07-21] MEDS: LOPRESSOR TAB 50 MG PO SCH ×2 (08:29→20:40)
[2022-07-21] MEDS: PROVENTIL NEB TX 0.083% 2.5MG/ 3ML NEB SCH ×2 (08:50→22:09)
[2022-07-21] MEDS: D5 1/2 NS 1,000 ML 1,000 ML IV SCH ×3 (09:28→23:41)
[2022-07-21] MEDS: MAGNESIUM SULFATE 1 GRAM/100 mL PREMIX 1 G/100 ML BAG IV PRN ×2 (10:10→11:53)
[2022-07-21] MEDS: ZOFRAN INJ 4 MG VIAL IVP PRN (10:48)
[2022-07-21] MEDS: MORPHINE SULFATE INJ 2 MG INJ IVP PRN (10:49)
--- NOTE | 2022-07-21 11:29 | PCM.PROG ---
Progress Note - Progress Note for Day of Date of Exam: 07/18/22 - Subjective Subjective: IS CURRENTLY INPATIENT STATUS. SHE IS DAY 4 STATUS POST LAPAROTOMY, LYSIS OF ADHESIONS, AND SMALL BOWEL LOOP COLOSTOMY. 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 TODAY, SHE IS ALERT AND ORIENTED, LYING IN BED ON MORNING ROUNDS. SHE CONTINUES TO COMPLAIN OF MILD ABDOMINAL PAIN AND INTERMITTENT NAUSEA. SHE ALSO REPORTS SHORTNESS OF BREATH AT TIMES. ON EXAMINTION TODAY, HEART IS REGULAR IN RATE AND RHYTHM. BILATERAL LUNGS ARE CLEAR TO AUSCULTATION. ABDOMEN IS ROUND, SOFT, AND NOTED WITH DIFFUSE TENDERNESS. HYPO ACTIVE BOWEL SOUNDS NOTED IN ALL QUADRANTS. ILEOSTOMY IS FUNCTIONING NOW. MINIMAL DRAINAGE FROM FISTULA SITE. NO UPPER OR LOWER EXTREMITY EDEMA NOTED. HER VITALS THIS MORNING ARE: 98.7-69-21-100%-162/72. LABS WERE OBTAINED. WBC 8.5, RBC 3.44, HGB 9.5, HCT 28.6, PLT COUNT 247, SODIUM 133, POTASSIUM 3.7, CHLORIDE 101, BUN 9, CREATININE 0.64, GLUCOSE 102, CALCIUM 8.1, AST 12, ALT 6, ALK PHOS 72, TOTAL PROTEIN 5.1, ALBUMIN 1.6. A CHEST XRAY WAS OBTAINED AND REVEALED: Cardiomegaly without new convincing acute abnormality, within limits of technique. Left lower lung infiltrate not entirely excluded. A KUB WAS OBTAINED AND REVEALED: Development of small bowel dilatation which was not present on the prior. This is concerning for developing obstruction. Surgical evaluation recommended. SHE IS CURRENTLY RECEIVING D5 NORMAL SALINE AT 125 ML/HR, ZOSYN 3.375G IV TID, PEPCID 20MG IV Q12H, PROTONIX 40MG IV DAILY, ALBUTEROL NEBS BID, MORPHINE SULFATE 2MG IV Q4H PRN, THE POTASSIUM AND MAGNESIUM PROTOCOLS, ZESTRIL 10MG DAILY, LOPRESSOR 100MG BID, PERCOCET 5/325MG PO Q6H PRN, AND ZOCOR 20MG PO HS. SHE IS ON A SOFT DIET TOLERATED. PHYSICAL AND OCCUPATIONAL THERAPIES WILL CONTINUE TO WORK WITH PATIENT TODAY. WILL CONTINUE TO FOLLOW. OTHERWISE, WE WILL FOLLOW-UP WITH AM LABS AND CONTINUE TO MONITOR. TIME SPENT ON CLINICAL ASSESSMENT, REVIEWING LABS AND IMAGING, DECISION MAKING, AND D OCUMENTATION GREATER THAN 45 MINUTES. - Past Medical Family Social History Past Med/Fam/Surg Hx: No changes since H&P Allergies: Allergies prochlorperazine [From Compazine] Allergy (Unknown, Verified 07/11/22 19:19) Reason: Drug allergy tramadol Allergy (Verified 07/11/22 19:19) - Review of Systems ROS: No change since H&P - Vital Signs and I&O's Vital Signs: Temperature 98.5 F Pulse Rate 76 Respiratory Rate 18 Blood Pressure [Left Arm] 170/72 Blood Pressure 152/72 O2 Sat by Pulse Oximetry 99 Intake and Output: Intake & Output 07/18/22 07/19/22 07/20/22 07/21/22 11:59 11:59 11:59 11:59 Intake Total 2395 / 2395 2320 / 2320 3874 / 3874 2275 / 2275 Output Total 1400 / 1400 945 / 945 450 / 450 Balance 2395 / 2395 920 / 920 2929 / 2929 1825 / 1825 - Physical Exam Oriented: Normal Eyes: Normal Ear: Normal Nose: Normal Throat: Normal Respiratory: Diminished Cardiovascular: Normal : Normal Auscultation: Bowel Sounds: Decreased Palpation: Normal Tenderness: Epigastric (soft abdomen . only mild tenderness , BS+, no infection .. see above .), Mild, Other (ILEOSTOMY FUNCTIONING ) Skin: Normal Musculoskeletal: Normal Psychiatric: Other Mood Description: Calm Speech Pattern: Clear, Appropriate - Laboratory and Diagnostics Result Diagrams: 07/21/22 06:08 07/21/22 06:08 Labs: 07/17/22 15:25 Urine,Clean Catch Urine Culture - Preliminary Laboratory WBC 7.9 X10^3/uL (3.6-10.0) 07/21/22 06:08 RBC 3.44 X10^6/uL (3.5-5.4) L 07/21/22 06:08 Hgb 9.6 g/dL (12.0-16.0) L 07/21/22 06:08 Hct 28.6 % (36.0-47.0) L 07/21/22 06:08 MCV 83.1 fL (80.0-100.0) 07/21/22 06:08 MCH 27.8 pg (27.0-34.0) 07/21/22 06:08 MCHC 33.5 g/dL (33.0-35.0) 07/21/22 06:08 RDW 16.6 % (11.6-16.5) H 07/21/22 06:08 Plt Count 305 X10^3/uL (150.0-450.0) 07/21/22 06:08 Plt Count Comment Adequate (ADEQUATE) 07/15/22 05:08 MPV 7.9 fL (7.4-11.0) 07/21/22 06:08 Neut % (Auto) 64.5 % (42.0-75.0) 07/21/22 06:08 Lymph % (Auto) 16.4 % (21.0-51.0) L 07/21/22 06:08 Josephine % (Auto) 14.0 % (0.0-13.0) H 07/21/22 06:08 Eos % (Auto) 4.5 % (0.9-2.9) H 07/21/22 06:08 Baso % (Auto) 0.6 % (0.2-1.0) 07/21/22 06:08 Neut # (Auto) 5.1 x10^3/uL (2.2-4.8) H 07/21/22 06:08 Lymph # (Auto) 1.3 X10^3/uL (1.3-2.9) 07/21/22 06:08 Josephine # (Auto) 1.1 x10^3/uL (0.3-0.8) H 07/21/22 06:08 Eos # (Auto) 0.4 x10^3/uL (0.0-0.2) H 07/21/22 06:08 Baso # (Auto) 0.0 X10^3/uL (0.0-0.1) 07/21/22 06:08 Absolute Nucleated RBC 0.0 /100WBC 07/21/22 06:08 Plt Morphology Comment Normal (NORMAL) 07/15/22 05:08 RBC Morphology Normal (NORMAL) 07/15/22 05:08 Sodium 134 mmol/L (136-145) L 07/21/22 06:08 Corrected Sodium TNP 07/21/22 06:08 Potassium 3.5 mmol/L (3.5-5.1) 07/21/22 06:08 Chloride 101 mmol/L (98-107) 07/21/22 06:08 Carbon Dioxide 25.7 mmol/L (21-32) 07/21/22 06:08 BUN 6 mg/dL (7-18) L 07/21/22 06:08 Creatinine 0.65 mg/dL (0.55-1.02) 07/21/22 06:08 Est GFR (MDRD) Af Amer > 60 (>60) 07/21/22 06:08 Est GFR (MDRD) Non-Af > 60 (>60) 07/21/22 06:08 Glucose 110 mg/dL (65-99) H 07/21/22 06:08 POC Glucose (mg/dL) 125 mg/dL (65-99) H 07/16/22 05:45 Calcium 8.1 mg/dL (8.5-10.1) L 07/21/22 06:08 Corrected Calcium 10.0 mg/dL (8.5-10.1) 07/21/22 06:08 Magnesium 1.9 mg/dL (2.0-2.9) L 07/21/22 06:08 Total Bilirubin 0.50 mg/dL (0.2-1.0) 07/21/22 06:08 AST 14 Units/L (15-37) L 07/21/22 06:08 ALT 8 Units/L (12-78) L 07/21/22 06:08 Alkaline Phosphatase 68 Units/L (46-116) 07/21/22 06:08 Total Protein 5.2 g/dL (6.4-8.2) L 07/21/22 06:08 Albumin 1.6 g/dL (3.4-5.0) L 07/21/22 06:08 Globulin 3.6 g/dL (2.5-4.5) 07/21/22 06:08 Albumin/Globulin Ratio 0.4 Ratio (1.1-2.1) L 07/21/22 06:08 Specimen Type Random urine 07/17/22 15:25 Urine Color Yellow (YELLOW) 07/17/22 15:25 Urine Appearance Hazy (CLEAR) 07/17/22 15:25 Urine pH 6.0 (5.0 - 8.0) 07/17/22 15:25 Ur Specific Christoval 1.025 (1.000-1.030) 07/17/22 15:25 Urine Protein 3+ (NEGATIVE) 07/17/22 15:25 Urine Glucose (UA) Negative (NEGATIVE) 07/17/22 15:25 Urine Ketones Negative (NEGATIVE) 07/17/22 15:25 Urine Blood 4+ (NEGATIVE) 07/17/22 15:25 Urine Nitrite Negative (NEGATIVE) 07/17/22 15:25 Urine Bilirubin Negative (NEGATIVE) 07/17/22 15:25 Urine Urobilinogen Normal (NORMAL) 07/17/22 15:25 Ur Leukocyte Esterase 2+ (NEGATIVE) 07/17/22 15:25 Urine RBC 20-30 /HPF (0-3) A 07/17/22 15:25 Urine WBC 10-20 /HPF (0-5) A 07/17/22 15:25 Ur Squamous Epith Cells Rare /HPF (NEGATIVE) 07/17/22 15:25 Uric Acid Crystals Few /HPF (NEGATIVE) 07/17/22 15:25 Urine Bacteria Trace /HPF (NEGATIVE) 07/17/22 15:25 Hyaline Casts Few /LPF (NEGATIVE) 07/17/22 15:25 Granular Casts Rare /LPF (NEGATIVE) 07/17/22 15:25 Urine Yeast Numerous /HPF (NEGATIVE) 07/17/22 15:25 Ur Culture Indicated? No/not indicated 07/17/22 15:25 - Plan (1) Enterocutaneous fistula Status: Acute Plan: D5 NORMAL SALINE AT 125 ML/HR, ZOSYN 3.375G IV TID, PEPCID 20MG IV Q12H, PROTONIX 40MG IV DAILY, ALBUTEROL NEBS BID, MORPHINE SULFATE 2MG IV Q4H PRN, THE POTASSIUM AND MAGNESIUM PROTOCOLS, ZESTRIL 10MG DAILY, LOPRESSOR 100MG BID, PER COCET 5/325MG PO Q6H PRN, AND ZOCOR 20MG PO HS. (2) Abdominal adhesions Status: Acute (3) Status post colostomy Status: Acute (4) DJD (degenerative joint disease), lumbar Status: Chronic Qualifiers: Spinal osteoarthritis complication: unspecified spinal osteoarthritis Qualified Code(s): M47.816 - Spondylosis without myelopathy or radiculopathy, lumbar region (5) Hypertension Status: Chronic Qualifiers: Hypertension type: primary hypertension (6) Hyperlipidemia Status: Chronic Qualifiers: Hyperlipidemia type: mixed hyperlipidemia (7) Diabetes mellitus Status: Chronic Qualifiers: Diabetes mellitus type: type 2 Diabetes mellitus detention insulin use: with intermediate school teacher use Diabetes mellitus complication status: with hyperglycemia Qualified Code(s): E11.65 - Type 2 diabetes mellitus with hyperglycemia; Z79.4 - technician terminal and repeater (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
[2022-07-21] MEDS: K-RIDER 10 MEQ/NS 100 ML 10 MEQ/100 ML BAG IV PRN ×2 (12:55→14:29)
--- NOTE | 2022-07-21 13:06 | PCM.PROG ---
Progress Note - Progress Note for Day of Date of Exam: 07/19/22 - Subjective Subjective: IS CURRENTLY INPATIENT STATUS. SHE IS DAY 5 STATUS POST LAPAROTOMY, LYSIS OF ADHESIONS, AND SMALL BOWEL LOOP COLOSTOMY. 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 NURSING STAFF HAD TO PASS AN NG TUBE LAST NIGHT DUE TO PERSISTENT VOMITING. TODAY, SHE IS ALERT AND ORIENTED, LYING IN BED ON MORNING ROUNDS. SHE CONTINUES TO COMPLAIN OF MILD ABDOMINAL PAIN AND INTERMITTENT NAUSEA. ON EXAMINTION TODAY, HEART IS REGULAR IN RATE AND RHYTHM. BILATERAL LUNGS ARE CLEAR TO AUSCULTATION. ABDOMEN IS ROUND, SOFT, AND NOTED WITH DIFFUSE TENDERNESS. NORMAL BOWEL SOUNDS NOTED IN ALL QUADRANTS. ILEOSTOMY IS FUNCTIONING NOW. MODERATE DRAINAGE FROM FISTULA SITE. NO UPPER OR LOWER EXTREMITY EDEMA NOTED. HER VITALS THIS MORNING ARE: 98.4-69-20-96%-173/75. LABS WERE OBTAINED. WBC 8.4, RBC 3.52, HGB 9.8, HCT 29.4, PLT COUNT 258, SODIUM 134, POTASSIUM 3.6, CHLORIDE 101, BUN 8, CREATININE 0.66, GLUCOSE 91, CALCIUM 8.3, TOTAL BILI 0.80, AST 14, ALT <6, ALK PHOS 69, TOTAL PROTEIN 5.2, ALBUMIN 1.6. A CHEST XRAY WAS OBTAINED AND REVEALED: No acute findings. There is no evidence for pneumonia, pneumothorax or localized atelectasis. A KUB WAS OBTAINED AND REVEALED: NG tube tip projected over the junction of the body and antrum of the stomach. No dilated bowel loops upper abdomen. SHE IS CURRENTLY RECEIVING D5 NORMAL SALINE AT 125 ML/HR, ZOSYN 3.375G IV TID, PEPCID 20MG IV Q12H, PROTONIX 40MG IV DAILY, ALBUTEROL NEBS BID, MORPHINE SULFATE 2MG IV Q4H PRN, THE POTASSIUM AND MAGNESIUM PROTOCOLS, ZESTRIL 10MG DAILY, LOPRESSOR 100MG BID, PERCOCET 5/325MG PO Q6H PRN, AND ZOCOR 20MG PO HS. WE WILL ADD DIFLUCAN 200MG IV DAILY. WE WILL REMOVE THE NG TUBE TODAY AND RESUME A LIQUID DIET. PHYSICAL AND OCCUPATIONAL THERAPIES WILL CONTINUE TO WORK WITH PATIENT TODAY. WILL CONTINUE TO FOLLOW. OTHERWISE, WE WILL FOLLOW-UP WITH AM LABS AND CONTINUE TO MONITOR. TIME SPENT ON CLINICAL ASSESSMENT, REVIEWING LABS AND IMAGING, DECISION MAKING, AND DOCUMENTATION GREATER THAN 45 MINUTES. - Past Medical Family Social History Past Med/Fam/Surg Hx: No changes since H&P Allergies: Allergies prochlorperazine [From Compazine] Allergy (Unknown, Verified 07/11/22 19:19) Reason: Drug allergy tramadol Allergy (Verified 07/11/22 19:19) - Review of Systems ROS: No change since H&P - Vital Signs and I&O's Vital Signs: Temperature 98.5 F Pulse Rate 69 Respiratory Rate 16 Blood Pressure [Left Arm] 170/72 Blood Pressure 161/74 O2 Sat by Pulse Oximetry 100 Intake and Output: Intake & Output 07/19/22 07/20/22 07/21/22 07/22/22 11:59 11:59 11:59 11:59 Intake Total 2320 / 2320 3874 / 3874 2275 / 2275 Output Total 1400 / 1400 945 / 945 450 / 450 Balance 920 / 920 2929 / 2929 1825 / 1825 - Physical Exam Oriented: Normal Eyes: Normal Ear: Normal Nose: Other (NG TUBE RIGHT NARE ) Throat: Normal Respiratory: Diminished Cardiovascular: Normal : Normal Auscultation: Bowel Sounds: Decreased Palpation: Normal Tenderness: Epigastric (soft abdomen . only mild tenderness , BS+, no infection .. see above .), Mild, Other (ILEOSTOMY FUNCTIONING ) Skin: Normal Musculoskeletal: Normal Psychiatric: Other Mood Description: Calm Speech Pattern: Clear, Appropriate - Laboratory and Diagnostics Result Diagrams: 07/21/22 06:08 07/21/22 06:08 Labs: 07/17/22 15:25 Urine,Clean Catch Urine Culture - Preliminary Laboratory WBC 7.9 X10^3/uL (3.6-10.0) 07/21/22 06:08 RBC 3.44 X10^6/uL (3.5-5.4) L 07/21/22 06:08 Hgb 9.6 g/dL (12.0-16.0) L 07/21/22 06:08 Hct 28.6 % (36.0-47.0) L 07/21/22 06:08 MCV 83.1 fL (80.0-100.0) 07/21/22 06:08 MCH 27.8 pg (27.0-34.0) 07/21/22 06:08 MCHC 33.5 g/dL (33.0-35.0) 07/21/22 06:08 RDW 16.6 % (11.6-16.5) H 07/21/22 06:08 Plt Count 305 X10^3/uL (150.0-450.0) 07/21/22 06:08 Plt Count Comment Adequate (ADEQUATE) 07/15/22 05:08 MPV 7.9 fL (7.4-11.0) 07/21/22 06:08 Neut % (Auto) 64.5 % (42.0-75.0) 07/21/22 06:08 Lymph % (Auto) 16.4 % (21.0-51.0) L 07/21/22 06:08 Barber % (Auto) 14.0 % (0.0-13.0) H 07/21/22 06:08 Eos % (Auto) 4.5 % (0.9-2.9) H 07/21/22 06:08 Baso % (Auto) 0.6 % (0.2-1.0) 07/21/22 06:08 Neut # (Auto) 5.1 x10^3/uL (2.2-4.8) H 07/21/22 06:08 Lymph # (Auto) 1.3 X10^3/uL (1.3-2.9) 07/21/22 06:08 Barber # (Auto) 1.1 x10^3/uL (0.3-0.8) H 07/21/22 06:08 Eos # (Auto) 0.4 x10^3/uL (0.0-0.2) H 07/21/22 06:08 Baso # (Auto) 0.0 X10^3/uL (0.0-0.1) 07/21/22 06:08 Absolute Nucleated RBC 0.0 /100WBC 07/21/22 06:08 Plt Morphology Comment Normal (NORMAL) 07/15/22 05:08 RBC Morphology Normal (NORMAL) 07/15/22 05:08 Sodium 134 mmol/L (136-145) L 07/21/22 06:08 Corrected Sodium TNP 07/21/22 06:08 Potassium 3.5 mmol/L (3.5-5.1) 07/21/22 06:08 Chloride 101 mmol/L (98-107) 07/21/22 06:08 Carbon Dioxide 25.7 mmol/L (21-32) 07/21/22 06:08 BUN 6 mg/dL (7-18) L 07/21/22 06:08 Creatinine 0.65 mg/dL (0.55-1.02) 07/21/22 06:08 Est GFR (MDRD) Af Amer > 60 (>60) 07/21/22 06:08 Est GFR (MDRD) Non-Af > 60 (>60) 07/21/22 06:08 Glucose 110 mg/dL (65-99) H 07/21/22 06:08 POC Glucose (mg/dL) 125 mg/dL (65-99) H 07/16/22 05:45 Calcium 8.1 mg/dL (8.5-10.1) L 07/21/22 06:08 Corrected Calcium 10.0 mg/dL (8.5-10.1) 07/21/22 06:08 Magnesium 1.9 mg/dL (2.0-2.9) L 07/21/22 06:08 Total Bilirubin 0.50 mg/dL (0.2-1.0) 07/21/22 06:08 AST 14 Units/L (15-37) L 07/21/22 06:08 ALT 8 Units/L (12-78) L 07/21/22 06:08 Alkaline Phosphatase 68 Units/L (46-116) 07/21/22 06:08 Total Protein 5.2 g/dL (6.4-8.2) L 07/21/22 06:08 Albumin 1.6 g/dL (3.4-5.0) L 07/21/22 06:08 Globulin 3.6 g/dL (2.5-4.5) 07/21/22 06:08 Albumin/Globulin Ratio 0.4 Ratio (1.1-2.1) L 07/21/22 06:08 Specimen Type Random urine 07/17/22 15:25 Urine Color Yellow (YELLOW) 07/17/22 15:25 Urine Appearance Hazy (CLEAR) 07/17/22 15:25 Urine pH 6.0 (5.0 - 8.0) 07/17/22 15:25 Ur Specific Protection 1.025 (1.000-1.030) 07/17/22 15:25 Urine Protein 3+ (NEGATIVE) 07/17/22 15:25 Urine Glucose (UA) Negative (NEGATIVE) 07/17/22 15:25 Urine Ketones Negative (NEGATIVE) 07/17/22 15:25 Urine Blood 4+ (NEGATIVE) 07/17/22 15:25 Urine Nitrite Negative (NEGATIVE) 07/17/22 15:25 Urine Bilirubin Negative (NEGATIVE) 07/17/22 15:25 Urine Urobilinogen Normal (NORMAL) 07/17/22 15:25 Ur Leukocyte Esterase 2+ (NEGATIVE) 07/17/22 15:25 Urine RBC 20-30 /HPF (0-3) A 07/17/22 15:25 Urine WBC 10-20 /HPF (0-5) A 07/17/22 15:25 Ur Squamous Epith Cells Rare /HPF (NEGATIVE) 07/17/22 15:25 Uric Acid Crystals Few /HPF (NEGATIVE) 07/17/22 15:25 Urine Bacteria Trace /HPF (NEGATIVE) 07/17/22 15:25 Hyaline Casts Few /LPF (NEGATIVE) 07/17/22 15:25 Granular Casts Rare /LPF (NEGATIVE) 07/17/22 15:25 Urine Yeast Numerous /HPF (NEGATIVE) 07/17/22 15:25 Ur Culture Indicated? No/not indicated 07/17/22 15:25 - Plan (1) Enterocutaneous fistula Status: Acute Plan: D5 NORMAL SALINE AT 125 ML/HR, ZOSYN 3.375G IV TID, DIFLUCAN 200MG IV DAILY, PEPCID 20MG IV Q12H, PROTONIX 40MG IV DAILY, ALBUTEROL NEBS BID, MORPHINE SULFATE 2MG IV Q4H PRN, THE POTASSIUM AND MAGNESIUM PROTOCOLS, ZESTRIL 10MG DAILY, LOPRESSOR 100MG BID, PERCOCET 5/325MG PO Q6H PRN, AND ZOCOR 20MG PO HS. (2) Abdominal adhesions Status: Acute (3) Status post colostomy Status: Acute (4) DJD (degenerative joint disease), lumbar Status: Chronic Qualifiers: Spinal osteoarthritis complication: unspecified spinal osteoarthritis Qualified Code(s): M47.816 - Spondylosis without myelopathy or radiculopathy, lumbar region (5) Hypertension Status: Chronic Qualifiers: Hypertension type: primary hypertension (6) Hyperlipidemia Status: Chronic Qualifiers: Hyperlipidemia type: mixed hyperlipidemia (7) Diabetes mellitus Status: Chronic Qualifiers: Diabetes mellitus type: type 2 Diabetes mellitus custodial insulin use: with supervisor intermediates use Diabetes mellitus complication status: with hyperglycemia Qualified Code(s): E11.65 - Type 2 diabetes mellitus with hyperglycemia; Z79.4 - terminologist (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
[2022-07-21] MEDS: ZOCOR TAB 20 MG PO SCH (20:42)
[2022-07-21] MEDS: PERCOCET TAB 5/325 MG PO PRN (21:02)
[2022-07-22] MEDS: D5 1/2 NS 1,000 ML 1,000 ML IV SCH ×5 (03:03→22:27)
[2022-07-22] MEDS: ZOSYN VIAL 3.375 GRAMS 3.375 G in NS 100 ML IV 100 ML IV SCH (05:20)
[2022-07-22 05:24] LABS: BASOPHILS % (AUTO) 0.5 % (0.2-1.0); EOSINOPHILS # (AUTO) 0.4 x10^3/uL (0.0-0.2); EOSINOPHILS % (AUTO) 4.5 % (0.9-2.9); HEMATOCRIT 26.9 % (36.0-47.0); LYMPHOCYTES # (AUTO) 1.3 X10^3/uL (1.3-2.9); LYMPHOCYTES % (AUTO) 15.1 % (21.0-51.0); MEAN CORPUSCULAR HGB CONC 33.7 g/dL (33.0-35.0); MEAN CORPUSCULAR VOLUME 83.2 fL (80.0-100.0); MEAN PLATELET VOLUME 8.5 fL (7.4-11.0); MONOCYTES # (AUTO) 1.2 x10^3/uL (0.3-0.8); NEUTROPHILS # (AUTO) 5.4 x10^3/uL (2.2-4.8); NEUTROPHILS % (AUTO) 64.9 % (42.0-75.0); RED BLOOD COUNT 3.23 X10^6/uL (3.5-5.4); RED CELL DISTRIBUTION WIDTH 16.6 % (11.6-16.5); WHITE BLOOD COUNT 8.3 X10^3/uL (3.6-10.0)
[2022-07-22 05:34] LABS: ALANINE AMINOTRANSFERASE 7 Units/L (12-78); ALBUMIN 1.5 g/dL (3.4-5.0); ALKALINE PHOSPHATASE 64 Units/L (46-116); ASPARTATE AMINO TRANSFERASE 14 Units/L (15-37); BLOOD UREA NITROGEN 4 mg/dL (7-18); CARBON DIOXIDE 28.7 mmol/L (21-32); CHLORIDE 103 mmol/L (98-107); CREATININE 0.65 mg/dL (0.55-1.02); MAGNESIUM 1.8 mg/dL (2.0-2.9); SODIUM 137 mmol/L (136-145); eGFR NON BLACK RACES > 60 (>60)
--- NOTE | 2022-07-22 06:59 | RAD ---
HISTORYSMALL BOWEL OBSTRUCTION ILEOSTOMY SURGERY HX: CAD, HTN, ASTHMA, HIATAL HERNIA, DM SX: PACEMAKER, [id number] .br.br.br small-bowel loops measuring up to at least 4.3 cm in diameter. Similar calcifications overlying the right upper quadrant. Surgical staple line overlying the right lower quadrant.. The bony structures are grossly intact.IMPRESSIONSimilar distended small-bowel loops which may reflect ileus or obstruction. Continued follow-up recommended.Electronically signed by: CARL VALENZUELA (Jul 22, 2022 06:57:33)
[2022-07-22] MEDS: PROVENTIL NEB TX 0.083% 2.5MG/ 3ML NEB SCH ×2 (08:35→20:25)
[2022-07-22] MEDS: DIFLUCAN 200 MG IV PREMIX* 200 MG/100 ML BAG IV SCH (08:37)
[2022-07-22] MEDS: PROTONIX INJ 40 MG VIAL IVP SCH (08:37)
[2022-07-22] MEDS: PEPCID 20 MG VIAL 20 MG in NS 50 ML IV 50 ML IV SCH ×2 (08:37→20:46)
[2022-07-22] MEDS: LOVENOX INJ 40 MG SYR SC SCH (08:38)
[2022-07-22] MEDS: LOPRESSOR TAB 50 MG PO SCH ×2 (08:38→20:45)
[2022-07-22] MEDS: ZESTRIL TAB 10 MG PO SCH (08:38)
--- NOTE | 2022-07-22 12:05 | PCM.PROG ---
Progress Note - Progress Note for Day of Date of Exam: 07/21/22 - Subjective Subjective: IS CURRENTLY INPATIENT STATUS. SHE IS DAY 7 STATUS POST LAPAROTOMY, LYSIS OF ADHESIONS, AND SMALL BOWEL LOOP COLOSTOMY. 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 TODAY, SHE IS ALERT AND ORIENTED, LYING IN BED ON MORNING ROUNDS. SHE CONTINUES TO COMPLAIN OF MILD ABDOMINAL PAIN AND INTERMITTENT NAUSEA, BUT DOES REPORT SOME IMPROVEMENT IN SYMPTOMS THIS MORNING. SHE DID VOMIT ONE TIME THIS MORNING. ON EXAMINTION TODAY, HEART IS REGULAR IN RATE AND RHYTHM. BILATERAL LUNGS ARE CLEAR TO AUSCULTATION. ABDOMEN IS ROUND, SOFT, AND NOTED WITH DIFFUSE TENDERNESS. NORMAL BOWEL SOUNDS NOTED IN ALL QUADRANTS. ILEOSTOMY IS FUNCTIONING NOW. MODERATE DRAINAGE FROM FISTULA SITE. NO UPPER OR LOWER EXTREMITY EDEMA NOTED. HER VITALS THIS MORNING ARE: 98.5-69-19-100%-149/71. LABS WERE OBTAINED. WBC 7.9, RBC 3.44, HGB 9.6, HCT 28.6, PLT COUNT 305, SODIUM 134, POTASSIUM 3.5, CHLORIDE 101, BUN 6, CREATININE 0.65, GLUCOSE 110, CALCIUM 8.1, MAGNESIUM 1.9, AST 14, ALT 8, ALK PHOS 68, TOTAL PROTEIN 5.2, ALBUMIN 1.6. A KUB WAS OBTAINED AND REVEALED: small-bowel loops measuring up to at least 4.3 cm in diameter. Similar calcifications overlying the right upper quadrant. Surgical staple line overlying the right lower quadrant.. The bony structures are grossly intact. SHE IS CURRENTLY RECEIVING D5 NORMAL SALINE AT 125 ML/HR, ZOSYN 3.375G IV TID, DIFLUCAN 200MG IV DAILY, PEPCID 20MG IV Q12H, PROTONIX 40MG IV DAILY, ALBUTEROL NEBS BID, MORPHINE SULFATE 2MG IV Q4H PRN, THE POTASSIUM AND MAGNESIUM PROTOCOLS, ZESTRIL 10MG DA RONALD, LOPRESSOR 100MG BID, PERCOCET 5/325MG PO Q6H PRN, AND ZOCOR 20MG PO HS. SHE IS CURRENTLY ON A SOFT DIET. PHYSICAL AND OCCUPATIONAL THERAPIES WILL CONTINUE TO WORK WITH PATIENT TODAY. WILL CONTINUE TO FOLLOW. OTHERWISE, WE WILL FOLLOW-UP WITH AM LABS AND CONTINUE TO MONITOR. TIME SPENT ON CLINICAL ASSESSMENT, REVIEWING LABS AND IMAGING, DECISION MAKING, AND DOCUMENTATION GREATER THAN 45 MINUTES. - Past Medical Family Social History Past Med/Fam/Surg Hx: No changes since H&P Allergies: Allergies prochlorperazine [From Compazine] Allergy (Unknown, Verified 07/11/22 19:19) Reason: Drug allergy tramadol Allergy (Verified 07/11/22 19:19) - Review of Systems ROS: No change since H&P - Vital Signs and I&O's Vital Signs: Temperature 98.2 F Pulse Rate 38 Respiratory Rate 20 Blood Pressure [Left Arm] 170/72 Blood Pressure 161/75 O2 Sat by Pulse Oximetry 100 Intake and Output: Intake & Output 07/20/22 07/21/22 07/22/22 07/23/22 11:59 11:59 11:59 11:59 Intake Total 3874 / 3874 2275 / 2275 3105 / 3105 Output Total 945 / 945 450 / 450 500 / 500 Balance 2929 / 2929 1825 / 1825 2605 / 2605 - Physical Exam Oriented: Normal Eyes: Normal Ear: Normal Nose: Other (NG TUBE RIGHT NARE ) Throat: Normal Respiratory: Diminished Cardiovascular: Normal : Normal Auscultation: Bowel Sounds: Decreased Palpation: Normal Tenderness: Epigastric (soft abdomen . only mild tenderness , BS+, no infection .. see above .), Mild, Other (ILEOSTOMY FUNCTIONING ) Skin: Normal Musculoskeletal: Normal Psychiatric: Other Mood Description: Calm Speech Pattern: Clear, Appropriate - Laboratory and Diagnostics Result Diagrams: 07/22/22 04:25 07/22/22 04:25 Labs: 07/17/22 15:25 Urine,Clean Catch Urine Culture - Preliminary Laboratory WBC 8.3 X10^3/uL (3.6-10.0) 07/22/22 04:25 RBC 3.23 X10^6/uL (3.5-5.4) L 07/22/22 04:25 Hgb 9.0 g/dL (12.0-16.0) L 07/22/22 04:25 Hct 26.9 % (36.0-47.0) L 07/22/22 04:25 MCV 83.2 fL (80.0-100.0) 07/22/22 04:25 MCH 28.0 pg (27.0-34.0) 07/22/22 04:25 MCHC 33.7 g/dL (33.0-35.0) 07/22/22 04:25 RDW 16.6 % (11.6-16.5) H 07/22/22 04:25 Plt Count 341 X10^3/uL (150.0-450.0) 07/22/22 04:25 Plt Count Comment Adequate (ADEQUATE) 07/15/22 05:08 MPV 8.5 fL (7.4-11.0) 07/22/22 04:25 Neut % (Auto) 64.9 % (42.0-75.0) 07/22/22 04:25 Lymph % (Auto) 15.1 % (21.0-51.0) L 07/22/22 04:25 [place] % (Auto) 15.0 % (0.0-13.0) H 07/22/22 04:25 Eos % (Auto) 4.5 % (0.9-2.9) H 07/22/22 04:25 Baso % (Auto) 0.5 % (0.2-1.0) 07/22/22 04:25 Neut # (Auto) 5.4 x10^3/uL (2.2-4.8) H 07/22/22 04:25 Lymph # (Auto) 1.3 X10^3/uL (1.3-2.9) 07/22/22 04:25 [place] # (Auto) 1.2 x10^3/uL (0.3-0.8) H 07/22/22 04:25 Eos # (Auto) 0.4 x10^3/uL (0.0-0.2) H 07/22/22 04:25 Baso # (Auto) 0.0 X10^3/uL (0.0-0.1) 07/22/22 04:25 Absolute Nucleated RBC 0.1 /100WBC 07/22/22 04:25 Plt Morphology Comment Normal (NORMAL) 07/15/22 05:08 RBC Morphology Normal (NORMAL) 07/15/22 05:08 Sodium 137 mmol/L (136-145) 07/22/22 04:25 Corrected Sodium TNP 07/22/22 04:25 Potassium 3.4 mmol/L (3.5-5.1) L 07/22/22 04:25 Chloride 103 mmol/L (98-107) 07/22/22 04:25 Carbon Dioxide 28.7 mmol/L (21-32) 07/22/22 04:25 BUN 4 mg/dL (7-18) L 07/22/22 04:25 Creatinine 0.65 mg/dL (0.55-1.02) 07/22/22 04:25 Est GFR (MDRD) Af Amer > 60 (>60) 07/22/22 04:25 Est GFR (MDRD) Non-Af > 60 (>60) 07/22/22 04:25 Glucose 106 mg/dL (65-99) H 07/22/22 04:25 POC Glucose (mg/dL) 125 mg/dL (65-99) H 07/16/22 05:45 Calcium 8.0 mg/dL (8.5-10.1) L 07/22/22 04:25 Corrected Calcium 10.0 mg/dL (8.5-10.1) 07/22/22 04:25 Magnesium 1.8 mg/dL (2.0-2.9) L 07/22/22 04:25 Total Bilirubin 0.50 mg/dL (0.2-1.0) 07/22/22 04:25 AST 14 Units/L (15-37) L 07/22/22 04:25 ALT 7 Units/L (12-78) L 07/22/22 04:25 Alkaline Phosphatase 64 Units/L (46-116) 07/22/22 04:25 Total Protein 5.0 g/dL (6.4-8.2) L 07/22/22 04:25 Albumin 1.5 g/dL (3.4-5.0) L 07/22/22 04:25 Globulin 3.5 g/dL (2.5-4.5) 07/22/22 04:25 Albumin/Globulin Ratio 0.4 Ratio (1.1-2.1) L 07/22/22 04:25 Specimen Type Random urine 07/17/22 15:25 Urine Color Yellow (YELLOW) 07/17/22 15:25 Urine Appearance Hazy (CLEAR) 07/17/22 15:25 Urine pH 6.0 (5.0 - 8.0) 07/17/22 15:25 Ur Specific [place] 1.025 (1.000-1.030) 07/17/22 15:25 Urine Protein 3+ (NEGATIVE) 07/17/22 15:25 Urine Glucose (UA) Negative (NEGATIVE) 07/17/22 15:25 Urine Ketones Negative (NEGATIVE) 07/17/22 15:25 Urine Blood 4+ (NEGATIVE) 07/17/22 15:25 Urine Nitrite Negative (NEGATIVE) 07/17/22 15:25 Urine Bilirubin Negative (NEGATIVE) 07/17/22 15:25 Urine Urobilinogen Normal (NORMAL) 07/17/22 15:25 Ur Leukocyte Esterase 2+ (NEGATIVE) 07/17/22 15:25 Urine RBC 20-30 /HPF (0-3) A 07/17/22 15:25 Urine WBC 10-20 /HPF (0-5) A 07/17/22 15:25 Ur Squamous Epith Cells Rare /HPF (NEGATIVE) 07/17/22 15:25 Uric Acid Crystals Few /HPF (NEGATIVE) 07/17/22 15:25 Urine Bacteria Trace /HPF (NEGATIVE) 07/17/22 15:25 Hyaline Casts Few /LPF (NEGATIVE) 07/17/22 15:25 Granular Casts Rare /LPF (NEGATIVE) 07/17/22 15:25 Urine Yeast Numerous /HPF (NEGATIVE) 07/17/22 15:25 Ur Culture Indicated? No/not indicated 07/17/22 15:25 - Plan (1) Enterocutaneous fistula Status: Acute Plan: D5 NORMAL SALINE AT 125 ML/HR, ZOSYN 3.375G IV TID, DIFLUCAN 200MG IV DAILY, PEPCID 20MG IV Q12H, PROTONIX 40MG IV DAILY, ALBUTEROL NEBS BID, MORPHINE SULFATE 2MG IV Q4H PRN, THE POTASSIUM AND MAGNESIUM PROTOCOLS, ZESTRIL 10MG DAILY, LOPRESSOR 100MG BID, PERCOCET 5/325MG PO Q6H PRN, AND ZOCOR 20MG PO HS. (2) Abdominal adhesions Status: Acute (3) Status post colostomy Status: Acute (4) DJD (degenerative joint disease), lumbar Status: Chronic Qualifiers: Spinal osteoarthritis complication: unspecified spinal osteoarthritis Qualified Code(s): M47.816 - Spondylosis without myelopathy or radiculopathy, lumbar region (5) Hypertension Status: Chronic Qualifiers: Hypertension type: primary hypertension (6) Hyperlipidemia Status: Chronic Qualifiers: Hyperlipidemia type: mixed hyperlipidemia (7) Diabetes mellitus Status: Chronic Qualifiers: Diabetes mellitus type: type 2 Diabetes mellitus measurer machine insulin use: with measurer machine use Diabetes mellitus complication status: with hyperglycemia Qualified Code(s): E11.65 - Type 2 diabetes mellitus with hyperglycemia; Z79.4 - halfway (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
--- NOTE | 2022-07-22 14:35 | RAD ---
HISTORYSBOSTUDYKUBCOMPARISONRussellville Hospital 2022FINDINGSThere is persistent selective dilatation of small bowel with paucity of colon gas. There is persistent gaseous dilatation of the stomach although this has improved slightly.IMPRESSIONFindings remain consistent with some degree of small bowel obstruction. No new abnormality is demonstrated.Electronically signed by: GANGA BRAVO (Jul 22, 2022 14:33:32)
[2022-07-22] MEDS: K-DUR TAB 20 MEQ PO PRN (16:03)
[2022-07-22] MEDS: ZOCOR TAB 20 MG PO SCH (20:46)
[2022-07-23] MEDS: MORPHINE SULFATE INJ 2 MG INJ IVP PRN (03:00)
[2022-07-23 05:53] LABS: BASOPHILS # (AUTO) 0.1 X10^3/uL (0.0-0.1); BASOPHILS % (AUTO) 0.7 % (0.2-1.0); EOSINOPHILS # (AUTO) 0.3 x10^3/uL (0.0-0.2); EOSINOPHILS % (AUTO) 3.3 % (0.9-2.9); HEMATOCRIT 25.9 % (36.0-47.0); HEMOGLOBIN 8.7 g/dL (12.0-16.0); LYMPHOCYTES # (AUTO) 1.7 X10^3/uL (1.3-2.9); LYMPHOCYTES % (AUTO) 18.3 % (21.0-51.0); MEAN CORPUSCULAR HEMOGLOBIN 28.1 pg (27.0-34.0); MEAN CORPUSCULAR HGB CONC 33.5 g/dL (33.0-35.0); MEAN CORPUSCULAR VOLUME 83.7 fL (80.0-100.0); MEAN PLATELET VOLUME 7.8 fL (7.4-11.0); MONOCYTES # (AUTO) 1.4 x10^3/uL (0.3-0.8); MONOCYTES % (AUTO) 15.5 % (0.0-13.0); NEUTROPHILS # (AUTO) 5.7 x10^3/uL (2.2-4.8); NEUTROPHILS % (AUTO) 62.2 % (42.0-75.0); RED BLOOD COUNT 3.09 X10^6/uL (3.5-5.4); RED CELL DISTRIBUTION WIDTH 16.6 % (11.6-16.5); WHITE BLOOD COUNT 9.1 X10^3/uL (3.6-10.0)
[2022-07-23 06:09] LABS: ALANINE AMINOTRANSFERASE < 6 Units/L (12-78); ALBUMIN 1.5 g/dL (3.4-5.0); ALKALINE PHOSPHATASE 64 Units/L (46-116); ASPARTATE AMINO TRANSFERASE 18 Units/L (15-37); BLOOD UREA NITROGEN 4 mg/dL (7-18); CALCIUM 8.2 mg/dL (8.5-10.1); CARBON DIOXIDE 28.8 mmol/L (21-32); CHLORIDE 103 mmol/L (98-107); COR CA(FOR HYPOALB) 10.2 mg/dL (8.5-10.1); SODIUM 135 mmol/L (136-145); eGFR NON BLACK RACES > 60 (>60)
[2022-07-23] MEDS: PERCOCET TAB 5/325 MG PO PRN ×2 (06:19→21:23)
[2022-07-23] MEDS: D5 1/2 NS 1,000 ML 1,000 ML IV SCH ×4 (06:19→22:52)
[2022-07-23] MEDS: PROVENTIL NEB TX 0.083% 2.5MG/ 3ML NEB SCH ×2 (08:29→21:43)
[2022-07-23] MEDS: MAGNESIUM SULFATE 1 GRAM/100 mL PREMIX 1 G/100 ML BAG IV PRN ×2 (08:45→16:52)
[2022-07-23] MEDS: LOPRESSOR TAB 50 MG PO SCH ×2 (08:46→21:18)
[2022-07-23] MEDS: DIFLUCAN 200 MG IV PREMIX* 200 MG/100 ML BAG IV SCH (08:46)
[2022-07-23] MEDS: ZESTRIL TAB 10 MG PO SCH (08:46)
[2022-07-23] MEDS: K-DUR TAB 20 MEQ PO PRN (08:47)
[2022-07-23] MEDS: LOVENOX INJ 40 MG SYR SC SCH (08:47)
[2022-07-23] MEDS: PEPCID 20 MG VIAL 20 MG in NS 50 ML IV 50 ML IV SCH ×2 (08:51→21:17)
[2022-07-23] MEDS: PROTONIX INJ 40 MG VIAL IVP SCH (08:52)
--- NOTE | 2022-07-23 11:02 | DR.PROGNOT ---
HOSPITAL PROGRESS NOTE Progress Note for Day of: Progress Note Date: 07/23/22 Chief Complaint Chief Complaint: much less abdominal pain ..no nausea or vomiting ileostomy is functioning well now . moderate drainage in fistula site . normal CBC , BUN and Creat. History of Present Illness History of Present Illness: no changes Past Medical Family Social History Past Med/Fam/Surg Hx: No changes since H&P Allergies: Allergies prochlorperazine [From Compazine] Allergy (Unknown, Verified 07/11/22 19:19) Reason: Drug allergy tramadol Allergy (Verified 07/11/22 19:19) Review Of Systems ROS: No change since H&P Vital Signs Vital Signs: Temperature 98.6 F Pulse Rate [Right Brachial] 70 Pulse Rate 72 Respiratory Rate 21 Blood Pressure [Left Arm] 160/70 Blood Pressure 123/71 O2 Sat by Pulse Oximetry 98 Physical Exam Oriented: Normal Eyes: Normal Ear: Normal Nose: Other (NG TUBE RIGHT NARE ) Throat: Normal Respiratory: Diminished Cardiovascular: Normal : Normal GI:Auscultation: Decreased GI:Palpation: Normal GI: Tenderness: Epigastric (soft abdomen . only mild tenderness , BS+, no infection .. see above .), Mild and Other (ILEOSTOMY FUNCTIONING ) Skin: Normal Musculoskeletal: Normal Psychiatric: Other Mood Description: Calm Speech Pattern: Clear and Appropriate Laboratory and Diagnostics Result Diagrams: 07/23/22 05:40 07/23/22 05:40 Labs: 07/17/22 15:25 Urine,Clean Catch Urine Culture - Preliminary Laboratory WBC 9.1 X10^3/uL (3.6-10.0) 07/23/22 05:40 RBC 3.09 X10^6/uL (3.5-5.4) L 07/23/22 05:40 Hgb 8.7 g/dL (12.0-16.0) L 07/23/22 05:40 Hct 25.9 % (36.0-47.0) L 07/23/22 05:40 MCV 83.7 fL (80.0-100.0) 07/23/22 05:40 MCH 28.1 pg (27.0-34.0) 07/23/22 05:40 MCHC 33.5 g/dL (33.0-35.0) 07/23/22 05:40 RDW 16.6 % (11.6-16.5) H 07/23/22 05:40 Plt Count 330 X10^3/uL (150.0-450.0) 07/23/22 05:40 Plt Count Comment Adequate (ADEQUATE) 07/15/22 05:08 MPV 7.8 fL (7.4-11.0) 07/23/22 05:40 Neut % (Auto) 62.2 % (42.0-75.0) 07/23/22 05:40 Lymph % (Auto) 18.3 % (21.0-51.0) L 07/23/22 05:40 [place] % (Auto) 15.5 % (0.0-13.0) H 07/23/22 05:40 Eos % (Auto) 3.3 % (0.9-2.9) H 07/23/22 05:40 Baso % (Auto) 0.7 % (0.2-1.0) 07/23/22 05:40 Neut # (Auto) 5.7 x10^3/uL (2.2-4.8) H 07/23/22 05:40 Lymph # (Auto) 1.7 X10^3/uL (1.3-2.9) 07/23/22 05:40 [place] # (Auto) 1.4 x10^3/uL (0.3-0.8) H 07/23/22 05:40 Eos # (Auto) 0.3 x10^3/uL (0.0-0.2) H 07/23/22 05:40 Baso # (Auto) 0.1 X10^3/uL (0.0-0.1) 07/23/22 05:40 Absolute Nucleated RBC 0.0 /100WBC 07/23/22 05:40 Plt Morphology Comment Normal (NORMAL) 07/15/22 05:08 RBC Morphology Normal (NORMAL) 07/15/22 05:08 Sodium 135 mmol/L (136-145) L 07/23/22 05:40 Corrected Sodium TNP 07/23/22 05:40 Potassium 3.5 mmol/L (3.5-5.1) 07/23/22 05:40 Chloride 103 mmol/L (98-107) 07/23/22 05:40 Carbon Dioxide 28.8 mmol/L (21-32) 07/23/22 05:40 BUN 4 mg/dL (7-18) L 07/23/22 05:40 Creatinine 0.60 mg/dL (0.55-1.02) 07/23/22 05:40 Est GFR (MDRD) Af Amer > 60 (>60) 07/23/22 05:40 Est GFR (MDRD) Non-Af > 60 (>60) 07/23/22 05:40 Glucose 110 mg/dL (65-99) H 07/23/22 05:40 POC Glucose (mg/dL) 125 mg/dL (65-99) H 07/16/22 05:45 Calcium 8.2 mg/dL (8.5-10.1) L 07/23/22 05:40 Corrected Calcium 10.2 mg/dL (8.5-10.1) H 07/23/22 05:40 Magnesium 1.8 mg/dL (2.0-2.9) L 07/22/22 04:25 Total Bilirubin 0.30 mg/dL (0.2-1.0) 07/23/22 05:40 AST 18 Units/L (15-37) 07/23/22 05:40 ALT < 6 Units/L (12-78) L 07/23/22 05:40 Alkaline Phosphatase 64 Units/L (46-116) 07/23/22 05:40 Total Protein 5.0 g/dL (6.4-8.2) L 07/23/22 05:40 Albumin 1.5 g/dL (3.4-5.0) L 07/23/22 05:40 Globulin 3.5 g/dL (2.5-4.5) 07/23/22 05:40 Albumin/Globulin Ratio 0.4 Ratio (1.1-2.1) L 07/23/22 05:40 Specimen Type Random urine 07/17/22 15:25 Urine Color Yellow (YELLOW) 07/17/22 15:25 Urine Appearance Hazy (CLEAR) 07/17/22 15:25 Urine pH 6.0 (5.0 - 8.0) 07/17/22 15:25 Ur Specific [place] 1.025 (1.000-1.030) 07/17/22 15:25 Urine Protein 3+ (NEGATIVE) 07/17/22 15:25 Urine Glucose (UA) Negative (NEGATIVE) 07/17/22 15:25 Urine Ketones Negative (NEGATIVE) 07/17/22 15:25 Urine Blood 4+ (NEGATIVE) 07/17/22 15:25 Urine Nitrite Negative (NEGATIVE) 07/17/22 15:25 Urine Bilirubin Negative (NEGATIVE) 07/17/22 15:25 Urine Urobilinogen Normal (NORMAL) 07/17/22 15:25 Ur Leukocyte Esterase 2+ (NEGATIVE) 07/17/22 15:25 Urine RBC 20-30 /HPF (0-3) A 07/17/22 15:25 Urine WBC 10-20 /HPF (0-5) A 07/17/22 15:25 Ur Squamous Epith Cells Rare /HPF (NEGATIVE) 07/17/22 15:25 Uric Acid Crystals Few /HPF (NEGATIVE) 07/17/22 15:25 Urine Bacteria Trace /HPF (NEGATIVE) 07/17/22 15:25 Hyaline Casts Few /LPF (NEGATIVE) 07/17/22 15:25 Granular Casts Rare /LPF (NEGATIVE) 07/17/22 15:25 Urine Yeast Numerous /HPF (NEGATIVE) 07/17/22 15:25 Ur Culture Indicated? No/not indicated 07/17/22 15:25 Assessment and Plan 1: enterocutaneous fistula , s/p diverting ileostomy abdominal adhesions . obesity , on soft diet as tolerated , OOB , DVT prophylaxis . ,ABT . Problem Patient Problems: Patient Problems (Updated 07/21/22 @ 10:30 by Penelope Sahni) DJD (degenerative joint disease), lumbar (Chronic) M47.816 Hypertension (Chronic) I10 Hyperlipidemia (Chronic) E78.5 Diabetes mellitus (Chronic) E11.9 Enterocutaneous fistula (Acute) K63.2 Abdominal adhesions (Acute) K66.0 Status post colostomy (Acute) Z93.3
--- NOTE | 2022-07-23 12:24 | PCM.PROG ---
Progress Note - Progress Note for Day of Date of Exam: 07/22/22 - Subjective Subjective: IS CURRENTLY INPATIENT STATUS. SHE IS DAY 8 STATUS POST LAPAROTOMY, LYSIS OF ADHESIONS, AND SMALL BOWEL LOOP COLOSTOMY. 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 TODAY, SHE IS ALERT AND ORIENTED, LYING IN BED ON MORNING ROUNDS. SHE CONTINUES TO COMPLAIN OF MILD ABDOMINAL PAIN AND INTERMITTENT NAUSEA, BUT DOES REPORT IMPROVEMENT IN SYMPTOMS THIS MORNING. SHE DENIES ANY EPISODES OF VOMITING SINCE YESTERDAY. ON EXAMINTION TODAY, HEART IS REGULAR IN RATE AND RHYTHM. BILATERAL LUNGS ARE CLEAR TO AUSCULTATION. ABD OMEN IS ROUND, SOFT, AND NOTED WITH MILD, DIFFUSE TENDERNESS. NORMAL BOWEL SOUNDS NOTED IN ALL QUADRANTS. ILEOSTOMY IS FUNCTIONING NOW. MODERATE DRAINAGE FROM FISTULA SITE. NO UPPER OR LOWER EXTREMITY EDEMA NOTED. HER VITALS THIS MORNING ARE: 98.2-69-18-100%-160/70. LABS WERE OBTAINED. WBC 8.3, RBC 3.23, HGB 9.0, HCT 26.9, PLT COUNT 341, SODIUM 137, POTASSIUM 3.4, CHLORIDE 103, BUN 4, CREATININE 0.65, GLUCOSE 106, CALCIUM 8.0, MAGNESIUM 1.8, AST 14, ALT 7, ALK PHOS 64, TOTAL PROTEIN 5.0, ALBUMIN 1.5. A KUB WAS OBTAINED AND REVEALED: Findings remain consistent with some degree of small bowel obstruction. No new abnormality is demonstrated. SHE IS CURRENTLY RECEIVING D5 NORMAL SALINE AT 80 ML/HR, DIFLUCAN 200MG IV DAILY, PEPCID 20MG IV Q12H, PROTONIX 40MG IV DAILY, ALBUTEROL NEBS BID, MORPHINE SULFATE 2MG IV Q4H PRN, THE POTASSIUM AND MAGNESIUM PROTOCOLS, ZESTRIL 10MG DAILY, LOPRESSOR 100MG BID, PERCOCET 5/325MG PO Q6H PRN, AND ZOCOR 20MG PO HS. SHE IS CURRENTLY ON A SOFT DIET AND IS TOLERATING IT WELL. PHYSICAL AND OCCUPATIONAL THERAPIES WILL CONTINUE TO WORK WITH PATIENT TODAY. WILL CONTINUE TO FOLLOW. OTHERWISE, WE WILL FOLLOW-UP WITH AM LABS AND CONTINUE TO MONITOR. TIME SPENT ON CLINICAL ASSESSMENT, REVIEWING LABS AND IMAGING, DECISION MAKING, AND DOCUMENTATION GREATER THAN 45 MINUTES. - Past Medical Family Social History Past Med/Fam/Surg Hx: No changes since H&P Allergies: Allergies prochlorperazine [From Compazine] Allergy (Unknown, Verified 07/11/22 19:19) Reason: Drug allergy tramadol Allergy (Verified 07/11/22 19:19) - Review of Systems ROS: No change since H&P - Vital Signs and I&O's Vital Signs: Temperature 98.6 F Pulse Rate [Right Brachial] 70 Pulse Rate 72 Respiratory Rate 20 Blood Pressure [Left Arm] 129/60 Blood Pressure 123/71 O2 Sat by Pulse Oximetry 100 Intake and Output: Intake & Output 07/21/22 07/22/22 07/23/22 07/24/22 11:59 11:59 11:59 11:59 Intake Total 2275 / 2275 3105 / 3105 2510 / 2510 Output Total 450 / 450 500 / 500 950 / 950 Balance 1825 / 1825 2605 / 2605 1560 / 1560 - Physical Exam Oriented: Normal Eyes: Normal Ear: Normal Nose: Other (NG TUBE RIGHT NARE) Throat: Normal Respiratory: Diminished Cardiovascular: Normal : Normal Auscultation: Bowel Sounds: Decreased Tenderness: Epigastric (soft abdomen . only mild tenderness , BS+, no infection .. see above .), Mild, Other (ILEOSTOMY FUNCTIONING) Skin: Normal Musculoskeletal: Normal Psychiatric: Other Mood Description: Calm Speech Pattern: Clear, Appropriate - Laboratory and Diagnostics Result Diagrams: 07/23/22 05:40 07/23/22 05:40 Labs: 07/17/22 15:25 Urine,Clean Catch Urine Culture - Preliminary Laboratory WBC 9.1 X10^3/uL (3.6-10.0) 07/23/22 05:40 RBC 3.09 X10^6/uL (3.5-5.4) L 07/23/22 05:40 Hgb 8.7 g/dL (12.0-16.0) L 07/23/22 05:40 Hct 25.9 % (36.0-47.0) L 07/23/22 05:40 MCV 83.7 fL (80.0-100.0) 07/23/22 05:40 MCH 28.1 pg (27.0-34.0) 07/23/22 05:40 MCHC 33.5 g/dL (33.0-35.0) 07/23/22 05:40 RDW 16.6 % (11.6-16.5) H 07/23/22 05:40 Plt Count 330 X10^3/uL (150.0-450.0) 07/23/22 05:40 Plt Count Comment Adequate (ADEQUATE) 07/15/22 05:08 MPV 7.8 fL (7.4-11.0) 07/23/22 05:40 Neut % (Auto) 62.2 % (42.0-75.0) 07/23/22 05:40 Lymph % (Auto) 18.3 % (21.0-51.0) L 07/23/22 05:40 [place] % (Auto) 15.5 % (0.0-13.0) H 07/23/22 05:40 Eos % (Auto) 3.3 % (0.9-2.9) H 07/23/22 05:40 Baso % (Auto) 0.7 % (0.2-1.0) 07/23/22 05:40 Neut # (Auto) 5.7 x10^3/uL (2.2-4.8) H 07/23/22 05:40 Lymph # (Auto) 1.7 X10^3/uL (1.3-2.9) 07/23/22 05:40 [place] # (Auto) 1.4 x10^3/uL (0.3-0.8) H 07/23/22 05:40 Eos # (Auto) 0.3 x10^3/uL (0.0-0.2) H 07/23/22 05:40 Baso # (Auto) 0.1 X10^3/uL (0.0-0.1) 07/23/22 05:40 Absolute Nucleated RBC 0.0 /100WBC 07/23/22 05:40 Plt Morphology Comment Normal (NORMAL) 07/15/22 05:08 RBC Morphology Normal (NORMAL) 07/15/22 05:08 Sodium 135 mmol/L (136-145) L 07/23/22 05:40 Corrected Sodium TNP 07/23/22 05:40 Potassium 3.5 mmol/L (3.5-5.1) 07/23/22 05:40 Chloride 103 mmol/L (98-107) 07/23/22 05:40 Carbon Dioxide 28.8 mmol/L (21-32) 07/23/22 05:40 BUN 4 mg/dL (7-18) L 07/23/22 05:40 Creatinine 0.60 mg/dL (0.55-1.02) 07/23/22 05:40 Est GFR (MDRD) Af Amer > 60 (>60) 07/23/22 05:40 Est GFR (MDRD) Non-Af > 60 (>60) 07/23/22 05:40 Glucose 110 mg/dL (65-99) H 07/23/22 05:40 POC Glucose (mg/dL) 125 mg/dL (65-99) H 07/16/22 05:45 Calcium 8.2 mg/dL (8.5-10.1) L 07/23/22 05:40 Corrected Calcium 10.2 mg/dL (8.5-10.1) H 07/23/22 05:40 Magnesium 1.8 mg/dL (2.0-2.9) L 07/22/22 04:25 Total Bilirubin 0.30 mg/dL (0.2-1.0) 07/23/22 05:40 AST 18 Units/L (15-37) 07/23/22 05:40 ALT < 6 Units/L (12-78) L 07/23/22 05:40 Alkaline Phosphatase 64 Units/L (46-116) 07/23/22 05:40 Total Protein 5.0 g/dL (6.4-8.2) L 07/23/22 05:40 Albumin 1.5 g/dL (3.4-5.0) L 07/23/22 05:40 Globulin 3.5 g/dL (2.5-4.5) 07/23/22 05:40 Albumin/Globulin Ratio 0.4 Ratio (1.1-2.1) L 07/23/22 05:40 Specimen Type Random urine 07/17/22 15:25 Urine Color Yellow (YELLOW) 07/17/22 15:25 Urine Appearance Hazy (CLEAR) 07/17/22 15:25 Urine pH 6.0 (5.0 - 8.0) 07/17/22 15:25 Ur Specific [place] 1.025 (1.000-1.030) 07/17/22 15:25 Urine Protein 3+ (NEGATIVE) 07/17/22 15:25 Urine Glucose (UA) Negative (NEGATIVE) 07/17/22 15:25 Urine Ketones Negative (NEGATIVE) 07/17/22 15:25 Urine Blood 4+ (NEGATIVE) 07/17/22 15:25 Urine Nitrite Negative (NEGATIVE) 07/17/22 15:25 Urine Bilirubin Negative (NEGATIVE) 07/17/22 15:25 Urine Urobilinogen Normal (NORMAL) 07/17/22 15:25 Ur Leukocyte Esterase 2+ (NEGATIVE) 07/17/22 15:25 Urine RBC 20-30 /HPF (0-3) A 07/17/22 15:25 Urine WBC 10-20 /HPF (0-5) A 07/17/22 15:25 Ur Squamous Epith Cells Rare /HPF (NEGATIVE) 07/17/22 15:25 Uric Acid Crystals Few /HPF (NEGATIVE) 07/17/22 15:25 Urine Bacteria Trace /HPF (NEGATIVE) 07/17/22 15:25 Hyaline Casts Few /LPF (NEGATIVE) 07/17/22 15:25 Granular Casts Rare /LPF (NEGATIVE) 07/17/22 15:25 Urine Yeast Numerous /HPF (NEGATIVE) 07/17/22 15:25 Ur Culture Indicated? No/not indicated 07/17/22 15:25 - Plan (1) Enterocutaneous fistula Status: Acute Plan: D5 NORMAL SALINE AT 80 ML/HR, DIFLUCAN 200MG IV DAILY, PEPCID 20MG IV Q12H, PROTONIX 40MG IV DAILY, ALBUTEROL NEBS BID, MORPHINE SULFATE 2MG IV Q4H PRN, THE POTASSIUM AND MAGNESIUM PROTOCOLS, ZESTRIL 10MG DAILY, LOPRESSOR 100MG BID, PERCOCET 5/325MG PO Q6H PRN, AND ZOCOR 20MG PO HS. (2) Abdominal adhesions Status: Acute (3) Status post colostomy Status: Acute (4) DJD (degenerative joint disease), lumbar Status: Chronic Qualifiers: Spinal osteoarthritis complication: unspecified spinal osteoarthritis Qualified Code(s): M47.816 - Spondylosis without myelopathy or radiculopathy, lumbar region (5) Hypertension Status: Chronic Qualifiers: Hypertension type: primary hypertension (6) Hyperlipidemia Status: Chronic Qualifiers: Hyperlipidemia type: mixed hyperlipidemia (7) Diabetes mellitus Status: Chronic Qualifiers: Diabetes mellitus type: type 2 Diabetes mellitus halfway insulin use: with halfway use Diabetes mellitus complication status: with hyperglycemia Qualified Code(s): E11.65 - Type 2 diabetes mellitus with hyperglycemia; 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
--- NOTE | 2022-07-23 12:40 | PCM.PROG ---
Progress Note - Progress Note for Day of Date of Exam: 07/23/22 - Subjective Subjective: IS CURRENTLY INPATIENT STATUS. SHE IS DAY 9 STATUS POST LAPAROTOMY, LYSIS OF ADHESIONS, AND SMALL BOWEL LOOP COLOSTOMY. 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 TODAY, SHE IS ALERT AND ORIENTED, LYING IN BED ON MORNING ROUNDS. SHE DENIES ABDOMINAL PAIN THIS MORNING. SHE DENIES ANY EPISODES OF VOMITING SINCE THURSDAY, BUT DOES ADMIT TO OCCASIONAL NAUSEA. ON EXAMINTION TODAY, HEART IS REGULAR IN RATE AND RHYTHM. BILATERAL LUNGS ARE CLEAR TO AUSCULTATION. ABDOMEN IS ROUND, SOFT, AND NOTED WITH MILD, DIFFUSE TENDERNESS. NORMAL BOWEL SOUNDS NOTED IN ALL QUADRANTS. ILEOSTOMY IS FUNCTIONING. MODERATE DRAINAGE FROM FISTULA SITE. NO UPPER OR LOWER EXTREMITY EDEMA NOTED. HER VITALS THIS MORNING ARE: 98.6-66-18-99%-158/76. LABS WERE OBTAINED. WBC 9.1, RBC 3.09, HGB 8.7, HCT 25.9, PLT COUNT 330, SODIUM 135, POTASSIUM 3.5, BUN 4, CREATININE 0.60, GLUCOSE 110, CALCIUM 8.2, AST 18, ALT <6, ALK PHOS 64, TOTAL PROTEIN 5.0, ALBUMIN 1.5. SHE IS CURRENTLY RECEIVING D5 NORMAL SALINE AT 80 ML/HR, DIFLUCAN 200MG IV DAILY, PEPCID 20MG IV Q12H, PROTONIX 40MG IV DAILY, ALBUTEROL NEBS BID, MORPHINE SULFATE 2MG IV Q4H PRN, THE POTASSIUM AND MAGNESIUM PROTOCOLS, ZESTRIL 10MG DAILY, LOPRESSOR 100MG BID, PERCOCET 5/325MG PO Q6H PRN, AND ZOCOR 20MG PO HS. SHE IS CURRENTLY ON A SOFT DIET AND IS TOLERATING IT WELL. PHYSICAL AND OCCUPATIONAL THERAPIES WILL CONTINUE TO WORK WITH PATIENT TODAY. WILL CONTINUE TO FOLLOW. OTHERWISE, WE WILL FOLLOW-UP WITH AM LABS AND CONTINUE TO MONITOR. TIME SPENT ON CLINICAL ASSESSMENT, REVIEWING LABS AND IMAGING, DECISION MAKING, AND DOCUMENTATION GREATER THAN 45 MINUTES. - Past Medical Family Social History Past Med/Fam/Surg Hx: No changes since H&P Allergies: Allergies prochlorperazine [From Compazine] Allergy (Unknown, Verified 07/11/22 19:19) Reason: Drug allergy tramadol Allergy (Verified 07/11/22 19:19) - Review of Systems ROS: No change since H&P - Vital Signs and I&O's Vital Signs: Temperature 98.6 F Pulse Rate [Right Brachial] 70 Pulse Rate 72 Respiratory Rate 20 Blood Pressure [Left Arm] 129/60 Blood Pressure 123/71 O2 Sat by Pulse Oximetry 100 Intake and Output: Intake & Output 07/21/22 07/22/22 07/23/22 07/24/22 11:59 11:59 11:59 11:59 Intake Total 2275 / 2275 3105 / 3105 2510 / 2510 Output Total 450 / 450 500 / 500 950 / 950 Balance 1825 / 1825 2605 / 2605 1560 / 1560 - Physical Exam Oriented: Normal Eyes: Normal Ear: Normal Nose: Other (NG TUBE RIGHT NARE) Throat: Normal Respiratory: Diminished Cardiovascular: Normal : Normal Auscultation: Bowel Sounds: Decreased Palpation: Normal Tenderness: Epigastric (soft abdomen . only mild tenderness , BS+, no infection .. see above .), Mild, Other (ILEOSTOMY FUNCTIONING) Skin: Normal Musculoskeletal: Normal Psychiatric: Other Mood Description: Calm Speech Pattern: Clear, Appropriate - Laboratory and Diagnostics Result Diagrams: 07/23/22 05:40 07/23/22 05:40 Labs: 07/17/22 15:25 Urine,Clean Catch Urine Culture - Preliminary Laboratory WBC 9.1 X10^3/uL (3.6-10.0) 07/23/22 05:40 RBC 3.09 X10^6/uL (3.5-5.4) L 07/23/22 05:40 Hgb 8.7 g/dL (12.0-16.0) L 07/23/22 05:40 Hct 25.9 % (36.0-47.0) L 07/23/22 05:40 MCV 83.7 fL (80.0-100.0) 07/23/22 05:40 MCH 28.1 pg (27.0-34.0) 07/23/22 05:40 MCHC 33.5 g/dL (33.0-35.0) 07/23/22 05:40 RDW 16.6 % (11.6-16.5) H 07/23/22 05:40 Plt Count 330 X10^3/uL (150.0-450.0) 07/23/22 05:40 Plt Count Comment Adequate (ADEQUATE) 07/15/22 05:08 MPV 7.8 fL (7.4-11.0) 07/23/22 05:40 Neut % (Auto) 62.2 % (42.0-75.0) 07/23/22 05:40 Lymph % (Auto) 18.3 % (21.0-51.0) L 07/23/22 05:40 [place] % (Auto) 15.5 % (0.0-13.0) H 07/23/22 05:40 Eos % (Auto) 3.3 % (0.9-2.9) H 07/23/22 05:40 Baso % (Auto) 0.7 % (0.2-1.0) 07/23/22 05:40 Neut # (Auto) 5.7 x10^3/uL (2.2-4.8) H 07/23/22 05:40 Lymph # (Auto) 1.7 X10^3/uL (1.3-2.9) 07/23/22 05:40 [place] # (Auto) 1.4 x10^3/uL (0.3-0.8) H 07/23/22 05:40 Eos # (Auto) 0.3 x10^3/uL (0.0-0.2) H 07/23/22 05:40 Baso # (Auto) 0.1 X10^3/uL (0.0-0.1) 07/23/22 05:40 Absolute Nucleated RBC 0.0 /100WBC 07/23/22 05:40 Plt Morphology Comment Normal (NORMAL) 07/15/22 05:08 RBC Morphology Normal (NORMAL) 07/15/22 05:08 Sodium 135 mmol/L (136-145) L 07/23/22 05:40 Corrected Sodium TNP 07/23/22 05:40 Potassium 3.5 mmol/L (3.5-5.1) 07/23/22 05:40 Chloride 103 mmol/L (98-107) 07/23/22 05:40 Carbon Dioxide 28.8 mmol/L (21-32) 07/23/22 05:40 BUN 4 mg/dL (7-18) L 07/23/22 05:40 Creatinine 0.60 mg/dL (0.55-1.02) 07/23/22 05:40 Est GFR (MDRD) Af Amer > 60 (>60) 07/23/22 05:40 Est GFR (MDRD) Non-Af > 60 (>60) 07/23/22 05:40 Glucose 110 mg/dL (65-99) H 07/23/22 05:40 POC Glucose (mg/dL) 125 mg/dL (65-99) H 07/16/22 05:45 Calcium 8.2 mg/dL (8.5-10.1) L 07/23/22 05:40 Corrected Calcium 10.2 mg/dL (8.5-10.1) H 07/23/22 05:40 Magnesium 1.8 mg/dL (2.0-2.9) L 07/22/22 04:25 Total Bilirubin 0.30 mg/dL (0.2-1.0) 07/23/22 05:40 AST 18 Units/L (15-37) 07/23/22 05:40 ALT < 6 Units/L (12-78) L 07/23/22 05:40 Alkaline Phosphatase 64 Units/L (46-116) 07/23/22 05:40 Total Protein 5.0 g/dL (6.4-8.2) L 07/23/22 05:40 Albumin 1.5 g/dL (3.4-5.0) L 07/23/22 05:40 Globulin 3.5 g/dL (2.5-4.5) 07/23/22 05:40 Albumin/Globulin Ratio 0.4 Ratio (1.1-2.1) L 07/23/22 05:40 Specimen Type Random urine 07/17/22 15:25 Urine Color Yellow (YELLOW) 07/17/22 15:25 Urine Appearance Hazy (CLEAR) 07/17/22 15:25 Urine pH 6.0 (5.0 - 8.0) 07/17/22 15:25 Ur Specific [place] 1.025 (1.000-1.030) 07/17/22 15:25 Urine Protein 3+ (NEGATIVE) 07/17/22 15:25 Urine Glucose (UA) Negative (NEGATIVE) 07/17/22 15:25 Urine Ketones Negative (NEGATIVE) 07/17/22 15:25 Urine Blood 4+ (NEGATIVE) 07/17/22 15:25 Urine Nitrite Negative (NEGATIVE) 07/17/22 15:25 Urine Bilirubin Negative (NEGATIVE) 07/17/22 15:25 Urine Urobilinogen Normal (NORMAL) 07/17/22 15:25 Ur Leukocyte Esterase 2+ (NEGATIVE) 07/17/22 15:25 Urine RBC 20-30 /HPF (0-3) A 07/17/22 15:25 Urine WBC 10-20 /HPF (0-5) A 07/17/22 15:25 Ur Squamous Epith Cells Rare /HPF (NEGATIVE) 07/17/22 15:25 Uric Acid Crystals Few /HPF (NEGATIVE) 07/17/22 15:25 Urine Bacteria Trace /HPF (NEGATIVE) 07/17/22 15:25 Hyaline Casts Few /LPF (NEGATIVE) 07/17/22 15:25 Granular Casts Rare /LPF (NEGATIVE) 07/17/22 15:25 Urine Yeast Numerous /HPF (NEGATIVE) 07/17/22 15:25 Ur Culture Indicated? No/not indicated 07/17/22 15:25 - Plan (1) Enterocutaneous fistula Status: Acute Plan: D5 NORMAL SALINE AT 80 ML/HR, DIFLUCAN 200MG IV DAILY, PEPCID 20MG IV Q12H, PROTONIX 40MG IV DAILY, ALBUTEROL NEBS BID, MORPHINE SULFATE 2MG IV Q4H PRN, THE POTASSIUM AND MAGNESIUM PROTOCOLS, ZESTRIL 10MG DAILY, LOPRESSOR 100MG BID, PERCOCET 5/325MG PO Q6H PRN, AND ZOCOR 20MG PO HS. 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
--- NOTE | 2022-07-23 15:04 | RAD ---
HISTORYSBOSTUDYKUBCOMPARISONNo ne.TECHNIQUEA supine view was acquired.FINDINGSThere is evidence for permanent pacemaker leads within the right atrium and right ventricle. Patient is status post median sternotomy.There are dilated loops of small bowel centralized within the upper abdomen consistent with a high-grade small bowel obstruction.There are multiple amorphous calcifications noted bilaterally along the flank areas concerning for multiple renal calculi and calcification of probable cysts both kidneys and within the renal pelves.The osseous structures are intact.IMPRESSIONHigh-grade small bowel obstruction.Amorphous calcifications involving the renal parenchyma, most likely representing renal cysts and seen within the renal collecting systems, right worse than left consistent with renal calculi.Electronically signed by: Jenna De La Cruz (Jul 23, 2022 15:03:30)
[2022-07-23] MEDS: ZOCOR TAB 20 MG PO SCH ×2 (21:18→21:20)
[2022-07-24 05:59] LABS: BASOPHILS # (AUTO) 0.1 X10^3/uL (0.0-0.1); BASOPHILS % (AUTO) 0.6 % (0.2-1.0); EOSINOPHILS # (AUTO) 0.3 x10^3/uL (0.0-0.2); EOSINOPHILS % (AUTO) 2.7 % (0.9-2.9); HEMATOCRIT 26.1 % (36.0-47.0); HEMOGLOBIN 8.8 g/dL (12.0-16.0); LYMPHOCYTES # (AUTO) 1.9 X10^3/uL (1.3-2.9); LYMPHOCYTES % (AUTO) 19.5 % (21.0-51.0); MEAN CORPUSCULAR HEMOGLOBIN 28.1 pg (27.0-34.0); MEAN CORPUSCULAR HGB CONC 33.7 g/dL (33.0-35.0); MEAN CORPUSCULAR VOLUME 83.4 fL (80.0-100.0); MEAN PLATELET VOLUME 8.4 fL (7.4-11.0); MONOCYTES # (AUTO) 1.2 x10^3/uL (0.3-0.8); MONOCYTES % (AUTO) 12.6 % (0.0-13.0); NEUTROPHILS # (AUTO) 6.3 x10^3/uL (2.2-4.8); NEUTROPHILS % (AUTO) 64.6 % (42.0-75.0); RED BLOOD COUNT 3.13 X10^6/uL (3.5-5.4); RED CELL DISTRIBUTION WIDTH 16.9 % (11.6-16.5); WHITE BLOOD COUNT 9.8 X10^3/uL (3.6-10.0)
[2022-07-24 06:07] LABS: ALANINE AMINOTRANSFERASE < 6 Units/L (12-78); ALBUMIN 1.5 g/dL (3.4-5.0); ALKALINE PHOSPHATASE 64 Units/L (46-116); ASPARTATE AMINO TRANSFERASE 16 Units/L (15-37); BLOOD UREA NITROGEN 3 mg/dL (7-18); CALCIUM 8.1 mg/dL (8.5-10.1); CARBON DIOXIDE 30.3 mmol/L (21-32); CHLORIDE 102 mmol/L (98-107); COR CA(FOR HYPOALB) 10.1 mg/dL (8.5-10.1); CREATININE 0.58 mg/dL (0.55-1.02); SODIUM 135 mmol/L (136-145); eGFR NON BLACK RACES > 60 (>60)
[2022-07-24] MEDS: PROVENTIL NEB TX 0.083% 2.5MG/ 3ML NEB SCH ×2 (09:24→21:00)
[2022-07-24] MEDS: LOVENOX INJ 40 MG SYR SC SCH (09:35)
[2022-07-24] MEDS: PEPCID 20 MG VIAL 20 MG in NS 50 ML IV 50 ML IV SCH ×2 (09:35→21:03)
[2022-07-24] MEDS: PROTONIX INJ 40 MG VIAL IVP SCH (09:35)
[2022-07-24] MEDS: LOPRESSOR TAB 50 MG PO SCH ×2 (09:37→21:04)
[2022-07-24] MEDS: ZESTRIL TAB 10 MG PO SCH (09:38)
[2022-07-24] MEDS: DIFLUCAN 200 MG IV PREMIX* 200 MG/100 ML BAG IV SCH (09:38)
[2022-07-24] MEDS: D5 1/2 NS 1,000 ML 1,000 ML IV SCH ×3 (13:17→22:45)
[2022-07-24] MEDS: MAGNESIUM SULFATE 1 GRAM/100 mL PREMIX 1 G/100 ML BAG IV PRN ×2 (14:26→17:49)
[2022-07-24] MEDS: PERCOCET TAB 5/325 MG PO PRN (15:10)
[2022-07-24] MEDS: ZOCOR TAB 20 MG PO SCH (21:04)
[2022-07-25 05:51] LABS: BASOPHILS # (AUTO) 0.1 X10^3/uL (0.0-0.1); BASOPHILS % (AUTO) 0.6 % (0.2-1.0); EOSINOPHILS # (AUTO) 0.3 x10^3/uL (0.0-0.2); EOSINOPHILS % (AUTO) 2.3 % (0.9-2.9); HEMATOCRIT 26.6 % (36.0-47.0); HEMOGLOBIN 8.7 g/dL (12.0-16.0); LYMPHOCYTES # (AUTO) 1.8 X10^3/uL (1.3-2.9); LYMPHOCYTES % (AUTO) 16.1 % (21.0-51.0); MEAN CORPUSCULAR HEMOGLOBIN 27.5 pg (27.0-34.0); MEAN CORPUSCULAR HGB CONC 32.6 g/dL (33.0-35.0); MEAN CORPUSCULAR VOLUME 84.3 fL (80.0-100.0); MEAN PLATELET VOLUME 8.5 fL (7.4-11.0); MONOCYTES # (AUTO) 1.4 x10^3/uL (0.3-0.8); MONOCYTES % (AUTO) 12.1 % (0.0-13.0); NEUTROPHILS # (AUTO) 7.8 x10^3/uL (2.2-4.8); NEUTROPHILS % (AUTO) 68.9 % (42.0-75.0); RED BLOOD COUNT 3.15 X10^6/uL (3.5-5.4); RED CELL DISTRIBUTION WIDTH 16.7 % (11.6-16.5); WHITE BLOOD COUNT 11.3 X10^3/uL (3.6-10.0)
[2022-07-25 06:00] LABS: ALANINE AMINOTRANSFERASE 6 Units/L (12-78); ALBUMIN 1.6 g/dL (3.4-5.0); ALKALINE PHOSPHATASE 65 Units/L (46-116); ASPARTATE AMINO TRANSFERASE 23 Units/L (15-37); BLOOD UREA NITROGEN 5 mg/dL (7-18); CALCIUM 8.3 mg/dL (8.5-10.1); CARBON DIOXIDE 27.5 mmol/L (21-32); CHLORIDE 102 mmol/L (98-107); COR CA(FOR HYPOALB) 10.2 mg/dL (8.5-10.1); COR NA(FOR HYPERGLY) 135 mmol/L (136-145); CREATININE 0.62 mg/dL (0.55-1.02); SODIUM 135 mmol/L (136-145); TOTAL PROTEIN 5.3 g/dL (6.4-8.2); eGFR NON BLACK RACES > 60 (>60)
[2022-07-25 06:12] LABS: PLATELET MORPHOLOGY COMMENT NORMAL (NORMAL)
[2022-07-25] MEDS: D5 1/2 NS 1,000 ML 1,000 ML IV SCH ×2 (06:45→17:35)
[2022-07-25] MEDS: PROTONIX INJ 40 MG VIAL IVP SCH (08:50)
[2022-07-25] MEDS: LOPRESSOR TAB 50 MG PO SCH ×2 (08:50→20:56)
[2022-07-25] MEDS: ZESTRIL TAB 10 MG PO SCH (08:51)
[2022-07-25] MEDS: PEPCID 20 MG VIAL 20 MG in NS 50 ML IV 50 ML IV SCH ×2 (08:51→20:59)
[2022-07-25] MEDS: LOVENOX INJ 40 MG SYR SC SCH (08:51)
[2022-07-25] MEDS: PROVENTIL NEB TX 0.083% 2.5MG/ 3ML NEB SCH ×2 (09:15→21:00)
[2022-07-25] MEDS ORDERED: MAALOX or MYLANTA PO PRN (13:06)
[2022-07-25] MEDS: PERCOCET TAB 5/325 MG PO PRN (14:28)
--- NOTE | 2022-07-25 18:15 | PCM.PROG ---
Progress Note - Progress Note for Day of Date of Exam: 07/24/22 - Subjective Subjective: IS CURRENTLY INPATIENT STATUS. SHE IS DAY 10 STATUS POST LAPAROTOMY, LYSIS OF ADHESIONS, AND SMALL BOWEL LOOP COLOSTOMY. 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 TODAY, SHE IS ALERT AND ORIENTED, LYING IN BED ON MORNING ROUNDS. SHE DENIES ABDOMINAL PAIN THIS MORNING. SHE DENIES ANY EPISODES OF VOMITING SINCE THURSDAY, AND ALSO DENIES NAUSEA THIS MORNING. ON EXAMINATION TODAY, HEART IS REGULAR IN RATE AND RHYTHM. BILATERAL LUNGS ARE CLEAR TO AUSCULTATION. ABDOMEN IS ROUND, SOFT, AND NOTED WITH MILD, DIFFUSE TENDERNESS. NORMAL BOWEL SOUNDS NOTED IN ALL QUADRANTS. ILEOSTOMY IS FUNCTIONING. MODERATE DRAINAGE FROM FISTULA SITE. NO UPPER OR LOWER EXTREMITY EDEMA NOTED. HER VITALS THIS MORNING ARE: 98.2-71-18-98%-160/70. LABS WERE OBTAINED. WBC 9.8, RBC 3.13, HGB 8.8, HCT 26.1, PLT COUNT 351, SODIUM 135, POTAS SIUM 3.7, CHLORIDE 102, BUN 3, CREATININE 0.58, GLUCOSE 107, CALCIUM 8.1, AST 16, ALT <6, TOTAL PROTEIN 5.0, ALBUMIN 1.5. SHE IS CURRENTLY RECEIVING D5 NORMAL SALINE AT 80 ML/HR, DIFLUCAN 200MG IV DAILY, PEPCID 20MG IV Q12H, PROTONIX 40MG IV DAILY, ALBUTEROL NEBS BID, MORPHINE SULFATE 2MG IV Q4H PRN, THE POTASSIUM AND MAGNESIUM PROTOCOLS, ZESTRIL 10MG DAILY, LOPRESSOR 100MG BID, PERCOCET 5/325MG PO Q6H PRN, AND ZOCOR 20MG PO HS. WE WILL DISCONTINUE HER DIFLUCAN TODAY, SHE HAS COMPLETED DURATION OF TREATMENT. SHE IS CURRENTLY ON A SOFT DIET AND IS TOLERATING IT WELL. PHYSICAL AND OCCUPATIONAL THERAPIES WILL CONTINUE TO WORK WITH PATIENT TODAY. WILL CONTINUE TO FOLLOW. OTHERWISE, WE WILL FOLLOW-UP WITH AM LABS AND CONTINUE TO MONITOR. TIME SPENT ON CLINICAL ASSESSMENT, REVIEWING LABS AND IMAGING, DECISION MAKING, AND DOCUMENTATION GREATER THAN 45 MINUTES. - Past Medical Family Social History Past Med/Fam/Surg Hx: No changes since H&P Allergies: Allergies prochlorperazine [From Compazine] Allergy (Unknown, Verified 07/11/22 19:19) Reason: Drug allergy tramadol Allergy (Verified 07/11/22 19:19) - Review of Systems ROS: No change since H&P - Vital Signs and I&O's Vital Signs: Temperature 97.9 F Pulse Rate [Right Brachial] 92 Pulse Rate 70 Respiratory Rate 20 Blood Pressure [Right Arm] 115/56 Blood Pressure [Left Arm] 141/65 Blood Pressure 123/71 O2 Sat by Pulse Oximetry 92 Intake and Output: Intake & Output 07/23/22 07/24/22 07/25/22 07/26/22 11:59 11:59 11:59 11:59 Intake Total 2510 / 2510 1700 / 1700 1770 / 1770 510 / 510 Output Total 950 / 950 800 / 800 250 / 250 700 / 700 Balance 1560 / 1560 900 / 900 1520 / 1520 -190 / -190 - Physical Exam Oriented: Normal Eyes: Normal Ear: Normal Throat: Normal Respiratory: Diminished Cardiovascular: Normal : Normal Auscultation: Bowel Sounds: Decreased Palpation: Normal Tenderness: Epigastric (soft abdomen . only mild tenderness , BS+, no infection .. see above .), Mild, Other (ILEOSTOMY FUNCTIONING) Skin: Normal Musculoskeletal: Normal Psychiatric: Other Mood Description: Calm Speech Pattern: Clear, Appropriate - Laboratory and Diagnostics Result Diagrams: 07/25/22 05:28 07/25/22 05:28 Labs: 07/17/22 15:25 Urine,Clean Catch Urine Culture - Preliminary Laboratory WBC 11.3 X10^3/uL (3.6-10.0) H 07/25/22 05:28 RBC 3.15 X10^6/uL (3.5-5.4) L 07/25/22 05:28 Hgb 8.7 g/dL (12.0-16.0) L 07/25/22 05:28 Hct 26.6 % (36.0-47.0) L 07/25/22 05:28 MCV 84.3 fL (80.0-100.0) 07/25/22 05:28 MCH 27.5 pg (27.0-34.0) 07/25/22 05:28 MCHC 32.6 g/dL (33.0-35.0) L 07/25/22 05:28 RDW 16.7 % (11.6-16.5) H 07/25/22 05:28 Plt Count 350 X10^3/uL (150.0-450.0) 07/25/22 05:28 Plt Count Comment Adequate (ADEQUATE) 07/25/22 05:28 MPV 8.5 fL (7.4-11.0) 07/25/22 05:28 Neut % (Auto) 68.9 % (42.0-75.0) 07/25/22 05:28 Lymph % (Auto) 16.1 % (21.0-51.0) L 07/25/22 05:28 [place] % (Auto) 12.1 % (0.0-13.0) 07/25/22 05:28 Eos % (Auto) 2.3 % (0.9-2.9) 07/25/22 05:28 Baso % (Auto) 0.6 % (0.2-1.0) 07/25/22 05:28 Neut # (Auto) 7.8 x10^3/uL (2.2-4.8) H 07/25/22 05:28 Lymph # (Auto) 1.8 X10^3/uL (1.3-2.9) 07/25/22 05:28 [place] # (Auto) 1.4 x10^3/uL (0.3-0.8) H 07/25/22 05:28 Eos # (Auto) 0.3 x10^3/uL (0.0-0.2) H 07/25/22 05:28 Baso # (Auto) 0.1 X10^3/uL (0.0-0.1) 07/25/22 05:28 Absolute Nucleated RBC 0.1 /100WBC 07/25/22 05:28 Plt Morphology Comment Normal (NORMAL) 07/25/22 05:28 RBC Morphology Normal (NORMAL) 07/25/22 05:28 Sodium 135 mmol/L (136-145) L 07/25/22 05:28 Corrected Sodium 135 mmol/L (136-145) L 07/25/22 05:28 Potassium 3.7 mmol/L (3.5-5.1) 07/25/22 05:28 Chloride 102 mmol/L (98-107) 07/25/22 05:28 Carbon Dioxide 27.5 mmol/L (21-32) 07/25/22 05:28 BUN 5 mg/dL (7-18) L 07/25/22 05:28 Creatinine 0.62 mg/dL (0.55-1.02) 07/25/22 05:28 Est GFR (MDRD) Af Amer > 60 (>60) 07/25/22 05:28 Est GFR (MDRD) Non-Af > 60 (>60) 07/25/22 05:28 Glucose 113 mg/dL (65-99) H 07/25/22 05:28 POC Glucose (mg/dL) 125 mg/dL (65-99) H 07/16/22 05:45 Calcium 8.3 mg/dL (8.5-10.1) L 07/25/22 05:28 Corrected Calcium 10.2 mg/dL (8.5-10.1) H 07/25/22 05:28 Magnesium 2.0 mg/dL (2.0-2.9) 07/25/22 05:28 Total Bilirubin 0.40 mg/dL (0.2-1.0) 07/25/22 05:28 AST 23 Units/L (15-37) 07/25/22 05:28 ALT 6 Units/L (12-78) L 07/25/22 05:28 Alkaline Phosphatase 65 Units/L (46-116) 07/25/22 05:28 Total Protein 5.3 g/dL (6.4-8.2) L 07/25/22 05:28 Albumin 1.6 g/dL (3.4-5.0) L 07/25/22 05:28 Globulin 3.7 g/dL (2.5-4.5) 07/25/22 05:28 Albumin/Globulin Ratio 0.4 Ratio (1.1-2.1) L 07/25/22 05:28 Specimen Type Random urine 07/17/22 15:25 Urine Color Yellow (YELLOW) 07/17/22 15:25 Urine Appearance Hazy (CLEAR) 07/17/22 15:25 Urine pH 6.0 (5.0 - 8.0) 07/17/22 15:25 Ur Specific [place] 1.025 (1.000-1.030) 07/17/22 15:25 Urine Protein 3+ (NEGATIVE) 07/17/22 15:25 Urine Glucose (UA) Negative (NEGATIVE) 07/17/22 15:25 Urine Ketones Negative (NEGATIVE) 07/17/22 15:25 Urine Blood 4+ (NEGATIVE) 07/17/22 15:25 Urine Nitrite Negative (NEGATIVE) 07/17/22 15:25 Urine Bilirubin Negative (NEGATIVE) 07/17/22 15:25 Urine Urobilinogen Normal (NORMAL) 07/17/22 15:25 Ur Leukocyte Esterase 2+ (NEGATIVE) 07/17/22 15:25 Urine RBC 20-30 /HPF (0-3) A 07/17/22 15:25 Urine WBC 10-20 /HPF (0-5) A 07/17/22 15:25 Ur Squamous Epith Cells Rare /HPF (NEGATIVE) 07/17/22 15:25 Uric Acid Crystals Few /HPF (NEGATIVE) 07/17/22 15:25 Urine Bacteria Trace /HPF (NEGATIVE) 07/17/22 15:25 Hyaline Casts Few /LPF (NEGATIVE) 07/17/22 15:25 Granular Casts Rare /LPF (NEGATIVE) 07/17/22 15:25 Urine Yeast Numerous /HPF (NEGATIVE) 07/17/22 15:25 Ur Culture Indicated? No/not indicated 07/17/22 15:25 - Plan (1) Enterocutaneous fistula Status: Acute Plan: D5 NORMAL SALINE AT 80 ML/HR, PEPCID 20MG IV Q12H, PROTONIX 40MG IV DAILY, ALBUTEROL NEBS BID, MORPHINE SULFATE 2MG IV Q4H PRN, THE POTASSIUM AND MAGNESIUM PROTOCOLS, ZESTRIL 10MG DAILY, LOPRESSOR 100MG BID, PERCOCET 5/325MG PO Q6H PRN, AND ZOCOR 20MG PO HS. 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
--- NOTE | 2022-07-25 18:27 | PCM.PROG ---
Progress Note - Progress Note for Day of Date of Exam: 07/25/22 - Subjective Subjective: IS CURRENTLY INPATIENT STATUS. SHE IS DAY 9 STATUS POST LAPAROTOMY, LYSIS OF ADHESIONS, AND SMALL BOWEL LOOP COLOSTOMY. 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 TODAY, SHE IS ALERT AND ORIENTED, LYING IN BED ON MORNING ROUNDS. SHE DENIES ABDOMINAL PAIN THIS MORNING. SHE ALSO DENIES NAUSEA OR VOMITING THIS MORNING. ON EXAMINATION TODAY, HEART IS REGULAR IN RATE AND RHYTHM. BILATERAL LUNGS ARE CLEAR TO AUSCULTATION. ABDOMEN IS ROUND, SOFT, AND NOTED WITH MILD, DIFFUSE TENDERNESS. NORMAL BOWEL SOUNDS NOTED IN ALL QUADRANTS. ILEOSTOMY IS FUNCTIONING. MODERATE DRAINAGE FROM FISTULA SITE. NO UPPER OR LOWER EXTREMITY EDEMA NOTED. HER VITALS THIS MORNING ARE: 97.8-70-18-100%-169/73. LABS WERE OBTAINED. WBC 11.3, RBC 3.15, HGB 8.7, HCT 26.6, SODIUM 135, POTASSIUM 3.7, CHLORIDE 102, BUN 5, CREATININE 0.62, GLUCOSE 113, CALCIUM 8.3, MAGNESIUM 2.0, AST 23, ALT 6, ALK PHOS 65, TOTAL PROTEIN 5.3, ALBUMIN 1.6. SHE IS CURRENTLY RECEIVING D5 NORMAL SALINE AT 80 ML/HR, PEPCID 20MG IV Q12H, PROTONIX 40MG IV DAILY, ALBUTEROL NEBS BID, MORPHINE SULFATE 2MG IV Q4H PRN, THE POTASSIUM AND MAGNESIUM PROTOCOLS, ZESTRIL 10MG DAILY, LOPRESSOR 100MG BID, PERCOCET 5/325MG PO Q6H PRN, AND ZOCOR 20MG PO HS. SHE IS CURRENTLY ON A SOFT DIET AND IS TOLERATING IT WELL. PHYSICAL AND OCCUPATIONAL THERAPIES WILL CONTINUE TO WORK WITH PATIENT TODAY. WILL CONTINUE TO FOLLOW. OTHERWISE, WE WILL FOLLOW-UP WITH AM LABS AND CONTINUE TO MONITOR. TIME SPENT ON CLINICAL ASSESSMENT, REVIEWING LABS AND IMAGING, DECISION MAKING, AND DOCUMENTATION GREATER THAN 45 MINUTES. - Past Medical Family Social History Past Med/Fam/Surg Hx: No changes since H&P Allergies: Allergies prochlorperazine [From Compazine] Allergy (Unknown, Verified 07/11/22 19:19) Reason: Drug allergy tramadol Allergy (Verified 07/11/22 19:19) - Review of Systems ROS: No change since H&P - Vital Signs and I&O's Vital Signs: Temperature 97.9 F Pulse Rate [Right Brachial] 92 Pulse Rate 70 Respiratory Rate 20 Blood Pressure [Right Arm] 115/56 Blood Pressure [Left Arm] 141/65 Blood Pressure 123/71 O2 Sat by Pulse Oximetry 92 Intake and Output: Intake & Output 07/23/22 07/24/22 07/25/22 07/26/22 11:59 11:59 11:59 11:59 Intake Total 2510 / 2510 1700 / 1700 1770 / 1770 510 / 510 Output Total 950 / 950 800 / 800 250 / 250 700 / 700 Balance 1560 / 1560 900 / 900 1520 / 1520 -190 / -190 - Physical Exam Oriented: Normal Eyes: Normal Ear: Normal Nose: Other (NG TUBE RIGHT NARE) Throat: Normal Respiratory: Diminished Cardiovascular: Normal : Normal Auscultation: Bowel Sounds: Decreased Tenderness: Epigastric (soft abdomen . only mild tenderness , BS+, no infection .. see above .), Mild, Other (ILEOSTOMY FUNCTIONING) Skin: Normal Musculoskeletal: Normal Psychiatric: Other Mood Description: Calm Speech Pattern: Clear, Appropriate - Laboratory and Diagnostics Result Diagrams: 07/25/22 05:28 07/25/22 05:28 Labs: 07/17/22 15:25 Urine,Clean Catch Urine Culture - Preliminary Laboratory WBC 11.3 X10^3/uL (3.6-10.0) H 07/25/22 05:28 RBC 3.15 X10^6/uL (3.5-5.4) L 07/25/22 05:28 Hgb 8.7 g/dL (12.0-16.0) L 07/25/22 05:28 Hct 26.6 % (36.0-47.0) L 07/25/22 05:28 MCV 84.3 fL (80.0-100.0) 07/25/22 05:28 MCH 27.5 pg (27.0-34.0) 07/25/22 05: MCHC 32.6 g/dL (33.0-35.0) L 07/25/22 05:28 RDW 16.7 % (11.6-16.5) H 07/25/22 05:28 Plt Count 350 X10^3/uL (150.0-450.0) 07/25/22 05:28 Plt Count Comment Adequate (ADEQUATE) 07/25/22 05:28 MPV 8.5 fL (7.4-11.0) 07/25/22 05:28 Neut % (Auto) 68.9 % (42.0-75.0) 07/25/22 05:28 Lymph % (Auto) 16.1 % (21.0-51.0) L 07/25/22 05:28 [place] % (Auto) 12.1 % (0.0-13.0) 07/25/22 05:28 Eos % (Auto) 2.3 % (0.9-2.9) 07/25/22 05:28 Baso % (Auto) 0.6 % (0.2-1.0) 07/25/22 05:28 Neut # (Auto) 7.8 x10^3/uL (2.2-4.8) H 07/25/22 05:28 Lymph # (Auto) 1.8 X10^3/uL (1.3-2.9) 07/25/22 05:28 [place] # (Auto) 1.4 x10^3/uL (0.3-0.8) H 07/25/22 05:28 Eos # (Auto) 0.3 x10^3/uL (0.0-0.2) H 07/25/22 05:28 Baso # (Auto) 0.1 X10^3/uL (0.0-0.1) 07/25/22 05:28 Absolute Nucleated RBC 0.1 /100WBC 07/25/22 05:28 Plt Morphology Comment Normal (NORMAL) 07/25/22 05:28 RBC Morphology Normal (NORMAL) 07/25/22 05:28 Sodium 135 mmol/L (136-145) L 07/25/22 05:28 Corrected Sodium 135 mmol/L (136-145) L 07/25/22 05:28 Potassium 3.7 mmol/L (3.5-5.1) 07/25/22 05:28 Chloride 102 mmol/L (98-107) 07/25/22 05:28 Carbon Dioxide 27.5 mmol/L (21-32) 07/25/22 05:28 BUN 5 mg/dL (7-18) L 07/25/22 05:28 Creatinine 0.62 mg/dL (0.55-1.02) 07/25/22 05:28 Est GFR (MDRD) Af Amer > 60 (>60) 07/25/22 05:28 Est GFR (MDRD) Non-Af > 60 (>60) 07/25/22 05:28 Glucose 113 mg/dL (65-99) H 07/25/22 05:28 POC Glucose (mg/dL) 125 mg/dL (65-99) H 07/16/22 05:45 Calcium 8.3 mg/dL (8.5-10.1) L 07/25/22 05:28 Corrected Calcium 10.2 mg/dL (8.5-10.1) H 07/25/22 05:28 Magnesium 2.0 mg/dL (2.0-2.9) 07/25/22 05:28 Total Bilirubin 0.40 mg/dL (0.2-1.0) 07/25/22 05:28 AST 23 Units/L (15-37) 07/25/22 05:28 ALT 6 Units/L (12-78) L 07/25/22 05:28 Alkaline Phosphatase 65 Units/L (46-116) 07/25/22 05:28 Total Protein 5.3 g/dL (6.4-8.2) L 07/25/22 05:28 Albumin 1.6 g/dL (3.4-5.0) L 07/25/22 05:28 Globulin 3.7 g/dL (2.5-4.5) 07/25/22 05:28 Albumin/Globulin Ratio 0.4 Ratio (1.1-2.1) L 07/25/22 05:28 Specimen Type Random urine 07/17/22 15:25 Urine Color Yellow (YELLOW) 07/17/22 15:25 Urine Appearance Hazy (CLEAR) 07/17/22 15:25 Urine pH 6.0 (5.0 - 8.0) 07/17/22 15:25 Ur Specific [place] 1.025 (1.000-1.030) 07/17/22 15:25 Urine Protein 3+ (NEGATIVE) 07/17/22 15:25 Urine Glucose (UA) Negative (NEGATIVE) 07/17/22 15:25 Urine Ketones Negative (NEGATIVE) 07/17/22 15:25 Urine Blood 4+ (NEGATIVE) 07/17/22 15:25 Urine Nitrite Negative (NEGATIVE) 07/17/22 15:25 Urine Bilirubin Negative (NEGATIVE) 07/17/22 15:25 Urine Urobilinogen Normal (NORMAL) 07/17/22 15:25 Ur Leukocyte Esterase 2+ (NEGATIVE) 07/17/22 15:25 Urine RBC 20-30 /HPF (0-3) A 07/17/22 15:25 Urine WBC 10-20 /HPF (0-5) A 07/17/22 15:25 Ur Squamous Epith Cells Rare /HPF (NEGATIVE) 07/17/22 15:25 Uric Acid Crystals Few /HPF (NEGATIVE) 07/17/22 15:25 Urine Bacteria Trace /HPF (NEGATIVE) 07/17/22 15:25 Hyaline Casts Few /LPF (NEGATIVE) 07/17/22 15:25 Granular Casts Rare /LPF (NEGATIVE) 07/17/22 15:25 Urine Yeast Numerous /HPF (NEGATIVE) 07/17/22 15:25 Ur Culture Indicated? No/not indicated 07/17/22 15:25 - Plan (1) Enterocutaneous fistula Status: Acute Plan: D5 NORMAL SALINE AT 80 ML/HR, PEPCID 20MG IV Q12H, PROTONIX 40MG IV DAILY, ALBUTEROL NEBS BID, MORPHINE SULFATE 2MG IV Q4H PRN, THE POTASSIUM AND MAGNESIUM PROTOCOLS, ZESTRIL 10MG DAILY, LOPRESSOR 100MG BID, PERCOCET 5/325MG PO Q6H PRN, AND ZOCOR 20MG PO HS. 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
[2022-07-25] MEDS: ZOCOR TAB 20 MG PO SCH (20:57)
[2022-07-26] MEDS: D5 1/2 NS 1,000 ML 1,000 ML IV SCH ×5 (04:53→21:56)
[2022-07-26 05:38] LABS: BASOPHILS # (AUTO) 0.1 X10^3/uL (0.0-0.1); BASOPHILS % (AUTO) 0.6 % (0.2-1.0); EOSINOPHILS # (AUTO) 0.2 x10^3/uL (0.0-0.2); EOSINOPHILS % (AUTO) 2.2 % (0.9-2.9); HEMATOCRIT 24.6 % (36.0-47.0); HEMOGLOBIN 8.2 g/dL (12.0-16.0); LYMPHOCYTES # (AUTO) 1.5 X10^3/uL (1.3-2.9); MEAN CORPUSCULAR HEMOGLOBIN 28.1 pg (27.0-34.0); MEAN CORPUSCULAR HGB CONC 33.5 g/dL (33.0-35.0); MEAN CORPUSCULAR VOLUME 83.9 fL (80.0-100.0); MEAN PLATELET VOLUME 8.1 fL (7.4-11.0); MONOCYTES # (AUTO) 1.1 x10^3/uL (0.3-0.8); MONOCYTES % (AUTO) 11.9 % (0.0-13.0); NEUTROPHILS # (AUTO) 6.1 x10^3/uL (2.2-4.8); NEUTROPHILS % (AUTO) 68.3 % (42.0-75.0); RED BLOOD COUNT 2.93 X10^6/uL (3.5-5.4); RED CELL DISTRIBUTION WIDTH 16.7 % (11.6-16.5)
[2022-07-26 05:52] LABS: ALANINE AMINOTRANSFERASE 6 Units/L (12-78); ALBUMIN 1.6 g/dL (3.4-5.0); ALKALINE PHOSPHATASE 61 Units/L (46-116); ASPARTATE AMINO TRANSFERASE 16 Units/L (15-37); BLOOD UREA NITROGEN 3 mg/dL (7-18); CALCIUM 8.4 mg/dL (8.5-10.1); CARBON DIOXIDE 26.7 mmol/L (21-32); CHLORIDE 105 mmol/L (98-107); COR CA(FOR HYPOALB) 10.3 mg/dL (8.5-10.1); COR NA(FOR HYPERGLY) 138 mmol/L (136-145); SODIUM 137 mmol/L (136-145); eGFR NON BLACK RACES > 60 (>60)
[2022-07-26] MEDS: PROTONIX INJ 40 MG VIAL IVP SCH (08:06)
[2022-07-26] MEDS: PEPCID 20 MG VIAL 20 MG in NS 50 ML IV 50 ML IV SCH ×2 (08:07→21:48)
[2022-07-26] MEDS: LOPRESSOR TAB 50 MG PO SCH ×2 (08:07→21:49)
[2022-07-26] MEDS: ZESTRIL TAB 10 MG PO SCH (08:08)
[2022-07-26] MEDS: LOVENOX INJ 40 MG SYR SC SCH (08:12)
[2022-07-26] MEDS: PROVENTIL NEB TX 0.083% 2.5MG/ 3ML NEB SCH ×2 (08:46→21:00)
[2022-07-26] MEDS: MAGNESIUM SULFATE 1 GRAM/100 mL PREMIX 1 G/100 ML BAG IV PRN ×2 (14:00→16:50)
[2022-07-26] MEDS: PERCOCET TAB 5/325 MG PO PRN (15:31)
--- NOTE | 2022-07-26 15:51 | PCM.PROG ---
Progress Note - Progress Note for Day of Date of Exam: 07/26/22 - Subjective Subjective: IS CURRENTLY INPATIENT STATUS. SHE IS DAY 10 STATUS POST LAPAROTOMY, LYSIS OF ADHESIONS, AND SMALL BOWEL LOOP COLOSTOMY. 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 TODAY, SHE IS ALERT AND ORIENTED, LYING IN BED ON MORNING ROUNDS. SHE DENIES ABDOMINAL PAIN THIS MORNING. SHE ALSO DENIES NAUSEA OR VOMITING THIS MORNING. ON EXAMINATION TODAY, HEART IS REGULAR IN RATE AND RHYTHM. BILATERAL LUNGS ARE CLEAR TO AUSCULTATION. ABDOMEN IS ROUND, SOFT, AND NOTED WITH MILD, DIFFUSE TENDERNESS. NORMAL BOWEL SOUNDS NOTED IN ALL QUADRANTS. ILEOSTOMY IS FUNCTIONING. MODERATE DRAINAGE FROM FISTULA SITE. NO UPPER OR LOWER EXTREMITY EDEMA NOTED. HER VITALS THIS MORNING ARE: 97.9-69-16-100%-174/70. LABS WERE OBTAINED. WBC 9.0, RBC 2.93, HGB 8.2, HCT 24.6, PLT COUNT 363, SODIUM 137, POTASSIUM 3.1, CHLORIDE 105, BUN 3, CREATININE 0.60, GLUCOSE 122, CALCIUM 8.4, MAGNESIUM 1.6, AST 16, ALT 6, ALK PHOS 61, TOTAL PROTEIN 5.0, ALBUMIN 1.6. SHE IS CURRENTLY RECEIVING D5 NORMAL SALINE AT 80 ML/HR, PEPCID 20MG IV Q12H, PROTONIX 40MG IV DAILY, ALBUTEROL NEBS BID, MORPHINE SULFATE 2MG IV Q4H PRN, THE POTASSIUM AND MAGNESIUM PROTOCOLS, ZESTRIL 10MG DAILY, LOPRESSOR 100MG BID, PERCOCET 5/325MG PO Q6H PRN, AND ZOCOR 20MG PO HS. SHE IS CURRENTLY ON A SOFT DIET AND IS TOLERATING IT WELL. PHYSICAL AND OCCUPATIONAL THERAPIES WILL CONTINUE TO WORK WITH PATIENT TODAY. SHE HAS BEEN COOPERATIVE WITH THERAPY. WILL CONTINUE TO FOLLOW. OTHERWISE, WE WILL FOLLOW-UP WITH AM LABS AND CONTINUE TO MONITOR. TIME SPENT ON CLINICAL ASSESSMENT, REVIEWING LABS AND IMAGING, DECISION MAKING, AND DOCUMENTATION GREATER THAN 45 MINUTES. - Past Medical Family Social History Past Med/Fam/Surg Hx: No changes since H&P Allergies: Allergies prochlorperazine [From Compazine] Allergy (Unknown, Verified 07/11/22 19:19) Reason: Drug allergy tramadol Allergy (Verified 07/11/22 19:19) - Review of Systems ROS: No change since H&P - Vital Signs and I&O's Vital Signs: Temperature 98.7 F Pulse Rate [Right Brachial] 70 Pulse Rate 69 Respiratory Rate 18 Blood Pressure [Right Arm] 153/71 Blood Pressure [Left Arm] 141/65 Blood Pressure 123/71 O2 Sat by Pulse Oximetry 100 Intake and Output: Intake & Output 07/24/22 07/25/22 07/26/22 07/27/22 11:59 11:59 11:59 11:59 Intake Total 1700 / 1700 1770 / 1770 2260 / 2260 640 / 640 Output Total 800 / 800 250 / 250 700 / 700 350 / 350 Balance 900 / 900 1520 / 1520 1560 / 1560 290 / 290 - Physical Exam Oriented: Normal Eyes: Normal Ear: Normal Throat: Normal Respiratory: Diminished Cardiovascular: Normal : Normal Auscultation: Bowel Sounds: Decreased Tenderness: Epigastric (soft abdomen . only mild tenderness , BS+, no infection .. see above .), Mild, Other (ILEOSTOMY FUNCTIONING) Skin: Normal Musculoskeletal: Normal Psychiatric: Other Mood Description: Calm Speech Pattern: Clear, Appropriate - Laboratory and Diagnostics Result Diagrams: 07/26/22 04:57 07/26/22 04:57 Labs: 07/17/22 15:25 Urine,Clean Catch Urine Culture - Preliminary Laboratory WBC 9.0 X10^3/uL (3.6-10.0) 07/26/22 04:57 RBC 2.93 X10^6/uL (3.5-5.4) L 07/26/22 04:57 Hgb 8.2 g/dL (12.0-16.0) L 07/26/22 04:57 Hct 24.6 % (36.0-47.0) L 07/26/22 04:57 MCV 83.9 fL (80.0-100.0) 07/26/22 04:57 MCH 28.1 pg (27.0-34.0) 07/26/22 04:57 MCHC 33.5 g/dL (33.0-35.0) 07/26/22 04:57 RDW 16.7 % (11.6-16.5) H 07/26/22 04:57 Plt Count 363 X10^3/uL (150.0-450.0) 07/26/22 04:57 Plt Count Comment Adequate (ADEQUATE) 07/25/22 05:28 MPV 8.1 fL (7.4-11.0) 07/26/22 04:57 Neut % (Auto) 68.3 % (42.0-75.0) 07/26/22 04:57 Lymph % (Auto) 17.0 % (21.0-51.0) L 07/26/22 04:57 [place] % (Auto) 11.9 % (0.0-13.0) 07/26/22 04:57 Eos % (Auto) 2.2 % (0.9-2.9) 07/26/22 04:57 Baso % (Auto) 0.6 % (0.2-1.0) 07/26/22 04:57 Neut # (Auto) 6.1 x10^3/uL (2.2-4.8) H 07/26/22 04:57 Lymph # (Auto) 1.5 X10^3/uL (1.3-2.9) 07/26/22 04:57 [place] # (Auto) 1.1 x10^3/uL (0.3-0.8) H 07/26/22 04:57 Eos # (Auto) 0.2 x10^3/uL (0.0-0.2) 07/26/22 04:57 Baso # (Auto) 0.1 X10^3/uL (0.0-0.1) 07/26/22 04:57 Absolute Nucleated RBC 0.1 /100WBC 07/26/22 04:57 Plt Morphology Comment Normal (NORMAL) 07/25/22 05:28 RBC Morphology Normal (NORMAL) 07/25/22 05:28 Sodium 137 mmol/L (136-145) 07/26/22 04:57 Corrected Sodium 138 mmol/L (136-145) 07/26/22 04:57 Potassium 3.1 mmol/L (3.5-5.1) L 07/26/22 04:57 Chloride 105 mmol/L (98-107) 07/26/22 04:57 Carbon Dioxide 26.7 mmol/L (21-32) 07/26/22 04:57 BUN 3 mg/dL (7-18) L 07/26/22 04:57 Creatinine 0.60 mg/dL (0.55-1.02) 07/26/22 04:57 Est GFR (MDRD) Af Amer > 60 (>60) 07/26/22 04:57 Est GFR (MDRD) Non-Af > 60 (>60) 07/26/22 04:57 Glucose 122 mg/dL (65-99) H 07/26/22 04:57 POC Glucose (mg/dL) 125 mg/dL (65-99) H 07/16/22 05:45 Calcium 8.4 mg/dL (8.5-10.1) L 07/26/22 04:57 Corrected Calcium 10.3 mg/dL (8.5-10.1) H 07/26/22 04:57 Magnesium 1.6 mg/dL (2.0-2.9) L 07/26/22 04:57 Total Bilirubin 0.20 mg/dL (0.2-1.0) 07/26/22 04:57 AST 16 Units/L (15-37) 07/26/22 04:57 ALT 6 Units/L (12-78) L 07/26/22 04:57 Alkaline Phosphatase 61 Units/L (46-116) 07/26/22 04:57 Total Protein 5.0 g/dL (6.4-8.2) L 07/26/22 04:57 Albumin 1.6 g/dL (3.4-5.0) L 07/26/22 04:57 Globulin 3.4 g/dL (2.5-4.5) 07/26/22 04:57 Albumin/Globulin Ratio 0.5 Ratio (1.1-2.1) L 07/26/22 04:57 Specimen Type Random urine 07/17/22 15:25 Urine Color Yellow (YELLOW) 07/17/22 15:25 Urine Appearance Hazy (CLEAR) 07/17/22 15:25 Urine pH 6.0 (5.0 - 8.0) 07/17/22 15:25 Ur Specific [place] 1.025 (1.000-1.030) 07/17/22 15:25 Urine Protein 3+ (NEGATIVE) 07/17/22 15:25 Urine Glucose (UA) Negative (NEGATIVE) 07/17/22 15:25 Urine Ketones Negative (NEGATIVE) 07/17/22 15:25 Urine Blood 4+ (NEGATIVE) 07/17/22 15:25 Urine Nitrite Negative (NEGATIVE) 07/17/22 15:25 Urine Bilirubin Negative (NEGATIVE) 07/17/22 15:25 Urine Urobilinogen Normal (NORMAL) 07/17/22 15:25 Ur Leukocyte Esterase 2+ (NEGATIVE) 07/17/22 15:25 Urine RBC 20-30 /HPF (0-3) A 07/17/22 15:25 Urine WBC 10-20 /HPF (0-5) A 07/17/22 15:25 Ur Squamous Epith Cells Rare /HPF (NEGATIVE) 07/17/22 15:25 Uric Acid Crystals Few /HPF (NEGATIVE) 07/17/22 15:25 Urine Bacteria Trace /HPF (NEGATIVE) 07/17/22 15:25 Hyaline Casts Few /LPF (NEGATIVE) 07/17/22 15:25 Granular Casts Rare /LPF (NEGATIVE) 07/17/22 15:25 Urine Yeast Numerous /HPF (NEGATIVE) 07/17/22 15:25 Ur Culture Indicated? No/not indicated 07/17/22 15:25 - Plan (1) Enterocutaneous fistula Status: Acute Plan: D5 NORMAL SALINE AT 80 ML/HR, PEPCID 20MG IV Q12H, PROTONIX 40MG IV DAILY, ALBUTEROL NEBS BID, MORPHINE SULFATE 2MG IV Q4H PRN, THE POTASSIUM AND MAGNESIUM PROTOCOLS, ZESTRIL 10MG DAILY, LOPRESSOR 100MG BID, PERCOCET 5/325MG PO Q6H PRN, AND ZOCOR 20MG PO HS. 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
[2022-07-26] MEDS: ZOCOR TAB 20 MG PO SCH (21:49)
[2022-07-27] MEDS: D5 1/2 NS 1,000 ML 1,000 ML IV SCH ×3 (04:06→14:01)
[2022-07-27] MEDS: PERCOCET TAB 5/325 MG PO PRN (05:02)
[2022-07-27] MEDS: PROVENTIL NEB TX 0.083% 2.5MG/ 3ML NEB SCH ×2 (08:16→21:00)
[2022-07-27 09:02] LABS: MEAN CORPUSCULAR VOLUME 84.6 fL (80.0-100.0)
[2022-07-27 09:06] LABS: BASOPHILS # (AUTO) 0.1 X10^3/uL (0.0-0.1); BASOPHILS % (AUTO) 0.7 % (0.2-1.0); EOSINOPHILS # (AUTO) 0.2 x10^3/uL (0.0-0.2); HEMATOCRIT 29.3 % (36.0-47.0); HEMOGLOBIN 9.7 g/dL (12.0-16.0); LYMPHOCYTES # (AUTO) 1.8 X10^3/uL (1.3-2.9); LYMPHOCYTES % (AUTO) 19.5 % (21.0-51.0); MEAN PLATELET VOLUME 7.9 fL (7.4-11.0); MONOCYTES # (AUTO) 0.9 x10^3/uL (0.3-0.8); MONOCYTES % (AUTO) 10.1 % (0.0-13.0); NEUTROPHILS # (AUTO) 6.1 x10^3/uL (2.2-4.8); NEUTROPHILS % (AUTO) 67.7 % (42.0-75.0); RED BLOOD COUNT 3.47 X10^6/uL (3.5-5.4); RED CELL DISTRIBUTION WIDTH 17.2 % (11.6-16.5)
[2022-07-27 09:10] LABS: ALANINE AMINOTRANSFERASE 9 Units/L (12-78); ALBUMIN 1.9 g/dL (3.4-5.0); ALKALINE PHOSPHATASE 72 Units/L (46-116); ASPARTATE AMINO TRANSFERASE 18 Units/L (15-37); BLOOD UREA NITROGEN 3 mg/dL (7-18); CALCIUM 8.8 mg/dL (8.5-10.1); CARBON DIOXIDE 29.7 mmol/L (21-32); CHLORIDE 104 mmol/L (98-107); COR CA(FOR HYPOALB) 10.5 mg/dL (8.5-10.1); COR NA(FOR HYPERGLY) 138 mmol/L (136-145); CREATININE 0.72 mg/dL (0.55-1.02); MAGNESIUM 1.9 mg/dL (2.0-2.9); SODIUM 137 mmol/L (136-145); TOTAL PROTEIN 5.7 g/dL (6.4-8.2); eGFR NON BLACK RACES > 60 (>60)
[2022-07-27] MEDS: PROTONIX INJ 40 MG VIAL IVP SCH (10:12)
[2022-07-27] MEDS: LOPRESSOR TAB 50 MG PO SCH ×2 (10:12→21:31)
[2022-07-27] MEDS: ZESTRIL TAB 10 MG PO SCH (10:12)
[2022-07-27] MEDS: LOVENOX INJ 40 MG SYR SC SCH (10:13)
[2022-07-27] MEDS: PEPCID 20 MG VIAL 20 MG in NS 50 ML IV 50 ML IV SCH ×2 (10:14→21:33)
--- NOTE | 2022-07-27 16:31 | PCM.PROG ---
Progress Note - Progress Note for Day of Date of Exam: 07/27/22 - Subjective Subjective: IS CURRENTLY INPATIENT STATUS. SHE IS DAY 13 STATUS POST LAPAROTOMY, LYSIS OF ADHESIONS, AND SMALL BOWEL LOOP COLOSTOMY. 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 TODAY, SHE IS ALERT AND ORIENTED, LYING IN BED ON MORNING ROUNDS. SHE DENIES ABDOMINAL PAIN THIS MORNING. SHE ALSO DENIES NAUSEA OR VOMITING THIS MORNING. ON EXAMINATION TODAY, HEART IS REGULAR IN RATE AND RHYTHM. BILATERAL LUNGS ARE CLEAR TO AUSCULTATION. ABDOMEN IS ROUND, SOFT, AND NOTED WITH MILD, DIFFUSE TENDERNESS. NORMAL BOWEL SOUNDS NOTED IN ALL QUADRANTS. ILEOSTOMY IS FUNCTIONING. MODERATE DRAINAGE FROM FISTULA SITE. NO UPPER OR LOWER EXTREMITY EDEMA NOTED. HER VITALS THIS MORNING ARE: 97.9-70-18-100%-148/61. LABS WERE OBTAINED. WBC 9.0, RBC 3.47, HGB 9.7, HCT 29.3, PLT COUNT 387, SODIUM 137, POTASSIUM 3.4, CHLORIDE 104, BUN 3, CREATININE 0.72, GLUCOSE 131, CALCIUM 8.8, MAGNESIUM 1.9, AST 18, ALT 9, ALK PHOS 72, TOTAL PROTEIN 5.7, ALBUMIN 1.9. SHE IS CURRENTLY RECEIVING D5 NORMAL SALINE AT 80 ML/HR, PEPCID 20MG IV Q12H, PROTONIX 40MG IV DAILY, ALBUTEROL NEBS BID, MORPHINE SULFATE 2MG IV Q4H PRN, THE POTASSIUM AND MAGNESIUM PROTOCOLS, ZESTRIL 10MG DAILY, LOPRESSOR 100MG BID, PERCOCET 5/325MG PO Q6H PRN, AND ZOCOR 20MG PO HS. SHE IS CURRENTLY ON A REGULAR DIET AND IS TOLERATING IT WELL. PHYSICAL AND OCCUPATIONAL THERAPIES WILL CONTINUE TO WORK WITH PATIENT TODAY. SHE HAS BEEN COOPERATIVE WITH THERAPY. WILL CONTINUE TO FOLLOW. OTHERWISE, WE WILL FOLLOW-UP WITH AM LABS AND CONTINUE TO MONITOR. TIME SPENT ON CLINICAL ASSESSMENT, REVIEWING LABS AND IMAGING, DECISION MAKING, AND DOCUMENTATION GREATER THAN 45 MINUTES. - Past Medical Family Social History Past Med/Fam/Surg Hx: No changes since H&P Allergies: Allergies prochlorperazine [From Compazine] Allergy (Unknown, Verified 07/11/22 19:19) Reason: Drug allergy tramadol Allergy (Verified 07/11/22 19:19) - Review of Systems ROS: No change since H&P - Vital Signs and I&O's Vital Signs: Temperature 97.6 F Pulse Rate [Right Brachial] 70 Pulse Rate 68 Respiratory Rate 16 Blood Pressure [Right Arm] 152/66 Blood Pressure [Left Arm] 141/65 Blood Pressure 123/71 O2 Sat by Pulse Oximetry 100 Intake and Output: Intake & Output 07/25/22 07/26/22 07/27/22 07/28/22 11:59 11:59 11:59 11:59 Intake Total 1770 / 1770 2260 / 2260 1989 Output Total 250 / 250 700 / 700 350 / 350 Balance 1520 / 1520 1560 / 1560 1640 / 1640 - Physical Exam Oriented: Normal Eyes: Normal Ear: Normal Nose: Other (NG TUBE RIGHT NARE) Throat: Normal Respiratory: Diminished Cardiovascular: Normal : Normal Auscultation: Bowel Sounds: Decreased Tenderness: Epigastric (soft abdomen . only mild tenderness , BS+, no infection .. see above .), Mild, Other (ILEOSTOMY FUNCTIONING) Skin: Normal Musculoskeletal: Normal Psychiatric: Other Mood Description: Calm Speech Pattern: Clear, Appropriate - Laboratory and Diagnostics Result Diagrams: 07/27/22 08:41 07/27/22 08:41 Labs: 07/17/22 15:25 Urine,Clean Catch Urine Culture - Preliminary Laboratory WBC 9.0 X10^3/uL (3.6-10.0) 07/27/22 08:41 RBC 3.47 X10^6/uL (3.5-5.4) L 07/27/22 08:41 Hgb 9.7 g/dL (12.0-16.0) L 07/27/22 08:41 Hct 29.3 % (36.0-47.0) L 07/27/22 08:41 MCV 84.6 fL (80.0-100.0) 07/27/22 08:41 MCH 28.0 pg (27.0-34.0) 07/27/22 08:41 MCHC 33.0 g/dL (33.0-35.0) 07/27/22 08:41 RDW 17.2 % (11.6-16.5) H 07/27/22 08:41 Plt Count 387 X10^3/uL (150.0-450.0) 07/27/22 08:41 Plt Count Comment Adequate (ADEQUATE) 07/25/22 05:28 MPV 7.9 fL (7.4-11.0) 07/27/22 08:41 Neut % (Auto) 67.7 % (42.0-75.0) 07/27/22 08:41 Lymph % (Auto) 19.5 % (21.0-51.0) L 07/27/22 08:41 [place] % (Auto) 10.1 % (0.0-13.0) 07/27/22 08:41 Eos % (Auto) 2.0 % (0.9-2.9) 07/27/22 08:41 Baso % (Auto) 0.7 % (0.2-1.0) 07/27/22 08:41 Neut # (Auto) 6.1 x10^3/uL (2.2-4.8) H 07/27/22 08:41 Lymph # (Auto) 1.8 X10^3/uL (1.3-2.9) 07/27/22 08:41 [place] # (Auto) 0.9 x10^3/uL (0.3-0.8) H 07/27/22 08:41 Eos # (Auto) 0.2 x10^3/uL (0.0-0.2) 07/27/22 08:41 Baso # (Auto) 0.1 X10^3/uL (0.0-0.1) 07/27/22 08:41 Absolute Nucleated RBC 0.0 /100WBC 07/27/22 08:41 Plt Morphology Comment Normal (NORMAL) 07/25/22 05:28 RBC Morphology Normal (NORMAL) 07/25/22 05:28 Sodium 137 mmol/L (136-145) 07/27/22 08:41 Corrected Sodium 138 mmol/L (136-145) 07/27/22 08:41 Potassium 3.4 mmol/L (3.5-5.1) L 07/27/22 08:41 Chloride 104 mmol/L (98-107) 07/27/22 08:41 Carbon Dioxide 29.7 mmol/L (21-32) 07/27/22 08:41 BUN 3 mg/dL (7-18) L 07/27/22 08:41 Creatinine 0.72 mg/dL (0.55-1.02) 07/27/22 08:41 Est GFR (MDRD) Af Amer > 60 (>60) 07/27/22 08:41 Est GFR (MDRD) Non-Af > 60 (>60) 07/27/22 08:41 Glucose 131 mg/dL (65-99) H 07/27/22 08:41 POC Glucose (mg/dL) 125 mg/dL (65-99) H 07/16/22 05:45 Calcium 8.8 mg/dL (8.5-10.1) 07/27/22 08:41 Corrected Calcium 10.5 mg/dL (8.5-10.1) H 07/27/22 08:41 Magnesium 1.9 mg/dL (2.0-2.9) L 07/27/22 08:41 Total Bilirubin 0.30 mg/dL (0.2-1.0) 07/27/22 08:41 AST 18 Units/L (15-37) 07/27/22 08:41 ALT 9 Units/L (12-78) L 07/27/22 08:41 Alkaline Phosphatase 72 Units/L (46-116) 07/27/22 08:41 Total Protein 5.7 g/dL (6.4-8.2) L 07/27/22 08:41 Albumin 1.9 g/dL (3.4-5.0) L 07/27/22 08:41 Globulin 3.8 g/dL (2.5-4.5) 07/27/22 08:41 Albumin/Globulin Ratio 0.5 Ratio (1.1-2.1) L 07/27/22 08:41 Specimen Type Random urine 07/17/22 15:25 Urine Color Yellow (YELLOW) 07/17/22 15:25 Urine Appearance Hazy (CLEAR) 07/17/22 15:25 Urine pH 6.0 (5.0 - 8.0) 07/17/22 15:25 Ur Specific [place] 1.025 (1.000-1.030) 07/17/22 15:25 Urine Protein 3+ (NEGATIVE) 07/17/22 15:25 Urine Glucose (UA) Negative (NEGATIVE) 07/17/22 15:25 Urine Ketones Negative (NEGATIVE) 07/17/22 15:25 Urine Blood 4+ (NEGATIVE) 07/17/22 15:25 Urine Nitrite Negative (NEGATIVE) 07/17/22 15:25 Urine Bilirubin Negative (NEGATIVE) 07/17/22 15:25 Urine Urobilinogen Normal (NORMAL) 07/17/22 15:25 Ur Leukocyte Esterase 2+ (NEGATIVE) 07/17/22 15:25 Urine RBC 20-30 /HPF (0-3) A 07/17/22 15:25 Urine WBC 10-20 /HPF (0-5) A 07/17/22 15:25 Ur Squamous Epith Cells Rare /HPF (NEGATIVE) 07/17/22 15:25 Uric Acid Crystals Few /HPF (NEGATIVE) 07/17/22 15:25 Urine Bacteria Trace /HPF (NEGATIVE) 07/17/22 15:25 Hyaline Casts Few /LPF (NEGATIVE) 07/17/22 15:25 Granular Casts Rare /LPF (NEGATIVE) 07/17/22 15:25 Urine Yeast Numerous /HPF (NEGATIVE) 07/17/22 15:25 Ur Culture Indicated? No/not indicated 07/17/22 15:25 - Plan (1) Enterocutaneous fistula Status: Acute Plan: D5 NORMAL SALINE AT 80 ML/HR, PEPCID 20MG IV Q12H, PROTONIX 40MG IV DAILY, ALBUTEROL NEBS BID, MORPHINE SULFATE 2MG IV Q4H PRN, THE POTASSIUM AND MAGNESIUM PROTOCOLS, ZESTRIL 10MG DAILY, LOPRESSOR 100MG BID, PERCOCET 5/325MG PO Q6H PRN, AND ZOCOR 20MG PO HS. (2) Abdominal adhesions Status: Acute (3) Status post colostomy Status: Acute (4) DJD (degenerative joint disease), lumbar Status: Chronic Qualifiers: Spinal osteoarthritis complication: unspecified spinal osteoarthritis Qualified Code(s): M47.816 - Spondylosis without myelopathy or radiculopathy, lumbar region (5) Hypertension Status: Chronic Qualifiers: Hypertension type: primary hypertension (6) Hyperlipidemia Status: Chronic Qualifiers: Hyperlipidemia type: mixed hyperlipidemia (7) Diabetes mellitus Status: Chronic Qualifiers: Diabetes mellitus type: type 2 Diabetes mellitus retirement insulin use: with retirement use Diabetes mellitus complication status: with hyperglycemia Qualified Code(s): E11.65 - Type 2 diabetes mellitus with hyperglycemia; Z79.4 - senior care (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
[2022-07-27] MEDS: MAGNESIUM SULFATE 1 GRAM/100 mL PREMIX 1 G/100 ML BAG IV PRN ×2 (16:57→18:02)
[2022-07-27] MEDS: K-DUR TAB 20 MEQ PO PRN (16:57)
[2022-07-27] MEDS: ZOCOR TAB 20 MG PO SCH (21:31)
[2022-07-28] MEDS: D5 1/2 NS 1,000 ML 1,000 ML IV SCH ×5 (00:06→22:33)
[2022-07-28 05:59] LABS: BASOPHILS # (AUTO) 0.1 X10^3/uL (0.0-0.1); BASOPHILS % (AUTO) 0.6 % (0.2-1.0); EOSINOPHILS # (AUTO) 0.2 x10^3/uL (0.0-0.2); EOSINOPHILS % (AUTO) 1.9 % (0.9-2.9); HEMATOCRIT 27.1 % (36.0-47.0); HEMOGLOBIN 8.9 g/dL (12.0-16.0); LYMPHOCYTES # (AUTO) 1.5 X10^3/uL (1.3-2.9); LYMPHOCYTES % (AUTO) 17.7 % (21.0-51.0); MEAN CORPUSCULAR HEMOGLOBIN 28.1 pg (27.0-34.0); MEAN CORPUSCULAR HGB CONC 32.9 g/dL (33.0-35.0); MEAN CORPUSCULAR VOLUME 85.4 fL (80.0-100.0); MEAN PLATELET VOLUME 8.8 fL (7.4-11.0); MONOCYTES # (AUTO) 0.9 x10^3/uL (0.3-0.8); MONOCYTES % (AUTO) 10.4 % (0.0-13.0); NEUTROPHILS # (AUTO) 5.8 x10^3/uL (2.2-4.8); NEUTROPHILS % (AUTO) 69.4 % (42.0-75.0); RED BLOOD COUNT 3.17 X10^6/uL (3.5-5.4); RED CELL DISTRIBUTION WIDTH 17.4 % (11.6-16.5); WHITE BLOOD COUNT 8.3 X10^3/uL (3.6-10.0)
[2022-07-28 06:02] LABS: ALANINE AMINOTRANSFERASE 10 Units/L (12-78); ALBUMIN 1.8 g/dL (3.4-5.0); ALKALINE PHOSPHATASE 67 Units/L (46-116); ASPARTATE AMINO TRANSFERASE 22 Units/L (15-37); BLOOD UREA NITROGEN 4 mg/dL (7-18); CALCIUM 8.8 mg/dL (8.5-10.1); CARBON DIOXIDE 27.2 mmol/L (21-32); CHLORIDE 108 mmol/L (98-107); COR CA(FOR HYPOALB) 10.6 mg/dL (8.5-10.1); CREATININE 0.67 mg/dL (0.55-1.02); SODIUM 142 mmol/L (136-145); TOTAL PROTEIN 5.4 g/dL (6.4-8.2); eGFR NON BLACK RACES > 60 (>60)
[2022-07-28] MEDS: MAGNESIUM SULFATE 1 GRAM/100 mL PREMIX 1 G/100 ML BAG IV PRN (06:30)
[2022-07-28] MEDS ORDERED: NS 50 ML IV 50 ML IV ONE (08:15)
[2022-07-28] MEDS: PROVENTIL NEB TX 0.083% 2.5MG/ 3ML NEB SCH ×2 (08:35→20:25)
[2022-07-28] MEDS: PROTONIX INJ 40 MG VIAL IVP SCH (08:45)
[2022-07-28] MEDS: PEPCID 20 MG VIAL 20 MG in NS 50 ML IV 50 ML IV SCH ×2 (08:45→20:34)
[2022-07-28] MEDS: LOPRESSOR TAB 50 MG PO SCH ×2 (08:45→20:35)
[2022-07-28] MEDS: ZESTRIL TAB 10 MG PO SCH (08:45)
[2022-07-28] MEDS: LOVENOX INJ 40 MG SYR SC SCH (09:07)
[2022-07-28] MEDS: MORPHINE SULFATE INJ 2 MG INJ IVP PRN ×2 (16:15→20:42)
[2022-07-28] MEDS: K-DUR TAB 20 MEQ PO PRN (18:29)
[2022-07-28] MEDS: ZOCOR TAB 20 MG PO SCH (20:34)
[2022-07-29] MEDS ORDERED: PROVENTIL NEB TX 0.083% 2.5MG/ 3ML NEB PRN (00:37)
[2022-07-29] MEDS: MORPHINE SULFATE INJ 2 MG INJ IVP PRN ×2 (04:13→15:10)
[2022-07-29 06:10] LABS: BASOPHILS # (AUTO) 0.1 X10^3/uL (0.0-0.1); BASOPHILS % (AUTO) 0.8 % (0.2-1.0); EOSINOPHILS # (AUTO) 0.2 x10^3/uL (0.0-0.2); HEMATOCRIT 28.3 % (36.0-47.0); HEMOGLOBIN 9.3 g/dL (12.0-16.0); LYMPHOCYTES # (AUTO) 1.5 X10^3/uL (1.3-2.9); LYMPHOCYTES % (AUTO) 16.5 % (21.0-51.0); MEAN CORPUSCULAR VOLUME 84.7 fL (80.0-100.0); MEAN PLATELET VOLUME 8.4 fL (7.4-11.0); MONOCYTES # (AUTO) 0.8 x10^3/uL (0.3-0.8); MONOCYTES % (AUTO) 9.1 % (0.0-13.0); NEUTROPHILS # (AUTO) 6.6 x10^3/uL (2.2-4.8); NEUTROPHILS % (AUTO) 71.6 % (42.0-75.0); RED BLOOD COUNT 3.34 X10^6/uL (3.5-5.4); RED CELL DISTRIBUTION WIDTH 17.3 % (11.6-16.5); WHITE BLOOD COUNT 9.1 X10^3/uL (3.6-10.0)
[2022-07-29] MEDS: D5 1/2 NS 1,000 ML 1,000 ML IV SCH ×3 (06:10→23:25)
[2022-07-29 06:13] LABS: ALANINE AMINOTRANSFERASE 8 Units/L (12-78); ALBUMIN 1.8 g/dL (3.4-5.0); ALKALINE PHOSPHATASE 65 Units/L (46-116); ASPARTATE AMINO TRANSFERASE 15 Units/L (15-37); BLOOD UREA NITROGEN 3 mg/dL (7-18); CARBON DIOXIDE 27.2 mmol/L (21-32); CHLORIDE 108 mmol/L (98-107); COR CA(FOR HYPOALB) 10.8 mg/dL (8.5-10.1); COR NA(FOR HYPERGLY) 142 mmol/L (136-145); CREATININE 0.65 mg/dL (0.55-1.02); MAGNESIUM 1.8 mg/dL (2.0-2.9); SODIUM 142 mmol/L (136-145); TOTAL PROTEIN 5.5 g/dL (6.4-8.2); eGFR NON BLACK RACES > 60 (>60)
[2022-07-29] MEDS: MAGNESIUM SULFATE 1 GRAM/100 mL PREMIX 1 G/100 ML BAG IV PRN ×3 (06:29→08:27)
[2022-07-29] MEDS: LOPRESSOR TAB 50 MG PO SCH ×2 (08:21→20:58)
[2022-07-29] MEDS: ZESTRIL TAB 10 MG PO SCH (08:22)
[2022-07-29] MEDS: LOVENOX INJ 40 MG SYR SC SCH (08:22)
[2022-07-29] MEDS: PEPCID 20 MG VIAL 20 MG in NS 50 ML IV 50 ML IV SCH ×2 (08:24→20:59)
[2022-07-29] MEDS: PROTONIX INJ 40 MG VIAL IVP SCH (08:32)
--- NOTE | 2022-07-29 11:09 | PCM.PROG ---
Progress Note - Progress Note for Day of Date of Exam: 07/28/22 - Subjective Subjective: IS CURRENTLY INPATIENT STATUS. SHE IS TWO WEEKS POST LAPAROTOMY, LYSIS OF ADHESIONS, AND SMALL BOWEL LOOP COLOSTOMY. 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 TODAY, SHE IS ALERT AND ORIENTED, LYING IN BED ON MORNING ROUNDS. SHE DENIES ABDOMINAL PAIN THIS MORNING. SHE ALSO DENIES NAUSEA OR VOMITING THIS MORNING. ON EXAMINATION TODAY, HEART IS REGULAR IN RATE AND RHYTHM. BILATERAL LUNGS ARE CLEAR TO AUSCULTATION. ABDOMEN IS ROUND, SOFT, AND NOTED WITH MILD, DIFFUSE TENDERNESS. NORMAL BOWEL SOUNDS NOTED IN ALL QUADRANTS. ILEOSTOMY IS FUNCTIONING. MODERATE DRAINAGE FROM FISTULA SITE. NO UPPER OR LOWER EXTREMITY EDEMA NOTED. HER VITALS THIS MORNING ARE: 98.5-70-18-100%-147/73. LABS WERE OBTAINED. WBC 8.3, RBC 3.17, HGB 8.9, HCT 27.1, PLT COUNT 299, SODIUM 142, POTASSIUM 3.8, CHLORIDE 108, BUN 4, CREATININE 0.67, GLUCOSE 110, CALCIUM 8.8, MAGNEISUM 1.9, AST 22, ALT 10, ALK PHOS 67, TOTAL PROTEIN 5.4, ALBUMIN 1.8. SHE IS CURRENTLY RECEIVING D5 NORMAL SALINE AT 80 ML/HR, PEPCID 20MG IV Q12H, PROTONIX 40MG IV DAILY, ALBUTEROL NEBS BID, MORPHINE SULFATE 2MG IV Q4H PRN, THE POTASSIUM AND MAGNESIUM PROTOCOLS, ZESTRIL 10MG DAILY, LOPRESSOR 100MG BID, PERCOCET 5/325MG PO Q6H PRN, AND ZOCOR 20MG PO HS. SHE IS CURRENTLY ON A REGULAR DIET AND IS TOLERATING IT WELL. PHYSICAL AND OCCUPATIONAL THERAPIES WILL CONTINUE TO WORK WITH PATIENT TODAY. SHE HAS BEEN COOPERATIVE WITH THERAPY. WILL CONTINUE TO FOLLOW. OTHERWISE, WE WILL FOLLOW-UP WITH AM LABS AND CONTINUE TO MONITOR. TIME SPENT ON CLINICAL ASSESSMENT, REVIEWING LABS AND IMAGING, DECISION MAKING, AND DOCUMENTATION GREATER THAN 45 MINUTES. - Past Medical Family Social History Past Med/Fam/Surg Hx: No changes since H&P Allergies: Allergies prochlorperazine [From Compazine] Allergy (Unknown, Verified 07/11/22 19:19) Reason: Drug allergy tramadol Allergy (Verified 07/11/22 19:19) - Review of Systems ROS: No change since H&P - Vital Signs and I&O's Vital Signs: Temperature 97.9 F Pulse Rate [Right Brachial] 70 Pulse Rate 70 Respiratory Rate 18 Blood Pressure [Right Arm] 177/78 Blood Pressure [Left Arm] 141/65 Blood Pressure 123/71 O2 Sat by Pulse Oximetry 98 Intake and Output: Intake & Output 07/26/22 07/27/22 07/28/22 07/29/22 11:59 11:59 11:59 11:59 Intake Total 2260 / 2260 1989 / 1989 2603 / 2603 3007 / 3007 Output Total 700 / 700 350 / 350 550 / 550 100 / 100 Balance 1560 / 1560 1640 / 1640 205 / 2052 2907 / 2907 - Physical Exam Oriented: Normal Eyes: Normal Ear: Normal Nose: Other (NG TUBE RIGHT NARE) Throat: Normal Respiratory: Diminished Cardiovascular: Normal : Normal Auscultation: Bowel Sounds: Decreased Tenderness: Epigastric (soft abdomen . only mild tenderness , BS+, no infection .. see above .), Mild, Other (ILEOSTOMY FUNCTIONING) Skin: Normal Musculoskeletal: Normal Psychiatric: Other Mood Description: Calm Speech Pattern: Clear, Appropriate - Laboratory and Diagnostics Result Diagrams: 07/29/22 05:36 07/29/22 05:36 Labs: 07/17/22 15:25 Urine,Clean Catch Urine Culture - Final Laboratory WBC 9.1 X10^3/uL (3.6-10.0) 07/29/22 05:36 RBC 3.34 X10^6/uL (3.5-5.4) L 07/29/22 05:36 Hgb 9.3 g/dL (12.0-16.0) L 07/29/22 05:36 Hct 28.3 % (36.0-47.0) L 07/29/22 05:36 MCV 84.7 fL (80.0-100.0) 07/29/22 05:36 MCH 28.0 pg (27.0-34.0) 07/29/22 05:36 MCHC 33.0 g/dL (33.0-35.0) 07/29/22 05:36 RDW 17.3 % (11.6-16.5) H 07/29/22 05:36 Plt Count 356 X10^3/uL (150.0-450.0) 07/29/22 05:36 Plt Count Comment Adequate (ADEQUATE) 07/25/22 05:28 MPV 8.4 fL (7.4-11.0) 07/29/22 05:36 Neut % (Auto) 71.6 % (42.0-75.0) 07/29/22 05:36 Lymph % (Auto) 16.5 % (21.0-51.0) L 07/29/22 05:36 [place] % (Auto) 9.1 % (0.0-13.0) 07/29/22 05:36 Eos % (Auto) 2.0 % (0.9-2.9) 07/29/22 05:36 Baso % (Auto) 0.8 % (0.2-1.0) 07/29/22 05:36 Neut # (Auto) 6.6 x10^3/uL (2.2-4.8) H 07/29/22 05:36 Lymph # (Auto) 1.5 X10^3/uL (1.3-2.9) 07/29/22 05:36 [place] # (Auto) 0.8 x10^3/uL (0.3-0.8) 07/29/22 05:36 Eos # (Auto) 0.2 x10^3/uL (0.0-0.2) 07/29/22 05:36 Baso # (Auto) 0.1 X10^3/uL (0.0-0.1) 07/29/22 05:36 Absolute Nucleated RBC 0.0 /100WBC 07/29/22 05:36 Plt Morphology Comment Normal (NORMAL) 07/25/22 05:28 RBC Morphology Normal (NORMAL) 07/25/22 05:28 Sodium 142 mmol/L (136-145) 07/29/22 05:36 Corrected Sodium 142 mmol/L (136-145) 07/29/22 05:36 Potassium 4.0 mmol/L (3.5-5.1) 07/29/22 05:36 Chloride 108 mmol/L (98-107) H 07/29/22 05:36 Carbon Dioxide 27.2 mmol/L (21-32) 07/29/22 05:36 BUN 3 mg/dL (7-18) L 07/29/22 05:36 Creatinine 0.65 mg/dL (0.55-1.02) 07/29/22 05:36 Est GFR (MDRD) Af Amer > 60 (>60) 07/29/22 05:36 Est GFR (MDRD) Non-Af > 60 (>60) 07/29/22 05:36 Glucose 115 mg/dL (65-99) H 07/29/22 05:36 POC Glucose (mg/dL) 125 mg/dL (65-99) H 07/16/22 05:45 Calcium 9.0 mg/dL (8.5-10.1) 07/29/22 05:36 Corrected Calcium 10.8 mg/dL (8.5-10.1) H 07/29/22 05:36 Magnesium 1.8 mg/dL (2.0-2.9) L 07/29/22 05:36 Total Bilirubin 0.40 mg/dL (0.2-1.0) 07/29/22 05:36 AST 15 Units/L (15-37) 07/29/22 05:36 ALT 8 Units/L (12-78) L 07/29/22 05:36 Alkaline Phosphatase 65 Units/L (46-116) 07/29/22 05:36 Total Protein 5.5 g/dL (6.4-8.2) L 07/29/22 05:36 Albumin 1.8 g/dL (3.4-5.0) L 07/29/22 05:36 Globulin 3.7 g/dL (2.5-4.5) 07/29/22 05:36 Albumin/Globulin Ratio 0.5 Ratio (1.1-2.1) L 07/29/22 05:36 Specimen Type Random urine 07/17/22 15:25 Urine Color Yellow (YELLOW) 07/17/22 15:25 Urine Appearance Hazy (CLEAR) 07/17/22 15:25 Urine pH 6.0 (5.0 - 8.0) 07/17/22 15:25 Ur Specific [place] 1.025 (1.000-1.030) 07/17/22 15:25 Urine Protein 3+ (NEGATIVE) 07/17/22 15:25 Urine Glucose (UA) Negative (NEGATIVE) 07/17/22 15:25 Urine Ketones Negative (NEGATIVE) 07/17/22 15:25 Urine Blood 4+ (NEGATIVE) 07/17/22 15:25 Urine Nitrite Negative (NEGATIVE) 07/17/22 15:25 Urine Bilirubin Negative (NEGATIVE) 07/17/22 15:25 Urine Urobilinogen Normal (NORMAL) 07/17/22 15:25 Ur Leukocyte Esterase 2+ (NEGATIVE) 07/17/22 15:25 Urine RBC 20-30 /HPF (0-3) A 07/17/22 15:25 Urine WBC 10-20 /HPF (0-5) A 07/17/22 15:25 Ur Squamous Epith Cells Rare /HPF (NEGATIVE) 07/17/22 15:25 Uric Acid Crystals Few /HPF (NEGATIVE) 07/17/22 15:25 Urine Bacteria Trace /HPF (NEGATIVE) 07/17/22 15:25 Hyaline Casts Few /LPF (NEGATIVE) 07/17/22 15:25 Granular Casts Rare /LPF (NEGATIVE) 07/17/22 15:25 Urine Yeast Numerous /HPF (NEGATIVE) 07/17/22 15:25 Ur Culture Indicated? No/not indicated 07/17/22 15:25 - Plan (1) Enterocutaneous fistula Status: Acute Plan: D5 NORMAL SALINE AT 80 ML/HR, PEPCID 20MG IV Q12H, PROTONIX 40MG IV DAILY, ALBUTEROL NEBS BID, MORPHINE SULFATE 2MG IV Q4H PRN, THE POTASSIUM AND MAGNESIUM PROTOCOLS, ZESTRIL 10MG DAILY, LOPRESSOR 100MG BID, PERCOCET 5/325MG PO Q6H PRN, AND ZOCOR 20MG PO HS. (2) Abdominal adhesions Status: Acute (3) Status post colostomy Status: Acute (4) DJD (degenerative joint disease), lumbar Status: Chronic Qualifiers: Spinal osteoarthritis complication: unspecified spinal osteoarthritis Robin lified Code(s): M47.816 - Spondylosis without myelopathy or radiculopathy, lumbar region (5) Hypertension Status: Chronic Qualifiers: Hypertension type: primary hypertension (6) Hyperlipidemia Status: Chronic Qualifiers: Hyperlipidemia type: mixed hyperlipidemia (7) Diabetes mellitus Status: Chronic Qualifiers: Diabetes mellitus type: type 2 Diabetes mellitus intermediate insulin use: with intermediate use Diabetes mellitus complication status: with hyperglycemia Qualified Code(s): E11.65 - Type 2 diabetes mellitus with hyperglycemia; Z79.4 - custodial (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
--- NOTE | 2022-07-29 11:11 | PCM.PROG ---
Progress Note - Progress Note for Day of Date of Exam: 07/29/22 - Subjective Subjective: IS CURRENTLY INPATIENT STATUS. SHE IS TWO WEEKS POST LAPAROTOMY, LYSIS OF ADHESIONS, AND SMALL BOWEL LOOP COLOSTOMY. 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 TODAY, SHE IS ALERT AND ORIENTED, LYING IN BED ON MORNING ROUNDS. SHE DENIES ABDOMINAL PAIN THIS MORNING. SHE ALSO DENIES NAUSEA OR VOMITING. ON EXAMINATION TODAY, HEART IS REGULAR IN RATE AND RHYTHM. BILATERAL LUNGS ARE CLEAR TO AUSCULTATION. ABDOMEN IS ROUND, SOFT, AND NON-TENDER. NORMAL BOWEL SOUNDS NOTED IN ALL QUADRANTS. ILEOSTOMY IS FUNCTIONING. MODERATE DRAINAGE FROM FISTULA SITE. NO UPPER OR LOWER EXTREMITY EDEMA NOTED. HER VITALS THIS MORNING ARE: 98.0-70-20-98%-173/68. LABS WERE OBTAINED. WBC 9.1, RBC 3.34, HGB 9.3, HCT 28.3, PLT COUNT 356, SODIUM 142, POTASSIUM 4.0, CHLORIDE 108, BUN 3, CREATININE 0.65, GLUCOSE 115, CALCIUM 9.0, MAGNESIUM 1.8, AST 15, ALT 8, ALK PHOS 65, TOTAL PROTEIN 5.5, ALBUMIN 1.8. SHE IS CURRENTLY RECEIVING D5 NORMAL SALINE AT 80 ML/HR, PEPCID 20MG IV Q12H, PROTONIX 40MG IV DAILY, ALBUTEROL NEBS BID, MORPHINE SULFATE 2MG IV Q4H PRN, THE POTASSIUM AND MAGNESIUM PROTOCOLS, ZESTRIL 10MG DAILY, LOPRESSOR 100MG BID, PERCOCET 5/325MG PO Q6H PRN, AND ZOCOR 20MG PO HS. SHE IS CURRENTLY ON A REGULAR DIET AND IS TOLERATING IT WELL. PHYSICAL AND OCCUPATIONAL THERAPIES WILL CONTINUE TO WORK WITH PATIENT TODAY. SHE HAS BEEN COOPERATIVE WITH THERAPY. WILL CONTINUE TO FOLLOW. IF ALL REMAINS WELL, WE PLAN FOR DISCHARGE HOME TOMORROW. OTHERWISE, WE WILL FOLLOW-UP WITH AM LABS AND CONTINUE TO MONITOR. TIME SPENT ON CLINICAL ASSESSMENT, REVIEWING LABS AND IMAGING, DECISION MAKING, AND DOCUMENTATION GREATER THAN 45 MINUTES. - Past Medical Family Social History Past Med/Fam/Surg Hx: No changes since H&P Allergies: Allergies prochlorperazine [From Compazine] Allergy (Unknown, Verified 07/11/22 19:19) Reason: Drug allergy tramadol Allergy (Verified 07/11/22 19:19) - Review of Systems ROS: No change since H&P - Vital Signs and I&O's Vital Signs: Temperature 97.9 F Pulse Rate [Right Brachial] 70 Pulse Rate 70 Respiratory Rate 18 Blood Pressure [Right Arm] 177/78 Blood Pressure [Left Arm] 141/65 Blood Pressure 123/71 O2 Sat by Pulse Oximetry 98 Intake and Output: Intake & Output 07/26/22 07/27/22 07/28/22 07/29/22 11:59 11:59 11:59 11:59 Intake Total 2260 / 2260 1989 / 1989 2603 / 2603 3007 / 3007 Output Total 700 / 700 350 / 350 550 / 550 100 / 100 Balance 1560 / 1560 1640 / 1640 205 / 205 2907 / 2907 - Physical Exam Oriented: Normal Eyes: Normal Ear: Normal Nose: Other (NG TUBE RIGHT NARE) Throat: Normal Respiratory: Diminished Cardiovascular: Normal : Normal Auscultation: Bowel Sounds: Decreased Tenderness: Epigastric (soft abdomen . only mild tenderness , BS+, no infection .. see above .), Mild, Other (ILEOSTOMY FUNCTIONING) Skin: Normal Musculoskeletal: Normal Psychiatric: Other Mood Description: Calm Speech Pattern: Clear, Appropriate - Laboratory and Diagnostics Result Diagrams: 07/29/22 05:36 07/29/22 05:36 Labs: 07/17/22 15:25 Urine,Clean Catch Urine Culture - Final Laboratory WBC 9.1 X10^3/uL (3.6-10.0) 07/29/22 05:36 RBC 3.34 X10^6/uL (3.5-5.4) L 07/29/22 05:36 Hgb 9.3 g/dL (12.0-16.0) L 07/29/22 05:36 Hct 28.3 % (36.0-47.0) L 07/29/22 05:36 MCV 84.7 fL (80.0-100.0) 07/29/22 05:36 MCH 28.0 pg (27.0-34.0) 07/29/22 05:36 MCHC 33.0 g/dL (33.0-35.0) 07/29/22 05:36 RDW 17.3 % (11.6-16.5) H 07/29/22 05:36 Plt Count 356 X10^3/uL (150.0-450.0) 07/29/22 05:36 Plt Count Comment Adequate (ADEQUATE) 07/25/22 05:28 MPV 8.4 fL (7.4-11.0) 07/29/22 05:36 Neut % (Auto) 71.6 % (42.0-75.0) 07/29/22 05:36 Lymph % (Auto) 16.5 % (21.0-51.0) L 07/29/22 05:36 [place] % (Auto) 9.1 % (0.0-13.0) 07/29/22 05:36 Eos % (Auto) 2.0 % (0.9-2.9) 07/29/22 05:36 Baso % (Auto) 0.8 % (0.2-1.0) 07/29/22 05:36 Neut # (Auto) 6.6 x10^3/uL (2.2-4.8) H 07/29/22 05:36 Lymph # (Auto) 1.5 X10^3/uL (1.3-2.9) 07/29/22 05:36 [place] # (Auto) 0.8 x10^3/uL (0.3-0.8) 07/29/22 05:36 Eos # (Auto) 0.2 x10^3/uL (0.0-0.2) 07/29/22 05:36 Baso # (Auto) 0.1 X10^3/uL (0.0-0.1) 07/29/22 05:36 Absolute Nucleated RBC 0.0 /100WBC 07/29/22 05:36 Plt Morphology Comment Normal (NORMAL) 07/25/22 05:28 RBC Morphology Normal (NORMAL) 07/25/22 05:28 Sodium 142 mmol/L (136-145) 07/29/22 05:36 Corrected Sodium 142 mmol/L (136-145) 07/29/22 05:36 Potassium 4.0 mmol/L (3.5-5.1) 07/29/22 05:36 Chloride 108 mmol/L (98-107) H 07/29/22 05:36 Carbon Dioxide 27.2 mmol/L (21-32) 07/29/22 05:36 BUN 3 mg/dL (7-18) L 07/29/22 05:36 Creatinine 0.65 mg/dL (0.55-1.02) 07/29/22 05:36 Est GFR (MDRD) Af Amer > 60 (>60) 07/29/22 05:36 Est GFR (MDRD) Non-Af > 60 (>60) 07/29/22 05:36 Glucose 115 mg/dL (65-99) H 07/29/22 05:36 POC Glucose (mg/dL) 125 mg/dL (65-99) H 07/16/22 05:45 Calcium 9.0 mg/dL (8.5-10.1) 07/29/22 05:36 Corrected Calcium 10.8 mg/dL (8.5-10.1) H 07/29/22 05:36 Magnesium 1.8 mg/dL (2.0-2.9) L 07/29/22 05:36 Total Bilirubin 0.40 mg/dL (0.2-1.0) 07/29/22 05:36 AST 15 Units/L (15-37) 07/29/22 05:36 ALT 8 Units/L (12-78) L 07/29/22 05:36 Alkaline Phosphatase 65 Units/L (46-116) 07/29/22 05:36 Total Protein 5.5 g/dL (6.4-8.2) L 07/29/22 05:36 Albumin 1.8 g/dL (3.4-5.0) L 07/29/22 05:36 Globulin 3.7 g/dL (2.5-4.5) 07/29/22 05:36 Albumin/Globulin Ratio 0.5 Ratio (1.1-2.1) L 07/29/22 05:36 Specimen Type Random urine 07/17/22 15:25 Urine Color Yellow (YELLOW) 07/17/22 15:25 Urine Appearance Hazy (CLEAR) 07/17/22 15:25 Urine pH 6.0 (5.0 - 8.0) 07/17/22 15:25 Ur Specific [place] 1.025 (1.000-1.030) 07/17/22 15:25 Urine Protein 3+ (NEGATIVE) 07/17/22 15:25 Urine Glucose (UA) Negative (NEGATIVE) 07/17/22 15:25 Urine Ketones Negative (NEGATIVE) 07/17/22 15:25 Urine Blood 4+ (NEGATIVE) 07/17/22 15:25 Urine Nitrite Negative (NEGATIVE) 07/17/22 15:25 Urine Bilirubin Negative (NEGATIVE) 07/17/22 15:25 Urine Urobilinogen Normal (NORMAL) 07/17/22 15:25 Ur Leukocyte Esterase 2+ (NEGATIVE) 07/17/22 15:25 Urine RBC 20-30 /HPF (0-3) A 07/17/22 15:25 Urine WBC 10-20 /HPF (0-5) A 07/17/22 15:25 Ur Squamous Epith Cells Rare /HPF (NEGATIVE) 07/17/22 15:25 Uric Acid Crystals Few /HPF (NEGATIVE) 07/17/22 15:25 Urine Bacteria Trace /HPF (NEGATIVE) 07/17/22 15:25 Hyaline Casts Few /LPF (NEGATIVE) 07/17/22 15:25 Granular Casts Rare /LPF (NEGATIVE) 07/17/22 15:25 Urine Yeast Numerous /HPF (NEGATIVE) 07/17/22 15:25 Ur Culture Indicated? No/not indicated 07/17/22 15:25 - Plan (1) Enterocutaneous fistula Status: Acute Plan: D5 NORMAL SALINE AT 80 ML/HR, PEPCID 20MG IV Q12H, PROTONIX 40MG IV DAILY, ALBUTEROL NEBS BID, MORPHINE SULFATE 2MG IV Q4H PRN, THE POTASSIUM AND MAGNESIUM PROTOCOLS, ZESTRIL 10MG DAILY, LOPRESSOR 100MG BID, PERCOCET 5/325MG PO Q6H PRN, AND ZOCOR 20MG PO HS. (2) Abdominal adhesions Status: Acute (3) Status post colostomy Status: Acute (4) DJD (degenerative joint disease), lumbar Status: Chronic Qualifiers: Spinal osteoarthritis complication: unspecified spinal osteoarthritis Qualified Code(s): M47.816 - Spondylosis without myelopathy or radiculopathy, lumbar region (5) Hypertension Status: Chronic Qualifiers: Hypertension type: primary hypertension (6) Hyperlipidemia Status: Chronic Qualifiers: Hyperlipidemia type: mixed hyperlipidemia (7) Diabetes mellitus Status: Chronic Qualifiers: Diabetes mellitus type: type 2 Diabetes mellitus ferry terminal agent insulin use: with ferry terminal agent use Diabetes mellitus complication status: with hyperglycemia Qualified Code(s): E11.65 - Type 2 diabetes mellitus with hyperglycemia; Z79.4 - senior care (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
[2022-07-29] MEDS: ZOCOR TAB 20 MG PO SCH (20:58)
[2022-07-30] MEDS: D5 1/2 NS 1,000 ML 1,000 ML IV SCH ×2 (04:30→06:10)
[2022-07-30] MEDS: MORPHINE SULFATE INJ 2 MG INJ IVP PRN (05:09)
[2022-07-30 06:29] LABS: ALANINE AMINOTRANSFERASE 7 Units/L (12-78); ALBUMIN 1.9 g/dL (3.4-5.0); ALKALINE PHOSPHATASE 66 Units/L (46-116); ASPARTATE AMINO TRANSFERASE 17 Units/L (15-37); BLOOD UREA NITROGEN 4 mg/dL (7-18); CARBON DIOXIDE 27.1 mmol/L (21-32); CHLORIDE 107 mmol/L (98-107); COR CA(FOR HYPOALB) 10.7 mg/dL (8.5-10.1); COR NA(FOR HYPERGLY) 140 mmol/L (136-145); CREATININE 0.68 mg/dL (0.55-1.02); MAGNESIUM 1.8 mg/dL (2.0-2.9); SODIUM 140 mmol/L (136-145); TOTAL PROTEIN 5.4 g/dL (6.4-8.2); eGFR NON BLACK RACES > 60 (>60)
[2022-07-30 06:30] LABS: BASOPHILS % (AUTO) 0.5 % (0.2-1.0); EOSINOPHILS # (AUTO) 0.1 x10^3/uL (0.0-0.2); EOSINOPHILS % (AUTO) 1.8 % (0.9-2.9); HEMATOCRIT 28.7 % (36.0-47.0); HEMOGLOBIN 9.5 g/dL (12.0-16.0); LYMPHOCYTES # (AUTO) 1.5 X10^3/uL (1.3-2.9); LYMPHOCYTES % (AUTO) 18.4 % (21.0-51.0); MEAN CORPUSCULAR HEMOGLOBIN 28.3 pg (27.0-34.0); MEAN CORPUSCULAR HGB CONC 33.1 g/dL (33.0-35.0); MEAN CORPUSCULAR VOLUME 85.6 fL (80.0-100.0); MEAN PLATELET VOLUME 8.5 fL (7.4-11.0); MONOCYTES # (AUTO) 0.8 x10^3/uL (0.3-0.8); MONOCYTES % (AUTO) 9.2 % (0.0-13.0); NEUTROPHILS # (AUTO) 5.7 x10^3/uL (2.2-4.8); NEUTROPHILS % (AUTO) 70.1 % (42.0-75.0); RED BLOOD COUNT 3.35 X10^6/uL (3.5-5.4); RED CELL DISTRIBUTION WIDTH 17.7 % (11.6-16.5); WHITE BLOOD COUNT 8.2 X10^3/uL (3.6-10.0)
[2022-07-30] MEDS: LOVENOX INJ 40 MG SYR SC SCH (08:44)
[2022-07-30] MEDS: ZESTRIL TAB 10 MG PO SCH (08:45)
[2022-07-30] MEDS: PEPCID 20 MG VIAL 20 MG in NS 50 ML IV 50 ML IV SCH (08:45)
[2022-07-30] MEDS: LOPRESSOR TAB 50 MG PO SCH (08:45)
[2022-07-30] MEDS: PROTONIX INJ 40 MG VIAL IVP SCH (08:46)
[2022-07-30 11:43] VITALS: BP 142/66
== END 2022-07-30 12:25 | disposition home health service (06) | DRG 330 ==
LOC: MED/SURG 07:00 → ICU 14:48 → MED/SURG 07-22 16:20
PROVIDERS: ADMIT Internal Medicine; ATTEND Internal Medicine
DX: Z79.4 Long term (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; K63.2 Fistula of intestine; E66.01 Morbid (severe) obesity due to excess calories; R06.02 Shortness of breath; M47.816 Spondylosis without myelopathy or radiculopathy, lumbar region; N18.4 Chronic kidney disease, stage 4 (severe); E11.65 Type 2 diabetes mellitus with hyperglycemia; E78.2 Mixed hyperlipidemia; Z95.0 Presence of cardiac pacemaker; R26.89 Other abnormalities of gait and mobility; Z79.890 Hormone replacement therapy; B37.89 Other sites of candidiasis; I25.10 Atherosclerotic heart disease of native coronary artery without angina pectoris; I12.9 Hypertensive chronic kidney disease with stage 1 through stage 4 chronic kidney disease, or unspecified chronic kidney disease; K43.9 Ventral hernia without obstruction or gangrene; K91.31 Postprocedural partial intestinal obstruction; K66.0 Peritoneal adhesions (postprocedural) (postinfection); K52.89 Other specified noninfective gastroenteritis and colitis

== ENCOUNTER 2022-10-16 17:22 | Inpatient (IN) ==
--- NOTE | 2022-10-16 17:32 | DR.AMS ---
HPI <Khurram Rowell - Last Filed: 10/21/22 08:45> Time Seen Time Seen by Provider: 10/16/22 17:35 Complaint Cheif Complaint Doctors Comments: 87 y/o female brought in via EMS for evaluation. Pt's hospice nurse sent pt in for worsening decubitus ulcer of her buttock, and rectal d/c (has a ileostomy < 2 mths). Pt non verbal to MD, nurses, not offering complaints. +holding her abdomen, nods yes when asked if her abdomen is hurting. Hospice nurse called. They have been seeing her for the past 3 weeks. Pt was having increased abdominal pain today. Reviewed Nurses Notes Reviewed: Yes PMH <Khurram Rowell - Last Filed: 10/21/22 08:45> PMH Past Medical History: Arthritis, Diabetes, Dyslipidemia and Hypertension Past Surgical History: Yes Surgical History: Angioplasty/Stents, Appendectomy and Other Family History Family Medical History: Hypertension Social History Have you used tobacco products in the last 12 months: No Alcohol Use: None Do you use any recreational Drugs:: No ROS <Khurram Rowell - Last Filed: 10/21/22 08:45> Review of Systems Unable to Obtain Due To: Altered mental status <Michelle Barakat - Last Filed: 10/16/22 21:49> Review of Systems Constitutional: No Symptoms Reported Eyes: No Symptoms Reported ENTM: No Symptoms Reported Respiratoy: No Symptoms Reported Cardiovascular: No Symptoms Reported Gastrointestinal/Abdominal: No Symptoms Reported and Abdominal Pain (dehisced ventral hernia with discharge(serous)) Genitourinary: No Symptoms Reported Neurological: No Symptoms Reported Musculoskeletal: No Symptoms Reported Integumentary: No Symptoms Reported and Wound (Decubitus Ulcer Stage 2 Left inner buttocks) Hematologic/Lymphatic: No Symptoms Reported Endocrine: No Symptoms Reported Psychiatric: No Symptoms Reported All Other Systems: Reviewed and Negative PE <Khurram Rowell - Last Filed: 10/21/22 08:45> Vitals Vital Signs: Temp Pulse Pulse Resp BP BP BP 10/16/22 21:44 98 H 10/16/22 21:44 106/52 10/16/22 21:31 95 H 10/16/22 21:30 94 H 10/16/22 21:15 97 H 10/16/22 21:15 104/55 10/16/22 21:01 98 H 10/16/22 21:00 134/57 10/16/22 20:45 111/52 10/16/22 20:30 104/51 10/16/22 20:15 97/53 10/16/22 20:00 136/59 10/16/22 19:46 107/55 10/16/22 19:34 20 10/16/22 19:46 107/55 10/16/22 19:30 100/47 10/16/22 19:18 69 10/16/22 19:15 101/49 10/16/22 19:00 112/51 10/16/22 19:04 20 10/16/22 18:35 116/56 10/16/22 18:00 114/56 10/16/22 17:45 113/56 10/16/22 17:57 98.5 F 96 H 20 112/56 10/16/22 17:33 98.5 F 96 H 20 112/56 07/30/22 11:42 142/66 07/28/22 08:36 07/23/22 20:00 141/65 07/10/22 07:00 169/74 06/30/22 04:00 178/79 08/19/22 09:45 90/60 Pulse Ox O2 Del Method FiO2 10/16/22 21:44 96 10/16/22 21:44 10/16/22 21:31 97 10/16/22 21:30 97 10/16/22 21:15 100 10/16/22 21:15 10/16/22 21:01 100 10/16/22 21:00 10/16/22 20:45 10/16/22 20:30 10/16/22 20:15 10/16/22 20:00 10/16/22 19:46 10/16/22 19:34 10/16/22 19:46 10/16/22 19:30 10/16/22 19:18 88 L 10/16/22 19:15 10/16/22 19:00 10/16/22 19:04 10/16/22 18:35 10/16/22 18:00 10/16/22 17:45 10/16/22 17:57 100 Room Air 10/16/22 17:33 100 Room Air 07/30/22 11:42 02/13/23 08:36 28 07/23/22 20:00 07/10/22 07:00 06/30/22 04:00 08/19/22 09:45 General General Appearance: Alert and In No Apparent Distress Eyes Eye exam: PERRL and EOMI Neck Neck Exam: Normal Inspection Respiratory Respiratory Exam: Normal Lung Sounds Bilat; negative Accessory Muscle Use or Respiratory Distress Cardiovascular Cardiovascular Exam: Regular Rate, Normal Rhythm and Normal Heart Sounds Abdominal Exam Abdominal Exam: Tenderness (diffuse, worse across the upper abdomen, with some guarding, no rebound. ) and Other (+ colostomy, + ventral midline wound dehiscience, 3 x 3 cms, cord from previous surgery exposed. ) Neurological Neurological Exam: Alert and Other (nonverbal on arrival, moves all exts. ) Skin Skin Exam: Warm, Dry and Other (+ stage 2 decubitus of left inner buttock, 3.5 x 2.5 cms. ) <Michelle Barakat - Last Filed: 10/16/22 21:49> Vitals Vital Signs: Temp Pulse Pulse Resp BP BP BP 10/16/22 21:44 98 H 10/16/22 21:44 106/52 10/16/22 21:31 95 H 10/16/22 21:30 94 H 10/16/22 21:15 97 H 10/16/22 21:15 104/55 10/16/22 21:01 98 H 10/16/22 21:00 134/57 10/16/22 20:45 111/52 10/16/22 20:30 104/51 10/16/22 20:15 97/53 10/16/22 20:00 136/59 10/16/22 19:46 107/55 10/16/22 19:34 20 10/16/22 19:46 107/55 10/16/22 19:30 100/47 10/16/22 19:18 69 10/16/22 19:15 101/49 10/16/22 19:00 112/51 10/16/22 19:04 20 10/16/22 18:35 116/56 10/16/22 18:00 114/56 10/16/22 17:45 113/56 10/16/22 17:57 98.5 F 96 H 20 112/56 10/16/22 17:33 98.5 F 96 H 20 112/56 07/30/22 11:42 142/66 07/28/22 08:36 07/23/22 20:00 141/65 07/10/22 07:00 169/74 06/30/22 04:00 178/79 08/19/22 09:45 90/60 Pulse Ox O2 Del Method FiO2 10/16/22 21:44 96 10/16/22 21:44 10/16/22 21:31 97 10/16/22 21:30 97 10/16/22 21:15 100 10/16/22 21:15 10/16/22 21:01 100 10/16/22 21:00 10/16/22 20:45 10/16/22 20:30 10/16/22 20:15 10/16/22 20:00 10/16/22 19:46 10/16/22 19:34 10/16/22 19:46 10/16/22 19:30 10/16/22 19:18 88 L 10/16/22 19:15 10/16/22 19:00 10/16/22 19:04 10/16/22 18:35 10/16/22 18:00 10/16/22 17:45 10/16/22 17:57 100 Room Air 10/16/22 17:33 100 Room Air 07/30/22 11:42 07/28/22 08:36 28 07/23/22 20:00 07/10/22 07:00 06/30/22 04:00 08/19/22 09:45 General Limitations: Language Barrier Head Head Exam: Normal Inspection ENT ENT Exam: Normal Exam External Ear Exam: Normal External Inspection Nose Exam: Normal Nose Exam Mouth Exam: Normal Inspection Throat Exam: Normal Inspection Chest Chest Inspection: Normal Inspection Respiratory Respiratory Exam: Bilateral: Clear to Auscultation Abdominal Exam Abdominal Exam: Other (+ colostomy, + ventral midline wound dehiscience, 3 x 3 cms + malodorous serous drainage, cord from previous surgery exposed. ) Extremities Extremities Exam: Normal Inspection Back Back Exam: Normal Inspection Psychological Psychiatric Exam: Normal Affect and Normal Mood COURSE <Khurram Rowell - Last Filed: 10/21/22 08:45> Treatment Treatment: 87 y/o female with diffuse abdominal pain on arrival, poor history due to current mental state. + h/o ileostomy, with previous ventral wound dehiscience. W/u initiated. Will obtain plain CT of the abd/pelvis (h/o CKD). Pt not on dialysis. Under care of hospice for her chronic kidney disease. Pt given IV fluids, dlaudid 1 mg IV. 1947 - WBC elevated at 16.4K. BUN/Cr elevated to 88/3.28. Awaiting CT report, U/A (cath specimen). <Michelle RushgginsArturoDaniel - Last Filed: 10/16/22 21:49> Treatment Treatment: 87 y/o female with diffuse abdominal pain on arrival, poor history due to current mental state. + h/o ileostomy, with previous ventral wound dehiscience. W/u initiated. Will obtain plain CT of the abd/pelvis (h/o CKD). Pt not on dialysis. Under care of hospice for her chronic kidney disease. Pt given IV fluids, dilaudid 1 mg IV. 1947 - WBC elevated at 16.4K. BUN/Cr elevated to 88/3.28. Awaiting CT report, U/A (cath specimen). Patient has Acute Pancreatitis per the radiologist, UTI and decubitus Ulcer stage 2. Patient has been accepted by Dr Fonseca to [facility] inpatient service. Patient has been given ciprofloxacin 400mg iv for the pancreatitis and the UTI. ROR <Khurram Rowell - Last Filed: 10/21/22 08:45> Labs Reviewed Laboratory Results Reviewed?: Yes Result Diagrams: 10/21/22 04:03 10/21/22 04:03 Laboratory: 10/16/22 21:24 Buttock Wound Gram Stain - Final 10/16/22 21:24 Buttock Wound Culture - Final Pseudomonas Aeruginosa 10/16/22 18:15 Blood Blood Culture - Preliminary 10/16/22 19:44 Urine,Catheterized Urine Culture - Final 10/16/22 21:24 Abdomen Wound Gram Stain - Final 10/16/22 21:24 Abdomen Wound Culture - Final Escherichia Coli WBC 16.4 X10^3/uL (3.6-10.0) H 10/16/22 18:15 RBC 3.53 X10^6/uL (3.5-5.4) 10/16/22 18:15 Hgb 9.6 g/dL (12.0-16.0) L 10/16/22 18:15 Hct 31.2 % (36.0-47.0) L 10/16/22 18:15 MCV 88.4 fL (80.0-100.0) 10/16/22 18:15 MCH 27.3 pg (27.0-34.0) 10/16/22 18:15 MCHC 30.9 g/dL (33.0-35.0) L 10/16/22 18:15 RDW 20.6 % (11.6-16.5) H 10/16/22 18:15 Plt Count 369 X10^3/uL (150.0-450.0) 10/16/22 18:15 Plt Count Comment Adequate (ADEQUATE) 10/16/22 18:15 MPV 8.2 fL (7.4-11.0) 10/16/22 18:15 Neut % (Auto) 81.5 % (42.0-75.0) H 10/16/22 18:15 Lymph % (Auto) 10.3 % (21.0-51.0) L 10/16/22 18:15 [place] % (Auto) 7.1 % (0.0-13.0) 10/16/22 18:15 Eos % (Auto) 0.9 % (0.9-2.9) 10/16/22 18:15 Baso % (Auto) 0.2 % (0.2-1.0) 10/16/22 18:15 Neut # (Auto) 13.4 x10^3/uL (2.2-4.8) H 10/16/22 18:15 Lymph # (Auto) 1.7 X10^3/uL (1.3-2.9) 10/16/22 18:15 [place] # (Auto) 1.2 x10^3/uL (0.3-0.8) H 10/16/22 18:15 Eos # (Auto) 0.1 x10^3/uL (0.0-0.2) 10/16/22 18:15 Baso # (Auto) 0.0 X10^3/uL (0.0-0.1) 10/16/22 18:15 Absolute Nucleated RBC 0.1 /100WBC 10/16/22 18:15 Plt Morphology Comment Normal (NORMAL) 10/16/22 18:15 RBC Morphology Abnormal (NORMAL) A 10/16/22 18:15 Anisocytosis 1+ A 10/16/22 18:15 Target Cells Present 10/16/22 18:15 Sodium 141 mmol/L (136-145) 10/16/22 18:15 Corrected Sodium 143 mmol/L (136-145) 10/16/22 18:15 Potassium 5.6 mmol/L (3.5-5.1) H 10/16/22 18:15 Chloride 112 mmol/L (98-107) H 10/16/22 18:15 Carbon Dioxide 23.9 mmol/L (21-32) 10/16/22 18:15 BUN 88 mg/dL (7-18) H 10/16/22 18:15 Creatinine 3.28 mg/dL (0.55-1.02) H 10/16/22 18:15 Est GFR (MDRD) Af Amer 17 (>60) L 10/16/22 18:15 Est GFR (MDRD) Non-Af 14 (>60) L 10/16/22 18:15 Glucose 183 mg/dL (65-99) H 10/16/22 18:15 Lactic Acid 2.2 mmol/L (0.4-2.0) H 10/16/22 18:15 Calcium 9.2 mg/dL (8.5-10.1) 10/16/22 18:15 Corrected Calcium 11.2 mg/dL (8.5-10.1) H 10/16/22 18:15 Total Bilirubin 0.30 mg/dL (0.2-1.0) 10/16/22 18:15 AST 20 Units/L (15-37) 10/16/22 18:15 ALT 18 Units/L (12-78) 10/16/22 18:15 Alkaline Phosphatase 127 Units/L (46-116) H 10/16/22 18:15 Total Protein 6.1 g/dL (6.4-8.2) L 10/16/22 18:15 Albumin 1.5 g/dL (3.4-5.0) L 10/16/22 18:15 Globulin 4.6 g/dL (2.5-4.5) H 10/16/22 18:15 Albumin/Globulin Ratio 0.3 Ratio (1.1-2.1) L 10/16/22 18:15 Lipase 430 Units/L (73-393) H 10/16/22 18:15 Specimen Type Catherized urine 10/16/22 19:44 Urine Color Pale yellow (YELLOW) 10/16/22 19:44 Urine Appearance Cloudy (CLEAR) 10/16/22 19:44 Urine pH 5.0 (5.0 - 8.0) 10/16/22 19:44 Ur Specific [place] 1.020 (1.000-1.030) 10/16/22 19:44 Urine Protein 2+ (NEGATIVE) 10/16/22 19:44 Urine Glucose (UA) Negative (NEGATIVE) 10/16/22 19:44 Urine Ketones Negative (NEGATIVE) 10/16/22 19:44 Urine Blood 4+ (NEGATIVE) 10/16/22 19:44 Urine Nitrite Negative (NEGATIVE) 10/16/22 19:44 Urine Bilirubin Negative (NEGATIVE) 10/16/22 19:44 Urine Urobilinogen Normal (NORMAL) 10/16/22 19:44 Ur Leukocyte Esterase 3+ (NEGATIVE) 10/16/22 19:44 Urine RBC Tntc /HPF (0-3) A 10/16/22 19:44 Urine WBC Tntc /HPF (0-5) A 10/16/22 19:44 Ur Squamous Epith Cells Rare /HPF (NEGATIVE) 10/16/22 19:44 Urine Bacteria Trace /HPF (NEGATIVE) 10/16/22 19:44 Ur Culture Indicated? Yes/culture set up 10/16/22 19:44 <Michelle Barakat - Last Filed: 10/16/22 21:49> Labs Reviewed Laboratory: 10/16/22 21:24 Buttock Wound Gram Stain - Final 10/16/22 21:24 Buttock Wound Culture - Final Pseudomonas Aeruginosa 10/16/22 18:15 Blood Blood Culture - Preliminary 10/16/22 19:44 Urine,Catheterized Urine Culture - Final 10/16/22 21:24 Abdomen Wound Gram Stain - Final 10/16/22 21:24 Abdomen Wound Culture - Final Escherichia Coli WBC 16.4 X10^3/uL (3.6-10.0) H 10/16/22 18:15 RBC 3.53 X10^6/uL (3.5-5.4) 10/16/22 18:15 Hgb 9.6 g/dL (12.0-16.0) L 10/16/22 18:15 Hct 31.2 % (36.0-47.0) L 10/16/22 18:15 MCV 88.4 fL (80.0-100.0) 10/16/22 18:15 MCH 27.3 pg (27.0-34.0) 10/16/22 18:15 MCHC 30.9 g/dL (33.0-35.0) L 10/16/22 18:15 RDW 20.6 % (11.6-16.5) H 10/16/22 18:15 Plt Count 369 X10^3/uL (150.0-450.0) 10/16/22 18:15 Plt Count Comment Adequate (ADEQUATE) 10/16/22 18:15 MPV 8.2 fL (7.4-11.0) 10/16/22 18:15 Neut % (Auto) 81.5 % (42.0-75.0) H 10/16/22 18:15 Lymph % (Auto) 10.3 % (21.0-51.0) L 10/16/22 18:15 [place] % (Auto) 7.1 % (0.0-13.0) 10/16/22 18:15 Eos % (Auto) 0.9 % (0.9-2.9) 10/16/22 18:15 Baso % (Auto) 0.2 % (0.2-1.0) 10/16/22 18:15 Neut # (Auto) 13.4 x10^3/uL (2.2-4.8) H 10/16/22 18:15 Lymph # (Auto) 1.7 X10^3/uL (1.3-2.9) 10/16/22 18:15 [place] # (Auto) 1.2 x10^3/uL (0.3-0.8) H 10/16/22 18:15 Eos # (Auto) 0.1 x10^3/uL (0.0-0.2) 10/16/22 18:15 Baso # (Auto) 0.0 X10^3/uL (0.0-0.1) 10/16/22 18:15 Absolute Nucleated RBC 0.1 /100WBC 10/16/22 18:15 Plt Morphology Comment Normal (NORMAL) 10/16/22 18:15 RBC Morphology Abnormal (NORMAL) A 10/16/22 18:15 Anisocytosis 1+ A 10/16/22 18:15 Target Cells Present 10/16/22 18:15 Sodium 141 mmol/L (136-145) 10/16/22 18:15 Corrected Sodium 143 mmol/L (136-145) 10/16/22 18:15 Potassium 5.6 mmol/L (3.5-5.1) H 10/16/22 18:15 Chloride 112 mmol/L (98-107) H 10/16/22 18:15 Carbon Dioxide 23.9 mmol/L (21-32) 10/16/22 18:15 BUN 88 mg/dL (7-18) H 10/16/22 18:15 Creatinine 3.28 mg/dL (0.55-1.02) H 10/16/22 18:15 Est GFR (MDRD) Af Amer 17 (>60) L 10/16/22 18:15 Est GFR (MDRD) Non-Af 14 (>60) L 10/16/22 18:15 Glucose 183 mg/dL (65-99) H 10/16/22 18:15 Lactic Acid 2.2 mmol/L (0.4-2.0) H 10/16/22 18:15 Calcium 9.2 mg/dL (8.5-10.1) 10/16/22 18:15 Corrected Calcium 11.2 mg/dL (8.5-10.1) H 10/16/22 18:15 Total Bilirubin 0.30 mg/dL (0.2-1.0) 10/16/22 18:15 AST 20 Units/L (15-37) 10/16/22 18:15 ALT 18 Units/L (12-78) 10/16/22 18:15 Alkaline Phosphatase 127 Units/L (46-116) H 10/16/22 18:15 Total Protein 6.1 g/dL (6.4-8.2) L 10/16/22 18:15 Albumin 1.5 g/dL (3.4-5.0) L 10/16/22 18:15 Globulin 4.6 g/dL (2.5-4.5) H 10/16/22 18:15 Albumin/Globulin Ratio 0.3 Ratio (1.1-2.1) L 10/16/22 18:15 Lipase 430 Units/L (73-393) H 10/16/22 18:15 Specimen Type Catherized urine 10/16/22 19:44 Urine Color Pale yellow (YELLOW) 10/16/22 19:44 Urine Appearance Cloudy (CLEAR) 10/16/22 19:44 Urine pH 5.0 (5.0 - 8.0) 10/16/22 19:44 Ur Specific [place] 1.020 (1.000-1.030) 10/16/22 19: Urine Protein 2+ (NEGATIVE) 10/16/22 19:44 Urine Glucose (UA) Negative (NEGATIVE) 10/16/22: Urine Ketones Negative (NEGATIVE) 10/16/22:44 Urine Blood 4+ (NEGATIVE) 10/16/22 19:44 Urine Nitrite Negative (NEGATIVE) 10/16/22 19:44 Urine Bilirubin Negative (NEGATIVE) 10/16/22 19:44 Urine Urobilinogen Normal (NORMAL) 10/16/22 19:44 Ur Leukocyte Esterase 3+ (NEGATIVE) 10/16/22 19:44 Urine RBC Tntc /HPF (0-3) A 10/16/22 19:44 Urine WBC Tntc /HPF (0-5) A 10/16/22 19:44 Ur Squamous Epith Cells Rare /HPF (NEGATIVE) 10/16/22:44 Urine Bacteria Trace /HPF (NEGATIVE) 10/16/22 19:44 Ur Culture Indicated? Yes/culture set up 10/16/22 19:44 XRAY XRAY Interpreted by: Radiologist X-ray Results: HISTORY Daughter states that patient started having stool from her rectum yesterday but she has a colostomy. STUDY ABDOMEN/PELVIS W/O CON COMPARISON TECHNIQUE Multiple axial images of the abdomen and pelvis were obtained from the lung bases to the pubic symphysis without the administration of IV contrast. Dose reduction techniques including Automated Exposure Control (AEC) and adjustment of mA and kV were utilized. FINDINGS There is mild basilar atelectasis and there is a small left pleural effusion. The liver is normal. There is dense material in the gallbladder but no evidence for cholecystitis. The stomach is somewhat distended with air-fluid level. There appears to be inflammation in the pancreas this inflammation extends to and involves the lesser curvature of the stomach. The spleen and adrenal glands are normal. Kidneys are mildly atrophic but otherwise grossly unremarkable. There is no abnormal dilation of small bowel loops. There is an ileostomy in the left lower quadrant. There is diverticulosis of the distal colon but no diverticulitis. There is a section of the terminal ileum which appears to be extending through a defect in the anterior abdominal wall cephalad to the umbilicus. The urinary bladder is normal. The uterus and ovaries are normal. There is some trace free fluid in the pelvis. There is no worrisome bone marrow lesion. IMPRESSION 1. There is some stool in the currently unused colon. 2. There appears to be pancreatitis with inflammation involving the stomach and causing a gastric ileus. 3. Hernia in the midline cephalad to the umbilicus containing terminal ileum but not causing obstruction. Electronically signed by: Raji Bess (October 16, 2022 20:05:50) Opioid <Khurram Rowell - Last Filed: 10/21/22 08:45> Opioid Risk Tool Age ([place] if 16-45): No History of Preadolescent Sexual Abuse: No Total: 0 Total Score Risk Category: Low Risk Copyright: Koby AMBROSIO predicting aberrant behaviors <Michelle Barakat - Last Filed: 10/16/22 21:49> Opioid Risk Tool Total: 0 Total Score Risk Category: Low Risk Discharge Plan Diagnosis Discharge Problem: Acute pancreatitis, Urinary tract infection, Decubitus ulcer, CKD (chronic kidney disease), Dehiscence of wound of skin Discharge Plan Patient Disposition: 09 ADMITTED INPATIENT Condition: Stable
[2022-10-16] MEDS ORDERED: NS 500 ML IV 500 ML IV ONE (17:54)
[2022-10-16] MEDS ORDERED: NS 1,000 ML IV 1,000 ML ONE (17:59)
[2022-10-16 18:26] LABS: EOSINOPHILS # (AUTO) 0.1 x10^3/uL (0.0-0.2); HEMATOCRIT 31.2 % (36.0-47.0); HEMOGLOBIN 9.6 g/dL (12.0-16.0)
[2022-10-16 18:38] LABS: ALBUMIN 1.5 g/dL (3.4-5.0); CALCIUM 9.2 mg/dL (8.5-10.1); CARBON DIOXIDE 23.9 mmol/L (21-32); COR CA(FOR HYPOALB) 11.2 mg/dL (8.5-10.1); CREATININE 3.28 mg/dL (0.55-1.02); POTASSIUM 5.6 mmol/L (3.5-5.1); TOTAL PROTEIN 6.1 g/dL (6.4-8.2)
[2022-10-16 18:42] LABS: LACTIC ACID 2.2 mmol/L (0.4-2.0)
[2022-10-16 18:45] LABS: BASOPHILS % (AUTO) 0.2 % (0.2-1.0); EOSINOPHILS % (AUTO) 0.9 % (0.9-2.9); LYMPHOCYTES # (AUTO) 1.7 X10^3/uL (1.3-2.9); LYMPHOCYTES % (AUTO) 10.3 % (21.0-51.0); MEAN CORPUSCULAR HEMOGLOBIN 27.3 pg (27.0-34.0); MEAN CORPUSCULAR HGB CONC 30.9 g/dL (33.0-35.0); MEAN CORPUSCULAR VOLUME 88.4 fL (80.0-100.0); MEAN PLATELET VOLUME 8.2 fL (7.4-11.0); MONOCYTES # (AUTO) 1.2 x10^3/uL (0.3-0.8); MONOCYTES % (AUTO) 7.1 % (0.0-13.0); NEUTROPHILS # (AUTO) 13.4 x10^3/uL (2.2-4.8); NEUTROPHILS % (AUTO) 81.5 % (42.0-75.0); PLATELET COUNT 369 X10^3/uL (150.0-450.0); RED BLOOD COUNT 3.53 X10^6/uL (3.5-5.4); RED CELL DISTRIBUTION WIDTH 20.6 % (11.6-16.5); WHITE BLOOD COUNT 16.4 X10^3/uL (3.6-10.0)
[2022-10-16 18:48] LABS: ANISOCYTOSIS 1+; PLATELET MORPHOLOGY COMMENT NORMAL (NORMAL); TARGET CELLS PRESENT
[2022-10-16] MEDS ORDERED: DILAUDID INJ ONE (18:55)
[2022-10-16] MEDS ORDERED: DILAUDID INJ IVP ONE (18:57)
[2022-10-16 19:54] LABS: BILIRUBIN,URINE NEGATIVE (NEGATIVE); BLOOD/HEMOGLOBIN,URINE 4+ (NEGATIVE); GLUCOSE, URINE NEGATIVE (NEGATIVE); KETONES,URINE NEGATIVE (NEGATIVE); LEUKOCYTE ESTERASE ,URINE 3+ (NEGATIVE); NITRITES,URINE NEGATIVE (NEGATIVE); PROTEIN,URINE 2+ (NEGATIVE); UROBILINOGEN,URINE NORMAL (NORMAL)
[2022-10-16 20:01] LABS: APPEARANCE,URINE CLOUDY (CLEAR); COLOR,URINE PALE YELLOW (YELLOW)
[2022-10-16 20:02] LABS: BACTERIA,URINE TRACE /HPF (NEGATIVE); RBC,URINE TNTC /HPF (0-3); SQUAMOUS EPITHELIAL CELL,UR RARE /HPF (NEGATIVE)
--- NOTE | 2022-10-16 20:08 | CT ---
HISTORYDaughter states that patient started having stool from her rectum yesterday but she has a colostomy.STUDYABDOMEN/PELVIS W/O CONCOMPARISONTECHNIQUEMultiple axial images of the abdomen and pelvis were obtained from the lung bases to the pubic symphysis without the administration of IV contrast. Dose reduction techniques including Automated Exposure Control (AEC) and adjustment of mA and kV were utilized.FINDINGSThere is mild basilar atelectasis and there is a small left pleural effusion. The liver is normal. There is dense material in the gallbladder but no evidence for cholecystitis. The stomach is somewhat distended with air-fluid level. There appears to be inflammation in the pancreas this inflammation extends to and involves the lesser curvature of the stomach. The spleen and adrenal glands are normal. Kidneys are mildly atrophic but otherwise grossly unremarkable. There is no abnormal dilation of small bowel loops. There is an ileostomy in the left lower quadrant. There is diverticulosis of the distal colon but no diverticulitis. There is a section of the terminal ileum which appears to be extending through a defect in the anterior abdominal wall cephalad to the umbilicus. The urinary bladder is normal. The uterus and ovaries are normal. There is some trace free fluid in the pelvis. There is no worrisome bone marrow lesion.IMPRESSION1. There is some stool in the currently unused colon. 2. There appears to be pancreatitis with inflammation involving the stomach and causing a gastric ileus. 3. Hernia in the midline cephalad to the umbilicus containing terminal ileum but not causing obstruction.Electronically signed by: Raji Bess (October 16, 2022 20:05:50)
[2022-10-16] MEDS ORDERED: CIPRO IV 400 MG PREMIX* 400 MG/200 ML IV.SOLN. IV SCH (21:00)
[2022-10-16] MEDS ORDERED: CIPRO IV 400 MG PREMIX* 400 MG/200 ML IV.SOLN. IV ONE (21:27)
[2022-10-16] MEDS ORDERED: NS 250 ML IV 250 ML IV ONE (21:47)
[2022-10-16] MEDS ORDERED: NovoLIN R (or HumuLIN R) SUBCUT PRN (22:00)
[2022-10-16] MEDS ORDERED: ZOFRAN TAB 4 MG PO PRN (22:00)
[2022-10-17] MEDS: PERCOCET TAB 5/325 MG PO PRN ×2 (00:25→09:25)
[2022-10-17 05:44] LABS: BASOPHILS % (AUTO) 0.1 % (0.2-1.0); EOSINOPHILS # (AUTO) 0.2 x10^3/uL (0.0-0.2); EOSINOPHILS % (AUTO) 0.8 % (0.9-2.9); HEMATOCRIT 27.5 % (36.0-47.0); HEMOGLOBIN 8.4 g/dL (12.0-16.0); LYMPHOCYTES # (AUTO) 1.7 X10^3/uL (1.3-2.9); LYMPHOCYTES % (AUTO) 8.5 % (21.0-51.0); MEAN CORPUSCULAR HEMOGLOBIN 27.4 pg (27.0-34.0); MEAN CORPUSCULAR HGB CONC 30.5 g/dL (33.0-35.0); MEAN CORPUSCULAR VOLUME 89.6 fL (80.0-100.0); MEAN PLATELET VOLUME 8.7 fL (7.4-11.0); MONOCYTES # (AUTO) 1.6 x10^3/uL (0.3-0.8); MONOCYTES % (AUTO) 8.3 % (0.0-13.0); NEUTROPHILS # (AUTO) 15.9 x10^3/uL (2.2-4.8); NEUTROPHILS % (AUTO) 82.3 % (42.0-75.0); PLATELET COUNT 312 X10^3/uL (150.0-450.0); RED BLOOD COUNT 3.07 X10^6/uL (3.5-5.4); RED CELL DISTRIBUTION WIDTH 21.1 % (11.6-16.5); WHITE BLOOD COUNT 19.3 X10^3/uL (3.6-10.0)
[2022-10-17 05:49] LABS: ALBUMIN 1.3 g/dL (3.4-5.0); CALCIUM 8.9 mg/dL (8.5-10.1); CARBON DIOXIDE 20.7 mmol/L (21-32); COR CA(FOR HYPOALB) 11.1 mg/dL (8.5-10.1); CREATININE 3.15 mg/dL (0.55-1.02); TOTAL PROTEIN 5.7 g/dL (6.4-8.2)
[2022-10-17 05:58] LABS: ANISOCYTOSIS 1+; PLATELET MORPHOLOGY COMMENT NORMAL (NORMAL); TARGET CELLS PRESENT
[2022-10-17 06:01] LABS: POTASSIUM 5.8 mmol/L (3.5-5.1)
[2022-10-17] MEDS ORDERED: PEPCID TAB 20 MG PO SCH (09:00)
[2022-10-17] MEDS: PLAVIX PO SCH (09:25)
[2022-10-17] MEDS: ZESTRIL TAB 10 MG PO SCH (09:25)
[2022-10-17] MEDS: PROTONIX INJ 40 MG VIAL IVP SCH ×2 (09:25→22:18)
[2022-10-17] MEDS: LOPRESSOR TAB 50 MG PO SCH ×2 (09:25→22:20)
[2022-10-17] MEDS: PEPCID 20 MG VIAL 20 MG in NS 50 ML IV 50 ML IV SCH ×3 (09:26→21:40)
[2022-10-17] MEDS: CIPRO IV 200 MG PREMIX* 200 MG/100 ML BAG IV SCH ×2 (09:26→22:19)
[2022-10-17 09:49] VITALS: BMI 27.9
[2022-10-17] MEDS ORDERED: ZOFRAN IV PRN (09:59)
[2022-10-17] MEDS ORDERED: [UNRECOGNIZED DRUG - OTHER] IV PRN (09:59)
[2022-10-17] MEDS ORDERED: ATIVAN IV PRN (09:59)
[2022-10-17] MEDS ORDERED: DECADRON IV PRN (09:59)
[2022-10-17] MEDS ORDERED: NS 1,000 ML IV 500 ML IV ONE (10:42)
[2022-10-17] MEDS ORDERED: PHENERGAN INJ 25 MG IM PRN (10:54)
[2022-10-17] MEDS: ZOFRAN IV SCH ×2 (11:25→18:42)
[2022-10-17] MEDS: DECADRON IV SCH ×2 (11:25→18:42)
[2022-10-17] MEDS: [UNRECOGNIZED DRUG - OTHER] IV SCH ×2 (11:25→18:42)
[2022-10-17] MEDS: ATIVAN IV SCH ×2 (11:25→18:42)
[2022-10-17] MEDS: NS 1,000 ML IV 1,000 ML IV SCH (18:45)
[2022-10-17] MEDS ORDERED: NS 100 ML IV 100 ML ONE (21:16)
[2022-10-17] MEDS: ZOCOR TAB 20 MG PO SCH (22:20)
--- NOTE | 2022-10-17 23:37 | DR.H&P ---
H&P - History & Physical for Day of: H&P Date: 10/16/22 - Chief Complaint Chief Complaint: ABDOMINAL PAIN, DECUBITUS ULCER, RECTAL DISCHARGE, ABDOMINAL PAIN, ABDOMINAL WOUND - History of Present Illness History of Present Illness: IS A 87 YEAR OLD PATIENT OF OURS. SHE HAS A PMH OF HTN, CAD, DM II, HYPERLIPDEMIA, ARTHRITIS, SLEEP APNEA, LOOP ILEOSTOMY OF LLQ, HERNIA REPAIR X 2, PACEMAKER, ANGIOPLASTY/STENTS, APPENDECTOMY, AND TUB AL. SHE PRESENTED TO THE ER VIA EMS FOR EVALUATION OF WORSENING DECUBITUS ULCER OF BUTTOCK, RECTAL DISCHARGE, AND ABDOMINAL PAIN. PATIENT HAS AN ILEOSTOMY SINCE JULY 14, 2022. SHE WAS PLACED UNDER HOSPICE CARE ABOUT THREE WEEKS AGO. ON ARRIVAL, SHE IS NOT COMMUNICATING WITH STAFF VERBALLY. SHE NODS YES WHEN SHE IS QUESTIONED ABOUT ABDOMINAL PAIN, BUT NODS NO WHEN QUESTIONED ABOUT PAIN IN OTHER AREAS. SHE DOES FOLLOW COMMANDS WHEN ASKED TO MOVE EXTREMITIES. EXAMINATION REVEALED A DEHISCED VENTRAL HERNIA WITH SEROUS DISCHARGE. DISCHARGE HAS A FOUL ODOR. SHE IS ALSO NOTED TO HAVE A STAGE 2 DECUBITUS ULCER TO THE LEFT INNER BUTTOCKS. ON ARRIVAL, HER VITALS WERE: 98.5-96-20-100%-112/56. LABS WERE OBTAINED. WBC 16.4, RBC 3.53, HGB 9.6, HCT 31.2, PLT COUNT 369, SODIUM 141, POTASSIUM 5.6, CHLORIDE 112, BUN 88, CREATININE 3.28, GLUCOSE 183, LACTIC ACID 2.2, CALCIUM 9.2, TOTAL BILI 0.30, AST 20, ALT 18, ALK PHOS 127, TOTAL PROTEIN 6.1, ALBUMIN 1.5, LIPASE 430. URINALYSIS REVEALED: WBC TNTC, WBC TNTC, BACTERIA TRACE, LEUKOCYTES 3+, BLOOD 4+. BLOOD, URINE, ABDOMEN, AND BUTTOCK CULTURES WERE SET UP. AN ABDOMEN/PELVIS CT WITHOUT CONTRAST WAS OBTAINED AND REVEALED: 1. There is some stool in the currently unused colon. 2. There appears to be pancreatitis with inflammation involving the stomach and causing a gastric ileus. 3. Hernia in the midline cephalad to the umbilicus containing terminal ileum but not causing obstruction. IN THE ER, SHE WAS GIVEN A NORMAL SALINE BOLUS X 1 LITER, DILAUDID 1MG IV X 1, CIPRO 400MG IV X 1. SHE ADMITTED TO THE HOSPITAL INPATIENT STATUS FOR FURTHER EVALUATION AND TREAMTENT OF ACUTE PANCREATITIS, ILEUS, VENTRAL HERNIA, LEUKOCYTOSIS, ANEMIA, AND ACUTE ON CHRONIC RENAL INSUFFICIENCY. SHE WAS STARTED ON NORMAL SALINE AT 75 ML/HR, CIPRO 200MG IV Q12H, PEPCID 20MG IV Q12H, PROTONIX 40MG IV Q12H, ZOFRAN COCKTAIL Q8H, PHENERGAN 25MG IM Q4H PRN, OTBS ACHS, HUMULIN R SLIDING SCALE. HER HOME MEDICATIONS OF PLAVIX, ZESTRIL, LOPRESSOR, PERCOCET, ZOCOR, AND RESTORIL WERE RESUMED. WE WILL CONSULT , GENERAL SURGEON. OTHERWISE, WE PLAN TO FOLLOW-UP WITH AM LABS AND CONTINUE TO MONITOR. TIME SPENT ON CLINICAL ASSESSMENT, REVIEWING LABS AND IMAGING, DECISION MAKING, AND DOCUMENTATION GREATER THAN 75 MINUTES. - Past Medical History Past Medical History: Anxiety, Arthritis, Coronary Artery Disease, Diabetes, Dyslipidemia, Hypertension, Sleep Apnea - Past Surgical History Surgical History: Angioplasty/Stents, Appendectomy Additional Surgical History: Pacemaker, Hernia Repair, Tubal, Loop ileostomy LLQ - Family History Family Medical History: Hypertension - Social History Does any household member use tobacco: No Alcohol Use: None Drug Use: None - Medications Home Medications: prochlorperazine [From Compazine] Allergy (Unknown, Verified 07/11/22 19:19) tramadol Allergy (Verified 07/11/22 19:19) CONTINUE taking the following medications acetaminophen 300 mg-codeine 60 mg tablet 1 tab PO QID PRN 10/17/22 [History] albuterol sulfate 90 mcg/actuation aerosol inhaler 1 puff inhalation BID wheezing 10/17/22 [History] aspirin 81 mg chewable tablet 1 tab PO QDAY 10/17/22 [History] clopidogrel 75 mg tablet 1 tab PO DIRECTED 10/17/22 [History] haloperidol lactate 2 mg/mL oral concentrate 0.5 ea PO Q4H PRN Agitation 10/17/22 [History] hydrocodone 10 mg-acetaminophen 325 mg tablet 1 tab PO QID PRN 10/17/22 [History] hyoscyamine sulfate 0.125 mg sublingual tablet 1 tab sublingual Q4HR PRN Secretions 10/17/22 [History] lorazepam 0.5 mg tablet 1 tab PO QID PRN 10/17/22 [History] omeprazole 40 mg capsule,delayed release 1 cap PO QDAY 10/17/22 [History] simvastatin 20 mg tablet 1 tab PO HS hyperlipidemia 10/17/22 [History] temazepam 15 mg capsule 1 cap PO QPM insomnia 10/17/22 [History] - Review of Systems Constitutional: Weakness Eyes: No Symptoms Reported ENT: No Symptoms Reported Respiratory: No Symptoms Reported Cardiovascular: No Symptoms Reported Gastrointestinal: Nausea, Abdominal Pain ((dehisced ventral hernia with discharge(serous))) Genitourinary: No Symptoms Reported Musculoskeletal: No Symptoms Reported Skin: Wound ((Decubitus Ulcer Stage 2 Left inner buttocks)) Neurological: Weakness - Physical Exam Vital Signs: Temperature 98.2 F Pulse Rate [Left Radial] 96 Pulse Rate 68 Respiratory Rate 9 Blood Pressure [Right Arm] 142/66 Blood Pressure [Left Arm] 106/52 Blood Pressure [Right Arm] 169/74 Blood Pressure [Left Arm] 178/79 Blood Pressure 114/53 O2 Sat by Pulse Oximetry 100 Oriented: Normal Eyes: Normal Ear: Normal Nose: Normal Throat: Normal Respiratory: Diminished Throughout Cardiovascular: Normal : Normal Auscultation: Bowel Sounds: Normal Palpation: Normal Tenderness: Diffuse (worse across the upper abdomen), Guarding, Other (+ colostomy, + ventral midline wound dehiscience, 3 x 3 cms, cord from previous surgery exposed). negative: Rebound Skin: Wound (+ stage 2 decubitus of left inner buttock, 3.5 x 2.5 cms) Musculoskeletal: Normal Psychiatric: Normal Mood Description: Calm Affect: Normal Speech Pattern: Clear - Assessment/Plan (1) Acute pancreatitis Qualifiers: Acute pancreatitis complication: unspecified Status: Acute Plan: ADMIT, SURGICAL CONSULT, NORMAL SALINE AT 75 ML/HR, CIPRO 200MG IV Q12H, PEPCID 20MG IV Q12H, PROTONIX 40MG IV Q12H, ZOFRAN COCKTAIL Q8H, PHENERGAN 25MG IM Q4H PRN, OTBS ACHS, HUMULIN R SLIDING SCALE. RESUME HOME MEDS (2) Ileus Status: Acute (3) Hernia, ventral Qualifiers: Obstruction and gangrene presence: without obstruction or gangrene Qualified Code(s): K43.9 - Ventral hernia without obstruction or gangrene Status: Chronic (4) Acute on chronic renal insufficiency Status: Acute (5) Anemia Qualifiers: Anemia type: due to chronic kidney disease Chronic kidney disease stage: unspecified stage Qualified Code(s): N18.9 - Chronic kidney disease, unspecified; D63.1 - Anemia in chronic kidney disease Status: Acute (6) Leukocytosis Qualifiers: Leukocytosis type: unspecified Qualified Code(s): D72.829 - Elevated white blood cell count, unspecified Status: Acute - Allergies Allergies/Adverse Reactions: Allergies Allergy/AdvReac Type Severity Reaction Status Date / Time prochlorperazine Allergy Unknown Verified 07/11/22 19:19 [From Compazine] tramadol Allergy Verified 07/11/22 19:19
[2022-10-18] MEDS: ZOFRAN IV SCH ×3 (02:29→19:55)
[2022-10-18] MEDS: [UNRECOGNIZED DRUG - OTHER] IV SCH ×3 (02:29→19:55)
[2022-10-18] MEDS: ATIVAN IV SCH ×3 (02:29→19:55)
[2022-10-18] MEDS: DECADRON IV SCH ×3 (02:29→19:55)
[2022-10-18 04:55] LABS: BASOPHILS % (AUTO) 0.1 % (0.2-1.0); HEMATOCRIT 23.8 % (36.0-47.0); HEMOGLOBIN 7.4 g/dL (12.0-16.0); LYMPHOCYTES # (AUTO) 0.8 X10^3/uL (1.3-2.9); LYMPHOCYTES % (AUTO) 3.6 % (21.0-51.0); MEAN CORPUSCULAR HEMOGLOBIN 27.4 pg (27.0-34.0); MEAN CORPUSCULAR VOLUME 88.6 fL (80.0-100.0); MEAN PLATELET VOLUME 8.4 fL (7.4-11.0); MONOCYTES # (AUTO) 0.4 x10^3/uL (0.3-0.8); MONOCYTES % (AUTO) 1.7 % (0.0-13.0); NEUTROPHILS # (AUTO) 21.8 x10^3/uL (2.2-4.8); NEUTROPHILS % (AUTO) 94.6 % (42.0-75.0); PLATELET COUNT 295 X10^3/uL (150.0-450.0); RED BLOOD COUNT 2.69 X10^6/uL (3.5-5.4); RED CELL DISTRIBUTION WIDTH 20.4 % (11.6-16.5); WHITE BLOOD COUNT 23.1 X10^3/uL (3.6-10.0)
[2022-10-18 05:04] LABS: ALBUMIN 1.3 g/dL (3.4-5.0); CALCIUM 8.5 mg/dL (8.5-10.1); CARBON DIOXIDE 20.2 mmol/L (21-32); COR CA(FOR HYPOALB) 10.7 mg/dL (8.5-10.1); CREATININE 2.92 mg/dL (0.55-1.02); TOTAL PROTEIN 5.5 g/dL (6.4-8.2)
[2022-10-18 05:08] LABS: POTASSIUM 6.7 mmol/L (3.5-5.1)
[2022-10-18 05:45] LABS: PLATELET MORPHOLOGY COMMENT NORMAL (NORMAL)
[2022-10-18 05:46] LABS: ANISOCYTOSIS 1+; HYPOCHROMASIA 1+; OVALOCYTES PRESENT; SCHISTOCYTES PRESENT; TARGET CELLS PRESENT
[2022-10-18] MEDS ORDERED: NovoLIN R (or HumuLIN R) SUBCUT PRN (05:48)
[2022-10-18] MEDS ORDERED: NovoLIN R (or HumuLIN R) IV ONE (05:50)
[2022-10-18] MEDS ORDERED: D50W ABBOJECT SYR IV ONE (05:52)
[2022-10-18] MEDS ORDERED: KAYEXALATE SUSP PO ONE ×2 (09:00→20:00)
[2022-10-18] MEDS: NS 1,000 ML IV 1,000 ML IV SCH ×2 (09:30→22:30)
[2022-10-18] MEDS ORDERED: MORPHINE SULFATE INJ 2 MG INJ IVP PRN (10:19)
--- NOTE | 2022-10-18 11:12 | PCM.PROG ---
Progress Note Progress Note for Day of Date of Exam: 10/18/22 Subjective Subjective: PT IS A 87 YEAR OLD PATIENT WITH A PMH OF HTN, CAD, DM II, HYPERLIPDEMIA, ARTHRITIS, SLEEP APNEA, LOOP ILEOSTOMY OF LLQ, HERNIA REPAIR X 2, PACEMAKER, ANGIOPLASTY/STENTS, APPENDECTOMY, AND TUBAL. PT ADMITTED FOR ACUTE PANCREATITIS, ACUTE ON CHRONIC RENAL INSUFFICIENCY, AND WORSENING DECUBITUS ULCER OF BUTTOCK. PATIENT HAS AN ILEOSTOMY SINCE JULY 14, 2022. SHE IS ALSO NOTED TO HAVE A STAGE 2 DECUBITUS ULCER TO THE LEFT INNER BUTTOCKS. LABS/IMAGING: WBC 23, HGB 7.4, PLT 295, NA 140, K 6.7, CREATININE 2.92, GLUCOSE 134, URINE CULTURE NO GROWTH TO DATE, WOUND CULTURE POSITIVE FOR E COLI. THIS MORNING PATIENT IS IN BED. NO ACUTE EVENTS OVERNIGHT. SHE IS CURRENTLY RECEIVING, MORPHINE 4MG Q4H PRN, NORMAL SALINE AT 75 ML/HR, CIPRO 200MG IV Q12H, PEPCID 20MG IV Q12H, PROTONIX 40MG IV Q12H, ZOFRAN COCKTAIL Q8H, PHENERGAN 25MG IM Q4H PRN, OTBS ACHS, HUMULIN R SLIDING SCALE. HER HOME MEDICATIONS OF PLAVIX, ZESTRIL, LOPRESSOR, PERCOCET, ZOCOR, AND RESTORIL HAVE BEEN RESUMED. PT DIFFICUL T TO OBTAIN IV ACCESS, WILL CONSULT SURGERY FOR CENTRAL LINE. HYPERKALEMIA ON LABS, WILL ORDER KAYEXALATE AND REPEAT BMP IN THE AFTERNOON. OTHERWISE WILL CONTINUE WITH CURRENT TREATMENT PLAN. CONTINUE TO CLOSELY MONITOR AND FOLLOW UP LABS. TIME SPENT ON CLINICAL ASSESSMENT, REVIEWING LABS AND IMAGING, DECISION MAKING, AND DOCUMENTAITON GREATER THAN 45 MINUTES. Past Medical Family Social History Allergies: Allergies prochlorperazine [From Compazine] Allergy (Unknown, Verified 07/11/22 19:19) Reason: Drug allergy tramadol Allergy (Verified 07/11/22 19:19) Review of Systems ROS changes noted: SEE HPI Vital Signs and I&O's Vital Signs: Temperature 97.9 F Pulse Rate [Left Radial] 96 Pulse Rate 69 Respiratory Rate 13 Blood Pressure [Right Arm] 142/66 Blood Pressure [Left Arm] 106/52 Blood Pressure [Right Arm] 169/74 Blood Pressure [Left Arm] 178/79 Blood Pressure 124/54 O2 Sat by Pulse Oximetry 99 Intake and Output: Intake & Output 10/15/22 10/16/22 10/17/22 10/18/22 23:59 23:59 23:59 23:59 Intake Total 850 / 850 1000 / 1000 600 / 600 Output Total 800 / 800 200 / 200 Balance 850 / 850 200 / 200 400 / 400 Physical Exam Oriented: Normal Eyes: Normal Ear: Normal Nose: Normal Throat: Normal Respiratory: Normal Cardiovascular: Normal : Normal Auscultation: Bowel Sounds: Normal Tenderness: Diffuse (worse across the upper abdomen), Guarding and Other (+ colostomy, + ventral midline wound dehiscience, 3 x 3 cms, cord from previous surgery exposed); negative Rebound Skin: Wound (+ stage 2 decubitus of left inner buttock, 3.5 x 2.5 cms) Musculoskeletal: Normal Psychiatric: Normal Mood Description: Calm Affect: Normal Speech Pattern: Unclear and Inappropriate Laboratory and Diagnostics Result Diagrams: 10/18/22 04:20 10/18/22 04:20 Labs: 10/16/22 19:44 Urine,Catheterized Urine Culture - Final 10/16/22 21:24 Abdomen Wound Gram Stain - Final 10/16/22 21:24 Abdomen Wound Culture - Final Escherichia Coli 10/16/22 21:24 Buttock Wound Gram Stain - Final 10/16/22 21:24 Buttock Wound Culture - Preliminary Laboratory WBC 23.1 X10^3/uL (3.6-10.0) H 10/18/22 04:20 RBC 2.69 X10^6/uL (3.5-5.4) L 10/18/22 04:20 Hgb 7.4 g/dL (12.0-16.0) L 10/18/22 04:20 Hct 23.8 % (36.0-47.0) L 10/18/22 04:20 MCV 88.6 fL (80.0-100.0) 10/18/22 04:20 MCH 27.4 pg (27.0-34.0) 10/18/22 04:20 MCHC 31.0 g/dL (33.0-35.0) L 10/18/22 04:20 RDW 20.4 % (11.6-16.5) H 10/18/22 04:20 Plt Count 295 X10^3/uL (150.0-450.0) 10/18/22 04:20 Plt Count Comment Adequate (ADEQUATE) 10/18/22 04:20 MPV 8.4 fL (7.4-11.0) 10/18/22 04:20 Neut % (Auto) 94.6 % (42.0-75.0) H 10/18/22 04:20 Lymph % (Auto) 3.6 % (21.0-51.0) L 10/18/22 04:20 [place] % (Auto) 1.7 % (0.0-13.0) 10/18/22 04:20 Eos % (Auto) 0.0 % (0.9-2.9) L 10/18/22 04:20 Baso % (Auto) 0.1 % (0.2-1.0) L 10/18/22 04:20 Neut # (Auto) 21.8 x10^3/uL (2.2-4.8) H 10/18/22 04:20 Lymph # (Auto) 0.8 X10^3/uL (1.3-2.9) L 10/18/22 04:20 [place] # (Auto) 0.4 x10^3/uL (0.3-0.8) 10/18/22 04:20 Eos # (Auto) 0.0 x10^3/uL (0.0-0.2) 10/18/22 04:20 Baso # (Auto) 0.0 X10^3/uL (0.0-0.1) 10/18/22 04:20 Absolute Nucleated RBC 0.0 /100WBC 10/18/22 04:20 Total Counted 100 10/18/22 04:20 Neutrophils % (Manual) 94 % (39-76) H 10/18/22 04:20 Lymphocytes % (Manual) 5 % (13-43) L 10/18/22 04:20 Monocytes % (Manual) 1 % (4-9) L 10/18/22 04:20 Plt Morphology Comment Normal (NORMAL) 10/18/22 04:20 RBC Morphology Abnormal (NORMAL) A 10/18/22 04:20 Hypochromasia 1+ A 10/18/22 04:20 Anisocytosis 1+ A 10/18/22 04:20 Target Cells Present 10/18/22 04:20 Ovalocytes Present 10/18/22 04:20 Schistocytes Present 10/18/22 04:20 Sodium 140 mmol/L (136-145) 10/18/22 04:20 Corrected Sodium 141 mmol/L (136-145) 10/18/22 04:20 Potassium 6.7 mmol/L (3.5-5.1) H* 10/18/22 04:20 Chloride 113 mmol/L (98-107) H 10/18/22 04:20 Carbon Dioxide 20.2 mmol/L (21-32) L 10/18/22 04:20 BUN 76 mg/dL (7-18) H 10/18/22 04:20 Creatinine 2.92 mg/dL (0.55-1.02) H 10/18/22 04:20 Est GFR (MDRD) Af Amer 19 (>60) L 10/18/22 04:20 Est GFR (MDRD) Non-Af 16 (>60) L 10/18/22 04:20 Glucose 134 mg/dL (65-99) H 10/18/22 04:20 POC Glucose (mg/dL) 85 mg/dL (65-99) 10/18/22 07:19 Lactic Acid 2.2 mmol/L (0.4-2.0) H 10/16/22 18:15 Calcium 8.5 mg/dL (8.5-10.1) 10/18/22 04:20 Corrected Calcium 10.7 mg/dL (8.5-10.1) H 10/18/22 04:20 Total Bilirubin 0.20 mg/dL (0.2-1.0) 10/18/22 04:20 AST 15 Units/L (15-37) 10/18/22 04:20 ALT 14 Units/L (12-78) 10/18/22 04:20 Alkaline Phosphatase 108 Units/L (46-116) 10/18/22 04:20 Total Protein 5.5 g/dL (6.4-8.2) L 10/18/22 04:20 Albumin 1.3 g/dL (3.4-5.0) L 10/18/22 04:20 Globulin 4.2 g/dL (2.5-4.5) 10/18/22 04:20 Albumin/Globulin Ratio 0.3 Ratio (1.1-2.1) L 10/18/22 04:20 Lipase 430 Units/L (73-393) H 10/16/22 18:15 Specimen Type Catherized urine 10/16/22 19:44 Urine Color Pale yellow (YELLOW) 10/16/22 19:44 Urine Appearance Cloudy (CLEAR) 10/16/22 19:44 Urine pH 5.0 (5.0 - 8.0) 10/16/22 19:44 Ur Specific [place] 1.020 (1.000-1.030) 10/16/22 19:44 Urine Protein 2+ (NEGATIVE) 10/16/22 19:44 Urine Glucose (UA) Negative (NEGATIVE) 10/16/22 19:44 Urine Ketones Negative (NEGATIVE) 10/16/22 19:44 Urine Blood 4+ (NEGATIVE) 10/16/22 19:44 Urine Nitrite Negative (NEGATIVE) 10/16/22 19:44 Urine Bilirubin Negative (NEGATIVE) 10/16/22 19:44 Urine Urobilinogen Normal (NORMAL) 10/16/22 19:44 Ur Leukocyte Esterase 3+ (NEGATIVE) 10/16/22 19:44 Urine RBC Tntc /HPF (0-3) A 10/16/22 19:44 Urine WBC Tntc /HPF (0-5) A 10/16/22 19:44 Ur Squamous Epith Cells Rare /HPF (NEGATIVE) 10/16/22 19:44 Urine Bacteria Trace /HPF (NEGATIVE) 10/16/22 19:44 Ur Culture Indicated? Yes/culture set up 10/16/22 19:44 Plan (1) Acute pancreatitis: Status: Acute Qualifiers: Acute pancreatitis complication: unspecified Plan: ADMIT, SURGICAL CONSULT, NORMAL SALINE AT 75 ML/HR, CIPRO 200MG IV Q12H, PEPCID 20MG IV Q12H, PROTONIX 40MG IV Q12H, ZOFRAN COCKTAIL Q8H, PHENERGAN 25MG IM Q4H PRN, OTBS ACHS, HUMULIN R SLIDING SCALE. RESUME HOME MEDS (2) Ileus: Status: Acute (3) Hernia, ventral: Status: Chronic Qualifiers: Obstruction and gangrene presence: without obstruction or gangrene Qualified Code(s): K43.9 - Ventral hernia without obstruction or gangrene (4) Acute on chronic renal insufficiency: Status: Acute (5) Anemia: Status: Acute Qualifiers: Anemia type: due to chronic kidney disease Chronic kidney disease stage: unspecified stage Qualified Code(s): N18.9 - Chronic kidney disease, unspecified; D63.1 - Anemia in chronic kidney disease (6) Leukocytosis: Status: Acute Qualifiers: Leukocytosis type: unspecified Qualified Code(s): D72.829 - Elevated white blood cell count, unspecified (7) Hyperkalemia: Status: Acute
[2022-10-18] MEDS: LOPRESSOR TAB 50 MG PO SCH ×2 (11:29→20:41)
[2022-10-18] MEDS: ZESTRIL TAB 10 MG PO SCH (11:30)
[2022-10-18] MEDS: PROTONIX INJ 40 MG VIAL IVP SCH ×2 (12:40→20:46)
[2022-10-18] MEDS: PEPCID 20 MG VIAL 20 MG in NS 50 ML IV 50 ML IV SCH ×2 (12:40→20:42)
[2022-10-18] MEDS: CIPRO IV 200 MG PREMIX* 200 MG/100 ML BAG IV SCH ×2 (12:40→20:41)
[2022-10-18] MEDS: PLAVIX PO SCH (12:41)
--- NOTE | 2022-10-18 14:06 | RAD ---
HISTORYLine placementSTUDYAP chestCOMPARISONFebruary 2022FINDINGSThe heart is upper normal in size with sternal wires and pacemaker. The lungs and pleural spaces are clear of active disease. There is a right subclavian catheter now present the tip projected over the right atrium. No pneumothorax is identified.IMPRESSIONNo complication identified following subclavian line placement.Electronically signed by: GANGA BRAVO (October 18, 2022 14:05:38)
[2022-10-18] MEDS: DILAUDID INJ IVP PRN (15:57)
[2022-10-18 17:13] LABS: ALBUMIN 1.2 g/dL (3.4-5.0); CALCIUM 8.5 mg/dL (8.5-10.1); CARBON DIOXIDE 20.8 mmol/L (21-32); COR CA(FOR HYPOALB) 10.7 mg/dL (8.5-10.1); CREATININE 2.99 mg/dL (0.55-1.02); TOTAL PROTEIN 5.1 g/dL (6.4-8.2)
[2022-10-18] MEDS: SNACK - Diabetic Appropriate PO SCH (20:35)
[2022-10-18] MEDS: ZOCOR TAB 20 MG PO SCH (20:42)
--- NOTE | 2022-10-18 23:29 | OR.IMMED ---
IMMEDIATE POST-OP NOTE Immediate Post-Op Note Pre-Op Diagnosis: No IV access Post-Op Diagnosis: same Procedure: right subclavian vein triple lumen catheter placement Description of Procedure: see operative note Surgeon/Sales Force Administrator: Ivy Findings: as above Estimated Blood Loss: minimal Complications: none Progress Notes: CXR, good placement and no pneumothorax.
[2022-10-19] MEDS: [UNRECOGNIZED DRUG - OTHER] IV SCH ×3 (02:15→19:51)
[2022-10-19] MEDS: ZOFRAN IV SCH ×3 (02:15→19:51)
[2022-10-19] MEDS: DECADRON IV SCH ×3 (02:15→19:51)
[2022-10-19] MEDS: ATIVAN IV SCH ×3 (02:15→19:51)
[2022-10-19 05:04] LABS: BASOPHILS % (AUTO) 0 % (0.2-1.0); HEMATOCRIT 23.2 % (36.0-47.0); HEMOGLOBIN 7.2 g/dL (12.0-16.0); LYMPHOCYTES # (AUTO) 0.7 X10^3/uL (1.3-2.9); MEAN CORPUSCULAR HEMOGLOBIN 27.5 pg (27.0-34.0); MEAN CORPUSCULAR HGB CONC 30.9 g/dL (33.0-35.0); MEAN CORPUSCULAR VOLUME 88.8 fL (80.0-100.0); MEAN PLATELET VOLUME 8.6 fL (7.4-11.0); MONOCYTES # (AUTO) 0.7 x10^3/uL (0.3-0.8); MONOCYTES % (AUTO) 2.9 % (0.0-13.0); NEUTROPHILS # (AUTO) 21.6 x10^3/uL (2.2-4.8); NEUTROPHILS % (AUTO) 94.1 % (42.0-75.0); PLATELET COUNT 288 X10^3/uL (150.0-450.0); RED BLOOD COUNT 2.61 X10^6/uL (3.5-5.4); RED CELL DISTRIBUTION WIDTH 21.3 % (11.6-16.5)
[2022-10-19 05:17] LABS: ALBUMIN 1.2 g/dL (3.4-5.0); CALCIUM 8.2 mg/dL (8.5-10.1); COR CA(FOR HYPOALB) 10.4 mg/dL (8.5-10.1); CREATININE 3.06 mg/dL (0.55-1.02); TOTAL PROTEIN 4.9 g/dL (6.4-8.2)
[2022-10-19 05:26] LABS: ANISOCYTOSIS 1+; BAND NEUTROPHILS % 1 % (0-10); BURR CELLS PRESENT; HYPOCHROMASIA 1+; OVALOCYTES PRESENT; PLATELET MORPHOLOGY COMMENT NORMAL (NORMAL); SCHISTOCYTES PRESENT; TARGET CELLS PRESENT
[2022-10-19 05:28] LABS: POTASSIUM 5.8 mmol/L (3.5-5.1)
[2022-10-19] MEDS: PERCOCET TAB 5/325 MG PO PRN ×3 (06:21→21:49)
[2022-10-19] MEDS: LOPRESSOR TAB 50 MG PO SCH ×2 (08:48→20:58)
[2022-10-19] MEDS: ZESTRIL TAB 10 MG PO SCH (08:51)
[2022-10-19] MEDS: PEPCID 20 MG VIAL 20 MG in NS 50 ML IV 50 ML IV SCH ×2 (09:00→20:57)
[2022-10-19] MEDS: PLAVIX PO SCH (09:18)
[2022-10-19] MEDS: PROTONIX INJ 40 MG VIAL IVP SCH ×2 (09:21→20:57)
[2022-10-19] MEDS: CIPRO IV 200 MG PREMIX* 200 MG/100 ML BAG IV SCH ×2 (09:22→20:59)
[2022-10-19] MEDS: ROCEPHIN VIAL 1 GRAM 1 G in NS 100 ML IV 100 ML IV SCH (10:48)
--- NOTE | 2022-10-19 10:55 | PCM.PROG ---
Progress Note Progress Note for Day of Date of Exam: 10/19/22 Subjective Subjective: PT IS A 87 YEAR OLD PATIENT WITH A PMH OF HTN, CAD, DM II, HYPERLIPDEMIA, ARTHRITIS, SLEEP APNEA, LOOP ILEOSTOMY OF LLQ, HERNIA REPAIR X 2, PACEMAKER, ANGIOPLASTY/STENTS, APPENDECTOMY, AND TUBAL. PT ADMITTED FOR ACUTE PANCREATITIS, ACUTE ON CHRONIC RENAL INSUFFICIENCY, AND WORSENING DECUBITUS ULCER OF BUTTOCK. PATIENT HAS AN ILEOSTOMY SINCE JULY 14, 2022. SHE IS ALSO NOTED TO HAVE A STAGE 2 DECUBITUS ULCER TO THE LEFT INNER BUTTOCKS. THIS MORNING SHE APPEARS TO BE IMPROVING. SHE IS MORE ALERT. SHE DID HAVE CENTRAL LINE PLACED YESTERDAY FOR IV ACCESS. NO ACUTE EVENTS OVERNIGHT. LABS/IMAGING: WBC 23, HGB 7.2, PLT 288, NA 143, K 5.8, CREATININE 3.06, GLUCOSE 216, URINE CULTURE NO GR OWTH TO DATE, WOUND CULTURE POSITIVE FOR E COLI. WILL ADD ROCEPHIN BASED ON CULTURE AND SENSITIVITY. SHE IS CURRENTLY RECEIVING, MORPHINE 4MG Q4H PRN, NORMAL SALINE AT 75 ML/HR, CIPRO 200MG IV Q12H, PEPCID 20MG IV Q12H, PROTONIX 40MG IV Q12H, ZOFRAN COCKTAIL Q8H, PHENERGAN 25MG IM Q4H PRN, OTBS ACHS, HUMULIN R SLIDING SCALE. HER HOME MEDICATIONS OF PLAVIX, ZESTRIL, LOPRESSOR, PERCOCET, ZOCOR, AND RESTORIL HAVE BEEN RESUMED. SURGERY CONSULTED FOR WOUND CARE. HYPERKALEMIA IMPROVED, WILL ORDER KAYEXALATE X1 TODAY. OTHERWISE, WILL CONTINUE WITH CURRENT TREATMENT PLAN. CONTINUE TO CLOSELY MONITOR AND FOLLOW UP LABS. TIME SPENT ON CLINICAL ASSESSMENT, REVIEWING LABS AND IMAGING, DECISION MAKING, AND DOCUMENTAITON GREATER THAN 45 MINUTES. Past Medical Family Social History Allergies: Allergies prochlorperazine [From Compazine] Allergy (Unknown, Verified 07/11/22 19:19) Reason: Drug allergy tramadol Allergy (Verified 07/11/22 19:19) Review of Systems ROS changes noted: SEE HPI Vital Signs and I&O's Vital Signs: Temperature 97.5 F Pulse Rate [Left Radial] 96 Pulse Rate 69 Respiratory Rate 12 Blood Pressure [Right Arm] 142/66 Blood Pressure [Left Arm] 106/52 Blood Pressure [Right Arm] 169/74 Blood Pressure [Left Arm] 178/79 Blood Pressure 110/51 O2 Sat by Pulse Oximetry 100 Intake and Output: Intake & Output 10/16/22 10/17/22 10/18/22 10/19/22 23:59 23:59 23:59 23:59 Intake Total 850 / 850 1000 / 1000 2499 / 2499 576 / 576 Output Total 800 / 800 1349 / 1349 600 / 600 Balance 850 / 850 200 / 200 1150 / 1150 -24 24 Physical Exam Oriented: Normal Eyes: Normal Ear: Normal Nose: Normal Throat: Normal Respiratory: Normal Cardiovascular: Normal : Normal Auscultation: Bowel Sounds: Normal Tenderness: Diffuse (worse across the upper abdomen), Guarding and Other (+ colostomy, + ventral midline wound dehiscience, 3 x 3 cms, cord from previous surgery exposed); negative Rebound Skin: Wound (+ stage 2 decubitus of left inner buttock, 3.5 x 2.5 cms) Musculoskeletal: Normal Psychiatric: Normal Mood Description: Calm Affect: Normal Speech Pattern: Unclear and Inappropriate Laboratory and Diagnostics Result Diagrams: 10/19/22 04:06 10/19/22 04:06 Labs: 10/16/22 21:24 Buttock Wound Gram Stain - Final 10/16/22 21:24 Buttock Wound Culture - Final Pseudomonas Aeruginosa 10/16/22 18:15 Blood Blood Culture - Preliminary 10/16/22 19:44 Urine,Catheterized Urine Culture - Final 10/16/22 21:24 Abdomen Wound Gram Stain - Final 10/16/22 21:24 Abdomen Wound Culture - Final Escherichia Coli Laboratory WBC 23.0 X10^3/uL (3.6-10.0) H 10/19/22 04:06 RBC 2.61 X10^6/uL (3.5-5.4) L 10/19/22 04:06 Hgb 7.2 g/dL (12.0-16.0) L 10/19/22 04:06 Hct 23.2 % (36.0-47.0) L 10/19/22 04:06 MCV 88.8 fL (80.0-100.0) 10/19/22 04:06 MCH 27.5 pg (27.0-34.0) 10/19/22 04:06 MCHC 30.9 g/dL (33.0-35.0) L 10/19/22 04:06 RDW 21.3 % (11.6-16.5) H 10/19/22 04:06 Plt Count 288 X10^3/uL (150.0-450.0) 10/19/22 04:06 Plt Count Comment Adequate (ADEQUATE) 10/19/22 04:06 MPV 8.6 fL (7.4-11.0) 10/19/22 04:06 Neut % (Auto) 94.1 % (42.0-75.0) H 10/19/22 04:06 Lymph % (Auto) 3.0 % (21.0-51.0) L 10/19/22 04:06 [place] % (Auto) 2.9 % (0.0-13.0) 10/19/22 04:06 Eos % (Auto) 0.0 % (0.9-2.9) L 10/19/22 04:06 Baso % (Auto) 0 % (0.2-1.0) L 10/19/22 04:06 Neut # (Auto) 21.6 x10^3/uL (2.2-4.8) H 10/19/22 04:06 Lymph # (Auto) 0.7 X10^3/uL (1.3-2.9) L 10/19/22 04:06 [place] # (Auto) 0.7 x10^3/uL (0.3-0.8) 10/19/22 04:06 Eos # (Auto) 0.0 x10^3/uL (0.0-0.2) 10/19/22 04:06 Baso # (Auto) 0.0 X10^3/uL (0.0-0.1) 10/19/22 04:06 Absolute Nucleated RBC 0.1 /100WBC 10/19/22 04:06 Total Counted 100 10/19/22 04:06 Neutrophils % (Manual) 94 % (39-76) H 10/19/22 04:06 Band Neutrophils % 1 % (0-10) 10/19/22 04:06 Lymphocytes % (Manual) 3 % (13-43) L 10/19/22 04:06 Monocytes % (Manual) 2 % (4-9) L 10/19/22 04:06 Plt Morphology Comment Normal (NORMAL) 10/19/22 04:06 RBC Morphology Abnormal (NORMAL) A 10/19/22 04:06 Hypochromasia 1+ A 10/19/22 04:06 Anisocytosis 1+ A 10/19/22 04:06 Target Cells Present 10/19/22 04:06 Ovalocytes Present 10/19/22 04:06 [place] Cells Present 10/19/22 04:06 Schistocytes Present 10/19/22 04:06 Sodium 143 mmol/L (136-145) 10/19/22 04:06 Corrected Sodium 146 mmol/L (136-145) H 10/19/22 04:06 Potassium 5.8 mmol/L (3.5-5.1) H 10/19/22 04:06 Chloride 117 mmol/L (98-107) H* 10/19/22 04:06 Carbon Dioxide 20.0 mmol/L (21-32) L 10/19/22 04:06 BUN 81 mg/dL (7-18) H 10/19/22 04:06 Creatinine 3.06 mg/dL (0.55-1.02) H 10/19/22 04:06 Est GFR (MDRD) Af Amer 18 (>60) L 10/19/22 04:06 Est GFR (MDRD) Non-Af 15 (>60) L 10/19/22 04:06 Glucose 216 mg/dL (65-99) H 10/19/22 04:06 POC Glucose (mg/dL) 196 mg/dL (65-99) H 10/19/22 05:44 Lactic Acid 2.2 mmol/L (0.4-2.0) H 10/16/22 18:15 Calcium 8.2 mg/dL (8.5-10.1) L 10/19/22 04:06 Corrected Calcium 10.4 mg/dL (8.5-10.1) H 10/19/22 04:06 Total Bilirubin 0.20 mg/dL (0.2-1.0) 10/19/22 04:06 AST 13 Units/L (15-37) L 10/19/22 04:06 ALT 14 Units/L (12-78) 10/19/22 04:06 Alkaline Phosphatase 94 Units/L (46-116) 10/19/22 04:06 Total Protein 4.9 g/dL (6.4-8.2) L 10/19/22 04:06 Albumin 1.2 g/dL (3.4-5.0) L 10/19/22 04:06 Globulin 3.7 g/dL (2.5-4.5) 10/19/22 04:06 Albumin/Globulin Ratio 0.3 Ratio (1.1-2.1) L 10/19/22 04:06 Lipase 430 Units/L (73-393) H 10/16/22 18:15 Specimen Type Catherized urine 10/16/22 19:44 Urine Color Pale yellow (YELLOW) 10/16/22 19:44 Urine Appearance Cloudy (CLEAR) 10/16/22 19:44 Urine pH 5.0 (5.0 - 8.0) 10/16/22 19:44 Ur Specific [place] 1.020 (1.000-1.030) 10/16/22 19:44 Urine Protein 2+ (NEGATIVE) 10/16/22 19:44 Urine Glucose (UA) Negative (NEGATIVE) 10/16/22 19:44 Urine Ketones Negative (NEGATIVE) 10/16/22 19:44 Urine Blood 4+ (NEGATIVE) 10/16/22 19:44 Urine Nitrite Negative (NEGATIVE) 10/16/22 19:44 Urine Bilirubin Negative (NEGATIVE) 10/16/22 19:44 Urine Urobilinogen Normal (NORMAL) 10/16/22 19:44 Ur Leukocyte Esterase 3+ (NEGATIVE) 10/16/22 19:44 Urine RBC Tntc /HPF (0-3) A 10/16/22 19:44 Urine WBC Tntc /HPF (0-5) A 10/16/22 19:44 Ur Squamous Epith Cells Rare /HPF (NEGATIVE) 10/16/22 19:44 Urine Bacteria Trace /HPF (NEGATIVE) 10/16/22 19:44 Ur Culture Indicated? Yes/culture set up 10/16/22 19:44 Plan (1) Acute pancreatitis: Status: Acute Qualifiers: Acute pancreatitis complication: unspecified Plan: ADMIT, SURGICAL CONSULT, NORMAL SALINE AT 75 ML/HR, CIPRO 200MG IV Q12H, PEPCID 20MG IV Q12H, PROTONIX 40MG IV Q12H, ZOFRAN COCKTAIL Q8H, PHENERGAN 25MG IM Q4H PRN, OTBS ACHS, HUMULIN R SLIDING SCALE. RESUME HOME MEDS (2) Ileus: Status: Acute (3) Hernia, ventral: Status: Chronic Qualifiers: Obstruction and gangrene presence: without obstruction or gangrene Qualified Code(s): K43.9 - Ventral hernia without obstruction or gangrene (4) Acute on chronic renal insufficiency: Status: Acute (5) Anemia: Status: Acute Qualifiers: Anemia type: due to chronic kidney disease Chronic kidney disease stage: unspecified stage Qualified Code(s): N18.9 - Chronic kidney disease, unspecified; D63.1 - Anemia in chronic kidney disease (6) Leukocytosis: Status: Acute Qualifiers: Leukocytosis type: unspecified Qualified Code(s): D72.829 - Elevated white blood cell count, unspecified (7) Hyperkalemia: Status: Acute
[2022-10-19] MEDS ORDERED: NS 50 ML IV 50 ML IV ONE (10:59)
[2022-10-19] MEDS ORDERED: KAYEXALATE SUSP PO ONE (11:00)
[2022-10-19] MEDS: NS 1,000 ML IV 1,000 ML IV SCH ×2 (13:00→17:59)
[2022-10-19] MEDS ORDERED: BUTT CREAM (COMPOUND) ONE (16:26)
--- NOTE | 2022-10-19 17:41 | EKG ---
Test Reason : pre op for procedure Blood Pressure : */* mmHG Vent. Rate : 70 BPM Atrial Rate : 70 BPM P-R Int : 210 ms QRS Dur : 124 ms QT Int : 428 ms P-R-T Axes : * -38 186 degrees QTc Int : 462 ms AV dual-paced rhythm with prolonged AV conduction Abnormal ECG When compared with ECG of 14-JUL-2022 09:00, No significant change was found Confirmed by Russ Sharma ([id number]) on 10/20/2022 7:48:50 AM Referred By: Confirmed By: Russ Sharma
[2022-10-19] MEDS ORDERED: NYSTATIN CREAM TOP PRN (17:51)
[2022-10-19] MEDS: SNACK - Diabetic Appropriate PO SCH ×2 (20:57→21:00)
[2022-10-19] MEDS: ZOCOR TAB 20 MG PO SCH (20:58)
[2022-10-19] MEDS: DILAUDID INJ IVP PRN (22:46)
[2022-10-19] MEDS: RESTORIL CAP 15 MG PO PRN (22:50)
--- NOTE | 2022-10-19 23:41 | DR.CONSULT ---
CONSULT Consultation for Day of: Date: 10/19/22 Chief Complaint Chief Complaint: Dry gangrene distal tight great tow and second toe. Allergies Allergies Allergy/AdvReac Type Severity Reaction Status Date / Time prochlorperazine Allergy Unknown Verified 07/11/22 19:19 [From Compazine] tramadol Allergy Verified 07/11/22 19:19 History of Present Illness History of Present Illness: 87 yo female with chronic health problems including Coronary artery disease, pacemaker placement angioplasty and stent placement of coronary arteries, diabetes and significant medical problems recently including ventral Hernia repair with mesh complicated by enterocutaneous fistula requiring exploration with resection of the cecum and removal of the mesh with Loop ileostomy. She has become non ambulatory with a new decubitus ulcer wound to the left inner buttock. She is known to have chronic renal disease with creatinine of 3.9. I was asked to the patient because of dry gangrene to the right great toe and second toe. Patient is not a good candidate for surgery or CT angiogram do to her kidney failure. Please see discussion below. Past Medical History Past Medical History: Anxiety, Arthritis, Coronary Artery Disease, Diabetes, Dyslipidemia, Hypertension and Sleep Apnea Past Surgical History Surgical History: Angioplasty/Stents and Appendectomy Additional Surgical History: Pacemaker, Hernia Repair, Tubal, Loop ileostomy LLQ Family History Family Medical History: Hypertension Social History Does any household member use tobacco: No Alcohol Use: None Drug Use: None Medications Home Medications: prochlorperazine [From Compazine] Allergy (Unknown, Verified 07/11/22 19:19) tramadol Allergy (Verified 07/11/22 19:19) CONTINUE taking the following medications acetaminophen 300 mg-codeine 60 mg tablet 1 tab PO QID PRN 10/17/22 [History] albuterol sulfate 90 mcg/actuation aerosol inhaler 1 puff inhalation BID wheezing 10/17/22 [History] aspirin 81 mg chewable tablet 1 tab PO QDAY 10/17/22 [History] clopidogrel 75 mg tablet 1 tab PO DIRECTED 10/17/22 [History] haloperidol lactate 2 mg/mL oral concentrate 0.5 ea PO Q4H PRN Agitation 10/17/22 [History] hydrocodone 10 mg-acetaminophen 325 mg tablet 1 tab PO QID PRN 10/17/22 [History] hyoscyamine sulfate 0.125 mg sublingual tablet 1 tab sublingual Q4HR PRN Secretions 10/17/22 [History] lorazepam 0.5 mg tablet 1 tab PO QID PRN 10/17/22 [History] omeprazole 40 mg capsule,delayed release 1 cap PO QDAY 10/17/22 [History] simvastatin 20 mg tablet 1 tab PO HS hyperlipidemia 10/17/22 [History] temazepam 15 mg capsule 1 cap PO QPM insomnia 10/17/22 [History] Review of Systems Constitutional: See HPI Eyes: No Symptoms Reported ENT: No Symptoms Reported Respiratory: No Symptoms Reported Cardiovascular: See HPI Gastrointestinal: No Symptoms Reported Genitourinary: No Symptoms Reported Musculoskeletal: See HPI Skin: See HPI Neurological: See HPI, Weakness and Confusion Physical Exam Vital Signs: Temperature 97.9 F Pulse Rate [Left Radial] 96 Pulse Rate 69 Respiratory Rate 12 Blood Pressure [Right Arm] 142/66 Blood Pressure [Left Arm] 106/52 Blood Pressure [Right Arm] 169/74 Blood Pressure [Left Arm] 178/79 Blood Pressure 152/65 O2 Sat by Pulse Oximetry 100 Oriented: negative Normal, Time, Person or Place Eyes: Normal Ear: Normal Nose: Normal Throat: Normal Respiratory: Clear Throughout Cardiovascular: Normal (paced ) and Other (Palpable femoral pulses bilaterally . Biphasic right popliteal artery Doppler signal. Both feet arew cool and neither foot has a palpable pulse. Monophasic flow in the right posterior tibial artery. Absent flow right dorsal Dry gangrene over the distal aspect of the right great toe and second toe ) : Normal Auscultation: Bowel Sounds: Normal Palpation: Other (loop ileostomy and open wound of abdomen) Tenderness: Normal Skin: Wound (wound of abdomen after hernia repair, complicated by enterocutaneous fistula secondary to mesh involving cecum. Mesh and invloved cecum resected and has loop ileostomy. Had wound of abdomen open now being packed daily. Has stage II decubitus to left inner buttocks. 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 She is chronically ill and most likely will never walk again. One option would be to let nature take its course and when necessary provide appropriate amputation of the right lower extremity. Family does not want to see their loved one have an extremity removed. I explained that ordinarily we would obtain a CT angiogram, however, because of her chronic kidney disease and creatinine of 3.0, CT angiogram would most likely hasten ultimate end stage renal failure. She has good doppler signal to the right popliteal artery and distal to this the waveforms are monophasic . We may be able to use limited dye and intravascular ultra sound to guide intervention of the right leg. I explained that she still may lose the two toes. I also explained to the family that she is a high-risk patient. Family wants to proceed with intervention of the right lower extremity. (4) Decubitus ulcer: Status: Acute Plan: see progress notes (5) CKD (chronic kidney disease): Status: Acute Plan: see above (6) Hyperkalemia: Status: Acute Plan: improved
[2022-10-20] MEDS ORDERED: ZOFRAN INJ 4 MG VIAL ONE (02:18)
[2022-10-20] MEDS ORDERED: ATIVAN INJ 2 MG VIAL ONE (02:18)
[2022-10-20] MEDS ORDERED: DECADRON INJ ONE (02:18)
[2022-10-20] MEDS: DECADRON IV SCH ×3 (02:34→20:58)
[2022-10-20] MEDS: [UNRECOGNIZED DRUG - OTHER] IV SCH ×3 (02:34→20:58)
[2022-10-20] MEDS: ZOFRAN IV SCH ×3 (02:34→20:58)
[2022-10-20] MEDS: ATIVAN IV SCH ×3 (02:34→20:58)
[2022-10-20] MEDS: NS 1,000 ML IV 1,000 ML IV SCH ×2 (04:33→18:23)
[2022-10-20 05:06] LABS: BASOPHILS % (AUTO) 0 % (0.2-1.0); HEMATOCRIT 24.1 % (36.0-47.0); HEMOGLOBIN 7.5 g/dL (12.0-16.0); LYMPHOCYTES # (AUTO) 0.6 X10^3/uL (1.3-2.9); LYMPHOCYTES % (AUTO) 2.6 % (21.0-51.0); MEAN CORPUSCULAR HEMOGLOBIN 27.5 pg (27.0-34.0); MEAN CORPUSCULAR VOLUME 88.7 fL (80.0-100.0); MEAN PLATELET VOLUME 8.4 fL (7.4-11.0); MONOCYTES # (AUTO) 0.7 x10^3/uL (0.3-0.8); MONOCYTES % (AUTO) 3.2 % (0.0-13.0); NEUTROPHILS # (AUTO) 20.5 x10^3/uL (2.2-4.8); NEUTROPHILS % (AUTO) 94.2 % (42.0-75.0); PLATELET COUNT 246 X10^3/uL (150.0-450.0); RED BLOOD COUNT 2.72 X10^6/uL (3.5-5.4); RED CELL DISTRIBUTION WIDTH 21.2 % (11.6-16.5); WHITE BLOOD COUNT 21.7 X10^3/uL (3.6-10.0)
[2022-10-20 05:16] LABS: ALBUMIN 1.4 g/dL (3.4-5.0); CALCIUM 8.3 mg/dL (8.5-10.1); CARBON DIOXIDE 20.6 mmol/L (21-32); COR CA(FOR HYPOALB) 10.4 mg/dL (8.5-10.1); CREATININE 2.97 mg/dL (0.55-1.02); TOTAL PROTEIN 5.1 g/dL (6.4-8.2)
[2022-10-20] MEDS: DILAUDID INJ IVP PRN ×2 (05:16→21:00)
[2022-10-20 05:22] LABS: POTASSIUM 5.7 mmol/L (3.5-5.1)
[2022-10-20 05:37] LABS: ANISOCYTOSIS 1+; HYPOCHROMASIA 1+; PLATELET MORPHOLOGY COMMENT NORMAL (NORMAL); TARGET CELLS PRESENT
[2022-10-20 05:38] LABS: OVALOCYTES PRESENT; SCHISTOCYTES PRESENT
[2022-10-20] MEDS: PROTONIX INJ 40 MG VIAL IVP SCH ×2 (08:39→21:06)
[2022-10-20] MEDS: ROCEPHIN VIAL 1 GRAM 1 G in NS 100 ML IV 100 ML IV SCH (08:40)
[2022-10-20] MEDS: LOPRESSOR TAB 50 MG PO SCH ×2 (09:04→20:56)
[2022-10-20] MEDS: ZESTRIL TAB 10 MG PO SCH (09:05)
[2022-10-20] MEDS: CIPRO IV 200 MG PREMIX* 200 MG/100 ML BAG IV SCH ×2 (10:00→21:05)
[2022-10-20] MEDS: PEPCID 20 MG VIAL 20 MG in NS 50 ML IV 50 ML IV SCH (10:00)
[2022-10-20] MEDS: PLAVIX PO SCH (10:37)
[2022-10-20] MEDS ORDERED: VERSED ONE (15:35)
[2022-10-20] MEDS ORDERED: DIPRIVAN VIAL 20 ML ONE (15:36)
[2022-10-20] MEDS ORDERED: ANCEF VIAL 1 GRAM ONE (15:51)
[2022-10-20] MEDS ORDERED: NS 1,000 ML IV 0 ML ONE (15:51)
[2022-10-20] MEDS ORDERED: MARCAINE/EPINEPHRINE ONE (15:51)
[2022-10-20] MEDS ORDERED: NS 100 ML IV 100 ML ONE (15:52)
[2022-10-20] MEDS ORDERED: HEPARIN SODIUM IN D5W 75,000 UNITS/1,500 ML BAG ONE (15:52)
[2022-10-20] MEDS ORDERED: KETAMINE HCL ONE (15:59)
[2022-10-20] MEDS ORDERED: NS 500 ML IV 500 ML IV ONE (16:40)
[2022-10-20 16:41] LABS: BILIRUBIN,URINE NEGATIVE (NEGATIVE); BLOOD/HEMOGLOBIN,URINE 4+ (NEGATIVE); GLUCOSE, URINE NEGATIVE (NEGATIVE); KETONES,URINE NEGATIVE (NEGATIVE); LEUKOCYTE ESTERASE ,URINE 3+ (NEGATIVE); NITRITES,URINE NEGATIVE (NEGATIVE); PROTEIN,URINE 3+ (NEGATIVE); UROBILINOGEN,URINE NORMAL (NORMAL)
[2022-10-20] MEDS ORDERED: HEPARIN SODIUM INJ 5000 UNITS ONE (16:56)
[2022-10-20] MEDS ORDERED: PROTAMINE SULFATE 50 MG VIAL ONE (16:56)
[2022-10-20 16:59] LABS: APPEARANCE,URINE CLOUDY (CLEAR); COLOR,URINE STRAW (YELLOW)
[2022-10-20 17:00] LABS: BACTERIA,URINE 1+ /HPF (NEGATIVE); SQUAMOUS EPITHELIAL CELL,UR RARE /HPF (NEGATIVE); YEAST,URINE FEW /HPF (NEGATIVE)
--- NOTE | 2022-10-20 17:18 | OR.IMMED ---
IMMEDIATE POST-OP NOTE Immediate Post-Op Note Pre-Op Diagnosis: critical right leg ischemia with dry gangrene right great and second toe. Post-Op Diagnosis: same Procedure: arteriogram right leg with limited dye, atherectomy and balloon angioplasty right peroneal artery. Description of Procedure: see operative note Surgeon/Filing Writer: Ivy Findings: normal proximal arteries right leg, occluded right anterior and right posterior tibial arteries . Only run off to the right foot was the peroneal artery which had severe disease proximally. Estimated Blood Loss: 100 cc Complications: none Progress Notes: Return to floor . Leave [place] in place tonight. Labs in AM. Urine sent for culture . Continue Plavix. Begin Xarelto 2.5 mg po BID.
[2022-10-20] MEDS: RESTORIL CAP 15 MG PO PRN (20:55)
[2022-10-20] MEDS: ZOCOR TAB 20 MG PO SCH (20:55)
[2022-10-20] MEDS: XARELTO PO SCH (20:56)
[2022-10-20] MEDS: SNACK - Diabetic Appropriate PO SCH ×2 (21:04→21:05)
[2022-10-21] MEDS: NS 1,000 ML IV 1,000 ML IV SCH ×2 (00:33→06:07)
[2022-10-21] MEDS: ATIVAN IV SCH ×3 (03:00→19:59)
[2022-10-21] MEDS: DECADRON IV SCH ×3 (03:00→19:59)
[2022-10-21] MEDS: ZOFRAN IV SCH ×3 (03:00→19:59)
[2022-10-21] MEDS: [UNRECOGNIZED DRUG - OTHER] IV SCH ×3 (03:00→19:59)
[2022-10-21 04:57] LABS: BASOPHILS % (AUTO) 0 % (0.2-1.0); HEMATOCRIT 23.7 % (36.0-47.0); HEMOGLOBIN 7.3 g/dL (12.0-16.0); LYMPHOCYTES # (AUTO) 0.6 X10^3/uL (1.3-2.9); LYMPHOCYTES % (AUTO) 2.6 % (21.0-51.0); MEAN CORPUSCULAR HEMOGLOBIN 27.4 pg (27.0-34.0); MEAN CORPUSCULAR HGB CONC 30.8 g/dL (33.0-35.0); MEAN CORPUSCULAR VOLUME 88.9 fL (80.0-100.0); MEAN PLATELET VOLUME 8.7 fL (7.4-11.0); MONOCYTES # (AUTO) 1.1 x10^3/uL (0.3-0.8); MONOCYTES % (AUTO) 4.9 % (0.0-13.0); NEUTROPHILS # (AUTO) 20.8 x10^3/uL (2.2-4.8); NEUTROPHILS % (AUTO) 92.5 % (42.0-75.0); PLATELET COUNT 212 X10^3/uL (150.0-450.0); RED BLOOD COUNT 2.67 X10^6/uL (3.5-5.4); RED CELL DISTRIBUTION WIDTH 21.1 % (11.6-16.5); WHITE BLOOD COUNT 22.5 X10^3/uL (3.6-10.0)
[2022-10-21 05:11] LABS: ALBUMIN 1.4 g/dL (3.4-5.0); CALCIUM 8.1 mg/dL (8.5-10.1); COR CA(FOR HYPOALB) 10.2 mg/dL (8.5-10.1); CREATININE 2.88 mg/dL (0.55-1.02); POTASSIUM 5.6 mmol/L (3.5-5.1); TOTAL PROTEIN 4.8 g/dL (6.4-8.2)
[2022-10-21 05:57] LABS: ANISOCYTOSIS 1+; HYPOCHROMASIA 1+; PLATELET MORPHOLOGY COMMENT NORMAL (NORMAL)
[2022-10-21 05:58] LABS: BURR CELLS PRESENT; OVALOCYTES PRESENT; SCHISTOCYTES PRESENT; TARGET CELLS PRESENT
[2022-10-21] MEDS: ALBUMIN HUMAN 25%- 100 ML 100 ML IV SCH (09:37)
[2022-10-21] MEDS: PROTONIX INJ 40 MG VIAL IVP SCH ×2 (09:37→22:03)
[2022-10-21] MEDS: LOPRESSOR TAB 50 MG PO SCH ×2 (09:38→21:00)
[2022-10-21] MEDS: XARELTO PO SCH ×2 (09:41→21:00)
[2022-10-21] MEDS: PEPCID 20 MG VIAL 20 MG in NS 50 ML IV 50 ML IV SCH (09:42)
[2022-10-21] MEDS: CIPRO IV 200 MG PREMIX* 200 MG/100 ML BAG IV SCH ×2 (09:43→22:00)
[2022-10-21] MEDS: PLAVIX PO SCH (09:45)
[2022-10-21] MEDS: ZESTRIL TAB 10 MG PO SCH (09:47)
[2022-10-21] MEDS: ROCEPHIN VIAL 1 GRAM 1 G in NS 100 ML IV 100 ML IV SCH (09:48)
[2022-10-21] MEDS: NS 1/2 1,000 ML IV 1,000 ML IV SCH ×2 (10:30→23:00)
[2022-10-21] MEDS: ZOCOR TAB 20 MG PO SCH (21:00)
[2022-10-21] MEDS: SNACK - Diabetic Appropriate PO SCH ×2 (21:00)
[2022-10-21] MEDS: DILAUDID INJ IVP PRN (22:00)
--- NOTE | 2022-10-21 23:11 | NOTE.SOAP ---
Soap Note Note for Day of Date of Exam: 10/21/22 Subjective Data Subjective Data: POD # 1 after peripheral intervention right leg . Tolerated well Objective Data Temperature: 98.3 F Pulse Rate: 69 Respiratory Rate: 25 Blood Pressure: 118/56 O2 Sat by Pulse Oximetry: 100 Objective Data: biphasic right posterior tibial artery signal. Creatinine = 2.88, Still with dry gangrene to the right great and 2nd toes plantar surface. Assessment Assessment: S/p revascularization of the right leg. Doing well. Plan Plan: Monitor right leg .Start Santyl to the dry gangrene of the right toes .
[2022-10-22] MEDS: ATIVAN IV SCH (04:00)
[2022-10-22] MEDS: ZOFRAN IV SCH (04:00)
[2022-10-22] MEDS: DECADRON IV SCH (04:00)
[2022-10-22] MEDS: [UNRECOGNIZED DRUG - OTHER] IV SCH (04:00)
[2022-10-22] MEDS ORDERED: NS 1/2 1,000 ML IV 1,000 ML IV ONE ×2 (04:00→20:22)
[2022-10-22] MEDS: NS 1/2 1,000 ML IV 1,000 ML IV SCH ×3 (04:36→20:28)
[2022-10-22] MEDS: DILAUDID INJ IVP PRN ×3 (05:12→22:15)
[2022-10-22 05:14] LABS: BASOPHILS % (AUTO) 0.1 % (0.2-1.0); HEMATOCRIT 20.7 % (36.0-47.0); LYMPHOCYTES # (AUTO) 0.7 X10^3/uL (1.3-2.9); LYMPHOCYTES % (AUTO) 3.3 % (21.0-51.0); MEAN CORPUSCULAR HEMOGLOBIN 27.4 pg (27.0-34.0); MEAN CORPUSCULAR VOLUME 88.2 fL (80.0-100.0); MEAN PLATELET VOLUME 8.7 fL (7.4-11.0); MONOCYTES # (AUTO) 0.9 x10^3/uL (0.3-0.8); MONOCYTES % (AUTO) 4.2 % (0.0-13.0); NEUTROPHILS # (AUTO) 19.4 x10^3/uL (2.2-4.8); NEUTROPHILS % (AUTO) 92.4 % (42.0-75.0); PLATELET COUNT 179 X10^3/uL (150.0-450.0); RED BLOOD COUNT 2.35 X10^6/uL (3.5-5.4); RED CELL DISTRIBUTION WIDTH 20.9 % (11.6-16.5)
[2022-10-22 05:26] LABS: ALBUMIN 1.9 g/dL (3.4-5.0); CALCIUM 8.2 mg/dL (8.5-10.1); CARBON DIOXIDE 18.3 mmol/L (21-32); COR CA(FOR HYPOALB) 9.9 mg/dL (8.5-10.1); CREATININE 2.79 mg/dL (0.55-1.02); TOTAL PROTEIN 4.8 g/dL (6.4-8.2)
[2022-10-22 05:42] LABS: HEMOGLOBIN 6.4 g/dL (12.0-16.0)
[2022-10-22 05:43] LABS: ANISOCYTOSIS 1+; HYPOCHROMASIA 2+; OVALOCYTES PRESENT; PLATELET MORPHOLOGY COMMENT NORMAL (NORMAL); ROULEAUX PRESENT; SCHISTOCYTES PRESENT; TARGET CELLS PRESENT
[2022-10-22] MEDS: PROTONIX INJ 40 MG VIAL IVP SCH ×2 (09:27→21:09)
[2022-10-22] MEDS: ROCEPHIN VIAL 1 GRAM 1 G in NS 100 ML IV 100 ML IV SCH (09:27)
[2022-10-22] MEDS: LOPRESSOR TAB 50 MG PO SCH ×2 (09:31→21:09)
[2022-10-22] MEDS: ZESTRIL TAB 10 MG PO SCH (09:31)
[2022-10-22] MEDS: CIPRO IV 200 MG PREMIX* 200 MG/100 ML BAG IV SCH ×2 (10:13→21:10)
[2022-10-22] MEDS: XARELTO PO SCH ×2 (10:43→21:09)
[2022-10-22] MEDS: PLAVIX PO SCH (10:43)
[2022-10-22] MEDS: ALBUMIN HUMAN 25%- 100 ML 100 ML IV SCH (11:15)
[2022-10-22] MEDS ORDERED: DECADRON IV PRN (12:00)
[2022-10-22] MEDS ORDERED: ZOFRAN IV PRN (12:00)
[2022-10-22] MEDS ORDERED: ATIVAN IV PRN (12:00)
[2022-10-22] MEDS ORDERED: [UNRECOGNIZED DRUG - OTHER] IV PRN (12:00)
[2022-10-22] MEDS: PEPCID 20 MG VIAL 20 MG in NS 50 ML IV 50 ML IV SCH (12:24)
[2022-10-22] MEDS ORDERED: NS 500 ML IV 500 ML IV ONE (14:14)
[2022-10-22] MEDS: ZOCOR TAB 20 MG PO SCH (21:09)
--- NOTE | 2022-10-22 21:39 | PCM.PROG ---
Progress Note - Progress Note for Day of Date of Exam: 10/21/22 - Subjective Subjective: IS A 87 YEAR OLD PATIENT OF OURS WHO IS CURRENTLY INPATIENT STATUS FOR TREATMENT OF ACUTE PANCREATITIS, ILEUS, DEHISCED VENTRAL HERNIA, INFECTED SACRAL DECUBITUS ULCER, ACUTE ON CHRONIC RENAL INSUFFICIENCY, ANEMIA, LEUKOCYTOSIS, AND NECROTIC RIGHT FIRST AND SECOND TOE. 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 THERE IS MESH EXPOSED TO THE ABDOMEN. OTHER PMH INCLUDES HTN, CAD, DM II, HYPERLIPDEMIA, ARTHRITIS, SLEEP APNEA, LOOP ILEOSTOMY OF LLQ, HERNIA REPAIR X 2, PACEMAKER, ANGIOPLASTY/STENTS, APPENDECTOMY, AND TUBAL. SHE IS DAY 1 POST OP ARTERIOGRAM OF THE RIGHT LEG WITH LIMITED DYE, ATHERECTOMY, AND BALLOON ANGIOPLASTY RIGHT PERONEAL ARTERY. ON MORNING ROUNDS, PATIENT IS LYING IN BED WITH EYES CLOSED. SHE IS DIFFICULT TO AROUSE. SHE DOES NOT RESPOND VERBALLY, BUT DOES MOVE HER HEAD AND ARMS. ON EXAMINATION, HEART IS REGULAR IN RATE AND RHYTHM. BILATERAL LUNGS ARE NOTED WITH RHONCHI AND DIMINISHED LUNG SOUNDS THROUGHOUT. BOWEL SOUNDS ARE HYPOACTIVE IN ALL QUADRANTS. DIFFUSE UPPER AND LOWER EXTREMITY MUSCLE ATROPHY AND WEAKNESS NOTED. THE FIRST AND SECOND TOES OF THE RIGHT FOOT ARE NECROTIC. HER VITALS THIS MORNING ARE: 97.3-69-12-100%-123/55. SHE IS CURRENTLY UTILIZING OXYGEN VIA NASAL CANNULA AT 2 LPM. LABS WERE OBTAINED. WBC 22.5, RBC 2.67, HGB 7.3, HCT 23.7, PLT COUNT 212, SODIUM 151, POTASSIUM 5.6, CHLORIDE 123, CARBON DIOXIDE 19.0, BUN 74, CREATININE 2.88, GLUCOSE 152, CALCIUM 8.1, TOTAL BILI 0.20, AST 13, ALT 15, ALK PHOS 82, TOTAL PROTEIN 4.8, ALBUMIN 1.4. URINE AND WOUND CULTURES ARE PENDING. SACRAL ULCER IS POSITIVE FOR GROWTH OF PSEUDOMONAS AERUGINOSA. ABDOMINAL WOUND CULTURE IS POSITIVE FOR GROWTH OF E.COLI. SHE IS CURRENTLY RECEIVING NORMAL SALINE AT 75 ML/HR, CEFTRIAXONE 1G IV DAILY, CIPRO 200MG PO Q12H, PEPCID 20MG IV Q12H, PROTONIX 40MG IV Q12H, ZOFRAN COCKTAIL Q8H, PHENERGAN 25MG IM Q4H PRN, OTBS ACHS, HUMULIN R SLIDING SCALE, XARELTO 2.5MG BID, NYSTATIN CREAT TID PRN. HER HOME MEDICATIONS OF PLAVIX, ZESTRIL, LOPRESSOR, PERCOCET, ZOCOR, AND RESTORIL WERE RESUMED. WE WILL CHANGE HER IV FLUIDS TO NORMAL SALINE AT 75 ML/HR. GENERAL/VASCULAR SURGEON WILL CONTINUE TO MONITOR PATIENT. WE WILL CONTINUE WITH WOUND CARE. OTHERWISE, WE WILL FOLLOW-UP WITH AM LABS AND CONTINUE TO MONITOR. TIME SPENT ON CLINICAL ASSESSMENT, REVIEWING LABS AND IMAGING, DECISION MAKING, AND DOCUMENTATION GREATER THAN 45 MINUTES. - Past Medical Family Social History Past Med/Fam/Surg Hx: No changes since H&P Allergies: Allergies prochlorperazine [From Compazine] Allergy (Unknown, Verified 07/11/22 19:19) Reason: Drug allergy tramadol Allergy (Verified 07/11/22 19:19) - Review of Systems ROS: No change since H&P - Vital Signs and I&O's Vital Signs: Temperature 98.2 F Pulse Rate [Left Radial] 82 Pulse Rate 69 Respiratory Rate 19 Blood Pressure [Right Arm] 142/66 Blood Pressure [Left Arm] 136/60 Blood Pressure [Right Arm] 169/74 Blood Pressure [Left Arm] 178/79 Blood Pressure 162/67 O2 Sat by Pulse Oximetry 100 Intake and Output: Intake & Output 10/20/22 10/21/22 10/22/22 10/23/22 11:59 11:59 11:59 11:59 Intake Total 1851 / 1851 3973 / 3973 2053 / 2053 1020 / 1020 Output Total 850 / 850 1950 / 1950 1000 / 1000 200 / 200 Balance 1001 / 1001 2022 1054 / 1054 820 / 820 - Physical Exam Oriented: negative: Normal, Time, Person, Place Eyes: Normal Ear: Normal Nose: Normal Throat: Normal Respiratory: Diminished Cardiovascular: Normal (paced), Other (Palpable femoral pulses bilaterally . Biphasic right popliteal artery Doppler signal. Both feet arew cool and neither foot has a palpable pulse. Monophasic flow in the right posterior tibial artery. 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 Mesh and invloved cecum resected and has loop ileostomy. Had wound of abdomen open now being packed daily. Has stage II decubitus to left inner buttocks.) Musculoskeletal: Normal Psychiatric: Other (patient with dementia) Mood Description: Labile Affect: Depressed Speech Pattern: Unclear - Laboratory and Diagnostics Result Diagrams: 10/22/22 04:30 10/22/22 04:30 Labs: 10/16/22 18:15 Blood Blood Culture - Final 10/20/22 16:08 Urine,Catheterized Urine Culture - Final 10/16/22 21:24 Buttock Wound Gram Stain - Final 10/16/22 21:24 Buttock Wound Culture - Final Pseudomonas Aeruginosa 10/16/22 19:44 Urine,Catheterized Urine Culture - Final 10/16/22 21:24 Abdomen Wound Gram Stain - Final 10/16/22 21:24 Abdomen Wound Culture - Final Escherichia Coli Laboratory WBC 21.0 X10^3/uL (3.6-10.0) H 10/22/22 04:30 RBC 2.35 X10^6/uL (3.5-5.4) L 10/22/22 04:30 Hgb 6.4 g/dL (12.0-16.0) L* 10/22/22 04:30 Hct 20.7 % (36.0-47.0) L 10/22/22 04:30 MCV 88.2 fL (80.0-100.0) 10/22/22 04:30 MCH 27.4 pg (27.0-34.0) 10/22/22 04:30 MCHC 31.0 g/dL (33.0-35.0) L 10/22/22 04:30 RDW 20.9 % (11.6-16.5) H 10/22/22 04:30 Plt Count 179 X10^3/uL (150.0-450.0) 10/22/22 04:30 Plt Count Comment Adequate (ADEQUATE) 10/22/22 04:30 MPV 8.7 fL (7.4-11.0) 10/22/22 04:30 Neut % (Auto) 92.4 % (42.0-75.0) H 10/22/22 04:30 Lymph % (Auto) 3.3 % (21.0-51.0) L 10/22/22 04:30 [place] % (Auto) 4.2 % (0.0-13.0) 10/22/22 04:30 Eos % (Auto) 0.0 % (0.9-2.9) L 10/22/22 04:30 Baso % (Auto) 0.1 % (0.2-1.0) L 10/22/22 04:30 Neut # (Auto) 19.4 x10^3/uL (2.2-4.8) H 10/22/22 04:30 Lymph # (Auto) 0.7 X10^3/uL (1.3-2.9) L 10/22/22 04:30 [place] # (Auto) 0.9 x10^3/uL (0.3-0.8) H 10/22/22 04:30 Eos # (Auto) 0.0 x10^3/uL (0.0-0.2) 10/22/22 04:30 Baso # (Auto) 0.0 X10^3/uL (0.0-0.1) 10/22/22 04:30 Absolute Nucleated RBC 0.1 /100WBC 10/22/22 04:30 Total Counted 100 10/22/22 04:30 Neutrophils % (Manual) 95 % (39-76) H 10/22/22 04:30 Band Neutrophils % 1 % (0-10) 10/19/22 04:06 Lymphocytes % (Manual) 3 % (13-43) L 10/22/22 04:30 Monocytes % (Manual) 2 % (4-9) L 10/22/22 04:30 Plt Morphology Comment Normal (NORMAL) 10/22/22 04:30 RBC Morphology Abnormal (NORMAL) A 10/22/22 04:30 Hypochromasia 2+ A 10/22/22 04:30 Anisocytosis 1+ A 10/22/22 04:30 Target Cells Present 10/22/22 04:30 Ovalocytes Present 10/22/22 04:30 Agustin Cells Present 10/21/22 04:03 Rouleaux Present 10/22/22 04:30 Schistocytes Present 10/22/22 04:30 Sodium 151 mmol/L (136-145) H* 10/22/22 04:30 Corrected Sodium 151 mmol/L (136-145) H 10/22/22 04:30 Potassium 5.0 mmol/L (3.5-5.1) 10/22/22 04:30 Chloride 123 mmol/L (98-107) H* 10/22/22 04:30 Carbon Dioxide 18.3 mmol/L (21-32) L 10/22/22 04:30 BUN 71 mg/dL (7-18) H 10/22/22 04:30 Creatinine 2.79 mg/dL (0.55-1.02) H 10/22/22 04:30 Est GFR (MDRD) Af Amer 21 (>60) L 10/22/22 04:30 Est GFR (MDRD) Non-Af 17 (>60) L 10/22/22 04:30 Glucose 114 mg/dL (65-99) H 10/22/22 04:30 POC Glucose (mg/dL) 138 mg/dL (65-99) H 10/22/22 21:07 Lactic Acid 1.0 mmol/L (0.4-2.0) 10/20/22 04:18 Calcium 8.2 mg/dL (8.5-10.1) L 10/22/22 04:30 Corrected Calcium 9.9 mg/dL (8.5-10.1) 10/22/22 04:30 Total Bilirubin 0.30 mg/dL (0.2-1.0) 10/22/22 04:30 AST 14 Units/L (15-37) L 10/22/22 04:30 ALT 11 Units/L (12-78) L 10/22/22 04:30 Alkaline Phosphatase 71 Units/L (46-116) 10/22/22 04:30 Total Protein 4.8 g/dL (6.4-8.2) L 10/22/22 04:30 Albumin 1.9 g/dL (3.4-5.0) L 10/22/22 04:30 Globulin 2.9 g/dL (2.5-4.5) 10/22/22 04:30 Albumin/Globulin Ratio 0.7 Ratio (1.1-2.1) L 10/22/22 04:30 Lipase 430 Units/L (73-393) H 10/16/22 18:15 Specimen Type Catherized urine 10/20/22 16:08 Urine Color Straw (YELLOW) 10/20/22 16:08 Urine Appearance Cloudy (CLEAR) 10/20/22 16:08 Urine pH 5.0 (5.0 - 8.0) 10/20/22 16:08 Ur Specific Bailey 1.020 (1.000-1.030) 10/20/22 16:08 Urine Protein 3+ (NEGATIVE) 10/20/22 16:08 Urine Glucose (UA) Negative (NEGATIVE) 10/20/22 16:08 Urine Ketones Negative (NEGATIVE) 10/20/22 16:08 Urine Blood 4+ (NEGATIVE) 10/20/22 16:08 Urine Nitrite Negative (NEGATIVE) 10/20/22 16:08 Urine Bilirubin Negative (NEGATIVE) 10/20/22 16:08 Urine Urobilinogen Normal (NORMAL) 10/20/22 16:08 Ur Leukocyte Esterase 3+ (NEGATIVE) 10/20/22 16:08 Urine RBC 5-10 /HPF (0-3) A 10/20/22 16:08 Urine WBC Tntc /HPF (0-5) A 10/20/22 16:08 Ur Squamous Epith Cells Rare /HPF (NEGATIVE) 10/20/22 16:08 Urine Bacteria 1+ /HPF (NEGATIVE) 10/20/22 16:08 Urine Mucus Few /HPF (NEGATIVE) 10/20/22 16:08 Urine Yeast Few /HPF (NEGATIVE) 10/20/22 16:08 Ur Culture Indicated? Yes/culture set up 10/20/22 16:08 Blood Type B POSITIVE 10/22/22 09:13 Antibody Screen Negative 10/22/22 09:13 Crossmatch See Detail 10/22/22 09:13 - Plan (1) Acute pancreatitis Status: Acute Qualifiers: Acute pancreatitis complication: unspecified Plan: 1/2 NORMAL SALINE AT 75 ML/HR, CEFTRIAXONE 1G IV DAILY, CIPRO 200MG PO Q12H, PEPCID 20MG IV Q12H, PROTONIX 40MG IV Q12H, ZOFRAN COCKTAIL Q8H, PHENERGAN 25MG IM Q4H PRN, OTBS ACHS, HUMULIN R SLIDING SCALE, XARELTO 2.5MG BID, NYSTATIN CREAT TID PRN. HER HOME MEDICATIONS OF PLAVIX, ZESTRIL, LOPRESSOR, PERCOCET, ZOCOR, AND RESTORIL WERE RESUMED. (2) Ileus Status: Acute (3) Hernia, ventral Status: Chronic Qualifiers: Obstruction and gangrene presence: without obstruction or gangrene Qualified Code(s): K43.9 - Ventral hernia without obstruction or gangrene (4) Acute on chronic renal insufficiency Status: Acute (5) PVD (peripheral vascular disease) Status: Acute (6) Anemia Status: Acute Qualifiers: Anemia type: due to chronic kidney disease Chronic kidney disease stage: unspecified stage Qualified Code(s): N18.9 - Chronic kidney disease, unspecified; D63.1 - Anemia in chronic kidney disease (7) Leukocytosis Status: Acute Qualifiers: Leukocytosis type: unspecified Qualified Code(s): D72.829 - Elevated white blood cell count, unspecified
[2022-10-22] MEDS: SNACK - Diabetic Appropriate PO SCH ×2 (22:00)
[2022-10-22] MEDS ORDERED: NS 250 ML IV 250 ML IV ONE (23:37)
[2022-10-23] MEDS: NS 1/2 1,000 ML IV 1,000 ML IV SCH ×3 (01:22→15:39)
[2022-10-23] MEDS: DILAUDID INJ IVP PRN ×5 (02:20→21:43)
[2022-10-23 03:49] LABS: BASOPHILS # (AUTO) 0.1 X10^3/uL (0.0-0.1); BASOPHILS % (AUTO) 0.5 % (0.2-1.0); EOSINOPHILS % (AUTO) 0.1 % (0.9-2.9); HEMATOCRIT 29.9 % (36.0-47.0); LYMPHOCYTES # (AUTO) 1.1 X10^3/uL (1.3-2.9); LYMPHOCYTES % (AUTO) 4.8 % (21.0-51.0); MEAN CORPUSCULAR HEMOGLOBIN 27.9 pg (27.0-34.0); MEAN CORPUSCULAR HGB CONC 32.2 g/dL (33.0-35.0); MEAN CORPUSCULAR VOLUME 86.8 fL (80.0-100.0); MEAN PLATELET VOLUME 8.6 fL (7.4-11.0); MONOCYTES # (AUTO) 1.2 x10^3/uL (0.3-0.8); MONOCYTES % (AUTO) 5.5 % (0.0-13.0); NEUTROPHILS # (AUTO) 20.2 x10^3/uL (2.2-4.8); NEUTROPHILS % (AUTO) 89.1 % (42.0-75.0); PLATELET COUNT 146 X10^3/uL (150.0-450.0); RED BLOOD COUNT 3.44 X10^6/uL (3.5-5.4); RED CELL DISTRIBUTION WIDTH 17.9 % (11.6-16.5); WHITE BLOOD COUNT 22.7 X10^3/uL (3.6-10.0)
[2022-10-23 03:57] LABS: ALBUMIN 2.3 g/dL (3.4-5.0); CALCIUM 7.9 mg/dL (8.5-10.1); CARBON DIOXIDE 16.5 mmol/L (21-32); COR CA(FOR HYPOALB) 9.3 mg/dL (8.5-10.1); CREATININE 2.62 mg/dL (0.55-1.02); POTASSIUM 4.8 mmol/L (3.5-5.1); TOTAL PROTEIN 4.9 g/dL (6.4-8.2)
[2022-10-23 04:01] LABS: HEMOGLOBIN 9.6 g/dL (12.0-16.0); PLATELET MORPHOLOGY COMMENT NORMAL (NORMAL)
[2022-10-23 04:02] LABS: ANISOCYTOSIS SLIGHT; BURR CELLS PRESENT; OVALOCYTES PRESENT; SCHISTOCYTES PRESENT; TARGET CELLS PRESENT
--- NOTE | 2022-10-23 05:49 | NOTE.SOAP ---
Soap Note Note for Day of Date of Exam: 10/22/22 Subjective Data Subjective Data: POD # 2 after revascularization of the right leg. Stable but overall weak. Objective Data Temperature: 97.8 F Pulse Rate: 69 Respiratory Rate: 12 Blood Pressure: 112/61 O2 Sat by Pulse Oximetry: 100 Objective Data: right foot warm with biphasic doppler sinal of the posterior tibial artery. Dry gangrene plantar distal phalanx of right ngreat and second toes Assessment Assessment: Revascularization right foot, stable Plan Plan: Continue Santyl of the right great and second toes.
--- NOTE | 2022-10-23 06:00 | DR.OPNOTE ---
OP NOTE Pre-Op Diagnosis: no IV access Post-Op Diagnosis: same Procedure Date Date Of Procedure: 10/18/22 Procedure: PROCEDURE: Left subclavian vein non tunneled central venous access NARRATIVE: In the ICU the patient was placed in Trendelenburg position in her bed and the left neck and left chest were prepped and draped in sterile fashion. The skin underlying the left clavicle infiltrated with 1% Xylocaine and a 16 gauge needle used to puncture the left subclavian vein. 0.035 inch guide wire placed without difficulty. Incision made over the guide wire at the skin edge with number 11 knife blade and a dilator placed over the guidewire into the left subclavian vein. The dilator removed and the triple lumen catheter threaded over the guide wire into the left subclavian vein. Guidewire removed. All ports were aspirated of blood and flushed with heparinized saline . The triple Lumen catheter secured to the skin with interrupted silk sutures. CXR showed good placement in the left subclavian vein and no pneumothorax. Type of Anesthesia: Local (1 % Xylocaine) Findings: as above Type of Fluids Used:: Normal Saline EBL: minimal Complications:: none Needle/Sponge Count:: correct Disposition/Condition: Pt. tolerated procedure without difficulty. Post procedur CXR showed good placement of left subclavian vein central catheter and no pneumothorax.
[2022-10-23] MEDS: ALBUMIN HUMAN 25%- 100 ML 100 ML IV SCH (08:33)
[2022-10-23] MEDS ORDERED: NS 250 ML IV 250 ML IV ONE (08:36)
[2022-10-23] MEDS: CIPRO IV 200 MG PREMIX* 200 MG/100 ML BAG IV SCH (08:39)
[2022-10-23] MEDS: PEPCID 20 MG VIAL 20 MG in NS 50 ML IV 50 ML IV SCH (10:00)
[2022-10-23] MEDS ORDERED: FORTAZ or TAZICEF VIAL INJ 1 G in NS 100 ML IV 100 ML IV SCH (10:00)
[2022-10-23] MEDS ORDERED: NS 1/2 1,000 ML IV 1,000 ML IV ONE ×2 (10:01→21:52)
[2022-10-23] MEDS: PROTONIX INJ 40 MG VIAL IVP SCH ×2 (10:05→21:42)
[2022-10-23] MEDS: ZESTRIL TAB 10 MG PO SCH (10:06)
[2022-10-23] MEDS: XARELTO PO SCH ×2 (10:06→20:51)
[2022-10-23] MEDS: LOPRESSOR TAB 50 MG PO SCH ×2 (10:06→20:51)
[2022-10-23] MEDS: PLAVIX PO SCH (10:06)
[2022-10-23] MEDS ORDERED: D50W ABBOJECT SYR ONE (16:56)
[2022-10-23] MEDS: SNACK - Diabetic Appropriate PO SCH ×2 (20:50)
[2022-10-23] MEDS: ZOCOR TAB 20 MG PO SCH (20:51)
--- NOTE | 2022-10-23 22:21 | PCM.PROG ---
Progress Note - Progress Note for Day of Date of Exam: 10/22/22 - Subjective Subjective: IS A 87 YEAR OLD PATIENT OF OURS WHO IS CURRENTLY INPATIENT STATUS FOR TREATMENT OF ACUTE PANCREATITIS, ILEUS, DEHISCED VENTRAL HERNIA, INFECTED SACRAL DECUBITUS ULCER, ACUTE ON CHRONIC RENAL INSUFFICIENCY, HYPERNATREMIA, ANEMIA, LEUKOCYTOSIS, AND NECROTIC RIGHT FIRST AND SECOND TOE. 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 THERE IS MESH EXPOSED TO THE ABDOMEN. OTHER PMH INCLUDES HTN, CAD, DM II, HYPERLIPDEMIA, ARTHRITIS, SLEEP APNEA, LOOP ILEOSTOMY OF LLQ, HERNIA REPAIR X 2, PACEMAKER, ANGIOPLASTY/STENTS, APPENDECTOMY, AND TUBAL. SHE IS DAY 2 POST OP ARTERIOGRAM OF THE RIGHT LEG WITH LIMITED DYE, ATHERECTOMY, AND BALLOON A NGIOPLASTY RIGHT PERONEAL ARTERY. ON MORNING ROUNDS, PATIENT IS LYING IN BED WITH EYES CLOSED. SHE IS DIFFICULT TO AROUSE. SHE DOES NOT RESPOND VERBALLY, BUT DOES MOVE HER HEAD AND ARMS. ON EXAMINATION, HEART IS REGULAR IN RATE AND RHYTHM. BILATERAL LUNGS ARE NOTED WITH RHONCHI AND DIMINISHED LUNG SOUNDS THROUGHOUT. BOWEL SOUNDS ARE HYPOACTIVE IN ALL QUADRANTS. DIFFUSE UPPER AND LOWER EXTREMITY MUSCLE ATROPHY AND WEAKNESS NOTED. THE FIRST AND SECOND TOES OF THE RIGHT FOOT ARE NECROTIC. HER VITALS THIS MORNING ARE: 97.8-69-12-100%-112/61. SHE IS CURRENTLY UTILIZING OXYGEN VIA NASAL CANNULA AT 2 LPM. LABS WERE OBTAINED. WBC 21.0, RBC 2.35, HGB 6.4, HCT 20.7, PLT COUNT 179, SODIUM 151, POTASSIUM 5.0, CHLORIDE 123, CARBON DIOXIDE 18.3, BUN 71, CREATININE 2.79, GLUCOSE 114, CALCIUM 8.2, AST 14, ALT 11, ALK PHOS 71, TOTAL PROTEIN 4.8, ALBUMIN 1.9. URINE AND WOUND CULTURES ARE PENDING. SACRAL ULCER IS POSITIVE FOR GROWTH OF PSEUDOMONAS AERUGINOSA. ABDOMINAL WOUND CULTURE IS POSITIVE FOR GROWTH OF E.COLI. SHE IS CURRENTLY RECEIVING NORMAL SALINE AT 75 ML/HR, CEFTRIAXONE 1G IV DAILY, CIPRO 200MG PO Q12H, ALBUMIN 25% IV DAILY, PEPCID 20MG IV Q12H, PROTONIX 40MG IV Q12H, ZOFRAN COCKTAIL Q8H, PHENERGAN 25MG IM Q4H PRN, OTBS ACHS, HUMULIN R SLIDING SCALE, XARELTO 2.5MG BID, NYSTATIN CREAT TID PRN. HER HOME MEDICATIONS OF PLAVIX, ZESTRIL, LOPRESSOR, PERCOCET, ZOCOR, AND RESTORIL WERE RESUMED. GENERAL/VASCULAR SURGEON WILL CONTINUE TO MONITOR PATIENT. WE WILL CONTINUE WITH WOUND CARE. WE WILL TRANSFUSE TWO UNITS OF PACKED RED BLOOD CELLS TODAY. WE DID DISCUSS PATIENTS STATUS AND POOR PROGNOSIS WITH HER FAMILY MEMBERS. THEY WISHE TO CONTINUE CURRENT PLAN OF TREATMENT TODAY. OTHERWISE, WE WILL FOLLOW-UP WITH AM LABS AND CONTINUE TO MONITOR. TIME SPENT ON CLINICAL ASSESSMENT, REVIEWING LABS AND IMAGING, DECISION MAKING, AND DOCUMENTATION GREATER THAN 45 MINUTES. - Past Medical Family Social History Past Med/Fam/Surg Hx: No changes since H&P Allergies: Allergies prochlorperazine [From Compazine] Allergy (Unknown, Verified 07/11/22 19:19) Reason: Drug allergy tramadol Allergy (Verified 07/11/22 19:19) - Review of Systems ROS: No change since H&P - Vital Signs and I&O's Vital Signs: Temperature 98.0 F Pulse Rate [Left Radial] 82 Pulse Rate 76 Respiratory Rate 20 Blood Pressure [Right Arm] 142/66 Blood Pressure [Left Arm] 136/60 Blood Pressure [Right Arm] 169/74 Blood Pressure [Left Arm] 178/79 Blood Pressure 109/56 O2 Sat by Pulse Oximetry 99 Intake and Output: Intake & Output 10/21/22 10/22/22 10/23/22 10/24/22 11:59 11:59 11:59 11:59 Intake Total 3973 / 3973 2053 3561 / 3561 1108 / 1108 Output Total 1950 / 1949 1000 / 1000 450 / 450 300 / 300 Balance 2022 1054 / 1054 3111 / 3111 808 / 808 - Physical Exam Oriented: negative: Normal, Time, Person, Place Eyes: Normal Ear: Normal Nose: Normal Throat: Normal Respiratory: Diminished Cardiovascular: Normal (paced), Other (Palpable femoral pulses bilaterally . Biphasic right popliteal artery Doppler signal. Both feet arew cool and neither foot has a palpable pulse. Monophasic flow in the right posterior tibial artery. 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 Mesh and invloved cecum resected and has loop ileostomy. Had wound of abdomen open now being packed daily. Has stage II decubitus to left inner buttocks.) Musculoskeletal: Normal Psychiatric: Other (patient with dementia) Mood Description: Labile Affect: Depressed Speech Pattern: Unclear - Laboratory and Diagnostics Result Diagrams: 10/23/22 03:34 10/23/22 03:34 Labs: 10/16/22 18:15 Blood Blood Culture - Final 10/20/22 16:08 Urine,Catheterized Urine Culture - Final 10/16/22 21:24 Buttock Wound Gram Stain - Final 10/16/22 21:24 Buttock Wound Culture - Final Pseudomonas Aeruginosa 10/16/22 19:44 Urine,Catheterized Urine Culture - Final 10/16/22 21:24 Abdomen Wound Gram Stain - Final 10/16/22 21:24 Abdomen Wound Culture - Final Escherichia Coli Laboratory WBC 22.7 X10^3/uL (3.6-10.0) H 10/23/22 03:34 RBC 3.44 X10^6/uL (3.5-5.4) L 10/23/22 03:34 Hgb 9.6 g/dL (12.0-16.0) L D 10/23/22 03:34 Hct 29.9 % (36.0-47.0) L 10/23/22 03:34 MCV 86.8 fL (80.0-100.0) 10/23/22 03:34 MCH 27.9 pg (27.0-34.0) 10/23/22 03:34 MCHC 32.2 g/dL (33.0-35.0) L 10/23/22 03:34 RDW 17.9 % (11.6-16.5) H 10/23/22 03:34 Plt Count 146 X10^3/uL (150.0-450.0) L 10/23/22 03:34 Plt Count Comment Decreased (ADEQUATE) A 10/23/22 03:34 MPV 8.6 fL (7.4-11.0) 10/23/22 03:34 Neut % (Auto) 89.1 % (42.0-75.0) H 10/23/22 03:34 Lymph % (Auto) 4.8 % (21.0-51.0) L 10/23/22 03:34 Meriwether % (Auto) 5.5 % (0.0-13.0) 10/23/22 03:34 Eos % (Auto) 0.1 % (0.9-2.9) L 10/23/22 03:34 Baso % (Auto) 0.5 % (0.2-1.0) 10/23/22 03:34 Neut # (Auto) 20.2 x10^3/uL (2.2-4.8) H 10/23/22 03:34 Lymph # (Auto) 1.1 X10^3/uL (1.3-2.9) L 10/23/22 03:34 Meriwether # (Auto) 1.2 x10^3/uL (0.3-0.8) H 10/23/22 03:34 Eos # (Auto) 0.0 x10^3/uL (0.0-0.2) 10/23/22 03:34 Baso # (Auto) 0.1 X10^3/uL (0.0-0.1) 10/23/22 03:34 Absolute Nucleated RBC 0.0 /100WBC 10/23/22 03:34 Total Counted 100 10/23/22 03:34 Neutrophils % (Manual) 94 % (39-76) H 10/23/22 03:34 Band Neutrophils % 1 % (0-10) 10/19/22 04:06 Lymphocytes % (Manual) 4 % (13-43) L 10/23/22 03:34 Monocytes % (Manual) 2 % (4-9) L 10/23/22 03:34 Plt Morphology Comment Normal (NORMAL) 10/23/22 03:34 RBC Morphology Abnormal (NORMAL) A 10/23/22 03:34 Hypochromasia 2+ A 10/22/22 04:30 Anisocytosis Slight A 10/23/22 03:34 Target Cells Present 10/23/22 03:34 Ovalocytes Present 10/23/22 03:34 Agustin Cells Present 10/23/22 03:34 Rouleaux Present 10/22/22 04:30 Schistocytes Present 10/23/22 03:34 Sodium 148 mmol/L (136-145) H 10/23/22 03:34 Corrected Sodium 149 mmol/L (136-145) H 10/23/22 03:34 Potassium 4.8 mmol/L (3.5-5.1) 10/23/22 03:34 Chloride 121 mmol/L (98-107) H* 10/23/22 03:34 Carbon Dioxide 16.5 mmol/L (21-32) L 10/23/22 03:34 BUN 70 mg/dL (7-18) H 10/23/22 03:34 Creatinine 2.62 mg/dL (0.55-1.02) H 10/23/22 03:34 Est GFR (MDRD) Af Amer 22 (>60) L 10/23/22 03:34 Est GFR (MDRD) Non-Af 18 (>60) L 10/23/22 03:34 Glucose 137 mg/dL (65-99) H 10/23/22 03:34 POC Glucose (mg/dL) 96 mg/dL (65-99) 10/23/22 21:07 Lactic Acid 1.0 mmol/L (0.4-2.0) 10/20/22 04:18 Calcium 7.9 mg/dL (8.5-10.1) L 10/23/22 03:34 Corrected Calcium 9.3 mg/dL (8.5-10.1) 10/23/22 03:34 Total Bilirubin 0.40 mg/dL (0.2-1.0) 10/23/22 03:34 AST 15 Units/L (15-37) 10/23/22 03:34 ALT 11 Units/L (12-78) L 10/23/22 03:34 Alkaline Phosphatase 67 Units/L (46-116) 10/23/22 03:34 Total Protein 4.9 g/dL (6.4-8.2) L 10/23/22 03:34 Albumin 2.3 g/dL (3.4-5.0) L 10/23/22 03:34 Globulin 2.6 g/dL (2.5-4.5) 10/23/22 03:34 Albumin/Globulin Ratio 0.9 Ratio (1.1-2.1) L 10/23/22 03:34 Lipase 430 Units/L (73-393) H 10/16/22 18:15 Specimen Type Catherized urine 10/20/22 16:08 Urine Color Straw (YELLOW) 10/20/22 16:08 Urine Appearance Cloudy (CLEAR) 10/20/22 16:08 Urine pH 5.0 (5.0 - 8.0) 10/20/22 16:08 Ur Specific Morrill 1.020 (1.000-1.030) 10/20/22 16:08 Urine Protein 3+ (NEGATIVE) 10/20/22 16:08 Urine Glucose (UA) Negative (NEGATIVE) 10/20/22 16:08 Urine Ketones Negative (NEGATIVE) 10/20/22 16:08 Urine Blood 4+ (NEGATIVE) 10/20/22 16:08 Urine Nitrite Negative (NEGATIVE) 10/20/22 16:08 Urine Bilirubin Negative (NEGATIVE) 10/20/22 16:08 Urine Urobilinogen Normal (NORMAL) 10/20/22 16:08 Ur Leukocyte Esterase 3+ (NEGATIVE) 10/20/22 16:08 Urine RBC 5-10 /HPF (0-3) A 10/20/22 16:08 Urine WBC Tntc /HPF (0-5) A 10/20/22 16:08 Ur Squamous Epith Cells Rare /HPF (NEGATIVE) 10/20/22 16:08 Urine Bacteria 1+ /HPF (NEGATIVE) 10/20/22 16:08 Urine Mucus Few /HPF (NEGATIVE) 10/20/22 16:08 Urine Yeast Few /HPF (NEGATIVE) 10/20/22 16:08 Ur Culture Indicated? Yes/culture set up 10/20/22 16:08 Blood Type B POSITIVE 10/22/22 09:13 Antibody Screen Negative 10/22/22 09:13 Crossmatch See Detail 10/22/22 09:13 - Plan (1) Acute pancreatitis Status: Acute Qualifiers: Acute pancreatitis complication: unspecified Plan: 1/2 NORMAL SALINE AT 75 ML/HR, CEFTRIAXONE 1G IV DAILY, CIPRO 200MG PO Q12H, PEPCID 20MG IV Q12H, PROTONIX 40MG IV Q12H, ZOFRAN COCKTAIL Q8H, PHENERGAN 25MG IM Q4H PRN, OTBS ACHS, HUMULIN R SLIDING SCALE, XARELTO 2.5MG BID, NYSTATIN CREAT TID PRN. HER HOME MEDICATIONS OF PLAVIX, ZESTRIL, LOPRESSOR, PERCOCET, ZOCOR, AND RESTORIL WERE RESUMED. (2) Ileus Status: Acute (3) Hernia, ventral Status: Chronic Qualifiers: Obstruction and gangrene presence: without obstruction or gangrene Qualified Code(s): K43.9 - Ventral hernia without obstruction or gangrene (4) Acute on chronic renal insufficiency Status: Acute (5) PVD (peripheral vascular disease) Status: Acute (6) Anemia Status: Acute Qualifiers: Anemia type: due to chronic kidney disease Chronic kidney disease stage: unspecified stage Qualified Code(s): N18.9 - Chronic kidney disease, unspecified; D63.1 - Anemia in chronic kidney disease (7) Leukocytosis Status: Acute Qualifiers: Leukocytosis type: unspecified Qualified Code(s): D72.829 - Elevated white blood cell count, unspecified (8) Hypernatremia Status: Acute (9) Protein calorie malnutrition Status: Acute Qualifiers: Protein-calorie malnutrition severity: mild Qualified Code(s): E44.1 - Mild protein-calorie malnutrition (10) Hypoalbuminemia Status: Acute
[2022-10-24] MEDS: DILAUDID INJ IVP PRN ×5 (01:23→21:11)
[2022-10-24] MEDS: NS 1/2 1,000 ML IV 1,000 ML IV SCH ×3 (04:17→16:08)
[2022-10-24 05:09] LABS: BASOPHILS % (AUTO) 0.1 % (0.2-1.0); EOSINOPHILS % (AUTO) 0.1 % (0.9-2.9); HEMATOCRIT 28.9 % (36.0-47.0); HEMOGLOBIN 9.3 g/dL (12.0-16.0); LYMPHOCYTES # (AUTO) 1.4 X10^3/uL (1.3-2.9); LYMPHOCYTES % (AUTO) 4.8 % (21.0-51.0); MEAN CORPUSCULAR HEMOGLOBIN 28.1 pg (27.0-34.0); MEAN CORPUSCULAR HGB CONC 32.3 g/dL (33.0-35.0); MEAN CORPUSCULAR VOLUME 87.1 fL (80.0-100.0); MEAN PLATELET VOLUME 9.3 fL (7.4-11.0); MONOCYTES # (AUTO) 1.4 x10^3/uL (0.3-0.8); NEUTROPHILS # (AUTO) 25.6 x10^3/uL (2.2-4.8); PLATELET COUNT 138 X10^3/uL (150.0-450.0); RED BLOOD COUNT 3.32 X10^6/uL (3.5-5.4); RED CELL DISTRIBUTION WIDTH 18.6 % (11.6-16.5); WHITE BLOOD COUNT 28.5 X10^3/uL (3.6-10.0)
[2022-10-24 05:26] LABS: ALANINE AMINOTRANSFERASE 9 Units/L (12-78); ALBUMIN 2.2 g/dL (3.4-5.0); ALKALINE PHOSPHATASE 57 Units/L (46-116); ASPARTATE AMINO TRANSFERASE 16 Units/L (15-37); BLOOD UREA NITROGEN 64 mg/dL (7-18); CARBON DIOXIDE 17.2 mmol/L (21-32); COR CA(FOR HYPOALB) 9.4 mg/dL (8.5-10.1); CREATININE 2.45 mg/dL (0.55-1.02); GLUCOSE 88 mg/dL (65-99); POTASSIUM 4.6 mmol/L (3.5-5.1); SODIUM 147 mmol/L (136-145); TOTAL PROTEIN 4.7 g/dL (6.4-8.2); eGFR NON BLACK RACES 20 (>60)
[2022-10-24 05:31] LABS: CHLORIDE 119 mmol/L (98-107)
[2022-10-24 05:35] LABS: ANISOCYTOSIS SLIGHT; HYPOCHROMASIA SLIGHT; PLATELET MORPHOLOGY COMMENT NORMAL (NORMAL)
[2022-10-24 05:36] LABS: BURR CELLS 1+; SCHISTOCYTES SLIGHT; TARGET CELLS SLIGHT
[2022-10-24] MEDS: LOPRESSOR TAB 50 MG PO SCH (08:26)
[2022-10-24] MEDS: PLAVIX PO SCH (08:26)
[2022-10-24] MEDS: ZESTRIL TAB 10 MG PO SCH (08:27)
[2022-10-24] MEDS: XARELTO PO SCH (08:27)
[2022-10-24] MEDS ORDERED: FORTAZ or TAZICEF VIAL INJ 1 G in NS 100 ML IV 100 ML IV SCH (09:00)
[2022-10-24] MEDS: PEPCID 20 MG VIAL 20 MG in NS 50 ML IV 50 ML IV SCH (09:05)
[2022-10-24] MEDS: PROTONIX INJ 40 MG VIAL IVP SCH ×2 (09:05→21:17)
--- NOTE | 2022-10-24 10:07 | NOTE.SOAP ---
Soap Note Note for Day of Date of Exam: 10/23/22 Subjective Data Subjective Data: Patient's right leg is stable. OVerall her health is declining . Dr Wilfrid Harrison to discuss comfort measures and DNR status Assessment Assessment: Critical ischemia right leg, S/P intervention. Right leg stable. Plan Plan: I will sign off for now.
[2022-10-24] MEDS: MERREM VIAL 500 MG in NS 50 ML IV 50 ML IV SCH ×2 (10:18→21:31)
[2022-10-24] MEDS: ALBUMIN HUMAN 25%- 100 ML 100 ML IV SCH (11:17)
[2022-10-24] MEDS ORDERED: NS 1/2 1,000 ML IV 1,000 ML IV ONE (13:51)
--- NOTE | 2022-10-24 14:27 | DR.OPNOTE ---
OP NOTE Pre-Op Diagnosis: critical ischemia right leg with dry gangrene right great toe and 2nd toe Post-Op Diagnosis: same Procedure Date Date Of Procedure: 10/20/22 Procedure: PROCEDURE : Arteriogram right leg with use of limited amount of dye. Atherectomy and balloon angioplasty right peroneal artery. NARRATIVE: The patient was taken to the operative suite and placed in the supine position. The left groin and entire right leg were prepped and draped in sterile fashion. The patient was given intravenous sedation which was supervised by myself. Time out for the procedure obtained . Our intention was to use as little dye as possible because of the patients creatinine of 3.0 which is chronic in nature. Zarco catheter was placed and will be continued postoperatively for at least 24 hours. Urine was cloudy and a urine culture was sent. Ultrasound used to identify the left femoral artery and the skin overlying it infiltrated with 0.5% Marcaine . Ultrasound used to guide puncture of the left femoral artery and a 0.012 inch guide wire placed . Incision made over the guide wire at the skin edge with a number 11 knife blade and a micro sheath placed over the guide wire into the right femoral artery. The small guidewire exchanged for a 0.035 inch Advantage glide wire and the micro sheath exchanged for 5 Fr vascular sheath . Omni catheter placed over the guide wire into the aorta. I could see the calcifications of the aortic bifurcation. Patient flow in the right femoral artery was biphasic by doppler .Using the calcifications as a guide an Omni catheter used to steer the sorin wire down down the right iliac artery all the way to the distal right external iliac artery. The Omni catheter exchanged for a [place] catheter . Limited dye showed normal appearing right superficial artery and right popliteal artery . The 0.035 inch glide wire and the [place] catheter used to go to the knee and arteriogram carried out using limited dye showing completely occluded right anterior tibial and right posterior tibial arteries with no reconstitution distally. The right peroneal artery had severe disease in the proximal and mid portions and was the only vessel running to the foot. [place] catheter and 0.035 inch glide wire placed all the way down the peroneal artery into the ankle as selective catherization . Over the guide wire the left groin 5 Fr catheter exchanged for a 7 FR destination sheath which was parked in the mid right superficial femoral artery . Using the [place] catheter, the 0.035 inch wire was exchanged for a 0.014 inch guide wire to go all the way to right ankle . We placed the Jet Stream device and performed atherectomy of the proximal and mid right peroneal artery and then balloon dilated this artery with a 2.5 mm by 220 mm [employer] [place] balloon. Guide wire and devices removed from the destination sheath . The destination sheath pulled back into the aorta and a 0.035 inch guide wire placed . The destination sheath exchanged for an Angioseal device was used to close the puncture of the left femoral artery . Hemostatic dressing applied and patient taken back to the ICU in good condition. Type of Anesthesia: Local (0.5% Marcaine) Anesthesia Comment: plus MAC Findings: Normal proximal right leg arteries, complete occlusion right anterior tibial and right posterior tibial arteries . Severe disease proximal right peroneal artery and mid peroneal artery . Peroneal artery on the right side is the only run off to the ankle Type of Fluids Used:: Lactated Ringers Total Amount of Fluid Infused:: 350 cc Urine output: 50 cc EBL: 50 cc Complications:: none Needle/Sponge Count:: correct Disposition/Condition: Pt. tolerated procedure without difficulty. Patient taken back to the ICU in stable condition.
--- NOTE | 2022-10-25 00:44 | PCM.PROG ---
Progress Note - Progress Note for Day of Date of Exam: 10/23/22 - Subjective Subjective: IS A 87 YEAR OLD PATIENT OF OURS WHO IS CURRENTLY INPATIENT STATUS FOR TREATMENT OF ACUTE PANCREATITIS, ILEUS, DEHISCED VENTRAL HERNIA, INFECTED SACRAL DECUBITUS ULCER, ACUTE ON CHRONIC RENAL INSUFFICIENCY, HYPERNATREMIA, ANEMIA, LEUKOCYTOSIS, AND NECROTIC RIGHT FIRST AND SECOND TOE. 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 THERE IS MESH EXPOSED TO THE ABDOMEN. OTHER PMH INCLUDES HTN, CAD, DM II, HYPERLIPDEMIA, ARTHRITIS, SLEEP APNEA, LOOP ILEOSTOMY OF LLQ, HERNIA REPAIR X 2, PACEMAKER, ANGIOPLASTY/STENTS, APPENDECTOMY, AND TUBAL. SHE IS DAY 3 POST OP ARTERIOGRAM OF THE RIGHT LEG WITH LIMITED DYE, ATHERECTOMY, AND BALLOON A NGIOPLASTY RIGHT PERONEAL ARTERY. SHE RECEIVED TWO UNITS OF PACKED RED BLOOD CELLS YESTERDAY. ON MORNING ROUNDS, PATIENT IS LYING IN BED WITH EYES CLOSED. SHE IS DIFFICULT TO AROUSE. SHE DOES NOT RESPOND VERBALLY, BUT DOES MOVE HER HEAD AND ARMS. ON EXAMINATION, HEART IS REGULAR IN RATE AND RHYTHM. BILATERAL LUNGS ARE NOTED WITH RHONCHI AND DIMINISHED LUNG SOUNDS THROUGHOUT. BOWEL SOUNDS ARE HYPOACTIVE IN ALL QUADRANTS. DIFFUSE UPPER AND LOWER EXTREMITY MUSCLE ATROPHY AND WEAKNESS NOTED. THE FIRST AND SECOND TOES OF THE RIGHT FOOT ARE NECROTIC. HER VITALS THIS MORNING ARE: 97.7-69-18-100%-147/66. SHE IS CURRENTLY UTILIZING OXYGEN VIA NASAL CANNULA AT 2 LPM. LABS WERE OBTAINED. WBC INCREASED FROM 21 TO 22.7, RBC 3.44, HGB 9.6, HCT 29.9, PLT COUNT 146, SODIUM 148, POTASSIUM 4.8, CHLORIDE 121, CARBON DIOXIDE 16.5, BUN 70, CREATININE 2.62, GLUCOSE 137, CALCIUM 7.9, AST 15, ALT 11, ALK PHOS 67, TOTAL PROTEIN 4.9, ALBUMIN 2.3. URINE AND WOUND CULTURES ARE PENDING. SACRAL ULCER IS POSITIVE FOR GROWTH OF PSEUDOMONAS AERUGINOSA. ABDOMINAL WOUND CULTURE IS POSITIVE FOR GROWTH OF E.COLI. SHE IS CURRENTLY RECEIVING NORMAL SALINE AT 75 ML/HR, CEFTRIAXONE 1G IV DAILY, CIPRO 200MG PO Q12H, ALBUMIN 25% IV DAILY, PEPCID 20MG IV Q12H, PROTONIX 40MG IV Q12H, ZOFRAN COCKTAIL Q8H, PHENERGAN 25MG IM Q4H PRN, OTBS ACHS, HUMULIN R SLIDING SCALE, XARELTO 2.5MG BID, NYSTATIN CREAM TID PRN. HER HOME MEDICATIONS OF PLAVIX, ZESTRIL, LOPRESSOR, PERCOCET, ZOCOR, AND RESTORIL WERE RESUMED. WE DISCUSSED PATIENTS DECLINING CONDITION AND POOR PROGNOSIS WITH HER DAUGHTER. HER DAUGHTER REPORTS THAT SHE WILL DISCUSS PATIENTS CONDITION WITH HER OTHER FAMILY MEMBERS. GENERAL/VASCULAR SURGEON WILL CONTINUE TO MONITOR PATIENT. WE WILL CONTINUE CURRENT PLAN OF CARE AND WOUND CARE TODAY. OTHERWISE, WE WILL FOLLOW-UP WITH AM LABS AND CONTINUE TO MONITOR. TIME SPENT ON CLINICAL ASSESSMENT, REVIEWING LABS AND IMAGING, DECISION MAKING, AND DOCUMENTATION GREATER THAN 45 MINUTES. - Past Medical Family Social History Past Med/Fam/Surg Hx: No changes since H&P Allergies: Allergies prochlorperazine [From Compazine] Allergy (Unknown, Verified 07/11/22 19:19) Reason: Drug allergy tramadol Allergy (Verified 07/11/22 19:19) - Review of Systems ROS: No change since H&P - Vital Signs and I&O's Vital Signs: Temperature 99.5 F Pulse Rate [Left Radial] 82 Pulse Rate 92 Respiratory Rate 22 Blood Pressure [Right Arm] 142/66 Blood Pressure [Left Arm] 136/60 Blood Pressure [Right Arm] 169/74 Blood Pressure [Left Arm] 178/79 Blood Pressure 140/66 O2 Sat by Pulse Oximetry 100 Intake and Output: Intake & Output 10/22/22 10/23/22 10/24/22 10/25/22 11:59 11:59 11:59 11:59 Intake Total 2053 / 2053 3561 / 3561 2304 / 2304 2167 / 2167 Output Total 1000 / 1000 450 / 450 525 / 525 300 / 300 Balance 1054 / 1054 3111 / 3111 1779 / 1779 1867 / 1867 - Physical Exam Oriented: negative: Normal, Time, Person, Place Eyes: Normal Ear: Normal Nose: Normal Throat: Normal Respiratory: Diminished Cardiovascular: Normal (paced), Other (Palpable femoral pulses bilaterally . Biphasic right popliteal artery Doppler signal. Both feet arew cool and neither foot has a palpable pulse. Monophasic flow in the right posterior tibial artery. 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 Mesh and invloved cecum resected and has loop ileostomy. Had wound of abdomen open now being pac ked daily. Has stage II decubitus to left inner buttocks.) Musculoskeletal: Normal Psychiatric: Other (patient with dementia) Mood Description: Labile Affect: Depressed Speech Pattern: Unclear - Laboratory and Diagnostics Result Diagrams: 10/24/22 04:26 10/24/22 04:26 Labs: 10/16/22 18:15 Blood Blood Culture - Final 10/20/22 16:08 Urine,Catheterized Urine Culture - Final 10/16/22 21:24 Buttock Wound Gram Stain - Final 10/16/22 21:24 Buttock Wound Culture - Final Pseudomonas Aeruginosa 10/16/22 19:44 Urine,Catheterized Urine Culture - Final 10/16/22 21:24 Abdomen Wound Gram Stain - Final 10/16/22 21:24 Abdomen Wound Culture - Final Escherichia Coli Laboratory WBC 28.5 X10^3/uL (3.6-10.0) H 10/24/22 04:26 RBC 3.32 X10^6/uL (3.5-5.4) L 10/24/22 04:26 Hgb 9.3 g/dL (12.0-16.0) L 10/24/22 04:26 Hct 28.9 % (36.0-47.0) L 10/24/22 04:26 MCV 87.1 fL (80.0-100.0) 10/24/22 04:26 MCH 28.1 pg (27.0-34.0) 10/24/22 04:26 MCHC 32.3 g/dL (33.0-35.0) L 10/24/22 04:26 RDW 18.6 % (11.6-16.5) H 10/24/22 04:26 Plt Count 138 X10^3/uL (150.0-450.0) L 10/24/22 04:26 Plt Count Comment Decreased (ADEQUATE) A 10/24/22 04:26 MPV 9.3 fL (7.4-11.0) 10/24/22 04:26 Neut % (Auto) 90.0 % (42.0-75.0) H 10/24/22 04:26 Lymph % (Auto) 4.8 % (21.0-51.0) L 10/24/22 04:26 [place] % (Auto) 5.0 % (0.0-13.0) 10/24/22 04:26 Eos % (Auto) 0.1 % (0.9-2.9) L 10/24/22 04:26 Baso % (Auto) 0.1 % (0.2-1.0) L 10/24/22 04:26 Neut # (Auto) 25.6 x10^3/uL (2.2-4.8) H 10/24/22 04:26 Lymph # (Auto) 1.4 X10^3/uL (1.3-2.9) 10/24/22 04:26 [place] # (Auto) 1.4 x10^3/uL (0.3-0.8) H 10/24/22 04:26 Eos # (Auto) 0.0 x10^3/uL (0.0-0.2) 10/24/22 04:26 Baso # (Auto) 0.0 X10^3/uL (0.0-0.1) 10/24/22 04:26 Absolute Nucleated RBC 0.0 /100WBC 10/24/22 04:26 Total Counted 100 10/24/22 04:26 Neutrophils % (Manual) 94 % (39-76) H 10/24/22 04:26 Band Neutrophils % 1 % (0-10) 10/19/22 04:06 Lymphocytes % (Manual) 3 % (13-43) L 10/24/22 04:26 Monocytes % (Manual) 3 % (4-9) L 10/24/22 04:26 Plt Morphology Comment Normal (NORMAL) 10/24/22 04:26 RBC Morphology Abnormal (NORMAL) A 10/24/22 04:26 Hypochromasia Slight A 10/24/22 04:26 Anisocytosis Slight A 10/24/22 04:26 Target Cells Slight A 10/24/22 04:26 Ovalocytes Present 10/23/22 03:34 [place] Cells 1+ A 10/24/22 04:26 Rouleaux Present 10/22/22 04:30 Schistocytes Slight A 10/24/22 04:26 Sodium 147 mmol/L (136-145) H 10/24/22 04:26 Corrected Sodium TNP 10/24/22 04:26 Potassium 4.6 mmol/L (3.5-5.1) 10/24/22 04:26 Chloride 119 mmol/L (98-107) H* 10/24/22 04:26 Carbon Dioxide 17.2 mmol/L (21-32) L 10/24/22 04:26 BUN 64 mg/dL (7-18) H 10/24/22 04:26 Creatinine 2.45 mg/dL (0.55-1.02) H 10/24/22 04:26 Est GFR (MDRD) Af Amer 24 (>60) L 10/24/22 04:26 Est GFR (MDRD) Non-Af 20 (>60) L 10/24/22 04:26 Glucose 88 mg/dL (65-99) 10/24/22 04:26 POC Glucose (mg/dL) 79 mg/dL (65-99) 10/24/22 17:31 Lactic Acid 1.0 mmol/L (0.4-2.0) 10/20/22 04:18 Calcium 8.0 mg/dL (8.5-10.1) L 10/24/22 04:26 Corrected Calcium 9.4 mg/dL (8.5-10.1) 10/24/22 04:26 Total Bilirubin 0.90 mg/dL (0.2-1.0) 10/24/22 04:26 AST 16 Units/L (15-37) 10/24/22 04:26 ALT 9 Units/L (12-78) L 10/24/22 04:26 Alkaline Phosphatase 57 Units/L (46-116) 10/24/22 04:26 Total Protein 4.7 g/dL (6.4-8.2) L 10/24/22 04:26 Albumin 2.2 g/dL (3.4-5.0) L 10/24/22 04:26 Globulin 2.5 g/dL (2.5-4.5) 10/24/22 04:26 Albumin/Globulin Ratio 0.9 Ratio (1.1-2.1) L 10/24/22 04:26 Lipase 430 Units/L (73-393) H 10/16/22 18:15 Specimen Type Catherized urine 10/20/22 16:08 Urine Color Straw (YELLOW) 10/20/22 16:08 Urine Appearance Cloudy (CLEAR) 10/20/22 16:08 Urine pH 5.0 (5.0 - 8.0) 10/20/22 16:08 Ur Specific [place] 1.020 (1.000-1.030) 10/20/22 16:08 Urine Protein 3+ (NEGATIVE) 10/20/22 16:08 Urine Glucose (UA) Negative (NEGATIVE) 10/20/22 16:08 Urine Ketones Negative (NEGATIVE) 10/20/22 16:08 Urine Blood 4+ (NEGATIVE) 10/20/22 16:08 Urine Nitrite Negative (NEGATIVE) 10/20/22 16:08 Urine Bilirubin Negative (NEGATIVE) 10/20/22 16:08 Urine Urobilinogen Normal (NORMAL) 10/20/22 16:08 Ur Leukocyte Esterase 3+ (NEGATIVE) 10/20/22 16:08 Urine RBC 5-10 /HPF (0-3) A 10/20/22 16:08 Urine WBC Tntc /HPF (0-5) A 10/20/22 16:08 Ur Squamous Epith Cells Rare /HPF (NEGATIVE) 10/20/22 16:08 Urine Bacteria 1+ /HPF (NEGATIVE) 10/20/22 16:08 Urine Mucus Few /HPF (NEGATIVE) 10/20/22 16:08 Urine Yeast Few /HPF (NEGATIVE) 10/20/22 16:08 Ur Culture Indicated? Yes/culture set up 10/20/22 16:08 Blood Type B POSITIVE 10/22/22 09:13 Antibody Screen Negative 10/22/22 09:13 Crossmatch See Detail 10/22/22 09:13 - Plan (1) Acute pancreatitis Status: Acute Qualifiers: Acute pancreatitis complication: unspecified Plan: 1/2 NORMAL SALINE AT 75 ML/HR, CEFTRIAXONE 1G IV DAILY, CIPRO 200MG PO Q12H, PEPCID 20MG IV Q12H, PROTONIX 40MG IV Q12H, ZOFRAN COCKTAIL Q8H, PHENERGAN 25MG IM Q4H PRN, OTBS ACHS, HUMULIN R SLIDING SCALE, XARELTO 2.5MG BID, NYSTATIN CREAT TID PRN. HER HOME MEDICATIONS OF PLAVIX, ZESTRIL, LOPRESSOR, PERCOCET, ZOCOR, AND RESTORIL WERE RESUMED. (2) Ileus Status: Acute (3) Hernia, ventral Status: Chronic Qualifiers: Obstruction and gangrene presence: without obstruction or gangrene Qual ified Code(s): K43.9 - Ventral hernia without obstruction or gangrene (4) Acute on chronic renal insufficiency Status: Acute (5) PVD (peripheral vascular disease) Status: Acute (6) Anemia Status: Acute Qualifiers: Anemia type: due to chronic kidney disease Chronic kidney disease stage: unspecified stage Qualified Code(s): N18.9 - Chronic kidney disease, unspecified; D63.1 - Anemia in chronic kidney disease (7) Leukocytosis Status: Acute Qualifiers: Leukocytosis type: unspecified Qualified Code(s): D72.829 - Elevated white blood cell count, unspecified (8) Hypernatremia Status: Acute (9) Protein calorie malnutrition Status: Acute Qualifiers: Protein-calorie malnutrition severity: mild Qualified Code(s): E44.1 - Mild protein-calorie malnutrition (10) Hypoalbuminemia Status: Acute
[2022-10-25] MEDS: DILAUDID INJ IVP PRN ×6 (01:56→23:32)
[2022-10-25] MEDS ORDERED: NS 1/2 1,000 ML IV 1,000 ML IV ONE ×2 (02:37→16:42)
[2022-10-25] MEDS: NS 1/2 1,000 ML IV 1,000 ML IV SCH ×4 (02:41→18:28)
[2022-10-25] MEDS: SNACK - Diabetic Appropriate PO SCH ×2 (03:57→20:04)
[2022-10-25 05:11] LABS: BASOPHILS % (AUTO) 0.1 % (0.2-1.0); EOSINOPHILS # (AUTO) 0.1 x10^3/uL (0.0-0.2); EOSINOPHILS % (AUTO) 0.5 % (0.9-2.9); HEMATOCRIT 26.2 % (36.0-47.0); HEMOGLOBIN 8.4 g/dL (12.0-16.0); LYMPHOCYTES # (AUTO) 1.1 X10^3/uL (1.3-2.9); LYMPHOCYTES % (AUTO) 4.7 % (21.0-51.0); MEAN CORPUSCULAR HEMOGLOBIN 28.1 pg (27.0-34.0); MEAN CORPUSCULAR VOLUME 87.7 fL (80.0-100.0); MEAN PLATELET VOLUME 9.7 fL (7.4-11.0); MONOCYTES # (AUTO) 1.5 x10^3/uL (0.3-0.8); MONOCYTES % (AUTO) 6.6 % (0.0-13.0); NEUTROPHILS # (AUTO) 20.2 x10^3/uL (2.2-4.8); NEUTROPHILS % (AUTO) 88.1 % (42.0-75.0); PLATELET COUNT 139 X10^3/uL (150.0-450.0); RED BLOOD COUNT 2.99 X10^6/uL (3.5-5.4); RED CELL DISTRIBUTION WIDTH 18.1 % (11.6-16.5); WHITE BLOOD COUNT 22.9 X10^3/uL (3.6-10.0)
[2022-10-25 05:26] LABS: ALANINE AMINOTRANSFERASE 6 Units/L (12-78); ALBUMIN 2.3 g/dL (3.4-5.0); ALKALINE PHOSPHATASE 66 Units/L (46-116); ASPARTATE AMINO TRANSFERASE 16 Units/L (15-37); BLOOD UREA NITROGEN 63 mg/dL (7-18); CALCIUM 7.9 mg/dL (8.5-10.1); CARBON DIOXIDE 15.1 mmol/L (21-32); COR CA(FOR HYPOALB) 9.3 mg/dL (8.5-10.1); CREATININE 2.54 mg/dL (0.55-1.02); GLUCOSE 70 mg/dL (65-99); POTASSIUM 4.1 mmol/L (3.5-5.1); SODIUM 146 mmol/L (136-145); TOTAL PROTEIN 4.6 g/dL (6.4-8.2); eGFR NON BLACK RACES 19 (>60)
[2022-10-25 05:31] LABS: CHLORIDE 118 mmol/L (98-107)
[2022-10-25] MEDS ORDERED: D50W ABBOJECT SYR IV ONE (05:45)
[2022-10-25 05:46] LABS: BAND NEUTROPHILS % 2 % (0-10)
[2022-10-25 05:47] LABS: ANISOCYTOSIS SLIGHT; BURR CELLS 1+; HYPOCHROMASIA SLIGHT; SCHISTOCYTES SLIGHT; TARGET CELLS SLIGHT
[2022-10-25 05:48] LABS: PLATELET MORPHOLOGY COMMENT NORMAL (NORMAL)
[2022-10-25] MEDS: ALBUMIN HUMAN 25%- 100 ML 100 ML IV SCH (09:41)
[2022-10-25] MEDS: MERREM VIAL 500 MG in NS 50 ML IV 50 ML IV SCH ×2 (09:42→20:29)
[2022-10-25] MEDS: PROTONIX INJ 40 MG VIAL IVP SCH ×2 (09:42→20:28)
[2022-10-25] MEDS: PEPCID 20 MG VIAL 20 MG in NS 50 ML IV 50 ML IV SCH (09:42)
--- NOTE | 2022-10-25 13:42 | PCM.PROG ---
Progress Note Progress Note for Day of Date of Exam: 10/25/22 Subjective Subjective: Thursday, 25 Oct 2022 The patient is alert and awake this morning. Her daughter is with her. Daughter reports that she is doing much better since she had balloon angioplasty of the right peroneal artery. She does have some dry gangrene on the right hallux and second toe. Daughter reports that she sees improvement in it since the procedure was done. We will continue current treatment and repeat routine labs in the morning. We will continue current treatment and check CBC, CMP and magnesium level in the morning. IS A 87 YEAR OLD PATIENT OF OURS WHO IS CURRENTLY INPATIENT STATUS FOR TREATMENT OF ACUTE PANCREATITIS, ILEUS, DEHISCED VENTRAL HERNIA, INFECTED SACRAL DECUBITUS ULCER, ACUTE ON CHRONIC RENAL INSUFFICIENCY, HYPERNATREMIA, ANEMIA, LEUKOCYTOSIS, AND NECROTIC RIGHT FIRST AND SECOND TOE. 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 THERE IS MESH EXPOSED TO THE ABDOMEN. OTHER PMH INCLUDES HTN, CAD, DM II, HYPERLIPDEMIA, ARTHRITIS, SLEEP APNEA, LOOP ILEOSTOMY OF LLQ, HERNIA REPAIR X 2, PACEMAKER, ANGIOPLASTY/STENTS, APPENDECTOMY, AND TUBAL. SHE IS DAY 3 POST OP ARTERIOGRAM OF THE RIGHT LEG WITH LIMITED DYE, ATHERECTOMY, AND BALLOON ANGIOPLASTY RIGHT PERONEAL ARTERY. SHE RECEIVED TWO UNITS OF PACKED RED BLOOD CELLS YESTERDAY. ON MORNING ROUNDS, PATIENT IS LYING IN BED WITH EYES CLOSED. SHE IS DIFFICULT TO AROUSE. SHE DOES NOT RESPOND VERBALLY, BUT DOES MOVE HER HEAD AND ARMS. ON EXAMINATION, HEART IS REGULAR IN RATE AND RHYTHM. BILATERAL LUNGS ARE NOTED WITH RHONCHI AND DIMINISHED LUNG SOUNDS THROUGHOUT. BOWEL SOUNDS ARE HYPOACTIVE IN ALL QUADRANTS. DIFFUSE UPPER AND LOWER EXTREMITY MUSCLE AT ROPHY AND WEAKNESS NOTED. THE FIRST AND SECOND TOES OF THE RIGHT FOOT ARE NECROTIC. HER VITALS THIS MORNING ARE: 97.7-69-18-100%-147/66. SHE IS CURRENTLY UTILIZING OXYGEN VIA NASAL CANNULA AT 2 LPM. LABS WERE OBTAINED. WBC INCREASED FROM 21 TO 22.7, RBC 3.44, HGB 9.6, HCT 29.9, PLT COUNT 146, SODIUM 148, POTASSIUM 4.8, CHLORIDE 121, CARBON DIOXIDE 16.5, BUN 70, CREATININE 2.62, GLUCOSE 137, CALCIUM 7.9, AST 15, ALT 11, ALK PHOS 67, TOTAL PROTEIN 4.9, ALBUMIN 2.3. URINE AND WOUND CULTURES ARE PENDING. SACRAL ULCER IS POSITIVE FOR GROWTH OF PSEUDOMONAS AERUGINOSA. ABDOMINAL WOUND CULTURE IS POSITIVE FOR GROWTH OF E.COLI. SHE IS CURRENTLY RECEIVING NORMAL SALINE AT 75 ML/HR, CEFTRIAXONE 1G IV DAILY, CIPRO 200MG PO Q12H, ALBUMIN 25% IV DAILY, PEPCID 20MG IV Q12H, PROTONIX 40MG IV Q12H, ZOFRAN COCKTAIL Q8H, PHENERGAN 25MG IM Q4H PRN, OTBS ACHS, HUMULIN R SLIDING SCALE, XARELTO 2.5MG BID, NYSTATIN CREAM TID PRN. HER HOME MEDICATIONS OF PLAVIX, ZESTRIL, LOPRESSOR, PERCOCET, ZOCOR, AND RESTORIL WERE RESUMED. WE DISCUSSED PATIENTS DECLINING CONDITION AND POOR PROGNOSIS WITH HER DAUGHTER. HER DAUGHTER REPORTS THAT SHE WILL DISCUSS PATIENTS CONDITION WITH HER OTHER FAMILY MEMBERS. GENERAL/VASCULAR SURGEON WILL CONTINUE TO MONITOR PATIENT. WE WILL CONTINUE CURRENT PLAN OF CARE AND WOUND CARE TODAY. OTHERWISE, WE WILL FOLLOW-UP WITH AM LABS AND CONTINUE TO MONITOR. TIME SPENT ON CLINICAL ASSESSMENT, REVIEWING LABS AND IMAGING, DECISION MAKING, AND DOCUMENTATION GREATER THAN 45 MINUTES. Past Medical Family Social History Past Med/Fam/Surg Hx: No changes since H&P Allergies: Allergies prochlorperazine [From Compazine] Allergy (Unknown, Verified 07/11/22 19:19) Reason: Drug allergy tramadol Allergy (Verified 07/11/22 19:19) Review of Systems ROS: No change since H&P Vital Signs and I&O's Vital Signs: Temperature 97.9 F Pulse Rate [Left Radial] 82 Pulse Rate 87 Respiratory Rate 17 Blood Pressure [Right Arm] 142/66 Blood Pressure [Left Arm] 136/60 Blood Pressure [Right Arm] 169/74 Blood Pressure [Left Arm] 178/79 Blood Pressure 120/53 O2 Sat by Pulse Oximetry 100 Intake and Output: Intake & Output 10/23/22 10/24/22 10/25/22 10/26/22 11:59 11:59 11:59 11:59 Intake Total 3561 / 3561 2304 / 2304 2792 / 2792 Output Total 450 / 450 525 / 525 500 / 500 Balance 3111 / 3111 1779 / 1779 2292 / 2292 Physical Exam Oriented: negative Normal, Time, Person or Place Eyes: Normal Ear: Normal Nose: Normal Throat: Normal Respiratory: Diminished Cardiovascular: Normal (paced ) and Other (Palpable femoral pulses bilaterally . Biphasic right popliteal artery Doppler signal. Both feet arew cool and neither foot has a palpable pulse. Monophasic flow in the right posterior tibial artery. 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 Mesh and invloved cecum resected and has loop ileostomy. Had wound of abdomen open now being packed daily. Has stage II decubitus to left inner buttocks. ) Musculoskeletal: Normal Psychiatric: Other (patient with dementia) Mood Description: Labile Affect: Depressed Speech Pattern: Unclear Laboratory and Diagnostics Result Diagrams: 10/25/22 04:15 10/25/22 04:15 Labs: 10/16/22 18:15 Blood Blood Culture - Final 10/20/22 16:08 Urine,Catheterized Urine Culture - Final 10/16/22 21:24 Buttock Wound Gram Stain - Final 10/16/22 21:24 Buttock Wound Culture - Final Pseudomonas Aeruginosa 10/16/22 19:44 Urine,Catheterized Urine Culture - Final 10/16/22 21:24 Abdomen Wound Gram Stain - Final 10/16/22 21:24 Abdomen Wound Culture - Final Escherichia Coli Laboratory WBC 22.9 X10^3/uL (3.6-10.0) H 10/25/22 04:15 RBC 2.99 X10^6/uL (3.5-5.4) L 10/25/22 04:15 Hgb 8.4 g/dL (12.0-16.0) L 10/25/22 04:15 Hct 26.2 % (36.0-47.0) L 10/25/22 04:15 MCV 87.7 fL (80.0-100.0) 10/25/22 04:15 MCH 28.1 pg (27.0-34.0) 10/25/22 04:15 MCHC 32.0 g/dL (33.0-35.0) L 10/25/22 04:15 RDW 18.1 % (11.6-16.5) H 10/25/22 04:15 Plt Count 139 X10^3/uL (150.0-450.0) L 10/25/22 04:15 Plt Count Comment Decreased (ADEQUATE) A 10/25/22 04:15 MPV 9.7 fL (7.4-11.0) 10/25/22 04:15 Neut % (Auto) 88.1 % (42.0-75.0) H 10/25/22 04:15 Lymph % (Auto) 4.7 % (21.0-51.0) L 10/25/22 04:15 [place] % (Auto) 6.6 % (0.0-13.0) 10/25/22 04:15 Eos % (Auto) 0.5 % (0.9-2.9) L 10/25/22 04:15 Baso % (Auto) 0.1 % (0.2-1.0) L 10/25/22 04:15 Neut # (Auto) 20.2 x10^3/uL (2.2-4.8) H 10/25/22 04:15 Lymph # (Auto) 1.1 X10^3/uL (1.3-2.9) L 10/25/22 04:15 [place] # (Auto) 1.5 x10^3/uL (0.3-0.8) H 10/25/22 04:15 Eos # (Auto) 0.1 x10^3/uL (0.0-0.2) 10/25/22 04:15 Baso # (Auto) 0.0 X10^3/uL (0.0-0.1) 10/25/22 04:15 Absolute Nucleated RBC 0.0 /100WBC 10/25/22 04:15 Total Counted 100 10/25/22 04:15 Neutrophils % (Manual) 84 % (39-76) H 10/25/22 04:15 Band Neutrophils % 2 % (0-10) 10/25/22 04:15 Lymphocytes % (Manual) 5 % (13-43) L 10/25/22 04:15 Monocytes % (Manual) 8 % (4-9) 10/25/22 04:15 Eosinophils % (Manual) 1 % (0-6) 10/25/22 04:15 Plt Morphology Comment Normal (NORMAL) 10/25/22 04:15 RBC Morphology Abnormal (NORMAL) A 10/25/22 04:15 Hypochromasia Slight A 10/25/22 04:15 Anisocytosis Slight A 10/25/22 04:15 Target Cells Slight A 10/25/22 04:15 Ovalocytes Present 10/23/22 03:34 [place] Cells 1+ A 10/25/22 04:15 Rouleaux Present 10/22/22 04:30 Schistocytes Slight A 10/25/22 04:15 Sodium 146 mmol/L (136-145) H 10/25/22 04:15 Corrected Sodium TNP 10/25/22 04:15 Potassium 4.1 mmol/L (3.5-5.1) 10/25/22 04:15 Chloride 118 mmol/L (98-107) H* 10/25/22 04:15 Carbon Dioxide 15.1 mmol/L (21-32) L 10/25/22 04:15 BUN 63 mg/dL (7-18) H 10/25/22 04:15 Creatinine 2.54 mg/dL (0.55-1.02) H 10/25/22 04:15 Est GFR (MDRD) Af Amer 23 (>60) L 10/25/22 04:15 Est GFR (MDRD) Non-Af 19 (>60) L 10/25/22 04:15 Glucose 70 mg/dL (65-99) 10/25/22 04:15 POC Glucose (mg/dL) 80 mg/dL (65-99) 10/25/22 11:30 Lactic Acid 1.0 mmol/L (0.4-2.0) 10/20/22 04:18 Calcium 7.9 mg/dL (8.5-10.1) L 10/25/22 04:15 Corrected Calcium 9.3 mg/dL (8.5-10.1) 10/25/22 04:15 Magnesium 1.7 mg/dL (2.0-2.9) L 10/25/22 04:15 Total Bilirubin 1.00 mg/dL (0.2-1.0) 10/25/22 04:15 AST 16 Units/L (15-37) 10/25/22 04:15 ALT 6 Units/L (12-78) L 10/25/22 04:15 Alkaline Phosphatase 66 Units/L (46-116) 10/25/22 04:15 Total Protein 4.6 g/dL (6.4-8.2) L 10/25/22 04:15 Albumin 2.3 g/dL (3.4-5.0) L 10/25/22 04:15 Globulin 2.3 g/dL (2.5-4.5) L 10/25/22 04:15 Albumin/Globulin Ratio 1.0 Ratio (1.1-2.1) L 10/25/22 04:15 Lipase 430 Units/L (73-393) H 10/16/22 18:15 Specimen Type Catherized urine 10/20/22 16:08 Urine Color Straw (YELLOW) 10/20/22 16:08 Urine Appearance Cloudy (CLEAR) 10/20/22 16:08 Urine pH 5.0 (5.0 - 8.0) 10/20/22 16:08 Ur Specific [place] 1.020 (1.000-1.030) 10/20/22 16:08 Urine Protein 3+ (NEGATIVE) 10/20/22 16:08 Urine Glucose (UA) Negative (NEGATIVE) 10/20/22 16:08 Urine Ketones Negative (NEGATIVE) 10/20/22 16:08 Urine Blood 4+ (NEGATIVE) 10/20/22 16:08 Urine Nitrite Negative (NEGATIVE) 10/20/22 16:08 Urine Bilirubin Negative (NEGATIVE) 10/20/22 16:08 Urine Urobilinogen Normal (NORMAL) 10/20/22 16:08 Ur Leukocyte Esterase 3+ (NEGATIVE) 10/20/22 16:08 Urine RBC 5-10 /HPF (0-3) A 10/20/22 16:08 Urine WBC Tntc /HPF (0-5) A 10/20/22 16:08 Ur Squamous Epith Cells Rare /HPF (NEGATIVE) 10/20/22 16:08 Urine Bacteria 1+ /HPF (NEGATIVE) 10/20/22 16:08 Urine Mucus Few /HPF (NEGATIVE) 10/20/22 16:08 Urine Yeast Few /HPF (NEGATIVE) 10/20/22 16:08 Ur Culture Indicated? Yes/culture set up 10/20/22 16:08 Blood Type B POSITIVE 10/22/22 09:13 Antibody Screen Negative 10/22/22 09:13 Crossmatch See Detail 10/22/22 09:13 Plan (1) Acute pancreatitis: Status: Acute Qualifiers: Acute pancreatitis complication: unspecified Plan: 1/ NORMAL SALINE AT 75 ML/HR, CEFTRIAXONE 1G IV DAILY, CIPRO 200MG PO Q12H, PEPCID 20MG IV Q12H, PROTONIX 40MG IV Q12H, ZOFRAN COCKTAIL Q8H, PHENERGAN 25MG IM Q4H PRN, OTBS ACHS, HUMULIN R SLIDING SCALE, XARELTO 2.5MG BID, NYSTATIN CREAT TID PRN. HER HOME MEDICATIONS OF PLAVIX, ZESTRIL, LOPRESSOR, PERCOCET, ZOCOR, AND RESTORIL WERE RESUMED. (2) Ileus: Status: Acute (3) Hernia, ventral: Status: Chronic Qualifiers: Obstruction and gangrene presence: without obstruction or gangrene Qualified Code(s): K43.9 - Ventral hernia without obstruction or gangrene (4) Acute on chronic renal insufficiency: Status: Acute (5) PVD (peripheral vascular disease): Status: Acute (6) Anemia: Status: Acute Qualifiers: Anemia type: due to chronic kidney disease Chronic kidney disease stage: unspecified stage Qualified Code(s): N18.9 - Chronic kidney disease, unspecified; D63.1 - Anemia in chronic kidney disease (7) Leukocytosis: Status: Acute Qualifiers: Leukocytosis type: unspecified Qualified Code(s): D72.829 - Elevated white blood cell count, unspecified (8) Hypernatremia: Status: Acute (9) Protein calorie malnutrition: Status: Acute Qualifiers: Protein-calorie malnutrition severity: mild Qualified Code(s): E44.1 - Mild protein-calorie malnutrition (10) Hypoalbuminemia: Status: Acute
[2022-10-25] MEDS: MAGNESIUM SULFATE 1 GRAM/100 mL PREMIX 1 G/100 ML BAG IV PRN ×2 (21:16→23:33)
[2022-10-26] MEDS: DILAUDID INJ IVP PRN ×4 (03:18→21:12)
[2022-10-26 05:23] LABS: BASOPHILS % (AUTO) 0.1 % (0.2-1.0); EOSINOPHILS # (AUTO) 0.2 x10^3/uL (0.0-0.2); EOSINOPHILS % (AUTO) 1.4 % (0.9-2.9); HEMATOCRIT 23.9 % (36.0-47.0); HEMOGLOBIN 7.8 g/dL (12.0-16.0); LYMPHOCYTES # (AUTO) 0.9 X10^3/uL (1.3-2.9); LYMPHOCYTES % (AUTO) 5.5 % (21.0-51.0); MEAN CORPUSCULAR HEMOGLOBIN 28.4 pg (27.0-34.0); MEAN CORPUSCULAR HGB CONC 32.5 g/dL (33.0-35.0); MEAN CORPUSCULAR VOLUME 87.2 fL (80.0-100.0); MEAN PLATELET VOLUME 9.6 fL (7.4-11.0); MONOCYTES # (AUTO) 1.6 x10^3/uL (0.3-0.8); MONOCYTES % (AUTO) 9.5 % (0.0-13.0); NEUTROPHILS # (AUTO) 14.1 x10^3/uL (2.2-4.8); NEUTROPHILS % (AUTO) 83.5 % (42.0-75.0); PLATELET COUNT 149 X10^3/uL (150.0-450.0); RED BLOOD COUNT 2.74 X10^6/uL (3.5-5.4); WHITE BLOOD COUNT 16.9 X10^3/uL (3.6-10.0)
[2022-10-26] MEDS: NS 1/2 1,000 ML IV 1,000 ML IV SCH ×4 (05:36→20:12)
[2022-10-26 05:44] LABS: ALANINE AMINOTRANSFERASE 7 Units/L (12-78); ALBUMIN 2.3 g/dL (3.4-5.0); ALKALINE PHOSPHATASE 56 Units/L (46-116); ASPARTATE AMINO TRANSFERASE 16 Units/L (15-37); BLOOD UREA NITROGEN 57 mg/dL (7-18); CALCIUM 8.1 mg/dL (8.5-10.1); COR CA(FOR HYPOALB) 9.5 mg/dL (8.5-10.1); CREATININE 2.49 mg/dL (0.55-1.02); GLUCOSE 80 mg/dL (65-99); MAGNESIUM 2.2 mg/dL (2.0-2.9); POTASSIUM 3.9 mmol/L (3.5-5.1); SODIUM 146 mmol/L (136-145); TOTAL PROTEIN 4.5 g/dL (6.4-8.2); eGFR NON BLACK RACES 19 (>60)
[2022-10-26 05:51] LABS: CHLORIDE 118 mmol/L (98-107)
[2022-10-26] MEDS: ALBUMIN HUMAN 25%- 100 ML 100 ML IV SCH (10:06)
[2022-10-26] MEDS: PROTONIX INJ 40 MG VIAL IVP SCH ×2 (10:06→21:13)
[2022-10-26] MEDS: PEPCID 20 MG VIAL 20 MG in NS 50 ML IV 50 ML IV SCH (10:06)
[2022-10-26] MEDS: MERREM VIAL 500 MG in NS 50 ML IV 50 ML IV SCH ×2 (10:06→20:13)
--- NOTE | 2022-10-26 12:53 | DR.PROGNOT ---
HOSPITAL PROGRESS NOTE Progress Note for Day of: Progress Note Date: 10/26/22 Chief Complaint Chief Complaint: Pt is more alert today and making eye contact . no vomiting . mild abdominal pain . mild drainage from the fistula site . ileostomy is functioning . BUN 57..Creat 2.49.. WBC 16.9 Past Medical Family Social History Past Med/Fam/Surg Hx: No changes since H&P Allergies: Allergies prochlorperazine [From Compazine] Allergy (Unknown, Verified 07/11/22 19:19) Reason: Drug allergy tramadol Allergy (Verified 07/11/22 19:19) Review Of Systems ROS: No change since H&P Changes in ROS: SEE HPI Vital Signs Vital Signs: Temperature 98.1 F Pulse Rate [Left Radial] 82 Pulse Rate 86 Respiratory Rate 18 Blood Pressure [Right Arm] 142/66 Blood Pressure [Left Arm] 136/60 Blood Pressure [Right Arm] 169/74 Blood Pressure [Left Arm] 178/79 Blood Pressure 143/66 O2 Sat by Pulse Oximetry 100 Physical Exam Oriented: negative Normal, Time, Person or Place Eyes: Normal Ear: Normal Nose: Normal Throat: Normal Respiratory: Diminished Cardiovascular: Normal (paced ) and Other (Palpable femoral pulses bilaterally . Biphasic right popliteal artery Doppler signal. Both feet arew cool and neither foot has a palpable pulse. Monophasic flow in the right posterior tibial artery. 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 Mesh and invloved cecum resected and has loop ileostomy. Had wound of abdomen open now being p acked daily. Has stage II decubitus to left inner buttocks. ) Musculoskeletal: Normal Psychiatric: Other (patient with dementia) Mood Description: Labile Affect: Depressed Speech Pattern: Unclear Laboratory and Diagnostics Result Diagrams: 10/26/22 04:30 10/26/22 04:30 Labs: 10/16/22 18:15 Blood Blood Culture - Final 10/20/22 16:08 Urine,Catheterized Urine Culture - Final 10/16/22 21:24 Buttock Wound Gram Stain - Final 10/16/22 21:24 Buttock Wound Culture - Final Pseudomonas Aeruginosa 10/16/22 19:44 Urine,Catheterized Urine Culture - Final 10/16/22 21:24 Abdomen Wound Gram Stain - Final 10/16/22 21:24 Abdomen Wound Culture - Final Escherichia Coli Laboratory WBC 16.9 X10^3/uL (3.6-10.0) H 10/26/22 04:30 RBC 2.74 X10^6/uL (3.5-5.4) L 10/26/22 04:30 Hgb 7.8 g/dL (12.0-16.0) L 10/26/22 04:30 Hct 23.9 % (36.0-47.0) L 10/26/22 04:30 MCV 87.2 fL (80.0-100.0) 10/26/22 04:30 MCH 28.4 pg (27.0-34.0) 10/26/22 04:30 MCHC 32.5 g/dL (33.0-35.0) L 10/26/22 04:30 RDW 19.0 % (11.6-16.5) H 10/26/22 04:30 Plt Count 149 X10^3/uL (150.0-450.0) L 10/26/22 04:30 Plt Count Comment Decreased (ADEQUATE) A 10/25/22 04:15 MPV 9.6 fL (7.4-11.0) 10/26/22 04:30 Neut % (Auto) 83.5 % (42.0-75.0) H 10/26/22 04:30 Lymph % (Auto) 5.5 % (21.0-51.0) L 10/26/22 04:30 [place] % (Auto) 9.5 % (0.0-13.0) 10/26/22 04:30 Eos % (Auto) 1.4 % (0.9-2.9) 10/26/22 04:30 Baso % (Auto) 0.1 % (0.2-1.0) L 10/26/22 04:30 Neut # (Auto) 14.1 x10^3/uL (2.2-4.8) H 10/26/22 04:30 Lymph # (Auto) 0.9 X10^3/uL (1.3-2.9) L 10/26/22 04:30 [place] # (Auto) 1.6 x10^3/uL (0.3-0.8) H 10/26/22 04:30 Eos # (Auto) 0.2 x10^3/uL (0.0-0.2) 10/26/22 04:30 Baso # (Auto) 0.0 X10^3/uL (0.0-0.1) 10/26/22 04:30 Absolute Nucleated RBC 0.0 /100WBC 10/26/22 04:30 Total Counted 100 10/25/22 04:15 Neutrophils % (Manual) 84 % (39-76) H 10/25/22 04:15 Band Neutrophils % 2 % (0-10) 10/25/22 04:15 Lymphocytes % (Manual) 5 % (13-43) L 10/25/22 04:15 Monocytes % (Manual) 8 % (4-9) 10/25/22 04:15 Eosinophils % (Manual) 1 % (0-6) 10/25/22 04:15 Plt Morphology Comment Normal (NORMAL) 10/25/22 04:15 RBC Morphology Abnormal (NORMAL) A 10/25/22 04:15 Hypochromasia Slight A 10/25/22 04:15 Anisocytosis Slight A 10/25/22 04:15 Target Cells Slight A 10/25/22 04:15 Ovalocytes Present 10/23/22 03:34 [place] Cells 1+ A 10/25/22 04:15 Rouleaux Present 10/22/22 04:30 Schistocytes Slight A 10/25/22 04:15 Sodium 146 mmol/L (136-145) H 10/26/22 04:30 Corrected Sodium TNP 10/26/22 04:30 Potassium 3.9 mmol/L (3.5-5.1) 10/26/22 04:30 Chloride 118 mmol/L (98-107) H* 10/26/22 04:30 Carbon Dioxide 15.0 mmol/L (21-32) L 10/26/22 04:30 BUN 57 mg/dL (7-18) H 10/26/22 04:30 Creatinine 2.49 mg/dL (0.55-1.02) H 10/26/22 04:30 Est GFR (MDRD) Af Amer 23 (>60) L 10/26/22 04:30 Est GFR (MDRD) Non-Af 19 (>60) L 10/26/22 04:30 Glucose 80 mg/dL (65-99) 10/26/22 04:30 POC Glucose (mg/dL) 72 mg/dL (65-99) 10/26/22 11:23 Lactic Acid 1.0 mmol/L (0.4-2.0) 10/20/22 04:18 Calcium 8.1 mg/dL (8.5-10.1) L 10/26/22 04:30 Corrected Calcium 9.5 mg/dL (8.5-10.1) 10/26/22 04:30 Magnesium 2.2 mg/dL (2.0-2.9) 10/26/22 04:30 Total Bilirubin 1.00 mg/dL (0.2-1.0) 10/26/22 04:30 AST 16 Units/L (15-37) 10/26/22 04:30 ALT 7 Units/L (12-78) L 10/26/22 04:30 Alkaline Phosphatase 56 Units/L (46-116) 10/26/22 04:30 Total Protein 4.5 g/dL (6.4-8.2) L 10/26/22 04:30 Albumin 2.3 g/dL (3.4-5.0) L 10/26/22 04:30 Globulin 2.2 g/dL (2.5-4.5) L 10/26/22 04:30 Albumin/Globulin Ratio 1.0 Ratio (1.1-2.1) L 10/26/22 04:30 Lipase 430 Units/L (73-393) H 10/16/22 18:15 Specimen Type Catherized urine 10/20/22 16:08 Urine Color Straw (YELLOW) 10/20/22 16:08 Urine Appearance Cloudy (CLEAR) 10/20/22 16:08 Urine pH 5.0 (5.0 - 8.0) 10/20/22 16:08 Ur Specific [place] 1.020 (1.000-1.030) 10/20/22 16:08 Urine Protein 3+ (NEGATIVE) 10/20/22 16:08 Urine Glucose (UA) Negative (NEGATIVE) 10/20/22 16:08 Urine Ketones Negative (NEGATIVE) 10/20/22 16:08 Urine Blood 4+ (NEGATIVE) 10/20/22 16:08 Urine Nitrite Negative (NEGATIVE) 10/20/22 16:08 Urine Bilirubin Negative (NEGATIVE) 10/20/22 16:08 Urine Urobilinogen Normal (NORMAL) 10/20/22 16:08 Ur Leukocyte Esterase 3+ (NEGATIVE) 10/20/22 16:08 Urine RBC 5-10 /HPF (0-3) A 10/20/22 16:08 Urine WBC Tntc /HPF (0-5) A 10/20/22 16:08 Ur Squamous Epith Cells Rare /HPF (NEGATIVE) 10/20/22 16:08 Urine Bacteria 1+ /HPF (NEGATIVE) 10/20/22 16:08 Urine Mucus Few /HPF (NEGATIVE) 10/20/22 16:08 Urine Yeast Few /HPF (NEGATIVE) 10/20/22 16:08 Ur Culture Indicated? Yes/culture set up 10/20/22 16:08 Blood Type B POSITIVE 10/22/22 09:13 Antibody Screen Negative 10/22/22 09:13 Crossmatch See Detail 10/22/22 09:13 Assessment and Plan 1: enterocutaneous fistula complicated with Mesh ..( s/p diverting ileostomy ). renal failure with CKD . same plan . no need for surgery now . local care of the fistula site with wet to dry dressings . comfort measures .. Problem Patient Problems: Patient Problems (Updated 10/23/22 @ 22:21 by Nate Harrison) PVD (peripheral vascular disease) (Acute) I73.9 Hypernatremia (Acute) E87.0 Protein calorie malnutrition (Acute) E46 Hypoalbuminemia (Acute) E88.09 Decubitus ulcer (Acute) L89.90 CKD (chronic kidney disease) (Acute) N18.9 Acute pancreatitis (Acute) K85.90 Urinary tract infection (Acute) N39.0 Dehiscence of wound of skin (Acute) T81.30XA Ileus (Acute) K56.7 Acute on chronic renal insufficiency (Acute) N28.9, N18.9 Anemia (Acute) D64.9 Leukocytosis (Acute) D72.829 Hernia, ventral (Chronic) K43.9
--- NOTE | 2022-10-26 13:41 | PCM.PROG ---
Progress Note Progress Note for Day of Date of Exam: 10/26/22 Subjective Subjective: Thursday This morning the nurses are busy changing the patient. She had fairly good night last night according to the daughter. She reports that she was sleeping well until they woke her up about 4 hours into her sleep. They said they have to do that to give her pain medicine. I discussed with the daughter starting the Duragesic patch so she can get continuous pain relief and hopefully they would not have to disturb her as much to give her pain medicine through during the day and night. We will start her at 50 mcg daily. This morning her foot is still warm and does appear to be healing slowly. She remains anemic with a slight drop in her hemoglobin since yesterday morning. Also her white blood cell count has come down to 16,900 from 22,900 yesterday. I will repeat CBC, CMP, magnesium again tomorrow morning. Thursday, 25 Oct 2022 The patient is alert and awake this morning. Her daughter is with her. Daughter reports that she is doing much better since she had balloon angioplasty of the right peroneal artery. She does have some dry gangrene on the right hallux and second toe. Daughter reports that she sees improvement in it since the procedure was done. We will continue current treatment and repeat routine labs in the morning. We will continue current treatment and check CBC, CMP and magnesium level in the morning. IS A 87 YEAR OLD PATIENT OF OURS WHO IS CURRENTLY INPATIENT STATUS FOR TREATMENT OF ACUTE PANCREATITIS, ILEUS, DEHISCED VENTRAL HERNIA, INFECTED SACRAL DECUBITUS ULCER, ACUTE ON CHRONIC RENAL INSUFFICIENCY, HYPERNATREMIA, ANEMIA, LEUKOCYTOSIS, AND NECROTIC RIGHT FIRST AND SECOND TOE. SHE HAS HAD A PA EVIOUS ENTEROCUTANEOUS FISTULA THAT WAS TREATED WITH A DIVERTING ILEOSTOMY. THERE IS MESH EXPOSED TO THE ABDOMEN. OTHER PMH INCLUDES HTN, CAD, DM II, HYPERLIPDEMIA, ARTHRITIS, SLEEP APNEA, LOOP ILEOSTOMY OF LLQ, HERNIA REPAIR X 2, PACEMAKER, ANGIOPLASTY/STENTS, APPENDECTOMY, AND TUBAL. SHE IS DAY 3 POST OP ARTERIOGRAM OF THE RIGHT LEG WITH LIMITED DYE, ATHERECTOMY, AND BALLOON ANGIOPLASTY RIGHT PERONEAL ARTERY. SHE RECEIVED TWO UNITS OF PACKED RED BLOOD CELLS YESTERDAY. ON MORNING ROUNDS, PATIENT IS LYING IN BED WITH EYES CLOSED. SHE IS DIFFICULT TO AROUSE. SHE DOES NOT RESPOND VERBALLY, BUT DOES MOVE HER HEAD AND ARMS. ON EXAMINATION, HEART IS REGULAR IN RATE AND RHYTHM. BILATERAL LUNGS ARE NOTED WITH RHONCHI AND DIMINISHED LUNG SOUNDS THROUGHOUT. BOWEL SOUNDS ARE HYPOACTIVE IN ALL QUADRANTS. DIFFUSE UPPER AND LOWER EXTREMITY MUSCLE ATROPHY AND WEAKNESS NOTED. THE FIRST AND SECOND TOES OF THE RIGHT FOOT ARE NECROTIC. HER VITALS THIS MORNING ARE: 97.7-69-18-100%-147/66. SHE IS CURRENTLY UTILIZING OXYGEN VIA NASAL CANNULA AT 2 LPM. LABS WERE OBTAINED. WBC INCREASED FROM 21 TO 22.7, RBC 3.44, HGB 9.6, HCT 29.9, PLT COUNT 146, SODIUM 148, POTASSIUM 4.8, CHLORIDE 121, CARBON DIOXIDE 16.5, BUN 70, CREATININE 2.62, GLUCOSE 137, CALCIUM 7.9, AST 15, ALT 11, ALK PHOS 67, TOTAL PROTEIN 4.9, ALBUMIN 2.3. URINE AND WOUND CULTURES ARE PENDING. SACRAL ULCER IS POSITIVE FOR GROWTH OF PSEUDOMONAS AERUGINOSA. ABDOMINAL WOUND CULTURE IS POSITIVE FOR GROWTH OF E.COLI. SHE IS CURRENTLY RECEIVING NORMAL SALINE AT 75 ML/HR, CEFTRIAXONE 1G IV DAILY, CIPRO 200MG PO Q12H, ALBUMIN 25% IV DAILY, PEPCID 20MG IV Q12H, PROTONIX 40MG IV Q12H, ZOFRAN COCKTAIL Q8H, PHENERGAN 25MG IM Q4H PRN, OTBS ACHS , HUMULIN R SLIDING SCALE, XARELTO 2.5MG BID, NYSTATIN CREAM TID PRN. HER HOME MEDICATIONS OF PLAVIX, ZESTRIL, LOPRESSOR, PERCOCET, ZOCOR, AND RESTORIL WERE RESUMED. WE DISCUSSED PATIENTS DECLINING CONDITION AND POOR PROGNOSIS WITH HER DAUGHTER. HER DAUGHTER REPORTS THAT SHE WILL DISCUSS PATIENTS CONDITION WITH HER OTHER FAMILY MEMBERS. GENERAL/VASCULAR SURGEON WILL CONTINUE TO MONITOR PATIENT. WE WILL CONTINUE CURRENT PLAN OF CARE AND WOUND CARE TODAY. OTHERWISE, WE WILL FOLLOW-UP WITH AM LABS AND CONTINUE TO MONITOR. TIME SPENT ON CLINICAL ASSESSMENT, REVIEWING LABS AND IMAGING, DECISION MAKING, AND DOCUMENTATION GREATER THAN 45 MINUTES. Past Medical Family Social History Past Med/Fam/Surg Hx: No changes since H&P Allergies: Allergies prochlorperazine [From Compazine] Allergy (Unknown, Verified 07/11/22 19:19) Reason: Drug allergy tramadol Allergy (Verified 07/11/22 19:19) Review of Systems ROS: No change since H&P Vital Signs and I&O's Vital Signs: Temperature 98.1 F Pulse Rate [Left Radial] 82 Pulse Rate 86 Respiratory Rate 18 Blood Pressure [Right Arm] 142/66 Blood Pressure [Left Arm] 136/60 Blood Pressure [Right Arm] 169/74 Blood Pressure [Left Arm] 178/79 Blood Pressure 143/66 O2 Sat by Pulse Oximetry 100 Intake and Output: Intake & Output 10/24/22 10/25/22 10/26/22 10/27/22 11:59 11:59 11:59 11:59 Intake Total 2304 / 2304 2792 / 2792 2300 / 2300 Output Total 525 / 525 500 / 500 850 / 850 Balance 1779 / 1779 2292 / 2292 1450 / 1450 Physical Exam Oriented: negative Normal, Time, Person or Place Eyes: Normal Ear: Normal Nose: Normal Throat: Normal Respiratory: Diminished Cardiovascular: Normal (paced ) and Other (Palpable femoral pulses bilaterally . Biphasic right popliteal artery Doppler signal. Both feet arew cool and neit her foot has a palpable pulse. Monophasic flow in the right posterior tibial artery. 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 Mesh and invloved cecum resected and has loop ileostomy. Had wound of abdomen open now being packed daily. Has stage II decubitus to left inner buttocks. ) Musculoskeletal: Normal Psychiatric: Other (patient with dementia) Mood Description: Labile Affect: Depressed Speech Pattern: Unclear Laboratory and Diagnostics Result Diagrams: 10/26/22 04:30 10/26/22 04:30 Labs: 10/16/22 18:15 Blood Blood Culture - Final 10/20/22 16:08 Urine,Catheterized Urine Culture - Final 10/16/22 21:24 Buttock Wound Gram Stain - Final 10/16/22 21:24 Buttock Wound Culture - Final Pseudomonas Aeruginosa 10/16/22 19:44 Urine,Catheterized Urine Culture - Final 10/16/22 21:24 Abdomen Wound Gram Stain - Final 10/16/22 21:24 Abdomen Wound Culture - Final Escherichia Coli Laboratory WBC 16.9 X10^3/uL (3.6-10.0) H 10/26/22 04:30 RBC 2.74 X10^6/uL (3.5-5.4) L 10/26/22 04:30 Hgb 7.8 g/dL (12.0-16.0) L 10/26/22 04:30 Hct 23.9 % (36.0-47.0) L 10/26/22 04:30 MCV 87.2 fL (80.0-100.0) 10/26/22 04:30 MCH 28.4 pg (27.0-34.0) 10/26/22 04:30 MCHC 32.5 g/dL (33.0-35.0) L 10/26/22 04:30 RDW 19.0 % (11.6-16.5) H 10/26/22 04:30 Plt Count 149 X10^3/uL (150.0-450.0) L 10/26/22 04:30 Plt Count Comment Decreased (ADEQUATE) A 10/25/22 04:15 MPV 9.6 fL (7.4-11.0) 10/26/22 04:30 Neut % (Auto) 83.5 % (42.0-75.0) H 10/26/22 04:30 Lymph % (Auto) 5.5 % (21.0-51.0) L 10/26/22 04:30 [place] % (Auto) 9.5 % (0.0-13.0) 10/26/22 04:30 Eos % (Auto) 1.4 % (0.9-2.9) 10/26/22 04:30 Baso % (Auto) 0.1 % (0.2-1.0) L 10/26/22 04:30 Neut # (Auto) 14.1 x10^3/uL (2.2-4.8) H 10/26/22 04:30 Lymph # (Auto) 0.9 X10^3/uL (1.3-2.9) L 10/26/22 04:30 [place] # (Auto) 1.6 x10^3/uL (0.3-0.8) H 10/26/22 04:30 Eos # (Auto) 0.2 x10^3/uL (0.0-0.2) 10/26/22 04:30 Baso # (Auto) 0.0 X10^3/uL (0.0-0.1) 10/26/22 04:30 Absolute Nucleated RBC 0.0 /100WBC 10/26/22 04:30 Total Counted 100 10/25/22 04:15 Neutrophils % (Manual) 84 % (39-76) H 10/25/22 04:15 Band Neutrophils % 2 % (0-10) 10/25/22 04:15 Lymphocytes % (Manual) 5 % (13-43) L 10/25/22 04:15 Monocytes % (Manual) 8 % (4-9) 10/25/22 04:15 Eosinophils % (Manual) 1 % (0-6) 10/25/22 04:15 Plt Morphology Comment Normal (NORMAL) 10/25/22 04:15 RBC Morphology Abnormal (NORMAL) A 10/25/22 04:15 Hypochromasia Slight A 10/25/22 04:15 Anisocytosis Slight A 10/25/22 04:15 Target Cells Slight A 10/25/22 04:15 Ovalocytes Present 10/23/22 03:34 [place] Cells 1+ A 10/25/22 04:15 Rouleaux Present 10/22/22 04:30 Schistocytes Slight A 10/25/22 04:15 Sodium 146 mmol/L (136-145) H 10/26/22 04:30 Corrected Sodium TNP 10/26/22 04:30 Potassium 3.9 mmol/L (3.5-5.1) 10/26/22 04:30 Chloride 118 mmol/L (98-107) H* 10/26/22 04:30 Carbon Dioxide 15.0 mmol/L (21-32) L 10/26/22 04:30 BUN 57 mg/dL (7-18) H 10/26/22 04:30 Creatinine 2.49 mg/dL (0.55-1.02) H 10/26/22 04:30 Est GFR (MDRD) Af Amer 23 (>60) L 10/26/22 04:30 Est GFR (MDRD) Non-Af 19 (>60) L 10/26/22 04:30 Glucose 80 mg/dL (65-99) 10/26/22 04:30 POC Glucose (mg/dL) 72 mg/dL (65-99) 10/26/22 11:23 Lactic Acid 1.0 mmol/L (0.4-2.0) 10/20/22 04:18 Calcium 8.1 mg/dL (8.5-10.1) L 10/26/22 04:30 Corrected Calcium 9.5 mg/dL (8.5-10.1) 10/26/22 04:30 Magnesium 2.2 mg/dL (2.0-2.9) 10/26/22 04:30 Total Bilirubin 1.00 mg/dL (0.2-1.0) 10/26/22 04:30 AST 16 Units/L (15-37) 10/26/22 04:30 ALT 7 Units/L (12-78) L 10/26/22 04:30 Alkaline Phosphatase 56 Units/L (46-116) 10/26/22 04:30 Total Protein 4.5 g/dL (6.4-8.2) L 10/26/22 04:30 Albumin 2.3 g/dL (3.4-5.0) L 10/26/22 04:30 Globulin 2.2 g/dL (2.5-4.5) L 10/26/22 04:30 Albumin/Globulin Ratio 1.0 Ratio (1.1-2.1) L 10/26/22 04:30 Lipase 430 Units/L (73-393) H 10/16/22 18:15 Specimen Type Catherized urine 10/20/22 16:08 Urine Color Straw (YELLOW) 10/20/22 16:08 Urine Appearance Cloudy (CLEAR) 10/20/22 16:08 Urine pH 5.0 (5.0 - 8.0) 10/20/22 16:08 Ur Specific [place] 1.020 (1.000-1.030) 10/20/22 16:08 Urine Protein 3+ (NEGATIVE) 10/20/22 16:08 Urine Glucose (UA) Negative (NEGATIVE) 10/20/22 16:08 Urine Ketones Negative (NEGATIVE) 10/20/22 16:08 Urine Blood 4+ (NEGATIVE) 10/20/22 16:08 Urine Nitrite Negative (NEGATIVE) 10/20/22 16:08 Urine Bilirubin Negative (NEGATIVE) 10/20/22 16:08 Urine Urobilinogen Normal (NORMAL) 10/20/22 16:08 Ur Leukocyte Esterase 3+ (NEGATIVE) 10/20/22 16:08 Urine RBC 5-10 /HPF (0-3) A 10/20/22 16:08 Urine WBC Tntc /HPF (0-5) A 10/20/22 16:08 Ur Squamous Epith Cells Rare /HPF (NEGATIVE) 10/20/22 16:08 Urine Bacteria 1+ /HPF (NEGATIVE) 10/20/22 16:08 Urine Mucus Few /HPF (NEGATIVE) 10/20/22 16:08 Urine Yeast Few /HPF (NEGATIVE) 10/20/22 16:08 Ur Culture Indicated? Yes/culture set up 10/20/22 16:08 Blood Type B POSITIVE 10/22/22 09:13 Antibody Screen Negative 10/22/22 09:13 Crossmatch See Detail 10/22/22 09:13 Radiology Reviewed: Yes Plan (1) Acute pancreatitis: Status: Acute Qualifiers: Acute pancreatitis complication: unspecified Plan: Check lipase today and in a.m. 1/2 NORMAL SALINE AT 75 ML/HR, CEFTRIAXONE 1G IV DAILY, CIPRO 200MG PO Q12H, PEPCID 20MG IV Q12H, PROTONIX 40MG IV Q12H, ZOFRAN COCKTAIL Q8H, PHENERGAN 25MG IM Q4H PRN, OTBS ACHS, HUMULIN R SLIDING SCALE, XARELTO 2.5MG BID, NYSTATIN CREAT TID PRN. HER HOME MEDICATIONS OF PLAVIX, ZESTRIL, LOPRESSOR, PERCOCET, ZOCOR, AND RESTORIL WERE RESUMED. (2) Ileus: Status: Acute (3) Hernia, ventral: Status: Chronic Qualifiers: Obstruction and gangrene presence: without obstruction or gangrene Qualified Code(s): K43.9 - Ventral hernia without obstruction or gangrene (4) Acute on chronic renal insufficiency: Status: Acute Narrative Support Text: Stable no changes. (5) PVD (peripheral vascular disease): Status: Acute (6) Anemia: Status: Acute Qualifiers: Anemia type: due to chronic kidney disease Chronic kidney disease stage: unspecified stage Qualified Code(s): N18.9 - Chronic kidney disease, unspecified; D63.1 - Anemia in chronic kidney disease Plan: Check Hemoccult, vitamin B12 level and folate level. Patient is on GI protection with Protonix 40 mg IV twice daily and IV Pepcid. (7) Leukocytosis: Status: Acute Qualifiers: Leukocytosis type: unspecified Qualified Code(s): D72.829 - Elevated white blood cell count, unspecified Narrative Support Text: Leukocytosis improving. (8) Hypernatremia: Status: Acute Narrative Support Text: Hypernatremia much improved and nearly normalized this morning. (9) Protein calorie malnutrition: Status: Acute Qualifiers: Protein-calorie malnutrition severity: mild Qualified Code(s): E44.1 - Mild protein-calorie malnutrition (10) Hypoalbuminemia: Status: Acute Plan: Encouraged patient to take oral intake. Supplement patient's diet with nutritional drinks such as Ensure.
[2022-10-26] MEDS ORDERED: NS 1/2 1,000 ML IV 1,000 ML IV ONE (17:16)
[2022-10-26] MEDS ORDERED: D50W ABBOJECT SYR IV ONE (17:32)
[2022-10-26] MEDS ORDERED: D50W ABBOJECT SYR ONE (18:20)
[2022-10-26] MEDS: SNACK - Diabetic Appropriate PO SCH (20:12)
[2022-10-27] MEDS: DILAUDID INJ IVP PRN ×5 (01:26→20:05)
[2022-10-27] MEDS ORDERED: NS 1/2 1,000 ML IV 1,000 ML IV ONE (05:19)
[2022-10-27] MEDS: NS 1/2 1,000 ML IV 1,000 ML IV SCH ×2 (05:22→09:34)
[2022-10-27 05:31] LABS: BASOPHILS % (AUTO) 0.1 % (0.2-1.0); EOSINOPHILS # (AUTO) 0.3 x10^3/uL (0.0-0.2); EOSINOPHILS % (AUTO) 2.2 % (0.9-2.9); HEMATOCRIT 25.6 % (36.0-47.0); HEMOGLOBIN 8.2 g/dL (12.0-16.0); LYMPHOCYTES # (AUTO) 1.1 X10^3/uL (1.3-2.9); LYMPHOCYTES % (AUTO) 7.9 % (21.0-51.0); MEAN CORPUSCULAR HEMOGLOBIN 28.2 pg (27.0-34.0); MEAN CORPUSCULAR HGB CONC 32.2 g/dL (33.0-35.0); MEAN CORPUSCULAR VOLUME 87.6 fL (80.0-100.0); MEAN PLATELET VOLUME 9.8 fL (7.4-11.0); MONOCYTES # (AUTO) 1.8 x10^3/uL (0.3-0.8); NEUTROPHILS # (AUTO) 10.3 x10^3/uL (2.2-4.8); NEUTROPHILS % (AUTO) 76.8 % (42.0-75.0); PLATELET COUNT 194 X10^3/uL (150.0-450.0); RED BLOOD COUNT 2.92 X10^6/uL (3.5-5.4); RED CELL DISTRIBUTION WIDTH 19.3 % (11.6-16.5); WHITE BLOOD COUNT 13.5 X10^3/uL (3.6-10.0)
[2022-10-27 05:51] LABS: ALANINE AMINOTRANSFERASE 6 Units/L (12-78); ALBUMIN 2.5 g/dL (3.4-5.0); ALKALINE PHOSPHATASE 57 Units/L (46-116); ASPARTATE AMINO TRANSFERASE 14 Units/L (15-37); BLOOD UREA NITROGEN 52 mg/dL (7-18); CALCIUM 8.1 mg/dL (8.5-10.1); CARBON DIOXIDE 15.8 mmol/L (21-32); COR CA(FOR HYPOALB) 9.3 mg/dL (8.5-10.1); CREATININE 2.42 mg/dL (0.55-1.02); GLUCOSE 72 mg/dL (65-99); LIPASE 166 Units/L (73-393); POTASSIUM 3.8 mmol/L (3.5-5.1); SODIUM 144 mmol/L (136-145); TOTAL PROTEIN 4.8 g/dL (6.4-8.2); eGFR NON BLACK RACES 20 (>60)
[2022-10-27 05:56] LABS: CHLORIDE 117 mmol/L (98-107)
[2022-10-27] MEDS: ALBUMIN HUMAN 25%- 100 ML 100 ML IV SCH (08:40)
[2022-10-27] MEDS: MERREM VIAL 500 MG in NS 50 ML IV 50 ML IV SCH ×2 (08:44→20:05)
[2022-10-27] MEDS: PROTONIX INJ 40 MG VIAL IVP SCH ×2 (09:29→20:05)
[2022-10-27] MEDS: PEPCID 20 MG VIAL 20 MG in NS 50 ML IV 50 ML IV SCH (09:31)
[2022-10-27] MEDS: D5 1/2 NS 1,000 ML 1,000 ML IV SCH ×2 (10:59→22:38)
[2022-10-27] MEDS: SANTYL EXT SCH (12:26)
[2022-10-27] MEDS: SNACK - Diabetic Appropriate PO SCH (20:18)
[2022-10-28] MEDS: D5 1/2 NS 1,000 ML 1,000 ML IV SCH ×2 (00:10→13:27)
[2022-10-28] MEDS: DILAUDID INJ IVP PRN ×6 (00:10→20:16)
[2022-10-28 05:24] LABS: BASOPHILS % (AUTO) 0.1 % (0.2-1.0); EOSINOPHILS # (AUTO) 0.2 x10^3/uL (0.0-0.2); EOSINOPHILS % (AUTO) 2.1 % (0.9-2.9); HEMATOCRIT 24.6 % (36.0-47.0); HEMOGLOBIN 8.2 g/dL (12.0-16.0); LYMPHOCYTES # (AUTO) 0.8 X10^3/uL (1.3-2.9); LYMPHOCYTES % (AUTO) 8.4 % (21.0-51.0); MEAN CORPUSCULAR HEMOGLOBIN 28.9 pg (27.0-34.0); MEAN CORPUSCULAR HGB CONC 33.3 g/dL (33.0-35.0); MEAN CORPUSCULAR VOLUME 86.8 fL (80.0-100.0); MEAN PLATELET VOLUME 9.7 fL (7.4-11.0); MONOCYTES # (AUTO) 1.4 x10^3/uL (0.3-0.8); MONOCYTES % (AUTO) 14.1 % (0.0-13.0); NEUTROPHILS # (AUTO) 7.5 x10^3/uL (2.2-4.8); NEUTROPHILS % (AUTO) 75.3 % (42.0-75.0); PLATELET COUNT 192 X10^3/uL (150.0-450.0); RED BLOOD COUNT 2.83 X10^6/uL (3.5-5.4); RED CELL DISTRIBUTION WIDTH 19.8 % (11.6-16.5)
[2022-10-28 05:37] LABS: ALBUMIN 2.5 g/dL (3.4-5.0); CALCIUM 7.9 mg/dL (8.5-10.1); CARBON DIOXIDE 16.3 mmol/L (21-32); COR CA(FOR HYPOALB) 9.1 mg/dL (8.5-10.1); CREATININE 2.37 mg/dL (0.55-1.02); POTASSIUM 3.6 mmol/L (3.5-5.1); TOTAL PROTEIN 4.6 g/dL (6.4-8.2)
[2022-10-28] MEDS ORDERED: NS 50 ML IV 50 ML IV ONE (08:06)
[2022-10-28] MEDS: PROTONIX INJ 40 MG VIAL IVP SCH ×2 (08:19→20:16)
[2022-10-28] MEDS: MERREM VIAL 500 MG in NS 50 ML IV 50 ML IV SCH ×2 (08:21→20:36)
[2022-10-28] MEDS: ALBUMIN HUMAN 25%- 100 ML 100 ML IV SCH (08:30)
[2022-10-28] MEDS: PEPCID 20 MG VIAL 20 MG in NS 50 ML IV 50 ML IV SCH (08:31)
[2022-10-28] MEDS: SANTYL EXT SCH (08:31)
--- NOTE | 2022-10-28 08:35 | PCM.PROG ---
Progress Note - Progress Note for Day of Date of Exam: 10/24/22 - Subjective Subjective: IS A 87 YEAR OLD PATIENT OF OURS WHO IS CURRENTLY INPATIENT STATUS FOR TREATMENT OF ACUTE PANCREATITIS, ILEUS, DEHISCED VENTRAL HERNIA, INFECTED SACRAL DECUBITUS ULCER, ACUTE ON CHRONIC RENAL INSUFFICIENCY, HYPERNATREMIA, ANEMIA, LEUKOCYTOSIS, AND NECROTIC RIGHT FIRST AND SECOND TOE. 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 THERE IS MESH EXPOSED TO THE ABDOMEN. OTHER PMH INCLUDES HTN, CAD, DM II, HYPERLIPDEMIA, ARTHRITIS, SLEEP APNEA, LOOP ILEOSTOMY OF LLQ, HERNIA REPAIR X 2, PACEMAKER, ANGIOPLASTY/STENTS, APPENDECTOMY, AND TUBAL. SHE IS DAY 4 POST OP ARTERIOGRAM OF THE RIGHT LEG WITH LIMITED DYE, ATHERECTOMY, AND BALLOON A NGIOPLASTY RIGHT PERONEAL ARTERY. SHE RECEIVED TWO UNITS OF PACKED RED BLOOD CELLS YESTERDAY. ON MORNING ROUNDS, PATIENT IS LYING IN BED WITH EYES CLOSED. SHE IS DIFFICULT TO AROUSE. SHE DOES NOT RESPOND VERBALLY, BUT DOES MOVE HER HEAD AND ARMS. OVERALL, SHE IS DOING ABOUT THE SAME TODAY. ON EXAMINATION, HEART IS REGULAR IN RATE AND RHYTHM. BILATERAL LUNGS ARE NOTED WITH RHONCHI AND DIMINISHED LUNG SOUNDS THROUGHOUT. ABDOMINAL WOUND WITH PACKING NOTED. BOWEL SOUNDS ARE HYPOACTIVE IN ALL QUADRANTS. DIFFUSE UPPER AND LOWER EXTREMITY MUSCLE ATROPHY AND WEAKNESS NOTED. THE FIRST AND SECOND TOES OF THE RIGHT FOOT ARE NECROTIC. HER VITALS THIS MORNING ARE: 98.7-94-15-100%-121/58. SHE IS CURRENTLY UTILIZING OXYGEN VIA NASAL CANNULA AT 2 LPM. LABS WERE OBTAINED. WBC INCREASED FROM 22.7 TO 28.5, RBC 3.32, HGB 9.3, HCT 28.9, PLT COUNT 138, SODIUM 147, POTASSIUM 4.6, CHLORIDE 119, BUN 64, CREATININE 2.45, GLUCOSE 88, CALCIUM 8.0, ALT 9, ALK PHOS 57, TOTAL PROTEIN 4.7, ALBUMIN 2.2. URINE AND WOUND CULTURES ARE PENDING. SACRAL ULCER IS POSITIVE FOR GROWTH OF PSEUDOMONAS AERUGINOSA. ABDOMINAL WOUND CULTURE IS POSITIVE FOR GROWTH OF E.COLI. SHE IS CURRENTLY RECEIVING NORMAL SALINE AT 75 ML/HR, CEFTRIAXONE 1G IV DAILY, CIPRO 200MG PO Q12H, ALBUMIN 25% IV DAILY, PEPCID 20MG IV Q12H, PROTONIX 40MG IV Q12H, ZOFRAN COCKTAIL Q8H, PHENERGAN 25MG IM Q4H PRN, OTBS ACHS, HUMULIN R SLIDING SCALE, XAR ELTO 2.5MG BID, NYSTATIN CREAM TID PRN. HER HOME MEDICATIONS OF PLAVIX, ZESTRIL, LOPRESSOR, PERCOCET, ZOCOR, AND RESTORIL WERE RESUMED. WE DISCUSSED PATIENTS DECLINING CONDITION AND POOR PROGNOSIS WITH HER DAUGHTER. HER DAUGHTER WISHES TO CONTINUE WITH CURRENT PLAN OF CARE AT THIS TIME UNTIL SHE IS ABLE TO SPEAK TO HER BROTHERS. SPEECH THERAPY RECOMMENDS THAT PATIENT BE NPO FOR NOW. WE WILL HOLD HER ORAL MEDICATIONS. GENERAL/VASCULAR SURGEON WILL CONTINUE TO MONITOR PATIENT. WE WILL CONTINUE CURRENT PLAN OF CARE AND WOUND CARE TODAY. OTHERWISE, WE WILL FOLLOW-UP WITH AM LABS AND CONTINUE TO MONITOR. TIME SPENT ON CLINICAL ASSESSMENT, REVIEWING LABS AND IMAGING, DECISION MAKING, AND DOCUMENTATION GREATER THAN 45 MINUTES. - Past Medical Family Social History Past Med/Fam/Surg Hx: No changes since H&P Allergies: Allergies prochlorperazine [From Compazine] Allergy (Unknown, Verified 07/11/22 19:19) Reason: Drug allergy tramadol Allergy (Verified 07/11/22 19:19) - Review of Systems ROS: No change since H&P - Vital Signs and I&O's Vital Signs: Temperature 98.2 F Pulse Rate [Left Radial] 82 Pulse Rate 111 Respiratory Rate 18 Blood Pressure [Right Arm] 142/66 Blood Pressure [Left Arm] 136/60 Blood Pressure [Right Arm] 169/74 Blood Pressure [Left Arm] 178/79 Blood Pressure 162/78 O2 Sat by Pulse Oximetry 100 Intake and Output: Intake & Output 10/25/22 10/26/22 10/27/22 10/28/22 11:59 11:59 11:59 11:59 Intake Total 2792 / 2792 2300 / 2300 2430 / 2430 2094 / 2094 Output Total 500 / 500 850 / 850 690 / 690 1150 / 1150 Balance 2292 / 2292 1450 / 1450 1740 / 1740 944 / 944 - Physical Exam Oriented: negative: Normal, Time, Person, Place Eyes: Normal Ear: Normal Nose: Normal Throat: Normal Respiratory: Diminished Cardiovascular: Normal (paced), Other (Palpable femoral pulses bilaterally . Biphasic right popliteal artery Doppler signal. Both feet arew cool and neither foot has a palpable pulse. Monophasic flow in the right posterior tibial artery. 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 Mesh and invloved cecum resected and has loop ileostomy. Had wound of abdomen open now being packed daily. Has stage II decubitus to left inner buttocks.) Musculoskeletal: Normal Psychiatric: Other (patient with dementia) Mood Description: Labile Affect: Depressed Speech Pattern: Unclear - Laboratory and Diagnostics Result Diagrams: 10/28/22 04:35 10/28/22 04:35 Labs: 10/16/22 18:15 Blood Blood Culture - Final 10/20/22 16:08 Urine,Catheterized Urine Culture - Final 10/16/22 21:24 Buttock Wound Gram Stain - Final 10/16/22 21:24 Buttock Wound Culture - Final Pseudomonas Aeruginosa 10/16/22 19:44 Urine,Catheterized Urine Culture - Final 10/16/22 21:24 Abdomen Wound Gram Stain - Final 10/16/22 21:24 Abdomen Wound Culture - Final Escherichia Coli Laboratory WBC 10.0 X10^3/uL (3.6-10.0) 10/28/22 04:35 RBC 2.83 X10^6/uL (3.5-5.4) L 10/28/22 04:35 Hgb 8.2 g/dL (12.0-16.0) L 10/28/22 04:35 Hct 24.6 % (36.0-47.0) L 10/28/22 04:35 MCV 86.8 fL (80.0-100.0) 10/28/22 04:35 MCH 28.9 pg (27.0-34.0) 10/28/22 04:35 MCHC 33.3 g/dL (33.0-35.0) 10/28/22 04:35 RDW 19.8 % (11.6-16.5) H 10/28/22 04:35 Plt Count 192 X10^3/uL (150.0-450.0) 10/28/22 04:35 Plt Count Comment Decreased (ADEQUATE) A 10/25/22 04:15 MPV 9.7 fL (7.4-11.0) 10/28/22 04:35 Neut % (Auto) 75.3 % (42.0-75.0) H 10/28/22 04:35 Lymph % (Auto) 8.4 % (21.0-51.0) L 10/28/22 04:35 [place] % (Auto) 14.1 % (0.0-13.0) H 10/28/22 04:35 Eos % (Auto) 2.1 % (0.9-2.9) 10/28/22 04:35 Baso % (Auto) 0.1 % (0.2-1.0) L 10/28/22 04:35 Neut # (Auto) 7.5 x10^3/uL (2.2-4.8) H 10/28/22 04:35 Lymph # (Auto) 0.8 X10^3/uL (1.3-2.9) L 10/28/22 04:35 [place] # (Auto) 1.4 x10^3/uL (0.3-0.8) H 10/28/22 04:35 Eos # (Auto) 0.2 x10^3/uL (0.0-0.2) 10/28/22 04:35 Baso # (Auto) 0.0 X10^3/uL (0.0-0.1) 10/28/22 04:35 Absolute Nucleated RBC 0.1 /100WBC 10/28/22 04:35 Total Counted 100 10/25/22 04:15 Neutrophils % (Manual) 84 % (39-76) H 10/25/22 04:15 Band Neutrophils % 2 % (0-10) 10/25/22 04:15 Lymphocytes % (Manual) 5 % (13-43) L 10/25/22 04:15 Monocytes % (Manual) 8 % (4-9) 10/25/22 04:15 Eosinophils % (Manual) 1 % (0-6) 10/25/22 04:15 Plt Morphology Comment Normal (NORMAL) 10/25/22 04:15 RBC Morphology Abnormal (NORMAL) A 10/25/22 04:15 Hypochromasia Slight A 10/25/22 04:15 Anisocytosis Slight A 10/25/22 04:15 Target Cells Slight A 10/25/22 04:15 Ovalocytes Present 10/23/22 03:34 [place] Cells 1+ A 10/25/22 04:15 Rouleaux Present 10/22/22 04:30 Schistocytes Slight A 10/25/22 04:15 Sodium 144 mmol/L (136-145) 10/28/22 04:35 Corrected Sodium 145 mmol/L (136-145) 10/28/22 04:35 Potassium 3.6 mmol/L (3.5-5.1) 10/28/22 04:35 Chloride 117 mmol/L (98-107) H* 10/28/22 04:35 Carbon Dioxide 16.3 mmol/L (21-32) L 10/28/22 04:35 BUN 50 mg/dL (7-18) H 10/28/22 04:35 Creatinine 2.37 mg/dL (0.55-1.02) H 10/28/22 04:35 Est GFR (MDRD) Af Amer 25 (>60) L 10/28/22 04:35 Est GFR (MDRD) Non-Af 20 (>60) L 10/28/22 04:35 Glucose 134 mg/dL (65-99) H 10/28/22 04:35 POC Glucose (mg/dL) 134 mg/dL (65-99) H 10/28/22 05:30 Lactic Acid 1.0 mmol/L (0.4-2.0) 10/20/22 04:18 Calcium 7.9 mg/dL (8.5-10.1) L 10/28/22 04:35 Corrected Calcium 9.1 mg/dL (8.5-10.1) 10/28/22 04:35 Magnesium 2.2 mg/dL (2.0-2.9) 10/26/22 04:30 Total Bilirubin 1.30 mg/dL (0.2-1.0) H 10/28/22 04:35 AST 13 Units/L (15-37) L 10/28/22 04:35 ALT 8 Units/L (12-78) L 10/28/22 04:35 Alkaline Phosphatase 48 Units/L (46-116) 10/28/22 04:35 Total Protein 4.6 g/dL (6.4-8.2) L 10/28/22 04:35 Albumin 2.5 g/dL (3.4-5.0) L 10/28/22 04:35 Globulin 2.1 g/dL (2.5-4.5) L 10/28/22 04:35 Albumin/Globulin Ratio 1.2 Ratio (1.1-2.1) 10/28/22 04:35 Lipase 166 Units/L (73-393) 10/27/22 04:20 Vitamin B12 941 pg/mL (193-986) 10/26/22 04:30 Folate 2.1 ng/mL (>8.6) L 10/26/22 04:30 Specimen Type Catherized urine 10/20/22 16:08 Urine Color Straw (YELLOW) 10/20/22 16:08 Urine Appearance Cloudy (CLEAR) 10/20/22 16:08 Urine pH 5.0 (5.0 - 8.0) 10/20/22 16:08 Ur Specific [place] 1.020 (1.000-1.030) 10/20/22 16:08 Urine Protein 3+ (NEGATIVE) 10/20/22 16:08 Urine Glucose (UA) Negative (NEGATIVE) 10/20/22 16:08 Urine Ketones Negative (NEGATIVE) 10/20/22 16:08 Urine Blood 4+ (NEGATIVE) 10/20/22 16:08 Urine Nitrite Negative (NEGATIVE) 10/20/22 16:08 Urine Bilirubin Negative (NEGATIVE) 10/20/22 16:08 Urine Urobilinogen Normal (NORMAL) 10/20/22 16:08 Ur Leukocyte Esterase 3+ (NEGATIVE) 10/20/22 16:08 Urine RBC 5-10 /HPF (0-3) A 10/20/22 16:08 Urine WBC Tntc /HPF (0-5) A 10/20/22 16:08 Ur Squamous Epith Cells Rare /HPF (NEGATIVE) 10/20/22 16:08 Urine Bacteria 1+ /HPF (NEGATIVE) 10/20/22 16:08 Urine Mucus Few /HPF (NEGATIVE) 10/20/22 16:08 Urine Yeast Few /HPF (NEGATIVE) 10/20/22 16:08 Ur Culture Indicated? Yes/culture set up 10/20/22 16:08 Stl Occult Blood (IFOB) Positive (NEGATIVE) A 10/26/22 17:25 Blood Type B POSITIVE 10/22/22 09:13 Antibody Screen Negative 10/22/22 09:13 Crossmatch See Detail 10/22/22 09:13 - Plan (1) Acute pancreatitis Status: Acute Qualifiers: Acute pancreatitis complication: unspecified Plan: 1/2 NORMAL SALINE AT 75 ML/HR, CEFTRIAXONE 1G IV DAILY, CIPRO 200MG PO Q12H, PEPCID 20MG IV Q12H, PROTONIX 40MG IV Q12H, ZOFRAN COCKTAIL Q8H, PHENERGAN 25MG IM Q4H PRN, OTBS ACHS, HUMULIN R SLIDING SCALE, XARELTO 2.5MG BID, NYSTATIN CREAT TID PRN. HER HOME MEDICATIONS OF PLAVIX, ZESTRIL, LOPRESSOR, PERCOCET, ZOCOR, AND RESTORIL WERE RESUMED. (2) Ileus Status: Acute (3) Hernia, ventral Status: Chronic Qualifiers: Obstruction and gangrene presence: without obstruction or gangrene Qualified Code(s): K43.9 - Ventral hernia without obstruction or gangrene (4) Acute on chronic renal insufficiency Status: Acute (5) PVD (peripheral vascular disease) Status: Acute (6) Anemia Status: Acute Qualifiers: Anemia type: due to chronic kidney disease Chronic kidney disease stage: unspecified stage Qualified Code(s): N18.9 - Chronic kidney disease, unspecified; D63.1 - Anemia in chronic kidney disease Plan: Check Hemoccult, vitamin B12 level and folate level. Patient is on GI protection with Protonix 40 mg IV twice daily and IV Pepcid. (7) Leukocytosis Status: Acute Qualifiers: Leukocytosis type: unspecified Qualified Code(s): D72.829 - Elevated white blood cell count, unspecified (8) Hypernatremia Status: Acute (9) Protein calorie malnutrition Status: Acute Qualifiers: Protein-calorie malnutrition severity: mild Qualified Code(s): E44.1 - Mild protein-calorie malnutrition (10) Hypoalbuminemia Status: Acute
--- NOTE | 2022-10-28 08:42 | PCM.PROG ---
Progress Note - Progress Note for Day of Date of Exam: 10/27/22 - Subjective Subjective: IS A 87 YEAR OLD PATIENT OF OURS WHO IS CURRENTLY INPATIENT STATUS FOR TREATMENT OF ACUTE PANCREATITIS, ILEUS, DEHISCED VENTRAL HERNIA, INFECTED SACRAL DECUBITUS ULCER, ACUTE ON CHRONIC RENAL INSUFFICIENCY, HYPERNATREMIA, ANEMIA, LEUKOCYTOSIS, AND NECROTIC RIGHT FIRST AND SECOND TOE. 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 THERE IS MESH EXPOSED TO THE ABDOMEN. OTHER PMH INCLUDES HTN, CAD, DM II, HYPERLIPDEMIA, ARTHRITIS, SLEEP APNEA, LOOP ILEOSTOMY OF LLQ, HERNIA REPAIR X 2, PACEMAKER, ANGIOPLASTY/STENTS, APPENDECTOMY, AND TUBAL. SHE IS DAY 7 POST OP ARTERIOGRAM OF THE RIGHT LEG WITH LIMITED DYE, ATHERECTOMY, AND BALLOON A NGIOPLASTY RIGHT PERONEAL ARTERY. SHE RECEIVED TWO UNITS OF PACKED RED BLOOD CELLS YESTERDAY. ON MORNING ROUNDS, PATIENT IS ALERT, WITH EYES OPEN ON MORNING ROUNDS. SHE RESPONDS VERBALLY WITH ONE OR TWO WORD RESPONSES. HER DAUGHTER IS AT BEDSIDE AND REPORTS THAT SHE CONTINUES TO MOAN OUT OFTEN, BUT USUALLY IMPROVES WITH PAIN MEDICATION. ON EXAMINATION, HEART IS REGULAR IN RATE AND RHYTHM. BILATERAL LUNGS ARE NOTED WITH RHONCHI AND DIMINISHED LUNG SOUNDS THROUGHOUT. ABDOMINAL WOUND WITH PACKING NOTED. BOWEL SOUNDS ARE HYPOACTIVE IN ALL QUADRANTS. DIFFUSE UPPER AND LOWER EXTREMITY MUSCLE ATROPHY AND WEAKNESS NOTED. THE FIRST AND SECOND TOES OF THE RIGHT FOOT ARE NECROTIC. HER VITALS THIS [facility] ARE: 98.2-90-6-100%-111/67. SHE IS CURRENTLY UTILIZING OXYGEN VIA NASAL CANNULA AT 2 LPM. LABS WERE OBTAINED. WBC HAS DECREASED TO 13.5, RBC 2.92, HGB 8.2, HCT 25.6, PLT COUNT 194, SODIUM 144, POTASSIUM 3.6, CHLORIDE 117, CARBON DIOXIDE 16.3, BUN 50, CREATININE 2.37, GLUCOSE 134, CALCIUM 7.9, TOTAL BILI 1.30, AST 13, ALT 8, TOTAL PROTEIN 4.6, ALBUMIN 2.5. SACRAL ULCER IS POSITIVE FOR GROWTH OF PSEUDOMONAS AERUGINOSA. ABDOMINAL WOUND CULTURE IS POSITIVE FOR GROWTH OF E.COLI. SHE IS CURRENTLY RECEIVING D5 NORMAL SALINE AT 75 ML/HR, MEROPENEM 500MG Q12H CIPRO 200MG PO Q12H, ALBUMIN 25% IV DAILY, PEPCID 20MG IV Q12H, PROTONIX 40MG IV Q12H, ZOFRAN COCKTAIL Q8H, PHENERGAN 25MG IM Q4H PRN, OTBS ACHS, HUMULIN R SLIDING SCALE, NYSTATIN CREAM TID PRN, SANTYL OINTMENT DAILY. WE ARE HOLDING HER ORAL MEDICATIONS AT THIS TIME. DUE TO PATIENTS IMPROVEMENT, HER FAMILY WISHES TO CONTINUE WITH CURRENT PLAN AT THIS TIME. SINCE SHE IS MORE ALERT TODAY, WE WILL HAVE SPEECH THERAPY REEVALUATE HER. GENE RAL/VASCULAR SURGEON WILL CONTINUE TO MONITOR PATIENT. WE WILL CONTINUE CURRENT PLAN OF CARE AND WOUND CARE TODAY. OTHERWISE, WE WILL FOLLOW-UP WITH AM LABS AND CONTINUE TO MONITOR. TIME SPENT ON CLINICAL ASSESSMENT, REVIEWING LABS AND IMAGING, DECISION MAKING, AND DOCUMENTATION GREATER THAN 45 MINUTES. - Past Medical Family Social History Past Med/Fam/Surg Hx: No changes since H&P Allergies: Allergies prochlorperazine [From Compazine] Allergy (Unknown, Verified 07/11/22 19:19) Reason: Drug allergy tramadol Allergy (Verified 07/11/22 19:19) - Review of Systems ROS: No change since H&P - Vital Signs and I&O's Vital Signs: Temperature 98.2 F Pulse Rate [Left Radial] 82 Pulse Rate 111 Respiratory Rate 18 Blood Pressure [Right Arm] 142/66 Blood Pressure [Left Arm] 136/60 Blood Pressure [Right Arm] 169/74 Blood Pressure [Left Arm] 178/79 Blood Pressure 162/78 O2 Sat by Pulse Oximetry 100 Intake and Output: Intake & Output 10/25/22 10/26/22 10/27/22 10/28/22 11:59 11:59 11:59 11:59 Intake Total 2792 / 2792 2300 / 2300 2430 / 2430 2094 / 2094 Output Total 500 / 500 850 / 850 690 / 690 1150 / 1150 Balance 2292 / 2292 1450 / 1450 1740 / 1740 944 / 944 - Physical Exam Oriented: negative: Normal, Time, Person, Place Eyes: Normal Ear: Normal Nose: Normal Throat: Normal Respiratory: Diminished Cardiovascular: Normal (paced), Other (Palpable femoral pulses bilaterally . Biphasic right popliteal artery Doppler signal. Both feet arew cool and neither foot has a palpable pulse. Monophasic flow in the right posterior tibial artery. 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 Mesh and invloved cecum resected and has loop ileostomy. Had wound of abdomen open now being packed daily. Has stage II decubitus to left inner buttocks.) Musculoskeletal: Normal Psychiatric: Other (patient with dementia) Mood Description: Labile Affect: Depressed Speech Pattern: Unclear - Laboratory and Diagnostics Result Diagrams: 10/28/22 04:35 10/28/22 04:35 Labs: 10/16/22 18:15 Blood Blood Culture - Final 10/20/22 16:08 Urine,Catheterized Urine Culture - Final 10/16/22 21:24 Buttock Wound Gram Stain - Final 10/16/22 21:24 Buttock Wound Culture - Final Pseudomonas Aeruginosa 10/16/22 19:44 Urine,Catheterized Urine Culture - Final 10/16/22 21:24 Abdomen Wound Gram Stain - Final 10/16/22 21:24 Abdomen Wound Culture - Final Escherichia Coli Laboratory WBC 10.0 X10^3/uL (3.6-10.0) 10/28/22 04:35 RBC 2.83 X10^6/uL (3.5-5.4) L 10/28/22 04:35 Hgb 8.2 g/dL (12.0-16.0) L 10/28/22 04:35 Hct 24.6 % (36.0-47.0) L 10/28/22 04:35 MCV 86.8 fL (80.0-100.0) 10/28/22 04:35 MCH 28.9 pg (27.0-34.0) 10/28/22 04:35 MCHC 33.3 g/dL (33.0-35.0) 10/28/22 04:35 RDW 19.8 % (11.6-16.5) H 10/28/22 04:35 Plt Count 192 X10^3/uL (150.0-450.0) 10/28/22 04:35 Plt Count Comment Decreased (ADEQUATE) A 10/25/22 04:15 MPV 9.7 fL (7.4-11.0) 10/28/22 04:35 Neut % (Auto) 75.3 % (42.0-75.0) H 10/28/22 04:35 Lymph % (Auto) 8.4 % (21.0-51.0) L 10/28/22 04:35 [place] % (Auto) 14.1 % (0.0-13.0) H 10/28/22 04:35 Eos % (Auto) 2.1 % (0.9-2.9) 10/28/22 04:35 Baso % (Auto) 0.1 % (0.2-1.0) L 10/28/22 04:35 Neut # (Auto) 7.5 x10^3/uL (2.2-4.8) H 10/28/22 04:35 Lymph # (Auto) 0.8 X10^3/uL (1.3-2.9) L 10/28/22 04:35 [place] # (Auto) 1.4 x10^3/uL (0.3-0.8) H 10/28/22 04:35 Eos # (Auto) 0.2 x10^3/uL (0.0-0.2) 10/28/22 04:35 Baso # (Auto) 0.0 X10^3/uL (0.0-0.1) 10/28/22 04:35 Absolute Nucleated RBC 0.1 /100WBC 10/28/22 04:35 Total Counted 100 10/25/22 04:15 Neutrophils % (Manual) 84 % (39-76) H 10/25/22 04:15 Band Neutrophils % 2 % (0-10) 10/25/22 04:15 Lymphocytes % (Manual) 5 % (13-43) L 10/25/22 04:15 Monocytes % (Manual) 8 % (4-9) 10/25/22 04:15 Eosinophils % (Manual) 1 % (0-6) 10/25/22 04:15 Plt Morphology Comment Normal (NORMAL) 10/25/22 04:15 RBC Morphology Abnormal (NORMAL) A 10/25/22 04:15 Hypochromasia Slight A 10/25/22 04:15 Anisocytosis Slight A 10/25/22 04:15 Target Cells Slight A 10/25/22 04:15 Ovalocytes Present 10/23/22 03:34 [place] Cells 1+ A 10/25/22 04:15 Rouleaux Present 10/22/22 04:30 Schistocytes Slight A 10/25/22 04:15 Sodium 144 mmol/L (136-145) 10/28/22 04:35 Corrected Sodium 145 mmol/L (136-145) 10/28/22 04:35 Potassium 3.6 mmol/L (3.5-5.1) 10/28/22 04:35 Chloride 117 mmol/L (98-107) H* 10/28/22 04:35 Carbon Dioxide 16.3 mmol/L (21-32) L 10/28/22 04:35 BUN 50 mg/dL (7-18) H 10/28/22 04:35 Creatinine 2.37 mg/dL (0.55-1.02) H 10/28/22 04:35 Est GFR (MDRD) Af Amer 25 (>60) L 10/28/22 04:35 Est GFR (MDRD) Non-Af 20 (>60) L 10/28/22 04:35 Glucose 134 mg/dL (65-99) H 10/28/22 04:35 POC Glucose (mg/dL) 134 mg/dL (65-99) H 10/28/22 05:30 Lactic Acid 1.0 mmol/L (0.4-2.0) 10/20/22 04:18 Calcium 7.9 mg/dL (8.5-10.1) L 10/28/22 04:35 Corrected Calcium 9.1 mg/dL (8.5-10.1) 10/28/22 04:35 Magnesium 2.2 mg/dL (2.0-2.9) 10/26/22 04:30 Total Bilirubin 1.30 mg/dL (0.2-1.0) H 10/28/22 04:35 AST 13 Units/L (15-37) L 10/28/22 04:35 ALT 8 Units/L (12-78) L 10/28/22 04:35 Alkaline Phosphatase 48 Units/L (46-116) 10/28/22 04:35 Total Protein 4.6 g/dL (6.4-8.2) L 10/28/22 04:35 Albumin 2.5 g/dL (3.4-5.0) L 10/28/22 04:35 Globulin 2.1 g/dL (2.5-4.5) L 10/28/22 04:35 Albumin/Globulin Ratio 1.2 Ratio (1.1-2.1) 10/28/22 04:35 Lipase 166 Units/L (73-393) 10/27/22 04:20 Vitamin B12 941 pg/mL (193-986) 10/26/22 04:30 Folate 2.1 ng/mL (>8.6) L 10/26/22 04:30 Specimen Type Catherized urine 10/20/22 16:08 Urine Color Straw (YELLOW) 10/20/22 16:08 Urine Appearance Cloudy (CLEAR) 10/20/22 16:08 Urine pH 5.0 (5.0 - 8.0) 10/20/22 16:08 Ur Specific [place] 1.020 (1.000-1.030) 10/20/22 16:08 Urine Protein 3+ (NEGATIVE) 10/20/22 16:08 Urine Glucose (UA) Negative (NEGATIVE) 10/20/22 16:08 Urine Ketones Negative (NEGATIVE) 10/20/22 16:08 Urine Blood 4+ (NEGATIVE) 10/20/22 16:08 Urine Nitrite Negative (NEGATIVE) 10/20/22 16:08 Urine Bilirubin Negative (NEGATIVE) 10/20/22 16:08 Urine Urobilinogen Normal (NORMAL) 10/20/22 16:08 Ur Leukocyte Esterase 3+ (NEGATIVE) 10/20/22 16:08 Urine RBC 5-10 /HPF (0-3) A 10/20/22 16:08 Urine WBC Tntc /HPF (0-5) A 10/20/22 16:08 Ur Squamous Epith Cells Rare /HPF (NEGATIVE) 10/20/22 16:08 Urine Bacteria 1+ /HPF (NEGATIVE) 10/20/22 16:08 Urine Mucus Few /HPF (NEGATIVE) 10/20/22 16:08 Urine Yeast Few /HPF (NEGATIVE) 10/20/22 16:08 Ur Culture Indicated? Yes/culture set up 10/20/22 16:08 Stl Occult Blood (IFOB) Positive (NEGATIVE) A 10/26/22 17:25 Blood Type B POSITIVE 10/22/22 09:13 Antibody Screen Negative 10/22/22 09:13 Crossmatch See Detail 10/22/22 09:13 - Plan (1) Acute pancreatitis Status: Acute Qualifiers: Acute pancreatitis complication: unspecified Plan: D51/2 NORMAL SALINE AT 75 ML/HR, MEROPENEM 500MG IV Q12H CIPRO 200MG PO Q1 2H, PEPCID 20MG IV Q12H, PROTONIX 40MG IV Q12H, ZOFRAN COCKTAIL Q8H, PHENERGAN 25MG IM Q4H PRN, OTBS ACHS, HUMULIN R SLIDING SCALE, HOLD HOME MEDS, SANTYL OINTMENT DAILY, NYSTATIN OINTMENT (2) Ileus Status: Acute (3) Hernia, ventral Status: Chronic Qualifiers: Obstruction and gangrene presence: without obstruction or gangrene Qualified Code(s): K43.9 - Ventral hernia without obstruction or gangrene (4) Acute on chronic renal insufficiency Status: Acute (5) PVD (peripheral vascular disease) Status: Acute (6) Anemia Status: Acute Qualifiers: Anemia type: due to chronic kidney disease Chronic kidney disease stage: unspecified stage Qualified Code(s): N18.9 - Chronic kidney disease, unspecified; D63.1 - Anemia in chronic kidney disease Plan: Check Hemoccult, vitamin B12 level and folate level. Patient is on GI protection with Protonix 40 mg IV twice daily and IV Pepcid. (7) Leukocytosis Status: Acute Qualifiers: Leukocytosis type: unspecified Qualified Code(s): D72.829 - Elevated white blood cell count, unspecified (8) Hypernatremia Status: Acute (9) Protein calorie malnutrition Status: Acute Qualifiers: Protein-calorie malnutrition severity: mild Qualified Code(s): E44.1 - Mild protein-calorie malnutrition (10) Hypoalbuminemia Status: Acute Plan: Encouraged patient to take oral intake. Supplement patient's diet with nutritional drinks such as Ensure.
--- NOTE | 2022-10-28 11:31 | PCM.PROG ---
Progress Note - Progress Note for Day of Date of Exam: 10/28/22 - Subjective Subjective: IS A 87 YEAR OLD PATIENT OF OURS WHO IS CURRENTLY INPATIENT STATUS FOR TREATMENT OF ACUTE PANCREATITIS, ILEUS, DEHISCED VENTRAL HERNIA, INFECTED SACRAL DECUBITUS ULCER, ACUTE ON CHRONIC RENAL INSUFFICIENCY, HYPERNATREMIA, ANEMIA, LEUKOCYTOSIS, AND NECROTIC RIGHT FIRST AND SECOND TOE. 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 THERE IS MESH EXPOSED TO THE ABDOMEN. OTHER PMH INCLUDES HTN, CAD, DM II, HYPERLIPDEMIA, ARTHRITIS, SLEEP APNEA, LOOP ILEOSTOMY OF LLQ, HERNIA REPAIR X 2, PACEMAKER, ANGIOPLASTY/STENTS, APPENDECTOMY, AND TUBAL. SHE IS DAY 8 POST OP ARTERIOGRAM OF THE RIGHT LEG WITH LIMITED DYE, ATHERECTOMY, AND BALLOON A NGIOPLASTY RIGHT PERONEAL ARTERY. SHE RECEIVED TWO UNITS OF PACKED RED BLOOD CELLS ON 10/22/22. ON MORNING ROUNDS, PATIENT IS ALERT, WITH EYES OPEN ON MORNING ROUNDS. SHE IS MOANING OUT IN PAIN. SHE WILL SPEAK AT TIMES, BUT SPEECH IS INCOMPREHENSABLE. DAUGHTER IS AT BEDSIDE AND REPORTS THAT SHE CONTINUES TO MOAN OUT OFTEN AND THAT THE PAIN MEDICINE DOESNT SEEM TO BE WORKING FOR VERY LONG. ON EXAMINATION, HEART IS REGULAR IN RATE AND RHYTHM. BILATERAL LUNGS ARE NOTED WITH RHONCHI AND DIMINISHED LUNG SOUNDS THROUGHOUT. ABDOMINAL WOUND WITH PACKING NOTED. BOWEL SOUNDS ARE HYPOACTIVE IN ALL QUADRANTS. THERE IS A GASCA CATHETER NOTED TO BEDSIDE DRAINAGE. DIFFUSE UPPER AND LOWER EXTREMITY MUSCLE ATROPHY AND WEAKNESS NOTED. THE FIRST AND SECOND TOES OF THE RIGHT FOOT ARE NECROTIC. HER VITALS THIS MORNING ARE: 98.2-99-12-100%.106/58 SHE IS CURRENTLY UTILIZING OXYGEN VIA NASAL CANNULA AT 2 LPM. LABS WERE OBTAINED. WBC HAS DECREASED TO 10.0, RBC 283, HGB 8.2, HCT 24.6, PLT COUNT 192, SODIUM 144, POTASSIUM 3.6, CHLORIDE 117, CARBON DIOXIDE 16.3, BUN 50, CREATININE 2.37, GLUCOSE 134, CALCIUM 7.9, TOTAL BILI 1.30, AST 13, ALT 8, ALK PHOS 48, TOTAL PROTEIN 4.6, ALBUMIN 2.5. SACRAL ULCER IS POSITIVE FOR GROWTH OF PSEUDOMONAS AERUGINOSA. ABDOMINAL WOUND CULTURE IS POSITIVE FOR GROWTH OF E.COLI. SHE IS CURRENTLY RECEIVING D5 NORMAL SALINE AT 75 ML/HR, MEROPENEM 500MG Q12H, ALBUMIN 25% IV DAILY, PEPCID 20MG IV Q12H, PROTONIX 40MG IV Q12H, ZOFRAN 4MG IV Q4H PRN, PHENERGAN 25MG IM Q4H PRN, OTBS ACHS, HUMULIN R SLIDING SCALE, NYSTATIN CREAM TID PRN, SANTYL OINTMENT DAILY, DILAUDID 1MG IV Q4H PRN, DURAGESIC 50MCG/HR PATCH. WE WILL INCREASE THE DILAUDID TO 2MG IV Q4H PRN. WE ARE HOLDING HER ORAL MEDICATIONS AT THIS TIME. WE DISCUSSED PATIENTS CURRENT STATE AND PROGNOSIS AGAIN WITH HER DAUGHTER. SHE IS GOING TO SPEAK WITH HER SIBLINGS AGAIN AND WILL MAKE A DECISION ON PALLIATIVE CARE TODAY. FOR NOW, WE WILL CONTINUE CURRENT PLAN OF CARE AND WOUND CARE TODAY. GENERAL/VASCULAR SURGEON WILL CONTINUE TO MONITOR PATIENT. OTHERWISE, WE WILL FOLLOW-UP WITH AM LABS AND CONTINUE TO MONITOR. TIME SPENT ON CLINICAL ASSESSMENT, REVIEWING LABS AND IMAGING, DECISION MAKING, AND DOCUMENTATION GREATER THAN 45 MINUTES. - Past Medical Family Social History Past Med/Fam/Surg Hx: No changes since H&P Allergies: Allergies prochlorperazine [From Compazine] Allergy (Unknown, Verified 07/11/22 19:19) Reason: Drug allergy tramadol Allergy (Verified 07/11/22 19:19) - Review of Systems ROS: No change since H&P - Vital Signs and I&O's Vital Signs: Temperature 98.2 F Pulse Rate [Left Radial] 82 Pulse Rate 91 Respiratory Rate 10 Blood Pressure [Right Arm] 142/66 Blood Pressure [Left Arm] 136/60 Blood Pressure [Right Arm] 169/74 Blood Pressure [Left Arm] 178/79 Blood Pressure 92/51 O2 Sat by Pulse Oximetry 100 Intake and Output: Intake & Output 10/25/22 10/26/22 10/27/22 10/28/22 11:59 11:59 11:59 11:59 Intake Total 2792 / 2792 2300 / 2300 2430 / 2430 2093 / 4 Output Total 500 / 500 850 / 850 690 / 690 1150 / 1150 Balance 2292 / 2292 1450 / 1450 1740 / 1740 944 / 944 - Physical Exam Oriented: Unable to test. negative: Normal, Time, Person, Place Eyes: Normal Ear: Normal Nose: Normal Throat: Normal Respiratory: Diminished Cardiovascular: Normal (paced), Other (Palpable femoral pulses bilaterally . Biphasic right popliteal artery Doppler signal. Both feet arew cool and neither foot has a palpable pulse. Monophasic flow in the right posterior tibial artery. 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 Mesh and invloved cecum resected and has loop ileostomy. Had wound of abdomen open now being packed daily. Has stage II decubitus to left inner buttocks.) Musculoskeletal: Normal Psychiatric: Other (patient with dementia) Mood Description: Labile Affect: Depressed Speech Pattern: Unclear - Laboratory and Diagnostics Result Diagrams: 10/28/22 04:35 10/28/22 04:35 Labs: 10/16/22 18:15 Blood Blood Culture - Final 10/20/22 16:08 Urine,Catheterized Urine Culture - Final 10/16/22 21:24 Buttock Wound Gram Stain - Final 10/16/22 21:24 Buttock Wound Culture - Final Pseudomonas Aeruginosa 10/16/22 19:44 Urine,Catheterized Urine Culture - Final 10/16/22 21:24 Abdomen Wound Gram Stain - Final 10/16/22 21:24 Abdomen Wound Culture - Final Escherichia Coli Laboratory WBC 10.0 X10^3/uL (3.6-10.0) 10/28/22 04:35 RBC 2.83 X10^6/uL (3.5-5.4) L 10/28/22 04:35 Hgb 8.2 g/dL (12.0-16.0) L 10/28/22 04:35 Hct 24.6 % (36.0-47.0) L 10/28/22 04:35 MCV 86.8 fL (80.0-100.0) 10/28/22 04:35 MCH 28.9 pg (27.0-34.0) 10/28/22 04:35 MCHC 33.3 g/dL (33.0-35.0) 10/28/22 04:35 RDW 19.8 % (11.6-16.5) H 10/28/22 04:35 Plt Count 192 X10^3/uL (150.0-450.0) 10/28/22 04:35 Plt Count Comment Decreased (ADEQUATE) A 10/25/22 04:15 MPV 9.7 fL (7.4-11.0) 10/28/22 04:35 Neut % (Auto) 75.3 % (42.0-75.0) H 10/28/22 04:35 Lymph % (Auto) 8.4 % (21.0-51.0) L 10/28/22 04:35 [place] % (Auto) 14.1 % (0.0-13.0) H 10/28/22 04:35 Eos % (Auto) 2.1 % (0.9-2.9) 10/28/22 04:35 Baso % (Auto) 0.1 % (0.2-1.0) L 10/28/22 04:35 Neut # (Auto) 7.5 x10^3/uL (2.2-4.8) H 10/28/22 04:35 Lymph # (Auto) 0.8 X10^3/uL (1.3-2.9) L 10/28/22 04:35 [place] # (Auto) 1.4 x10^3/uL (0.3-0.8) H 10/28/22 04:35 Eos # (Auto) 0.2 x10^3/uL (0.0-0.2) 10/28/22 04:35 Baso # (Auto) 0.0 X10^3/uL (0.0-0.1) 10/28/22 04:35 Absolute Nucleated RBC 0.1 /100WBC 10/28/22 04:35 Total Counted 100 10/25/22 04:15 Neutrophils % (Manual) 84 % (39-76) H 10/25/22 04:15 Band Neutrophils % 2 % (0-10) 10/25/22 04:15 Lymphocytes % (Manual) 5 % (13-43) L 10/25/22 04:15 Monocytes % (Manual) 8 % (4-9) 10/25/22 04:15 Eosinophils % (Manual) 1 % (0-6) 10/25/22 04:15 Plt Morphology Comment Normal (NORMAL) 10/25/22 04:15 RBC Morphology Abnormal (NORMAL) A 10/25/22 04:15 Hypochromasia Slight A 10/25/22 04:15 Anisocytosis Slight A 10/25/22 04:15 Target Cells Slight A 10/25/22 04:15 Ovalocytes Present 10/23/22 03:34 [place] Cells 1+ A 10/25/22 04:15 Rouleaux Present 10/22/22 04:30 Schistocytes Slight A 10/25/22 04:15 Sodium 144 mmol/L (136-145) 10/28/22 04:35 Corrected Sodium 145 mmol/L (136-145) 10/28/22 04:35 Potassium 3.6 mmol/L (3.5-5.1) 10/28/22 04:35 Chloride 117 mmol/L (98-107) H* 10/28/22 04:35 Carbon Dioxide 16.3 mmol/L (21-32) L 10/28/22 04:35 BUN 50 mg/dL (7-18) H 10/28/22 04:35 Creatinine 2.37 mg/dL (0.55-1.02) H 10/28/22 04:35 Est GFR (MDRD) Af Amer 25 (>60) L 10/28/22 04:35 Est GFR (MDRD) Non-Af 20 (>60) L 10/28/22 04:35 Glucose 134 mg/dL (65-99) H 10/28/22 04:35 POC Glucose (mg/dL) 121 mg/dL (65-99) H 10/28/22 11:16 Lactic Acid 1.0 mmol/L (0.4-2.0) 10/20/22 04:18 Calcium 7.9 mg/dL (8.5-10.1) L 10/28/22 04:35 Corrected Calcium 9.1 mg/dL (8.5-10.1) 10/28/22 04:35 Magnesium 2.2 mg/dL (2.0-2.9) 10/26/22 04:30 Total Bilirubin 1.30 mg/dL (0.2-1.0) H 10/28/22 04:35 AST 13 Units/L (15-37) L 10/28/22 04:35 ALT 8 Units/L (12-78) L 10/28/22 04:35 Alkaline Phosphatase 48 Units/L (46-116) 10/28/22 04:35 Total Protein 4.6 g/dL (6.4-8.2) L 10/28/22 04:35 Albumin 2.5 g/dL (3.4-5.0) L 10/28/22 04:35 Globulin 2.1 g/dL (2.5-4.5) L 10/28/22 04:35 Albumin/Globulin Ratio 1.2 Ratio (1.1-2.1) 10/28/22 04:35 Lipase 166 Units/L (73-393) 10/27/22 04:20 Vitamin B12 941 pg/mL (193-986) 10/26/22 04:30 Folate 2.1 ng/mL (>8.6) L 10/26/22 04:30 Specimen Type Catherized urine 10/20/22 16:08 Urine Color Straw (YELLOW) 10/20/22 16:08 Urine Appearance Cloudy (CLEAR) 10/20/22 16:08 Urine pH 5.0 (5.0 - 8.0) 10/20/22 16:08 Ur Specific [place] 1.020 (1.000-1.030) 10/20/22 16:08 Urine Protein 3+ (NEGATIVE) 10/20/22 16:08 Urine Glucose (UA) Negative (NEGATIVE) 10/20/22 16:08 Urine Ketones Negative (NEGATIVE) 10/20/22 16:08 Urine Blood 4+ (NEGATIVE) 10/20/22 16:08 Urine Nitrite Negative (NEGATIVE) 10/20/22 16:08 Urine Bilirubin Negative (NEGATIVE) 10/20/22 16:08 Urine Urobilinogen Normal (NORMAL) 10/20/22 16:08 Ur Leukocyte Esterase 3+ (NEGATIVE) 10/20/22 16:08 Urine RBC 5-10 /HPF (0-3) A 10/20/22 16:08 Urine WBC Tntc /HPF (0-5) A 10/20/22 16:08 Ur Squamous Epith Cells Rare /HPF (NEGATIVE) 10/20/22 16:08 Urine Bacteria 1+ /HPF (NEGATIVE) 10/20/22 16:08 Urine Mucus Few /HPF (NEGATIVE) 10/20/22 16:08 Urine Yeast Few /HPF (NEGATIVE) 10/20/22 16:08 Ur Culture Indicated? Yes/culture set up 10/20/22 16:08 Stl Occult Blood (IFOB) Positive (NEGATIVE) A 10/26/22 17:25 Blood Type B POSITIVE 10/22/22 09:13 Antibody Screen Negative 10/22/22 09:13 Crossmatch See Detail 10/22/22 09:13 - Plan (1) Acute pancreatitis Status: Acute Qualifiers: Acute pancreatitis complication: unspecified Plan: D5 NORMAL SALINE AT 75 ML/HR, MEROPENEM 500MG Q12H, ALBUMIN 25% IV DAILY, PEPCID 20MG IV Q12H, PROTONIX 40MG IV Q12H, ZOFRAN 4MG IV Q4H PRN, PHENERGAN 25MG IM Q4H PRN, OTBS ACHS, HUMULIN R SLIDING SCALE, NYSTATIN CREAM TID PRN, SANTYL OINTMENT DAILY, DILAUDID 2MG IV Q4H PRN, DURAGESIC 50MCG/HR PATCH. (2) Ileus Status: Acute (3) Hernia, ventral Status: Chronic Qualifiers: Obstruction and gangrene presence: without obstruction or gangrene Qualified Code(s): K43.9 - Ventral hernia without obstruction or gangrene (4) Acute on chronic renal insufficiency Status: Acute (5) PVD (peripheral vascular disease) Status: Acute (6) Anemia Status: Acute Qualifiers: Anemia type: due to chronic kidney disease Chronic kidney disease stage: unspecified stage Qualified Code(s): N18.9 - Chronic kidney disease, unspecified; D63.1 - Anemia in chronic kidney disease (7) Leukocytosis Status: Acute Qualifiers: Leukocytosis type: unspecified Qualified Code(s): D72.829 - Elevated white blood cell count, unspecified (8) Hypernatremia Status: Acute (9) Protein calorie malnutrition Status: Acute Qualifiers: Protein-calorie malnutrition severity: mild Qualified Code(s): E44.1 - Mild protein-calorie malnutrition (10) Hypoalbuminemia Status: Acute
[2022-10-28] MEDS: SNACK - Diabetic Appropriate PO SCH (19:36)
[2022-10-29] MEDS: DILAUDID INJ IVP PRN ×3 (00:10→07:59)
[2022-10-29] MEDS: D5 1/2 NS 1,000 ML 1,000 ML IV SCH ×3 (01:12→16:04)
[2022-10-29 05:20] LABS: BASOPHILS % (AUTO) 0.2 % (0.2-1.0); EOSINOPHILS # (AUTO) 0.2 x10^3/uL (0.0-0.2); EOSINOPHILS % (AUTO) 1.8 % (0.9-2.9); HEMOGLOBIN 8.2 g/dL (12.0-16.0); LYMPHOCYTES % (AUTO) 8.8 % (21.0-51.0); MEAN CORPUSCULAR HEMOGLOBIN 28.7 pg (27.0-34.0); MEAN CORPUSCULAR HGB CONC 32.8 g/dL (33.0-35.0); MEAN CORPUSCULAR VOLUME 87.3 fL (80.0-100.0); MEAN PLATELET VOLUME 10.2 fL (7.4-11.0); MONOCYTES # (AUTO) 1.6 x10^3/uL (0.3-0.8); MONOCYTES % (AUTO) 13.9 % (0.0-13.0); NEUTROPHILS # (AUTO) 8.6 x10^3/uL (2.2-4.8); NEUTROPHILS % (AUTO) 75.3 % (42.0-75.0); PLATELET COUNT 207 X10^3/uL (150.0-450.0); RED BLOOD COUNT 2.86 X10^6/uL (3.5-5.4); RED CELL DISTRIBUTION WIDTH 19.9 % (11.6-16.5); WHITE BLOOD COUNT 11.4 X10^3/uL (3.6-10.0)
[2022-10-29 05:36] LABS: ALBUMIN 2.8 g/dL (3.4-5.0); CALCIUM 7.9 mg/dL (8.5-10.1); CARBON DIOXIDE 15.7 mmol/L (21-32); COR CA(FOR HYPOALB) 8.9 mg/dL (8.5-10.1); CREATININE 2.44 mg/dL (0.55-1.02); POTASSIUM 3.6 mmol/L (3.5-5.1); TOTAL PROTEIN 4.9 g/dL (6.4-8.2)
[2022-10-29] MEDS: ALBUMIN HUMAN 25%- 100 ML 100 ML IV SCH (08:00)
[2022-10-29] MEDS: MERREM VIAL 500 MG in NS 50 ML IV 50 ML IV SCH ×2 (08:01→20:24)
[2022-10-29] MEDS: PROTONIX INJ 40 MG VIAL IVP SCH ×2 (08:01→20:21)
[2022-10-29] MEDS: PEPCID 20 MG VIAL 20 MG in NS 50 ML IV 50 ML IV SCH (08:01)
[2022-10-29] MEDS: SANTYL EXT SCH (08:57)
[2022-10-29] MEDS ORDERED: VERSED IVP PRN ×2 (09:37→10:14)
[2022-10-29] MEDS: MORPHINE SULFATE INJ 4 MG IVP PRN ×2 (09:54→22:31)
[2022-10-29] MEDS ORDERED: DURAGESIC 100 mcg/HR PATCH TD SCH (10:00)
[2022-10-29] MEDS: ISOPTO ATROPINE SL PRN ×2 (10:17→14:53)
--- NOTE | 2022-10-29 10:47 | PCM.PROG ---
Progress Note - Progress Note for Day of Date of Exam: 10/29/22 - Subjective Subjective: IS A 87 YEAR OLD PATIENT OF OURS WHO IS CURRENTLY INPATIENT STATUS FOR TREATMENT OF ACUTE PANCREATITIS, ILEUS, DEHISCED VENTRAL HERNIA, INFECTED SACRAL DECUBITUS ULCER, ACUTE ON CHRONIC RENAL INSUFFICIENCY, HYPERNATREMIA, ANEMIA, LEUKOCYTOSIS, AND NECROTIC RIGHT FIRST AND SECOND TOE. 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 THERE IS MESH EXPOSED TO THE ABDOMEN. OTHER PMH INCLUDES HTN, CAD, DM II, HYPERLIPDEMIA, ARTHRITIS, SLEEP APNEA, LOOP ILEOSTOMY OF LLQ, HERNIA REPAIR X 2, PACEMAKER, ANGIOPLASTY/STENTS, APPENDECTOMY, AND TUBAL. SHE IS DAY 9 POST OP ARTERIOGRAM OF THE RIGHT LEG WITH LIMITED DYE, ATHERECTOMY, AND BALLOON A NGIOPLASTY RIGHT PERONEAL ARTERY. SHE RECEIVED TWO UNITS OF PACKED RED BLOOD CELLS ON 10/22/22. ON MORNING ROUNDS, PATIENT IS ALERT, WITH EYES OPEN ON MORNING ROUNDS. SHE IS MOANING OUT IN PAIN. SHE WILL SPEAK AT TIMES, BUT SPEECH IS INCOMPREHENSABLE. DAUGHTER IS AT BEDSIDE AND REPORTS THAT SHE CONTINUES TO MOAN OUT OFTEN AND THAT THE PAIN MEDICINE STILL DOESNT SEEM TO BE WORKING FOR VERY LONG, EVEN WITH THE CHANGES THAT WERE MADE YESTERDAY. ON EXAMINATION, HEART IS REGULAR IN RATE AND RHYTHM. BILATERAL LUNGS ARE NOTED WITH RHONCHI AND DIMINISHED LUNG SOUNDS THROUGHOUT. ABDOMINAL WOUND WITH PACKING NOTED. BOWEL SOUNDS ARE HYPOACTIVE IN ALL QUADRANTS. THERE IS A GASCA CATHETER NOTED TO BEDSIDE DRAINAGE. DIFFUSE UPPER AND LOWER EXTREMITY MUSCLE ATROPHY AND WEAKNESS NOTED. THE FIRST AND SECOND TOES OF THE RIGHT FOOT ARE NECROTIC. HER VITALS THIS MORNING ARE: 98.7-965-41-100%-125/67. SHE IS CURRENTLY UTILIZING OXYGEN VIA NASAL CANNULA AT 2 LPM. LABS WERE OBTAINED. WBC 11.4, RBC 2.86, HGB 8.2, HCT 25.0, PLT COUNT 207, SODIUM 141, POTASSIUM 3.6, CHLORIDE 115, CARBON DIOXIDE 15.7, BUN 48, CREATININE 2.44, GLUCOSE 130, CALCIUM 7.9, TOTAL BILI 1.40, AST 14, ALT 6, TOTAL PROTEIN 4.9, ALBUMIN 2.8. SACRAL ULCER IS POSITIVE FOR GROWTH OF PSEUDOMONAS AERUGINOSA. ABDOMINAL WOUND CULTURE IS POSITIVE FOR GROWTH OF E.COLI. SHE IS CURRENTLY RECEIVING D5 NORMAL SALINE AT 75 ML/HR, MEROPENEM 500MG Q12H, ALBUMIN 25% IV DAILY, PEPCID 20MG IV Q12H, PROTONIX 40MG IV Q12H, ZOFRAN 4MG IV Q4H PRN, PHENERGAN 25MG IM Q4H PRN, OTBS ACHS, HUMULIN R SLIDING SCALE, NYSTATIN CREAM TID PRN, SANTYL OINTMENT DAILY, DILAUDID 1MG IV Q4H PRN, DURAGESIC 50MCG/HR PATCH. WE WILL INCREASE THE DILAUDID TO 2MG IV Q4H PRN. WE ARE HOLDING HER ORAL MEDICATIONS AT THIS TIME. WE DISCUSSED PATIENTS CURRENT STATE AND POOR PROGNOSIS AGAIN WITH HER DAUGHTER. FAMILY WISHES TO CONTINUE WITH CURRENT PLAN OF CARE FOR NOW. GENERAL/VASCULAR SURGEON WILL CONTINUE TO MONITOR PATIENT WELL. WE WILL ADD MORPHINE 4MG IV Q2H PRN, VERSED 2MG IV Q2H PRN, AND INCREAESE HER F[place]ANY[place] PATCH TO 100MG TD/HR FOR PAIN AND AGITATION. OTHERWISE, WE WILL FOLLOW-UP WITH AM LABS AND CONTINUE TO MONITOR. TIME SPENT ON CLINICAL ASSESSMENT, REVIEWING LABS AND IMAGING, DECISION MAKING, AND DOCUMENTATION GREATER THAN 45 MINUTES. - Past Medical Family Social History Past Med/Fam/Surg Hx: No changes since H&P Allergies: Allergies prochlorperazine [From Compazine] Allergy (Unknown, Verified 07/11/22 19:19) Reason: Drug allergy tramadol Allergy (Verified 07/11/22 19:19) - Review of Systems ROS: No change since H&P - Vital Signs and I&O's Vital Signs: Temperature 98.5 F Pulse Rate [Left Radial] 82 Pulse Rate 119 Respiratory Rate 18 Blood Pressure [Right Arm] 142/66 Blood Pressure [Left Arm] 136/60 Blood Pressure [Right Arm] 169/74 Blood Pressure [Left Arm] 178/79 Blood Pressure 159/89 O2 Sat by Pulse Oximetry 100 Intake and Output: Intake & Output 10/26/22 10/27/22 10/28/22 10/29/22 11:59 11:59 11:59 11:59 Intake Total 2300 / 2300 2430 / 2430 209 / 2093 Output Total 850 / 850 690 / 690 1150 / 1150 425 / 425 Balance 1450 / 1450 1740 / 1740 944 / 944 1634 / 1634 - Physical Exam Oriented: Unable to test. negative: Normal, Time, Person, Place Eyes: Normal Ear: Normal Nose: Normal Throat: Normal Respiratory: Diminished Cardiovascular: Normal (paced), Other (Palpable femoral pulses bilaterally . Biphasic right popliteal artery Doppler signal. Both feet arew cool and neither foot has a palpable pulse. Monophasic flow in the right posterior tibial artery. 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 Mesh and invloved cecum resected and has loop ileostomy. Had wound of abdomen open now being packed daily. Has stage II decubitus to left inner buttocks.) Musculoskeletal: Normal Psychiatric: Other (patient with dementia) Mood Description: Labile Affect: Depressed Speech Pattern: Unclear - Laboratory and Diagnostics Result Diagrams: 10/29/22 04:10 10/29/22 04:10 Labs: 10/16/22 18:15 Blood Blood Culture - Final 10/20/22 16:08 Urine,Catheterized Urine Culture - Final 10/16/22 21:24 Buttock Wound Gram Stain - Final 10/16/22 21:24 Buttock Wound Culture - Final Pseudomonas Aeruginosa 10/16/22 19:44 Urine,Catheterized Urine Culture - Final 10/16/22 21:24 Abdomen Wound Gram Stain - Final 10/16/22 21:24 Abdomen Wound Culture - Final Escherichia Coli Laboratory WBC 11.4 X10^3/uL (3.6-10.0) H 10/29/22 04:10 RBC 2.86 X10^6/uL (3.5-5.4) L 10/29/22 04:10 Hgb 8.2 g/dL (12.0-16.0) L 10/29/22 04:10 Hct 25.0 % (36.0-47.0) L 10/29/22 04:10 MCV 87.3 fL (80.0-100.0) 10/29/22 04:10 MCH 28.7 pg (27.0-34.0) 10/29/22 04:10 MCHC 32.8 g/dL (33.0-35.0) L 10/29/22 04:10 RDW 19.9 % (11.6-16.5) H 10/29/22 04:10 Plt Count 207 X10^3/uL (150.0-450.0) 10/29/22 04:10 Plt Count Comment Decreased (ADEQUATE) A 10/25/22 04:15 MPV 10.2 fL (7.4-11.0) 10/29/22 04:10 Neut % (Auto) 75.3 % (42.0-75.0) H 10/29/22 04:10 Lymph % (Auto) 8.8 % (21.0-51.0) L 10/29/22 04:10 [place] % (Auto) 13.9 % (0.0-13.0) H 10/29/22 04:10 Eos % (Auto) 1.8 % (0.9-2.9) 10/29/22 04:10 Baso % (Auto) 0.2 % (0.2-1.0) 10/29/22 04:10 Neut # (Auto) 8.6 x10^3/uL (2.2-4.8) H 10/29/22 04:10 Lymph # (Auto) 1.0 X10^3/uL (1.3-2.9) L 10/29/22 04:10 [place] # (Auto) 1.6 x10^3/uL (0.3-0.8) H 10/29/22 04:10 Eos # (Auto) 0.2 x10^3/uL (0.0-0.2) 10/29/22 04:10 Baso # (Auto) 0.0 X10^3/uL (0.0-0.1) 10/29/22 04:10 Absolute Nucleated RBC 0.0 /100WBC 10/29/22 04:10 Total Counted 100 10/25/22 04:15 Neutrophils % (Manual) 84 % (39-76) H 10/25/22 04:15 Band Neutrophils % 2 % (0-10) 10/25/22 04:15 Lymphocytes % (Manual) 5 % (13-43) L 10/25/22 04:15 Monocytes % (Manual) 8 % (4-9) 10/25/22 04:15 Eosinophils % (Manual) 1 % (0-6) 10/25/22 04:15 Plt Morphology Comment Normal (NORMAL) 10/25/22 04:15 RBC Morphology Abnormal (NORMAL) A 10/25/22 04:15 Hypochromasia Slight A 10/25/22 04:15 Anisocytosis Slight A 10/25/22 04:15 Target Cells Slight A 10/25/22 04:15 Ovalocytes Present 10/23/22 03:34 [place] Cells 1+ A 10/25/22 04:15 Rouleaux Present 10/22/22 04:30 Schistocytes Slight A 10/25/22 04:15 Sodium 141 mmol/L (136-145) 10/29/22 04:10 Corrected Sodium 142 mmol/L (136-145) 10/29/22 04:10 Potassium 3.6 mmol/L (3.5-5.1) 10/29/22 04:10 Chloride 115 mmol/L (98-107) H* 10/29/22 04:10 Carbon Dioxide 15.7 mmol/L (21-32) L 10/29/22 04:10 BUN 48 mg/dL (7-18) H 10/29/22 04:10 Creatinine 2.44 mg/dL (0.55-1.02) H 10/29/22 04:10 Est GFR (MDRD) Af Amer 24 (>60) L 10/29/22 04:10 Est GFR (MDRD) Non-Af 20 (>60) L 10/29/22 04:10 Glucose 130 mg/dL (65-99) H 10/29/22 04:10 POC Glucose (mg/dL) 121 mg/dL (65-99) H 10/29/22 10:27 Lactic Acid 1.0 mmol/L (0.4-2.0) 10/20/22 04:18 Calcium 7.9 mg/dL (8.5-10.1) L 10/29/22 04:10 Corrected Calcium 8.9 mg/dL (8.5-10.1) 10/29/22 04:10 Magnesium 2.2 mg/dL (2.0-2.9) 10/26/22 04:30 Total Bilirubin 1.40 mg/dL (0.2-1.0) H 10/29/22 04:10 AST 14 Units/L (15-37) L 10/29/22 04:10 ALT 6 Units/L (12-78) L 10/29/22 04:10 Alkaline Phosphatase 50 Units/L (46-116) 10/29/22 04:10 Total Protein 4.9 g/dL (6.4-8.2) L 10/29/22 04:10 Albumin 2.8 g/dL (3.4-5.0) L 10/29/22 04:10 Globulin 2.1 g/dL (2.5-4.5) L 10/29/22 04:10 Albumin/Globulin Ratio 1.3 Ratio (1.1-2.1) 10/29/22 04:10 Lipase 166 Units/L (73-393) 10/27/22 04:20 Vitamin B12 941 pg/mL (193-986) 10/26/22 04:30 Folate 2.1 ng/mL (>8.6) L 10/26/22 04:30 Specimen Type Catherized urine 10/20/22 16:08 Urine Color Straw (YELLOW) 10/20/22 16:08 Urine Appearance Cloudy (CLEAR) 10/20/22 16:08 Urine pH 5.0 (5.0 - 8.0) 10/20/22 16:08 Ur Specific [place] 1.020 (1.000-1.030) 10/20/22 16:08 Urine Protein 3+ (NEGATIVE) 10/20/22 16:08 Urine Glucose (UA) Negative (NEGATIVE) 10/20/22 16:08 Urine Ketones Negative (NEGATIVE) 10/20/22 16:08 Urine Blood 4+ (NEGATIVE) 10/20/22 16:08 Urine Nitrite Negative (NEGATIVE) 10/20/22 16:08 Urine Bilirubin Negative (NEGATIVE) 10/20/22 16:08 Urine Urobilinogen Normal (NORMAL) 10/20/22 16:08 Ur Leukocyte Esterase 3+ (NEGATIVE) 10/20/22 16:08 Urine RBC 5-10 /HPF (0-3) A 10/20/22 16:08 Urine WBC Tntc /HPF (0-5) A 10/20/22 16:08 Ur Squamous Epith Cells Rare /HPF (NEGATIVE) 10/20/22 16:08 Urine Bacteria 1+ /HPF (NEGATIVE) 10/20/22 16:08 Urine Mucus Few /HPF (NEGATIVE) 10/20/22 16:08 Urine Yeast Few /HPF (NEGATIVE) 10/20/22 16:08 Ur Culture Indicated? Yes/culture set up 10/20/22 16:08 Stl Occult Blood (IFOB) Positive (NEGATIVE) A 10/26/22 17:25 Blood Type B POSITIVE 10/22/22 09:13 Antibody Screen Negative 10/22/22 09:13 Crossmatch See Detail 10/22/22 09:13 - Plan (1) Acute pancreatitis Status: Acute Qualifiers: Acute pancreatitis complication: unspecified Plan: D5 NORMAL SALINE AT 75 ML/HR, MEROPENEM 500MG Q12H, ALBUMIN 25% IV DAILY, PEPCID 20MG IV Q12H, PROTONIX 40MG IV Q12H, ZOFRAN 4MG IV Q4H PRN, PHENERGAN 25MG IM Q4H PRN, OTBS ACHS, HUMULIN R SLIDING SCALE, NYSTATIN CREAM TID PRN, SANTYL OINTMENT DAILY, DILAUDID 2MG IV Q4H PRN, DURAGESIC 100MCG/HR PATCH, MORPHINE 4MG IV Q2H PRN, VERSED 2MG IV Q2H PRN (2) Ileus Status: Acute (3) Hernia, ventral Status: Chronic Qualifiers: Obstruction and gangrene presence: without obstruction or gangrene Qualified Code(s): K43.9 - Ventral hernia without obstruction or gangrene (4) Acute on chronic renal insufficiency Status: Acute (5) PVD (peripheral vascular disease) Status: Acute (6) Anemia Status: Acute Qualifiers: Anemia type: due to chronic kidney disease Chronic kidney disease stage: unspecified stage Qualified Code(s): N18.9 - Chronic kidney disease, unspecified; D63.1 - Anemia in chronic kidney disease (7) Leukocytosis Status: Acute Qualifiers: Leukocytosis type: unspecified Qualified Code(s): D72.829 - Elevated white blood cell count, unspecified (8) Hypernatremia Status: Acute (9) Protein calorie malnutrition Status: Acute Qualifiers: Protein-calorie malnutrition severity: mild Qualified Code(s): E44.1 - Mild protein-calorie malnutrition (10) Hypoalbuminemia Status: Acute
[2022-10-29] MEDS: SNACK - Diabetic Appropriate PO SCH ×2 (20:00→20:06)
[2022-10-30] MEDS: D5 1/2 NS 1,000 ML 1,000 ML IV SCH ×2 (04:39→19:01)
[2022-10-30 05:20] LABS: BASOPHILS # (AUTO) 0.1 X10^3/uL (0.0-0.1); BASOPHILS % (AUTO) 0.4 % (0.2-1.0); EOSINOPHILS # (AUTO) 0.1 x10^3/uL (0.0-0.2); EOSINOPHILS % (AUTO) 0.7 % (0.9-2.9); HEMATOCRIT 23.8 % (36.0-47.0); HEMOGLOBIN 7.8 g/dL (12.0-16.0); LYMPHOCYTES # (AUTO) 1.3 X10^3/uL (1.3-2.9); LYMPHOCYTES % (AUTO) 9.4 % (21.0-51.0); MEAN CORPUSCULAR HEMOGLOBIN 28.6 pg (27.0-34.0); MEAN CORPUSCULAR HGB CONC 32.8 g/dL (33.0-35.0); MEAN CORPUSCULAR VOLUME 87.3 fL (80.0-100.0); MEAN PLATELET VOLUME 9.9 fL (7.4-11.0); MONOCYTES # (AUTO) 1.6 x10^3/uL (0.3-0.8); MONOCYTES % (AUTO) 11.3 % (0.0-13.0); NEUTROPHILS % (AUTO) 78.2 % (42.0-75.0); PLATELET COUNT 201 X10^3/uL (150.0-450.0); RED BLOOD COUNT 2.72 X10^6/uL (3.5-5.4); RED CELL DISTRIBUTION WIDTH 19.1 % (11.6-16.5)
[2022-10-30 05:38] LABS: ALBUMIN 2.8 g/dL (3.4-5.0); CALCIUM 7.8 mg/dL (8.5-10.1); CARBON DIOXIDE 15.6 mmol/L (21-32); COR CA(FOR HYPOALB) 8.8 mg/dL (8.5-10.1); CREATININE 2.6 mg/dL (0.55-1.02); POTASSIUM 3.5 mmol/L (3.5-5.1); TOTAL PROTEIN 4.7 g/dL (6.4-8.2)
[2022-10-30] MEDS: MERREM VIAL 500 MG in NS 50 ML IV 50 ML IV SCH ×2 (08:14→20:28)
[2022-10-30] MEDS ORDERED: NS 100 ML IV 100 ML ONE (08:20)
[2022-10-30] MEDS: ALBUMIN HUMAN 25%- 100 ML 100 ML IV SCH (08:22)
[2022-10-30] MEDS: PROTONIX INJ 40 MG VIAL IVP SCH ×2 (08:24→20:28)
[2022-10-30] MEDS: DILAUDID INJ IVP PRN ×2 (08:35→13:34)
[2022-10-30] MEDS: PEPCID 20 MG VIAL 20 MG in NS 50 ML IV 50 ML IV SCH (10:30)
--- NOTE | 2022-10-30 12:30 | PCM.PROG ---
Progress Note - Progress Note for Day of Date of Exam: 10/30/22 - Subjective Subjective: IS A 87 YEAR OLD PATIENT OF OURS WHO IS CURRENTLY INPATIENT STATUS FOR TREATMENT OF ACUTE PANCREATITIS, ILEUS, DEHISCED VENTRAL HERNIA, INFECTED SACRAL DECUBITUS ULCER, ACUTE ON CHRONIC RENAL INSUFFICIENCY, HYPERNATREMIA, ANEMIA, LEUKOCYTOSIS, AND NECROTIC RIGHT FIRST AND SECOND TOE. 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 THERE IS MESH EXPOSED TO THE ABDOMEN. OTHER PMH INCLUDES HTN, CAD, DM II, HYPERLIPDEMIA, ARTHRITIS, SLEEP APNEA, LOOP ILEOSTOMY OF LLQ, HERNIA REPAIR X 2, PACEMAKER, ANGIOPLASTY/STENTS, APPENDECTOMY, AND TUBAL. SHE IS DAY 10 POST OP ARTERIOGRAM OF THE RIGHT LEG WITH LIMITED DYE, ATHERECTOMY, AND BALLOON ANGIOPLASTY RIGHT PERONEAL ARTERY. SHE RECEIVED TWO UNITS OF PACKED RED BLOOD CELLS ON 10/22/22. ON MORNING ROUNDS, PATIENT IS LYING IN BED WITH EYES CLOSED ON MORNING ROUNDS. SHE IS DIFFUCULT TO AROUSE, BUT DOES MOAN TO PAINFUL STIMULATION. DAUGHTER IS AT BEDSIDE AND REPORTS THAT PATIENTS PAIN SEEMS TO BE BETTER SINCE THE CHANGES WE MADE YESTERDAY. SHE REPORTS THAT SHE IS NOT MOANING OUT MUCH. ON EXAMINATION, HEART IS REGULAR IN RATE AND RHYTHM. BILATERAL LUNGS ARE NOTED WITH RHONCHI AND DIMINISHED LUNG SOUNDS THROUGHOUT. ABDOMINAL WOUND WITH PACKING NOTED. BOWEL SOUNDS ARE HYPOACTIVE IN ALL QUADRANTS. THERE IS A GASCA CATHETER NOTED TO BEDSIDE DRAINAGE. DIFFUSE UPPER AND LOWER EXTREMITY MUSCLE ATROPHY AND WEAKNESS NOTED. HER VITALS THIS MORNING ARE: 98.3-90-12-100%-121/61. SHE IS CURRENTLY UTILIZING OXYGEN VIA NASAL CANNULA AT 2 LPM. LABS WERE OBTAINED. WBC 14.0, RBC 2.72, HGB 7.8, HCT 23.8, PLT COUNT 201, SODIUM 141, POTASSIUM 3.5, CHLORIDE 114, BUN 51, CREATININE 2.60, GLUCOSE 132, CALCIUM 7.8, TOTAL BILIRUBIN 1.50, AST 13, ALT 7, ALK PHOS 54, TOTAL PROTEIN 4.7, ALBUMIN 2.8. SACRAL ULCER IS POSITIVE FOR GROWTH OF PSEUDOMONAS AERUGINOSA. ABDOMINAL WOUND CULTURE IS POSITIVE FOR GROWTH OF E.COLI. SHE IS CURRENTLY RECEIVING D5 NORMAL SALINE AT 75 ML/HR, MEROPENEM 500MG Q12H, ALBUMIN 25% IV DAILY, PEPCID 20MG IV Q12H, PROTONIX 40MG IV Q12H, ZOFRAN 4MG IV Q4H PRN, PHENERGAN 25MG IM Q4H PRN, OTBS ACHS, HUMULIN R SLIDING SCALE, NYSTATIN CREAM TID PRN, SANTYL OINTMENT DAILY, DILAUDID 2MG IV Q4H PRN, MORPHINE 4MG IV Q2H PRN, VERSED 2MG IV Q2H PRN, DURAGESIC 100MCG/HR PATCH. WE DISCUSSED PATIENTS CURRENT STATE AND POOR PROGNOSIS AGAIN WITH HER DAUGHTER. FAMILY WISHES TO CON TINUE WITH CURRENT PLAN OF CARE FOR NOW. GENERAL/VASCULAR SURGEON WILL CONTINUE TO MONITOR PATIENT WELL. OTHERWISE, WE WILL FOLLOW-UP WITH AM LABS AND CONTINUE TO MONITOR. TIME SPENT ON CLINICAL ASSESSMENT, REVIEWING LABS AND IMAGING, DECISION MAKING, AND DOCUMENTATION GREATER THAN 45 MINUTES. - Past Medical Family Social History Past Med/Fam/Surg Hx: No changes since H&P Allergies: Allergies prochlorperazine [From Compazine] Allergy (Unknown, Verified 07/11/22 19:19) Reason: Drug allergy tramadol Allergy (Verified 07/11/22 19:19) - Review of Systems ROS: No change since H&P - Vital Signs and I&O's Vital Signs: Temperature 98.5 F Pulse Rate [Left Radial] 82 Pulse Rate 81 Respiratory Rate 7 Blood Pressure [Right Arm] 142/66 Blood Pressure [Left Arm] 136/60 Blood Pressure [Right Arm] 169/74 Blood Pressure [Left Arm] 178/79 Blood Pressure 108/52 O2 Sat by Pulse Oximetry 100 Intake and Output: Intake & Output 10/28/22 10/29/22 10/30/22 10/31/22 11:59 11:59 11:59 11:59 Intake Total 2093 / 4 2058 / 2058 222 / 2221 Output Total 1150 / 1150 425 / 425 260 / 260 Balance 944 / 944 1634 / 1634 1960 - Physical Exam Oriented: Unable to test. negative: Normal, Time, Person, Place Eyes: Normal Ear: Normal Nose: Normal Throat: Normal Respiratory: Diminished Cardiovascular: Normal (paced), Other (Palpable femoral pulses bilaterally . Biphasic right popliteal artery Doppler signal. Both feet arew cool and neithe r foot has a palpable pulse. Monophasic flow in the right posterior tibial artery. 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 Mesh and invloved cecum resected and has loop ileostomy. Had wound of abdomen open now being packed daily. Has stage II decubitus to left inner buttocks.) Musculoskeletal: Normal Psychiatric: Other (patient with dementia) Mood Description: Labile Affect: Depressed Speech Pattern: Unclear - Laboratory and Diagnostics Result Diagrams: 10/30/22 04:20 10/30/22 04:20 Labs: 10/16/22 18:15 Blood Blood Culture - Final 10/20/22 16:08 Urine,Catheterized Urine Culture - Final 10/16/22 21:24 Buttock Wound Gram Stain - Final 10/16/22 21:24 Buttock Wound Culture - Final Pseudomonas Aeruginosa 10/16/22 19:44 Urine,Catheterized Urine Culture - Final 10/16/22 21:24 Abdomen Wound Gram Stain - Final 10/16/22 21:24 Abdomen Wound Culture - Final Escherichia Coli Laboratory WBC 14.0 X10^3/uL (3.6-10.0) H 10/30/22 04:20 RBC 2.72 X10^6/uL (3.5-5.4) L 10/30/22 04:20 Hgb 7.8 g/dL (12.0-16.0) L 10/30/22 04:20 Hct 23.8 % (36.0-47.0) L 10/30/22 04:20 MCV 87.3 fL (80.0-100.0) 10/30/22 04:20 MCH 28.6 pg (27.0-34.0) 10/30/22 04:20 MCHC 32.8 g/dL (33.0-35.0) L 10/30/22 04:20 RDW 19.1 % (11.6-16.5) H 10/30/22 04:20 Plt Count 201 X10^3/uL (150.0-450.0) 10/30/22 04:20 Plt Count Comment Decreased (ADEQUATE) A 10/25/22 04:15 MPV 9.9 fL (7.4-11.0) 10/30/22 04:20 Neut % (Auto) 78.2 % (42.0-75.0) H 10/30/22 04:20 Lymph % (Auto) 9.4 % (21.0-51.0) L 10/30/22 04:20 [place] % (Auto) 11.3 % (0.0-13.0) 10/30/22 04:20 Eos % (Auto) 0.7 % (0.9-2.9) L 10/30/22 04:20 Baso % (Auto) 0.4 % (0.2-1.0) 10/30/22 04:20 Neut # (Auto) 11.0 x10^3/uL (2.2-4.8) H 10/30/22 04:20 Lymph # (Auto) 1.3 X10^3/uL (1.3-2.9) 10/30/22 04:20 [place] # (Auto) 1.6 x10^3/uL (0.3-0.8) H 10/30/22 04:20 Eos # (Auto) 0.1 x10^3/uL (0.0-0.2) 10/30/22 04:20 Baso # (Auto) 0.1 X10^3/uL (0.0-0.1) 10/30/22 04:20 Absolute Nucleated RBC 0.0 /100WBC 10/30/22 04:20 Total Counted 100 10/25/22 04:15 Neutrophils % (Manual) 84 % (39-76) H 10/25/22 04:15 Band Neutrophils % 2 % (0-10) 10/25/22 04:15 Lymphocytes % (Manual) 5 % (13-43) L 10/25/22 04:15 Monocytes % (Manual) 8 % (4-9) 10/25/22 04:15 Eosinophils % (Manual) 1 % (0-6) 10/25/22 04:15 Plt Morphology Comment Normal (NORMAL) 10/25/22 04:15 RBC Morphology Abnormal (NORMAL) A 10/25/22 04:15 Hypochromasia Slight A 10/25/22 04:15 Anisocytosis Slight A 10/25/22 04:15 Target Cells Slight A 10/25/22 04:15 Ovalocytes Present 10/23/22 03:34 Agustin Cells 1+ A 10/25/22 04:15 Rouleaux Present 10/22/22 04:30 Schistocytes Slight A 10/25/22 04:15 Sodium 141 mmol/L (136-145) 10/30/22 04:20 Corrected Sodium 142 mmol/L (136-145) 10/30/22 04:20 Potassium 3.5 mmol/L (3.5-5.1) 10/30/22 04:20 Chloride 114 mmol/L (98-107) H 10/30/22 04:20 Carbon Dioxide 15.6 mmol/L (21-32) L 10/30/22 04:20 BUN 51 mg/dL (7-18) H 10/30/22 04:20 Creatinine 2.60 mg/dL (0.55-1.02) H 10/30/22 04:20 Est GFR (MDRD) Af Amer 22 (>60) L 10/30/22 04:20 Est GFR (MDRD) Non-Af 18 (>60) L 10/30/22 04:20 Glucose 132 mg/dL (65-99) H 10/30/22 04:20 POC Glucose (mg/dL) 126 mg/dL (65-99) H 10/30/22 05:37 Lactic Acid 1.0 mmol/L (0.4-2.0) 10/20/22 04:18 Calcium 7.8 mg/dL (8.5-10.1) L 10/30/22 04:20 Corrected Calcium 8.8 mg/dL (8.5-10.1) 10/30/22 04:20 Magnesium 2.2 mg/dL (2.0-2.9) 10/26/22 04:30 Total Bilirubin 1.50 mg/dL (0.2-1.0) H 10/30/22 04:20 AST 13 Units/L (15-37) L 10/30/22 04:20 ALT 7 Units/L (12-78) L 10/30/22 04:20 Alkaline Phosphatase 54 Units/L (46-116) 10/30/22 04:20 Total Protein 4.7 g/dL (6.4-8.2) L 10/30/22 04:20 Albumin 2.8 g/dL (3.4-5.0) L 10/30/22 04:20 Globulin 1.9 g/dL (2.5-4.5) L 10/30/22 04:20 Albumin/Globulin Ratio 1.5 Ratio (1.1-2.1) 10/30/22 04:20 Lipase 166 Units/L (73-393) 10/27/22 04:20 Vitamin B12 941 pg/mL (193-986) 10/26/22 04:30 Folate 2.1 ng/mL (>8.6) L 10/26/22 04:30 Specimen Type Catherized urine 10/20/22 16:08 Urine Color Straw (YELLOW) 10/20/22 16:08 Urine Appearance Cloudy (CLEAR) 10/20/22 16:08 Urine pH 5.0 (5.0 - 8.0) 10/20/22 16:08 Ur Specific [place] 1.020 (1.000-1.030) 10/20/22 16:08 Urine Protein 3+ (NEGATIVE) 10/20/22 16:08 Urine Glucose (UA) Negative (NEGATIVE) 10/20/22 16:08 Urine Ketones Negative (NEGATIVE) 10/20/22 16:08 Urine Blood 4+ (NEGATIVE) 10/20/22 16:08 Urine Nitrite Negative (NEGATIVE) 10/20/22 16:08 Urine Bilirubin Negative (NEGATIVE) 10/20/22 16:08 Urine Urobilinogen Normal (NORMAL) 10/20/22 16:08 Ur Leukocyte Esterase 3+ (NEGATIVE) 10/20/22 16:08 Urine RBC 5-10 /HPF (0-3) A 10/20/22 16:08 Urine WBC Tntc /HPF (0-5) A 10/20/22 16:08 Ur Squamous Epith Cells Rare /HPF (NEGATIVE) 10/20/22 16:08 Urine Bacteria 1+ /HPF (NEGATIVE) 10/20/22 16:08 Urine Mucus Few /HPF (NEGATIVE) 10/20/22 16:08 Urine Yeast Few /HPF (NEGATIVE) 10/20/22 16:08 Ur Culture Indicated? Yes/culture set up 10/20/22 16:08 Stl Occult Blood (IFOB) Positive (NEGATIVE) A 10/26/22 17:25 Blood Type B POSITIVE 10/22/22 09:13 Antibody Screen Negative 10/22/22 09:13 Crossmatch See Detail 10/22/22 09:13 - Plan (1) Acute pancreatitis Status: Acute Qualifiers: Acute pancreatitis complication: unspecified Plan: D5 NORMAL SALINE AT 75 ML/HR, MEROPENEM 500MG Q12H, ALBUMIN 25% IV DAILY, PEPCID 20MG IV Q12H, PROTONIX 40MG IV Q12H, ZOFRAN 4MG IV Q4H PRN, PHENERGAN 25MG IM Q4H PRN, OTBS ACHS, HUMULIN R SLIDING SCALE, NYSTATIN CREAM TID PRN, SANTYL OINTMENT DAILY, DILAUDID 2MG IV Q4H PRN, DURAGESIC 100MCG/HR PATCH, MORPHINE 4MG IV Q2H PRN, VERSED 2MG IV Q2H PRN (2) Ileus Status: Acute (3) Hernia, ventral Status: Chronic Qualifiers: Obstruction and gangrene presence: without obstruction or gangrene Qualified Code(s): K43.9 - Ventral hernia without obstruction or gangrene (4) Acute on chronic renal insufficiency Status: Acute (5) PVD (peripheral vascular disease) Status: Acute (6) Anemia Status: Acute Qualifiers: Anemia type: due to chronic kidney disease Chronic kidney disease stage: unspecified stage Qualified Code(s): N18.9 - Chronic kidney disease, unspecified; D63.1 - Anemia in chronic kidney disease Plan: Check Hemoccult, vitamin B12 level and folate level. Patient is on GI protection with Protonix 40 mg IV twice daily and IV Pepcid. (7) Leukocytosis Status: Acute Qualifiers: Leukocytosis type: unspecified Qualified Code(s): D72.829 - Elevated white blood cell count, unspecified (8) Hypernatremia Status: Acute (9) Protein calorie malnutrition Status: Acute Qualifiers: Protein-calorie malnutrition severity: mild Qualified Code(s): E44.1 - Mild protein-calorie malnutrition (10) Hypoalbuminemia Status: Acute Plan: Encouraged patient to take oral intake. Supplement patient's diet with nutritional drinks such as Ensure.
[2022-10-30] MEDS: ISOPTO ATROPINE SL PRN (13:26)
[2022-10-30] MEDS: SNACK - Diabetic Appropriate PO SCH (19:07)
[2022-10-31] MEDS: D5 1/2 NS 1,000 ML 1,000 ML IV SCH ×3 (00:40→18:24)
[2022-10-31 05:47] LABS: BASOPHILS % (AUTO) 0.3 % (0.2-1.0); EOSINOPHILS # (AUTO) 0.2 x10^3/uL (0.0-0.2); EOSINOPHILS % (AUTO) 1.5 % (0.9-2.9); HEMATOCRIT 22.1 % (36.0-47.0); HEMOGLOBIN 7.2 g/dL (12.0-16.0); LYMPHOCYTES # (AUTO) 0.9 X10^3/uL (1.3-2.9); LYMPHOCYTES % (AUTO) 7.2 % (21.0-51.0); MEAN CORPUSCULAR HEMOGLOBIN 28.5 pg (27.0-34.0); MEAN CORPUSCULAR HGB CONC 32.5 g/dL (33.0-35.0); MEAN CORPUSCULAR VOLUME 87.9 fL (80.0-100.0); MONOCYTES % (AUTO) 8.1 % (0.0-13.0); NEUTROPHILS % (AUTO) 82.9 % (42.0-75.0); PLATELET COUNT 185 X10^3/uL (150.0-450.0); RED BLOOD COUNT 2.52 X10^6/uL (3.5-5.4); RED CELL DISTRIBUTION WIDTH 19.7 % (11.6-16.5)
[2022-10-31 06:14] LABS: ALANINE AMINOTRANSFERASE 7 Units/L (12-78); ALBUMIN 2.5 g/dL (3.4-5.0); ALKALINE PHOSPHATASE 66 Units/L (46-116); ASPARTATE AMINO TRANSFERASE 12 Units/L (15-37); BLOOD UREA NITROGEN 51 mg/dL (7-18); CALCIUM 7.7 mg/dL (8.5-10.1); CARBON DIOXIDE 16.3 mmol/L (21-32); COR CA(FOR HYPOALB) 8.9 mg/dL (8.5-10.1); CREATININE 2.93 mg/dL (0.55-1.02); GLUCOSE 87 mg/dL (65-99); POTASSIUM 3.5 mmol/L (3.5-5.1); SODIUM 142 mmol/L (136-145); TOTAL PROTEIN 4.3 g/dL (6.4-8.2); eGFR NON BLACK RACES 16 (>60)
[2022-10-31 06:30] LABS: CHLORIDE 116 mmol/L (98-107)
[2022-10-31] MEDS: PROTONIX INJ 40 MG VIAL IVP SCH (08:12)
[2022-10-31] MEDS: ALBUMIN HUMAN 25%- 100 ML 100 ML IV SCH (08:13)
[2022-10-31] MEDS: PEPCID 20 MG VIAL 20 MG in NS 50 ML IV 50 ML IV SCH (08:46)
[2022-10-31] MEDS: MERREM VIAL 500 MG in NS 50 ML IV 50 ML IV SCH (09:16)
[2022-10-31] MEDS ORDERED: MORPHINE SULFATE INJ 4 MG IVP PRN ×2 (09:32→09:41)
[2022-10-31] MEDS: ISOPTO ATROPINE SL PRN (10:33)
[2022-10-31] MEDS: MORPHINE SULFATE PCA 30 MG IV SCH ×13 (11:47→23:56)
[2022-10-31] MEDS ORDERED: VERSED ONE (15:31)
[2022-10-31] MEDS: VERSED 50 MG in NS 50 ML IV 40 ML IV PRN ×2 (15:47→23:29)
[2022-10-31 16:06] VITALS: TEMP 97.6
[2022-11-01] MEDS: MORPHINE SULFATE PCA 30 MG IV SCH ×8 (01:30→09:21)
[2022-11-01 09:24] VITALS: BP 48/29; O2SAT 96
[2022-11-01 10:56] VITALS: PULSE 0
--- NOTE | 2022-11-03 09:19 | PCM.PROG ---
Progress Note - Progress Note for Day of Date of Exam: 10/31/22 - Subjective Subjective: IS A 87 YEAR OLD PATIENT OF OURS WHO IS CURRENTLY INPATIENT STATUS FOR TREATMENT OF ACUTE PANCREATITIS, ILEUS, DEHISCED VENTRAL HERNIA, INFECTED SACRAL DECUBITUS ULCER, ACUTE ON CHRONIC RENAL INSUFFICIENCY, HYPERNATREMIA, ANEMIA, LEUKOCYTOSIS, AND NECROTIC RIGHT FIRST AND SECOND TOE. 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 THERE IS MESH EXPOSED TO THE ABDOMEN. OTHER PMH INCLUDES HTN, CAD, DM II, HYPERLIPDEMIA, ARTHRITIS, SLEEP APNEA, LOOP ILEOSTOMY OF LLQ, HERNIA REPAIR X 2, PACEMAKER, ANGIOPLASTY/STENTS, APPENDECTOMY, AND TUBAL. SHE IS DAY 11 POST OP ARTERIOGRAM OF THE RIGHT LEG WITH LIMITED DYE, ATHERECTOMY, AND BALLOON ANGIOPLASTY RIGHT PERONEAL ARTERY. SHE RECEIVED TWO UNITS OF PACKED RED BLOOD CELLS ON 10/22/22. ON MORNING ROUNDS, PATIENT IS LYING IN BED WITH EYES CLOSED ON MORNING ROUNDS. ON EXAMINATION, HEART IS REGULAR IN RATE AND RHYTHM. HER BREATHING DOES APPEAR TO BE MORE LABORED THIS MORNING. BILATERAL LUNGS ARE NOTED WITH RHONCHI AND DIMINISHED LUNG SOUNDS THROUGHOUT. ABDOMINAL WOUND WITH PACKING NOTED. BOWEL SOUNDS ARE HYPOACTIVE IN ALL QUADRANTS. THERE IS A GASCA CATHETER NOTED TO BEDSIDE DRAINAGE. DIFFUSE UPPER AND LOWER EXTREMITY MUSCLE ATROPHY NOTED. HER VITALS THIS MORNING ARE: 98.1-101-37-100%-133/74. SHE IS CURRENTLY UTILIZING OXYGEN VIA NASAL CANNULA AT 2 LPM. LABS WERE OBTAINED. WBC 12.0, RBC 2.52, HGB 7.2, HCT 22.1, PLT COUNT 185, SODIUM 142, POTASSIUM 3.5, CHLORIDE 116, CARBON DIOXIDE 16.3, BUN 51, CREATININE 2.93, GLUCOSE 87, CALCIUM 7.7, TOTAL BILI 1.20, AST 12, ALT 7, ALK PHOS 66, TOTAL PROTEIN 4.3, ALBUMIN 2.5. SACRAL ULCER IS POSITIVE FOR GROWTH OF PSEUDOMONAS AERUGINOSA. ABDOMINAL WOUND CULTURE IS POSITIVE FOR GROWTH OF E.COLI. SHE IS CURRENTLY RECEIVING D5 NORMAL SALINE AT 75 ML/HR, MEROPENEM 500MG Q12H, ALBUMIN 25% IV DAILY, PEPCID 20MG IV Q12H, PROTONIX 40MG IV Q12H, ZOFRAN 4MG IV Q4H PRN, PHENERGAN 25MG IM Q4H PRN, OTBS ACHS, HUMULIN R SLIDING SCALE, NYSTATIN CREAM TID PRN, SANTYL OINTMENT DAILY, DILAUDID 2MG IV Q4H PRN, MORPHINE 4MG IV Q2H PRN, VERSED 2MG IV Q2H PRN, DURAGESIC 100MCG/HR PATCH. WE DISCUSSED PATIENTS CURRENT STATE AND POOR PROGNOSIS AGAIN WITH HER DAUGHTERS. FAMILY WISHES FOR PATIENT TO BE COMFORT CARE STATUS ONLY. WE WILL DISCONTINUE HER CURRENT TREATMENTS AND ONLY ADMINISTER MORPHINE 5MG/HR DRIP AND VERSED 5MG/HR DRIP. OTHERWISE, WE WILL CONTINUE TO MONITOR AND MAKE ADJUSTMENTS TO MEDICATIONS NECESSARY. TIME SPENT ON CLINICAL ASSESSMENT, REVIEWING LABS AND IMAGING, DECISION MAKING, AND DOCUMENTATION GREATER THAN 45 MINUTES. - Past Medical Family Social History Past Med/Fam/Surg Hx: No changes since H&P Allergies: Allergies prochlorperazine [From Compazine] Allergy (Unknown, Verified 07/11/22 19:19) Reason: Drug allergy tramadol Allergy (Verified 07/11/22 19:19) - Review of Systems ROS: No change since H&P - Vital Signs and I&O's Intake and Output: Intake & Output 10/31/22 11/01/22 11/02/22 11/03/22 11:59 11:59 11:59 11:59 Intake Total 2260 / 2260 2045 / 2045 Output Total 250 / 250 145 / 145 Balance 2009 / 1900 - Physical Exam Oriented: Unable to test. negative: Normal, Time, Person, Place Eyes: Normal Ear: Normal Nose: Normal Throat: Normal Respiratory: Diminished Cardiovascular: Normal (paced), Other (Palpable femoral pulses bilaterally . Biphasic right popliteal artery Doppler signal. Both feet arew cool and neither foot has a palpable pulse. Monophasic flow in the right posterior tibial artery. 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 Mesh and invloved cecum resected and has loop ileostomy. Had wound of abdomen open now being packed daily. Has stage II decubitus to left inner buttocks.) Musculoskeletal: Normal Psychiatric: Other (patient with dementia) Mood Description: Labile Affect: Depressed Speech Pattern: Aphasic - Laboratory and Diagnostics Result Diagrams: 10/31/22 04:20 10/31/22 04:20 Labs: 10/16/22 18:15 Blood Blood Culture - Final 10/20/22 16:08 Urine,Catheterized Urine Culture - Final 10/16/22 21:24 Buttock Wound Gram Stain - Final 10/16/22 21:24 Buttock Wound Culture - Final Pseudomonas Aeruginosa 10/16/22 19:44 Urine,Catheterized Urine Culture - Final 10/16/22 21:24 Abdomen Wound Gram Stain - Final 10/16/22 21:24 Abdomen Wound Culture - Final Escherichia Coli Laboratory WBC 12.0 X10^3/uL (3.6-10.0) H 10/31/22 04:20 RBC 2.52 X10^6/uL (3.5-5.4) L 10/31/22 04:20 Hgb 7.2 g/dL (12.0-16.0) L 10/31/22 04:20 Hct 22.1 % (36.0-47.0) L 10/31/22 04:20 MCV 87.9 fL (80.0-100.0) 10/31/22 04:20 MCH 28.5 pg (27.0-34.0) 10/31/22 04:20 MCHC 32.5 g/dL (33.0-35.0) L 10/31/22 04:20 RDW 19.7 % (11.6-16.5) H 10/31/22 04:20 Plt Count 185 X10^3/uL (150.0-450.0) 10/31/22 04:20 Plt Count Comment Decreased (ADEQUATE) A 10/25/22 04:15 MPV 10.0 fL (7.4-11.0) 10/31/22 04:20 Neut % (Auto) 82.9 % (42.0-75.0) H 10/31/22 04:20 Lymph % (Auto) 7.2 % (21.0-51.0) L 10/31/22 04:20 [place] % (Auto) 8.1 % (0.0-13.0) 10/31/22 04:20 Eos % (Auto) 1.5 % (0.9-2.9) 10/31/22 04:20 Baso % (Auto) 0.3 % (0.2-1.0) 10/31/22 04:20 Neut # (Auto) 10.0 x10^3/uL (2.2-4.8) H 10/31/22 04:20 Lymph # (Auto) 0.9 X10^3/uL (1.3-2.9) L 10/31/22 04:20 [place] # (Auto) 1.0 x10^3/uL (0.3-0.8) H 10/31/22 04:20 Eos # (Auto) 0.2 x10^3/uL (0.0-0.2) 10/31/22 04:20 Baso # (Auto) 0.0 X10^3/uL (0.0-0.1) 10/31/22 04:20 Absolute Nucleated RBC 0.0 /100WBC 10/31/22 04:20 Total Counted 100 10/25/22 04:15 Neutrophils % (Manual) 84 % (39-76) H 10/25/22 04:15 Band Neutrophils % 2 % (0-10) 10/25/22 04:15 Lymphocytes % (Manual) 5 % (13-43) L 10/25/22 04:15 Monocytes % (Manual) 8 % (4-9) 10/25/22 04:15 Eosinophils % (Manual) 1 % (0-6) 10/25/22 04:15 Plt Morphology Comment Normal (NORMAL) 10/25/22 04:15 RBC Morphology Abnormal (NORMAL) A 10/25/22 04:15 Hypochromasia Slight A 10/25/22 04:15 Anisocytosis Slight A 10/25/22 04:15 Target Cells Slight A 10/25/22 04:15 Ovalocytes Present 10/23/22 03:34 Agustin Cells 1+ A 10/25/22 04:15 Rouleaux Present 10/22/22 04:30 Schistocytes Slight A 10/25/22 04:15 Sodium 142 mmol/L (136-145) 10/31/22 04:20 Corrected Sodium TNP 10/31/22 04:20 Potassium 3.5 mmol/L (3.5-5.1) 10/31/22 04:20 Chloride 116 mmol/L (98-107) H* 10/31/22 04:20 Carbon Dioxide 16.3 mmol/L (21-32) L 10/31/22 04:20 BUN 51 mg/dL (7-18) H 10/31/22 04:20 Creatinine 2.93 mg/dL (0.55-1.02) H 10/31/22 04:20 Est GFR (MDRD) Af Amer 19 (>60) L 10/31/22 04:20 Est GFR (MDRD) Non-Af 16 (>60) L 10/31/22 04:20 Glucose 87 mg/dL (65-99) 10/31/22 04:20 POC Glucose (mg/dL) 80 mg/dL (65-99) 10/31/22 05:38 Lactic Acid 1.0 mmol/L (0.4-2.0) 10/20/22 04:18 Calcium 7.7 mg/dL (8.5-10.1) L 10/31/22 04:20 Corrected Calcium 8.9 mg/dL (8.5-10.1) 10/31/22 04:20 Magnesium 2.2 mg/dL (2.0-2.9) 10/26/22 04:30 Total Bilirubin 1.20 mg/dL (0.2-1.0) H 10/31/22 04:20 AST 12 Units/L (15-37) L 10/31/22 04:20 ALT 7 Units/L (12-78) L 10/31/22 04:20 Alkaline Phosphatase 66 Units/L (46-116) 10/31/22 04:20 Total Protein 4.3 g/dL (6.4-8.2) L 10/31/22 04:20 Albumin 2.5 g/dL (3.4-5.0) L 10/31/22 04:20 Globulin 1.8 g/dL (2.5-4.5) L 10/31/22 04:20 Albumin/Globulin Ratio 1.4 Ratio (1.1-2.1) 10/31/22 04:20 Lipase 166 Units/L (73-393) 10/27/22 04:20 Vitamin B12 941 pg/mL (193-986) 10/26/22 04:30 Folate 2.1 ng/mL (>8.6) L 10/26/22 04:30 Specimen Type Catherized urine 10/20/22 16:08 Urine Color Straw (YELLOW) 10/20/22 16:08 Urine Appearance Cloudy (CLEAR) 10/20/22 16:08 Urine pH 5.0 (5.0 - 8.0) 10/20/22 16:08 Ur Specific [place] 1.020 (1.000-1.030) 10/20/22 16:08 Urine Protein 3+ (NEGATIVE) 10/20/22 16:08 Urine Glucose (UA) Negative (NEGATIVE) 10/20/22 16:08 Urine Ketones Negative (NEGATIVE) 10/20/22 16:08 Urine Blood 4+ (NEGATIVE) 10/20/22 16:08 Urine Nitrite Negative (NEGATIVE) 10/20/22 16:08 Urine Bilirubin Negative (NEGATIVE) 10/20/22 16:08 Urine Urobilinogen Normal (NORMAL) 10/20/22 16:08 Ur Leukocyte Esterase 3+ (NEGATIVE) 10/20/22 16:08 Urine RBC 5-10 /HPF (0-3) A 10/20/22 16:08 Urine WBC Tntc /HPF (0-5) A 10/20/22 16:08 Ur Squamous Epith Cells Rare /HPF (NEGATIVE) 10/20/22 16:08 Urine Bacteria 1+ /HPF (NEGATIVE) 10/20/22 16:08 Urine Mucus Few /HPF (NEGATIVE) 10/20/22 16:08 Urine Yeast Few /HPF (NEGATIVE) 10/20/22 16:08 Ur Culture Indicated? Yes/culture set up 10/20/22 16:08 Stl Occult Blood (IFOB) Positive (NEGATIVE) A 10/26/22 17:25 Blood Type B POSITIVE 10/22/22 09:13 Antibody Screen Negative 10/22/22 09:13 Crossmatch See Detail 10/22/22 09:13 - Plan (1) Comfort measures only status Status: Acute Plan: MORPHINE 5MG/HR, VERSED 5MG/HR, MONITOR AND MAKE ADJUSTEMENTS NECESSARY. DISCONTINUE ALL OTHER MEDICATIONS AND TREATMENTS. (2) Acute pancreatitis Status: Acute Qualifiers: Acute pancreatitis complication: unspecified (3) Ileus Status: Acute (4) Hernia, ventral Status: Chronic Qualifiers: Obstruction and gangrene presence: without obstruction or gangrene Qualified Code(s): K43.9 - Ventral hernia without obstruction or gangrene (5) Acute on chronic renal insufficiency Status: Acute (6) PVD (peripheral vascular disease) Status: Acute (7) Anemia Status: Acute Qualifiers: Anemia type: due to chronic kidney disease Chronic kidney disease stage: unspecified stage Qualified Code(s): N18.9 - Chronic kidney disease, unspecified; D63.1 - Anemia in chronic kidney disease (8) Leukocytosis Status: Acute Qualifiers: Leukocytosis type: unspecified Qualified Code(s): D72.829 - Elevated white blood cell count, unspecified (9) Hypernatremia Status: Acute (10) Protein calorie malnutrition Status: Acute Qualifiers: Protein-calorie malnutrition severity: mild Qualified Code(s): E44.1 - Mild protein-calorie malnutrition (11) Hypoalbuminemia Status: Acute
== END 2022-11-01 12:28 | disposition expired | DRG 438 ==
LOC: ER 17:22 → ICU 21:45
PROVIDERS: ADMIT Internal Medicine; ATTEND Internal Medicine
DX: K92.1 Melena; B96.5 Pseudomonas (aeruginosa) (mallei) (pseudomallei) as the cause of diseases classified elsewhere; B96.29 Other Escherichia coli [E. coli] as the cause of diseases classified elsewhere; N18.9 Chronic kidney disease, unspecified; Z66 Do not resuscitate; K43.9 Ventral hernia without obstruction or gangrene; E87.0 Hyperosmolality and hypernatremia; E87.5 Hyperkalemia; E11.22 Type 2 diabetes mellitus with diabetic chronic kidney disease; R94.31 Abnormal electrocardiogram [ECG] [EKG]; I12.9 Hypertensive chronic kidney disease with stage 1 through stage 4 chronic kidney disease, or unspecified chronic kidney disease; J96.00 Acute respiratory failure, unspecified whether with hypoxia or hypercapnia; E78.2 Mixed hyperlipidemia; E88.09 Other disorders of plasma-protein metabolism, not elsewhere classified; D63.1 Anemia in chronic kidney disease; R13.11 Dysphagia, oral phase; I25.10 Atherosclerotic heart disease of native coronary artery without angina pectoris; Z95.0 Presence of cardiac pacemaker; L89.322 Pressure ulcer of left buttock, stage 2; I73.89 Other specified peripheral vascular diseases; E11.65 Type 2 diabetes mellitus with hyperglycemia; K56.7 Ileus, unspecified; K85.80 Other acute pancreatitis without necrosis or infection; I70.261 Atherosclerosis of native arteries of extremities with gangrene, right leg; Z93.2 Ileostomy status; Z79.01 Long term (current) use of anticoagulants; Z51.5 Encounter for palliative care; N17.8 Other acute kidney failure